=== PATIENT | male | born 1970 | race Hispanic/Latino ===

== ENCOUNTER 2025-10-22 09:12 | Inpatient (IN) | payer SELFPAY ==
[2025-10-22] VITALS (19 sets, daily range): BP systolic 107–137; BP diastolic 53–79; PULSE 109–125; RESP 16–20; TEMP 97.5–99.5; O2SAT 96–97
[~2025-10-22] VITALS: Ht 170.2 cm; Wt 86.6 kg
--- NOTE | 2025-10-22 09:34 | ERN ---
General Chief Complaint: Hip Pain/Injury Stated Complaint: HIP PAIN Time Seen by MD: 09:15 Source: patient History of Present Illness Initial Comments Mr French, 55M came to ED with severe right-sided hip pain since 2 weeks. He reports pain started spontaneously after he woke up 2 weeks back and has been progressing since then, reports pain 12/10, impaired ambulation, mildly reduced by Advil. He reports he had an appointment with chiropractor 1 week later but came to the ED due to severe pain and need for imaging. He reports no trauma/surgery/fever. He denies intravenous drug use but reports occasional alcohol and marijuana use. Timing/Duration: getting worse Severity: severe Associated Symptoms: denies symptoms Allergies: Coded Allergies: No Known Allergies (Verified Allergy, 11/13/13) Past Medical History Past Medical History: No Pertinent History Past Surgical History: None Constitutional: (-) chills, (-) diaphoresis, (-) fever, (-) malaise, (-) weakne ss, (-) other documentation EENTM: (-) eye pain, (-) blurred vision, (-) tearing, (-) double vision, (-) e ar pain, (-) ear discharge, (-) nose pain, (-) nose congestion, (-) throat pain, (-) Throat swelling, (-) mouth pain, (-) tooth pain, (-) mouth swelling, (-) other documentation Respiratory: (-) cough, (-) orthopnea, (-) short of breath, (-) stridor, (-) wheezing, (-) other documentation Cardiovascular: (-) chest pain, (-) edema, (-) palpitations, (-) syncope, (-) dyspnea on exertion, (-) other documentation Gastrointestinal/Abdominal: (-) nausea, (-) vomiting, (-) diarrhea, (-) abdominal pain, (-) abdominal distention, (-) constipation, (-) rectal bleeding, (-) dark stool/melena, (-) other documentation Genitourinary: (-) penile discharge, (-) dysuria, (-) frequency, (-) hematuria, (-) pain, (-) other documentation Musculoskeletal: (+) muscle pain Skin: (+) change in color (right lateral thigh) Neuro: (-) altered mental status, (-) headache, (-) syncope, (-) paralysis, (-) numbness, (-) seizure, (-) pre-existing deficit, (-) tremors, (-) weakness, (-) dizziness, (-) slurred speech, (-) vertigo, (-) other documentation Psych: (-) depression, (-) suicidal ideation, (-) anxiety, (-) emotional problems, (-) auditory hallucinations, (-) visual hallucinations Hematologic/Lymphatic: (-) anemia, (-) blood clots, (-) easy bleeding, (-) easy bruising, (-) swollen glands, (-) other documentation Immunological/Allergic: (-) food allergy, (-) grass allergy, (-) mold allergy, (-) pollen allergy, (-) HIV/AIDS, (-) transplant, (-) othe documentation Review of Systems: was completed, & the rest were negative. Results Laboratory and Microbiology Lab and Micro Result MDM Differential diagnosis: Possible abscess/hematoma, mild thrombocytopenia, elevated creatinine The patient came to the ED with severe right lateral hip pain since 2 weeks In the ED we ordered ultrasound soft tissue right lateral thigh which showed fluid collection 8.5* 7.2 *7.3 We ordered CBC, BMP The patient received Rocephin 1 g, Norflex and [id number] mg IV The patient meets the criteria for inpatient admission and will be admitted in the hospital under hospitalist care ED Course Vital Signs Date Time Temp Pulse Resp B/P (MAP) Pulse Ox O2 Delivery O2 Flow Rate FiO2 10/22/25 09:12 97.9 113 20 114/70 95 DX & DISP Disposition: Inpatient Decision to Admit Time: 11:39 Departure Impression: Primary Impression: Abscess of right thigh Critical Time: 30 minutes Condition: Stable Referrals: SELF,REFERRAL (PCP) MAKENZIE CROSS MD Oct 22, 2025 09:34 ROME SMITH MD Oct 22, 2025 11:39
[2025-10-22] MEDS: ORPHENADRINE 60MG/2ML IM ONE (09:45)
[2025-10-22 09:51] LABS: NUCLEATED RED BLOOD CELLS 0.0 % (0.0-0.19); PLATELET COUNT (AUTO) 115.0 K/uL (130-400); RED BLOOD CELL COUNT(AUTO) 3.48 MIL/uL (4.50-6.20); RED CELL DISTRIBUTION WIDTH 14.0 % (11.0-15.5); WHITE BLOOD COUNT (AUTO) 9.9 K/uL (4.8-10.8)
--- NOTE | 2025-10-22 10:22 | HMCIMG ---
EXAM: Lower Extremity Nonvascular Soft Tissue Ultrasound CLINICAL HISTORY: Hip Pain TECHNIQUE: Real-time ultrasound scan of the right lower extremity with image documentation. COMPARISON: None provided. FINDINGS: SOFT TISSUES: Fluid collection measuring 8.5 x 7.2 x 7.3 cm in the right lateral hip region, in the deep subcutaneous plane, beneath the region of pain and redness. IMPRESSION: Fluid collection measuring 8.5 x 7.2 x 7.3 cm in the right lateral hip region, beneath the region of pain and redness, suggestive of an abscess. /[place]
[2025-10-22 10:34] LABS: CREATININE 1.5 mg/dL (0.5-1.3); GLOMERULAR FILTR. RATE CALC 54.0 mL/min (>90); GLUCOSE,RANDOM 275.0 mg/dL (70-105); SODIUM SERUM 129.0 mmol/L (136-145); UREA NITROGEN, BLOOD 22.0 mg/dL (7-18)
[2025-10-22] MEDS ORDERED: VANCOMYCIN PROTOCOL PER PHARMACY IV SCH (11:00)
--- NOTE | 2025-10-22 11:11 | EKG ---
[facility] Test Date: 2025-10-22 Test Time: 11:02:45 Pat Name: DEMETRICE SANCHEZ Department: [facility] Room: ED Gender: M [employer] Internship: [id number] : 1970 Requested By: GIA ENAMORADO Order Number: [id number] Reading MD: Francis Solomon Measurements Intervals Index Rate: 103 P: 12 GA: 150 QRS: 90 QRSD: 109 T: 37 QT: 368 QTc: 482 Interpretive Statements Sinus tachycardia No previous ECG available for comparison Electronically Signed On 10-22-2025 13:17:24 CHILD PSYCHOLOGIST by Francis Solomon Please click the below link to view image of tracing.
[2025-10-22] MEDS: 0.9%NACL 1000ML 1,000 ML IV SCH ×2 (11:24→22:30)
--- NOTE | 2025-10-22 11:26 | HP ---
[facility] PHYSICAL Date of Service: Oct 22, 2025 Time of Service: 11:14 HISTORY OF PRESENT ILLNESS: This is a 55-year-old male with no significant past medical history who presented to the hospital secondary to right hip pain. States his symptoms have been ongoing for the past two weeks. He noted some swelling in the right inner thigh on the anterior thigh. The small nodule started getting bigger and he was having pain with ambulation. He has been using crutches at home to walk. 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 Denied any cuts or scrapes to the inner thigh. Denied any fever, chills, chest pain, shortness of breath, abdominal pain, nausea, vomiting. Denied any changes to his bowel movement. He has been taking Advil at home. He did not take any antibiotics at home. Denied any history of diabetes. Labs were notable for white count of 9.9, hemoglobin was 12.2, MCV was 100.9, platelet count was 115 K, sodium was 129, potassium was 3.8, chloride was 95, b icarb was , creatinine was 1.5, blood glucose was 275, calcium was 8.0 Patient underwent a ultrasound of the right inner thigh which showed fluid collection measuring 8.5 x 7.2 x 7.3 cm in the right lateral hip region. This was concerning For abscess General surgery was consulted by ER provider. REVIEW OF SYSTEMS CONSTITUTIONAL: Denies fevers, chills, or night sweats. No unintentional weight loss reported. NEUROLOGICAL: Denies headache, amaurosis fugax, motor weakness, sensory deficit, vertigo/spinning sensation, gait abnormalities, or tremors. ENT: No hearing loss, otalgia, otorrhea, rhinitis, rhinorrhea, hoarseness, or sore throat. CARDIOVASCULAR: Denies any exertional angina, dyspnea on exertion, orthopnea, paroxysmal nocturnal dyspnea, palpitations, life-threatening arrhythmias, claudication. PULMONARY: Denies any shortness of breath, cough, phlegm/sputum, hemoptysis, pleuritic chest pain. SLEEP: Denies morning headaches, daytime somnolence or napping. Denies difficulty falling asleep, staying asleep, waking from sleep. Denies knowledge of snoring. GASTROINTESTINAL: Denies any type of dysphagia to either liquids or solids. Denies nausea, vomiting, pyrosis, early satiety, abdominal pain, diarrhea, constipation, or changes in stool consistency or caliber. Denies coffee-ground emesis, hematemesis, hematochezia, or melanotic stools. GENITOURINARY: Denies frequency, urgency, nocturia, hematuria or incontinence (Storage/Irritative symptoms.) Low urinary stream, straining to void, urinary intermittency or hesitancy, splitting of the voiding stream, terminal dribbling. ENDOCRINOLOGIC: Denies polyuria, polydipsia, polyphagia or heat/cold intolerances. HEMATOLOGIC: Denies thrombophilia/previous clots, or coagulopathy/bleeding disorders. ONCOLOGIC: Denies personal history of malignancy. DERMATOLOGIC: POSITIVE FOR REDNESS AND SWELLING IN THE RIGHT INNER THIGH PSYCHIATRIC: Denies any suicidal or homicidal ideation. Denies hallucinations. Musculoskeletal: Positive for pain in the right inner thigh PAST MEDICAL HISTORY: No Significant past medical history PAST SURGICAL HISTORY: Denied any previous surgical history PAST SOCIAL HISTORY: He smokes marijuana occasionally. Also drinks six pack every weekend for at least five years. Denied any tobacco use, IV drug use FAMILY HISTORY: Denied any pertinent family history Coded Allergies: No Known Allergies (Verified Allergy, 11/13/13) PHYSICAL EXAM GENERAL APPEARANCE: The patient is awake, alert, and oriented, in no acute card iopulmonary distress. NEUROLOGICAL: Cranial nerves II-XII grossly intact. Motor is 5/5 in bilateral upper and lower extremities proximal to distal. No sensory deficits. HEENT: Face is symmetric. Pupils are equal and reactive. Extraocular movements are intact. NECK: Supple. No JVD. No thyromegaly. No submental, submandibular, pre- /postauricular, occipital or supraclavicular lymphadenopathy. CHEST: Normal chest expansion. No Telemetry. LUNGS: Absence of any rales, rhonchi or any wheezing. CARDIOVASCULAR: Regular. S1 and S2 normal. No appreciable rubs, murmurs or gallops. ABDOMEN: Soft, nontender, and nondistended. There is no rebound, voluntary guarding, or rigidity. : Deferred. No Taylor. EXTREMITIES: Non-edematous and not cyanotic. No clubbing. Good capillary refill. SKIN: There is redness on the right lateral aspect of the hip. There is induration and swelling noted in the right inner thigh. Area is tender to palpation Vital Sign (Last 24 Hours) 10/22/25 11:00 Temp 98.1 Pulse 105 Resp 12 B/P (MAP) 119/69 Pulse Ox 95 O2 Delivery Room Air* O2 Flow Rate 0 FiO2 21 LABS: Laboratory: Test 10/22/25 09:43 Range/Units White Blood Count 9.9 4.8-10.8 K/uL Red Blood Count 3.48 L 4.50-6.20 MIL/uL Hemoglobin 12.2 L 14.0-18.0 g/dL Hematocrit 35.1 L 42-54 % Mean Corpuscular Volume 100.9 H 79-99 fL Mean Corpuscular Hemoglobin 35.1 H 27.0-33.0 pg Mean Corpuscular Hemoglobin Concent 34.8 32.0-36.0 g/dL Red Cell Distribution Width 14.0 11.0-15.5 % Platelet Count 115 L 130-400 K/uL Mean Platelet Volume 10.2 7.5-10.5 fL Nucleated Red Blood Cells 0.0 0.0-0.19 % Sodium Level 129 L 136-145 mmol/L Potassium Level 3.8 3.5-5.1 mmol/L Chloride Level 95 L 101-111 mmol/L Carbon Dioxide Level 21 21-32 mmol/L Blood Urea Nitrogen 22 H 7-18 mg/dL Creatinine 1.5 H 0.5-1.3 mg/dL Glomerular Filtration Rate Calc 54 >90 mL/min Random Glucose 275 H 70-105 mg/dL Total Calcium 8.0 L 8.5-10.1 mg/dL Current Medications Medications (Trade) Dose Ordered Sig/Denise Route PRN Reason Start Time Stop Time Status Last Admin Dose Admin Acetaminophen (TYLenol 500MG TAB) 500 mg Q6H PRN PO MILD PAIN (1-3) 10/22/25 11:00 11/21/25 10:59 Enoxaparin Sodium (Lovenox) 40 mg DAILY SQ 10/23/25 09:00 11/22/25 08:59 Famotidine (Pepcid 20mg Vial) 20 mg BID IV 10/22/25 21:00 11/21/25 20:59 Hydromorphone HCl (DiLAUDid 0.5MG INJ) 0.25 mg Q6H PRN IVP SEVERE PAIN (7-10) 10/22/25 11:00 10/27/25 10:59 Insulin Human Regular (humuLIN R 100 UNIT/ML 3ML) INSULIN SLIDING SCAL... Q6H6 SQ 10/22/25 12:00 11/21/25 11:59 Sodium Chloride 1,000 ml @ 100 mls/hr Q10H IV 10/22/25 11:00 11/21/25 10:59 Vancomycin HCl (Vancomycin Protocol) 1 each AD IV 10/22/25 11:00 11/05/25 10:59 UNV DIAGNOSTICS / RADIOLOGY: [ ] ASSESSMENT: Right inner thighs swelling concerning for possible abscess differential abscess versus hematoma History of alcohol use Mild hyponatremia Acute kidney injury Mild thrombocytopenia Dehydration Elevated LFTs Severe hypoalbuminemia secondary to protein calorie malnutrition Hyperglycemia secondary to suspected uncontrolled diabetes mellitus type 2 History of marijuana use PLAN: - patient to be admitted to medical-surgical unit with telemetry -in reference to right inner thigh swelling with fluid collection. Patient will be started on vancomycin, cefepime and Flagyl. We will also obtain a CT hip and right lower extremity. We will request consultation with General surgery. We will also obtain ID consultation. -patient to be started on NS for gentle hydration -check TSH, hemoglobin A1c -obtain a liver ultrasound -obtain home medications which will be reconciled once available -check procalcitonin, CRP -obtain a blood ketone and UA. Obtain a renal ultrasound - start patient on Sliding scale insulin -further orders per hospitalization course. Advanced Care Planning Which of the following were discussed: Hospice care: Yes __ No x_ Therapeutic options: Yes __ No __ Advance directives: Yes __ No __ Other discussions: Discussed with who?: patient (Patient, family or surrogates) Voluntary nature of this service was explained to the patient? Yes _x_ No __ Amount of time spent: 25 minutes GIA Potter MD, MD Oct 22, 2025 11:26
[2025-10-22 11:33] LABS: INR 1.21 (0.85-1.15)
[2025-10-22 11:39] LABS: ASPARTATE AMINOTRANSFERASE 92.0 U/L (10-37); TOTAL PROTEIN, SERUM 7.8 g/dL (6.0-8.3)
[2025-10-22] MEDS: VANCOMYCIN 2GM/500 ML BAG 500 ML IV ONE (12:51)
--- NOTE | 2025-10-22 13:08 | HMCIMG ---
EXAM: CT Pelvis without Intravenous Contrast. CLINICAL HISTORY: right hip pain TECHNIQUE: Axial computed tomography images of the pelvis without without intravenous contrast. CONTRAST: None. COMPARISON: None provided. FINDINGS: HIP JOINTS: No dislocation. The joint spaces are normal. BONES: No acute fracture or focal osseous lesion. No suspicious focal osseous lesions. SOFT TISSUES: The right gluteal musculature appears asymmetrically enlarged and heterogeneous raising concern for myositis and an intramuscular collection (hematoma or abscess). There is edema within the overlying soft tissues and thickening of the overlying skin suggesting contusion versus cellulitis, clinical correlation is advised. IMPRESSION: 1. Right gluteal musculature enlargement and heterogeneity, concerning for myositis and intramuscular collection (hematoma or abscess). Overlying soft tissue edema and skin thickening, suggestive of contusion versus cellulitis. Clinical correlation is advised, and if warranted recommend contrast-enhanced MR imaging of the pelvis for further evaluation. 2. No acute fracture or dislocation. /[place]
--- NOTE | 2025-10-22 13:10 | HMCIMG ---
EXAM: CT right hip and femur, without IV contrast CLINICAL HISTORY: Right thigh abscess. TECHNIQUE: Axial images were acquired through the right femur without intravenous contrast. Reformatted images were reviewed. COMPARISON: Ultrasound soft tissue lower extremity dated 10/22/2025 10:54 EST. FINDINGS: BONES: No acute fracture is noted. No lytic or blastic osseous lesion is identified. Femoral head contour is preserved. JOINTS: No hip joint dislocation or subluxation is seen. No CT evidence of septic arthritis or significant hip joint effusion on this non-contrast study. SOFT TISSUES: A large complex fluid collection is present along the course of the right tensor fascia bruce, measuring approximately 9.7 x 4.5 x 4.8 cm, extending into the trochanteric bursa region and superficially into the deep subcutaneous planes of the proximal anterior, anterolateral, and posterolateral thigh, with surrounding soft tissue stranding compatible with extensive cellulitis. Posteriorly, the collection extends along the fascial planes of the gluteus medius, with an additional collection measuring approximately 8.4 x 8.0 cm located between the gluteus jaci and gluteus medius muscles and extending within the gluteus medius muscle belly, consistent with a deep intramuscular and peribursal abscess. No radiopaque foreign body or soft tissue gas is identified. IMPRESSION: * Large multiloculated fluid collections centered along the right tensor fascia bruce and trochanteric bursa region with extension into the deep subcutaneous tissues of the proximal thigh, and additional 8.4 x 8.0 cm collection between and within the right gluteus medius and jaci muscles, consistent with extensive peritrochanteric and gluteal intramuscular abscesses with overlying cellulitis. * No acute fracture, aggressive osseous lesion, or CT evidence of septic arthritis of the right hip on this non-contrast examination. /[place]
[2025-10-22 13:27] LABS: APPEARANCE,URINE CLOUDY (CLEAR); GLUCOSE, URINE (UA) 50 mg/dL (NEGATIVE); LEUKOCYTE ESTERASE ,URINE 500 Leu/uL (NEGATIVE); NITRATE,URINE NEGATIVE (NEGATIVE); OCCULT BLOOD,URINE LARGE (NEGATIVE)
[2025-10-22 13:30] LABS: CREATININE,URINE RANDOM 136.93 mg/dL (30-135)
--- NOTE | 2025-10-22 13:30 | HMCIMG ---
EXAM: US Retroperitoneum, Renal. CLINICAL HISTORY: tj TECHNIQUE: Real-time ultrasound of the retroperitoneum with image documentation. COMPARISON: None provided. FINDINGS: RIGHT KIDNEY: Normal in size and contour. It measures 9.7 x 5.4 x 5.5 cm. No renal mass or calculus. No hydronephrosis. LEFT KIDNEY: Normal in size and contour. It measures 11.2 x 5.4 x 4.5 cm. No renal mass or calculus. No hydronephrosis. BLADDER: Unremarkable as visualized. The urinary bladder wall thickness is 3 mm. MISCELLANEOUS: Increase in the intestinal air. No other significant abnormality is evident. IMPRESSION: 1. No acute renal or retroperitoneal findings. /[place]
[2025-10-22 13:33] LABS: ADD UA MICROSCOPIC YES
[2025-10-22 13:34] LABS: AMPHET/METH SCREEN,URINE NEGATIVE (NEGATIVE); BARBITURATE SCREEN, URINE NEGATIVE (NEGATIVE); CANNABINOID SCREEN,URINE POSITIVE (NEGATIVE); COCAINE SCREEN,URINE NEGATIVE (NEGATIVE)
[2025-10-22 13:51] LABS: SQUAMOUS EPITHELIAL CELL,UR RARE /HPF (0-2)
--- NOTE | 2025-10-22 14:05 | NUR ---
TRIED CALLING REPORT AND SPOKE TO REMY BRODERICK, STATED SHE IS IN ANOTHER PATIENTS ROOM AND WOULD CALL ME BACK IN 15 MIN, PATIENT RESTING IN BED, CALL LIGHT IN REACH
--- NOTE | 2025-10-22 14:17 | NUR ---
DCP:HOME Pt currently lives at home with his . Pt denies having any DME, home health, or provider services. Pt states that he is able to complete ADLs independently. Pt does not have a PCP, SW provided pt with a list of community resources. At DC pt will want to go home and family can assist with transportation.
--- NOTE | 2025-10-22 18:59 | CONS ---
CONSULT NOTE: REQUESTING PHYSICIAN: Dr. Gamboa REASON FOR CONSULT: Right hip pain HISTORY OF PRESENT ILLNESS: Mr French, 55M came to ED with severe right-sided hip pain for 2 weeks. He reports pain started spontaneously after he woke up 2 weeks back and has been progressing since then, reports pain 12/10, impaired ambulation, mildly reduced by Advil. He reports he had an appointment with chiropractor 1 week later but came to the ED due to severe pain and need for imaging. He reports no trauma/surgery/fever. He denies intravenous drug use but reports occasional alcohol and marijuana use. The patient was evaluated in the emergency room and he was found to have noncontrolled diabetes but the patient was unaware of it as well as the presence of what seems to be an abscess in the lateral aspect of the right hip. We were consulted for further medical/s urgical treatment Past medical history: Patient is not aware that he was diabetic Past Surgical History: None No known drug allergies. Social history: The patient denies use of tobacco but he does smokes marijuana at least once a week and drinks one six pack of beer a weekend. Denies use of cocaine or injecting anything into his body. Review of Systems Constitutional: (-) chills, (-) diaphoresis, (-) fever, (-) malaise, (-) weakness, (-) other documentation EENTM: (-) eye pain, (-) blurred vision, (-) tearing, (-) double vision, (-) ear pain, (-) ear discharge, (-) nose pain, (-) nose congestion, (-) throat pain, (-) Throat swelling, (-) mouth pain, (-) tooth pain, (-) mouth swelling, (-) other documentation Respiratory: (-) cough, (-) orthopnea, (-) short of breath, (-) stridor, (-) wheezing, (-) other documentation Cardiovascular: (-) chest pain, (-) edema, (-) palpitations, (-) syncope, (-) dyspnea on exertion, (-) other documentation Gastrointestinal/Abdominal: (-) nausea, (-) vomiting, (-) diarrhea, (-) abdominal pain, (-) abdominal distention, (-) constipation, (-) rectal bleeding, (-) dark stool/melena, (-) other documentation Genitourinary: (-) penile discharge, (-) dysuria, (-) frequency, (-) hematuria, (-) pain, (-) other documentation Musculoskeletal: (+) muscle pain Skin: (+) change in color (right lateral thigh) Neuro: (-) altered mental status, (-) headache, (-) syncope, (-) paralysis, (-) numbness, (-) seizure, (-) pre-existing deficit, (-) tremors, (-) weakness, (-) dizziness, (-) slurred speech, (-) vertigo, (-) other documentation Psych: (-) depression, (-) suicidal ideation, (-) anxiety, (-) emotional problems, (-) auditory hallucinations, (-) visual hallucinations Hematologic/Lymphatic: (-) anemia, (-) blood clots, (-) easy bleeding, (-) easy bruising, (-) swollen glands, (-) other documentation Immunological/Allergic: (-) food allergy, (-) grass allergy, (-) mold allergy, (-) pollen allergy, (-) HIV/AIDS, (-) transplant, (-) othe documentation Review of Systems: was completed, & the rest were negative. Physical exam: On physical examination the patient is awake, alert and oriented x3 but in severe distress secondary to pain in the right hip area. Musculoskeletal assessment shows the presence of a right hip gluteal and trochanteric area with significant swelling and redness and tension in the area. I do not feel any fluctuant mass. The redness extends to the anterior aspect of the groin but he has not pain with range of motion of the hip. I do not palpate any lymph nodes. The distal neurovascular exam is normal. Radiologic studies: The patient has a CT scan of the pelvic area as well as the right hip that shows the presence of soft tissue swelling of the subcutaneous area and possible axis of the gluteus muscle. Assessment: Right hip trochanteric/gluteus abscess. Plan: The patient will be admitted and taken to the operating room for an I and D of the affected area in the right hip. Irrigation and excisional debridement with a possible wound over drains or packing with a wound VAC. The plan is to follow-up with a 2nd I and D in 2-3 days. The patient understands the need for the procedure and agrees to sign the consent form. VANESSA OJEDA MD Oct 22, 2025 18:58
[2025-10-22] MEDS ORDERED: LIDOCAINE PF 100MG/5ML (2%) SYRINGE 5ML ONE (20:24)
[2025-10-22] MEDS ORDERED: SUCCINYLCHOLINE CHLORIDE 20 MG/ML 10 ML VIAL ONE (20:26)
[2025-10-22] MEDS ORDERED: MIDAZOLAM HCL 1 MG/ML 2ML VIAL ONE (20:27)
[2025-10-22] MEDS ORDERED: GLYCOPYRROLATE 0.2 MG/ML 5 ML VIAL ONE (21:54)
[2025-10-22] MEDS ORDERED: NEOSTIGMINE METHYLSULFATE 1MG/ML IV ONE (21:54)
--- NOTE | 2025-10-22 22:07 | OP ---
Operative Note: DATE OF PROCEDURE: 10/22/25 SURGEON: VANESSA OJEDA MD [employer] REPAIRER: [Freddy Linares CFA] ANESTHESIA: [General anesthesia] ANESTHESIOLOGIST/DIRECTOR TRIAL: [Andre Aviles CRNA] PREOPERATIVE DIAGNOSIS: [Right hip pertrochanteric subcutaneous abscess] POSTOPERATIVE DIAGNOSIS: [Right hip intramuscular abscess involving the tensor fascia bruce with the extension to the posterior deep hip space] PROCEDURE: [Right hip incision and drainage of intramuscular abscess, excisional debridement and irrigation and temporary closure over drains] ESTIMATED BLOOD LOSS: [250 mL] INDICATIONS: [The patient is a 55-year-old male with a history of couple of weeks with the pain to the right hip area that progressing to redness and swelling. The patient was admitted to the medical service with a diagnosis of a possible hip abscess. CT scan reflects this. The patient is brought to the operating room for an incision and drainage procedure that he understood, risks, benefits and possible complications and agreed to sign the consent form] DESCRIPTION OF PROCEDURE: [After adequate general anesthesia was achieved the p atient was placed in the left lateral decubitus the right lower extremity prepped and draped then in the usual manner. The area of the right hip has a an induration and redness and we proceeded to make a longitudinal incision going from a proximally the tip of the greater trochanter down the shaft of the femur going through the skin and then the subcutaneous tissue was opened which was noted to be extremely swollen but no purulence. Then we proceeded to open the tensor fascia bruce and this produced significant amount of purulent material which tracked down the proximal thigh and then after elevation noted that also tracked to the deep posterior compartment of the hip were large amount of purulent material was aspirated. The muscle of the tensor fascia bruce proximally was noted to be slightly necrotic including the fascia and we proceeded to trim some of this and use the curette to remove some of the muscle. Cultures were sent to the lab. After all the purulent material was drained and we did a sharp debridement of necrotic tissue we proceeded then to irrigate the wound with 6 L of antibiotic solution containing Ancef using jet lavage. After the irrigation was completed we proceeded then to reapproximate the tensor fascia bruce with interrupted sutures with the 1. Prolene and then the skin was approximated with a 2. Nylon sutures in a vertical mattress fashion. Previous with the closure two small incisions were carried down proximally through the skin and then two JOSEFINA drains were passed through this incisions position one along the tensor fascia bruce then the through the thigh and the other one through the posterior compartment. The drains were secured with 3-0 nylon sutures to the skin. Xeroform, 4x4s and ABDs were applied and secured with a through the skin and the drains were connected to suction. The patient was then transferred to his bed and taken to recovery room for follow-up by anesthesia after being awakened and extubated. There were no complications with the procedure.] VANESSA OJEDA MD Oct 22, 2025 22:07
[2025-10-22] MEDS ORDERED: HYDROcodone/APAP 5/325 1 TAB TABLET PO PRN (22:30)
[2025-10-22] MEDS ORDERED: FERROUS FUMARATE 324 MG TABLET PO PRN (22:30)
[2025-10-22] MEDS ORDERED: CALCIUM CARB 500MG PO PRN (22:30)
[2025-10-23] VITALS (11 sets, daily range): BP systolic 93–119; BP diastolic 44–72; PULSE 85–113; RESP 16–18; TEMP 98–98.6; O2SAT 98
[2025-10-23] MEDS: FAMOTIDINE 20MG VIAL IV SCH (01:09)
[2025-10-23 06:43] LABS: CREATININE 1.5 mg/dL (0.5-1.3); GLOMERULAR FILTR. RATE CALC 54.0 mL/min (>90); GLUCOSE,RANDOM 236.0 mg/dL (70-105); SODIUM SERUM 134.0 mmol/L (136-145); UREA NITROGEN, BLOOD 24.0 mg/dL (7-18)
[2025-10-23 06:46] LABS: INR 1.35 (0.85-1.15)
[2025-10-23 07:18] LABS: IMMATURE GRANULOCYTE ABSOLUTE 0.09 K/uL (0-1); NUCLEATED RED BLOOD CELLS 0.0 % (0.0-0.19); PLATELET COUNT (AUTO) 100 K/uL (130-400); RED BLOOD CELL COUNT(AUTO) 2.72 MIL/uL (4.50-6.20); RED CELL DISTRIBUTION WIDTH 14.5 % (11.0-15.5); WHITE BLOOD COUNT (AUTO) 11.2 K/uL (4.8-10.8)
--- NOTE | 2025-10-23 08:36 | PN ---
Postop day 1. Status post I and D of gluteal muscles abscess with closure over drains Vital signs stable. The patient has a longer being febrile. Adequate pain control. Has not requested pain medication since coming to the room. Drain output with 100 mL of serosanguineous material. Dressing intact. Drain is intact. Mild edema of the thigh as expected and distal neurovascular exam is normal. Assessment: Status post intramuscular abscess tensor fascia bruce area with the expansion into the posterior hip deep space. Plan: I antibiotics as per ID. G stains positive for gram-positive cocci in pairs and in cluster, final ID pending I have asked the nurse to call physical therapist that the patient can be assisted to ambulate with the use of a walker, weight-bearing as tolerated and to try to sit in the chair for a while. Continue with incentive spirometry exercises. Continue with the anticoagulation and I plan to take him back to the OR on morning. Vitals/Labs Vital Signs Date Time Temp Pulse Resp B/P (MAP) Pulse Ox O2 Delivery O2 Flow Rate FiO2 10/23/25 04:55 98.2 89 17 94/55 96 Nasal Cannula 2.0 24 Laboratory Tests 10/22/25 09:43 10/23/25 06:28 10/23/25 06:59 Microbiology Date/Time Source Procedure Growth Status 10/22/25 13:14 Urine,Clean Catch - Final Complete Medications Current Medications Orphenadrine Citrate 60 mg ONCE ONCE IM Last administered on 10/22/25at 09:45; Start 10/22/25 at 09:30; Stop 10/22/25 at 09:35; Status DC Ketorolac Tromethamine 15 mg ONCE ONCE IM Last administered on 10/22/25at 09:45; Start 10/22/25 at 09:30; Stop 10/22/25 at 09:35; Status DC Ceftriaxone Sodium 1 gm ONCE ONCE IVPB Last administered on 10/22/25at 10:53; Start 10/22/25 at 10:30; Stop 10/22/25 at 10:36; Status DC Enoxaparin Sodium 40 mg DAILY SQ; Start 10/23/25 at 09:00; Stop 11/22/25 at 08:59 Famotidine 20 mg BID IV Last administered on 10/23/25at 01:09; Start 10/22/25 at 21:00; Stop 11/21/25 at 20:59 Sodium Chloride 1,000 ml @ 100 mls/hr Q10H IV Last administered on 10/23/25at 07:44; Start 10/22/25 at 11:00; Stop 11/21/25 at 10:59 Vancomycin HCl 1 each AD IV; Start 10/22/25 at 11:00; Stop 11/05/25 at 10:59 Hydromorphone HCl 0.25 mg Q6H PRN IVP Last administered on 10/22/25at 15:16; Start 10/22/25 at 11:00; Stop 10/27/25 at 10:59 Acetaminophen 500 mg Q6H PRN PO; Start 10/22/25 at 11:00; Stop 11/21/25 at 10:59 Insulin Human Regular INSULIN SLIDING SCAL... Q6H6 SQ Last administered on 10/23/25at 05:03; Start 10/22/25 at 12:00; Stop 11/21/25 at 11:59 Vancomycin HCl 500 ml @ 250 mls/hr ONCE ONCE IV Last administered on 10/22/25at 12:51; Start 10/22/25 at 12:00; Stop 10/22/25 at 13:59; Status DC Cefepime HCl 1 gm Q12H IVPB Last administered on 10/23/25at 03:15; Start 10/22/25 at 15:00; Stop 11/01/25 at 14:59 Vancomycin HCl 250 ml @ 125 mls/hr Q24H IV; Start 10/23/25 at 12:00; Stop 11/02/25 at 11:59 Metronidazole/ Sodium Chloride 100 ml @ 100 mls/hr Q8H IVPB Last administered on 10/23/25at 01:09; Start 10/22/25 at 12:00; Stop 10/23/25 at 04:20; Status DC Lidocaine HCl 100 mg STK-MED ONCE .ROUTE; Start 10/22/25 at 20:24; Stop 10/22/25 at 20:25; Status DC Ketamine HCl 50 mg STK-MED ONCE .ROUTE; Start 10/22/25 at 20:25; Stop 10/22/25 at 20:25; Status DC Succinylcholine Chloride 200 mg STK-MED ONCE .ROUTE; Start 10/22/25 at 20:26; Stop 10/22/25 at 20:26; Status DC Propofol 200 mg STK-MED ONCE IV; Start 10/22/25 at 20:26; Stop 10/22/25 at 20:27; Status DC Midazolam HCl 2 mg STK-MED ONCE .ROUTE; Start 10/22/25 at 20:27; Stop 10/22/25 at 20:27; Status DC Rocuronium Sylvester 50 mg STK-MED ONCE .ROUTE; Start 10/22/25 at 20:27; Stop 10/22/25 at 20:27; Status DC Fentanyl Citrate 100 mcg STK-MED ONCE .ROUTE; Start 10/22/25 at 20:27; Stop 10/22/25 at 20:27; Status DC Cefazolin Sodium 1 gm STK-MED ONCE .ROUTE; Start 10/22/25 at 20:40; Stop 10/22/25 at 20:40; Status DC Ondansetron HCl 4 mg STK-MED ONCE .ROUTE; Start 10/22/25 at 21:54; Stop 10/22/25 at 21:54; Status DC Glycopyrrolate 1 mg STK-MED ONCE .ROUTE; Start 10/22/25 at 21:54; Stop 10/22/25 at 21:54; Status DC Neostigmine Methylsulfate 10 mg STK-MED ONCE IV; Start 10/22/25 at 21:54; Stop 10/22/25 at 21:54; Status DC Acetaminophen 100 ml @ As Directed STK-MED ONCE .ROUTE Last administered on 10/22/25at 22:12; Start 10/22/25 at 22:08; Stop 10/22/25 at 22:08; Status DC Ondansetron HCl 4 mg STK-MED ONCE .ROUTE Last administered on 10/22/25at 22:19; Start 10/22/25 at 22:13; Stop 10/22/25 at 22:13; Status DC Fentanyl Citrate 100 mcg STK-MED ONCE .ROUTE Last administered on 10/22/25at 22:19; Start 10/22/25 at 22:15; Stop 10/22/25 at 22:15; Status DC Fentanyl Citrate 100 mcg STK-MED ONCE .ROUTE Last administered on 10/22/25at 22:23; Start 10/22/25 at 22:21; Stop 10/22/25 at 22:21; Status DC Sodium Chloride 1,000 ml @ 100 mls/hr Q10H IV; Start 10/22/25 at 22:30; Stop 10/23/25 at 22:29 Polyethylene Glycol 17 gm DAILY PO; Start 10/23/25 at 09:00; Stop 11/22/25 at 08:59 Psyllium Hydrophilic Mucilloid 1 tbs DAILYLUNCH PO; Start 10/23/25 at 12:00; Stop 11/22/25 at 11:59 Bisacodyl 10 mg DAILY PRN PO; Start 10/24/25 at 22:30; Stop 11/23/25 at 22:29 Bisacodyl 10 mg DAILY PRN RC; Start 10/25/25 at 22:30; Stop 11/24/25 at 22:29 Ferrous Fumarate 324 mg DAILY PRN PO; Start 10/22/25 at 22:30; Stop 11/21/25 at 22:29 Calcium Carbonate 500 mg Q12H PRN PO; Start 10/22/25 at 22:30; Stop 11/21/25 at 22:29 Diphenhydramine HCl 25 mg Q6H PRN PO; Start 10/22/25 at 22:30; Stop 10/22/25 at 22:52; Status DC Diphenhydramine HCl 25 mg Q6H PRN IVP; Start 10/22/25 at 22:30; Stop 11/21/25 at 22:29 Acetaminophen/ Hydrocodone Bitart Q4H PRN PO; Start 10/22/25 at 22:30; Stop 10/22/25 at 22:54; Status DC Hydromorphone HCl 2 mg Q2H PRN IVP; Start 10/22/25 at 22:30; Stop 10/27/25 at 22:29 Acetaminophen/ Hydrocodone Bitart 1 tab Q6H PRN PO; Start 10/22/25 at 23:00; Stop 10/27/25 at 22:59 Acetaminophen/ Hydrocodone Bitart 1 tab Q6H PRN PO; Start 10/22/25 at 23:00; Stop 10/29/25 at 22:59 Metronidazole/ Sodium Chloride 100 ml @ 100 mls/hr Q8H IVPB; Start 10/23/25 at 09:00; Stop 11/02/25 at 08:59 VANESSA OJEDA MD Oct 23, 2025 08:36
[2025-10-23] MEDS: ENOXAPARIN SODIUM 40 MG/0.4 ML SYRINGE SQ SCH (09:53)
[2025-10-23] MEDS: HYDROcodone/APAP 5/325 1 TAB TABLET PO PRN (10:01)
[2025-10-23] MEDS: PSYLLIUM SEED 1 EACH PACKET PO SCH (12:00)
--- NOTE | 2025-10-23 12:20 | PN ---
[facility] PROGRESS NOTE Date of Service: Oct 23, 2025 Time of Service: 12:18 SUBJECTIVE: 10/23 patient remains admitted to the medical floor, comfortably in bed, the time of my visit alert oriented x3, getting IV fluids, IV antibiotics. Patient admitted secondary to right hip intramuscular abscess involving the tensor fascia bruce with the extension to the posterior deep high space, status post incision and drainage 10/22/2025. POD #1. Patient tolerated the procedure well. Currently hemodynamically stable, afebrile, saturating normal on room air. WBC of 11.2, hemoglobin 9.6, hematocrit 37.7, platelet count of 100. BUN of 24, creatinine 1.5. Continue the patient on broad-spectrum IV antibiotics, continue supportive care with IV fluids, continue to follow orthopedic input recommendation, follow results of cultures, adjust antibiotics accordingly. Infectious Disease consultation requested, we will follow input and recommendation. REVIEW OF SYSTEMS CONSTITUTIONAL: Denies fevers, chills, or night sweats. No unintentional weight loss reported. NEUROLOGICAL: Denies headache, amaurosis fugax, motor weakness, sensory deficit, vertigo/spinning sensation, gait abnormalities, or tremors. ENT: No hearing loss, otalgia, otorrhea, rhinitis, rhinorrhea, hoarseness, or sore throat. CARDIOVASCULAR: Denies any exertional angina, dyspnea on exertion, orthopnea, paroxysmal nocturnal dyspnea, palpitations, life-threatening arrhythmias, claudication. PULMONARY: Denies any shortness of breath, cough, phlegm/sputum, hemoptysis, pleuritic chest pain. SLEEP: Denies morning headaches, daytime somnolence or napping. Denies difficulty falling asleep, staying asleep, waking from sleep. Denies knowledge of snoring. GASTROINTESTINAL: Denies any type of dysphagia to either liquids or solids. Denies nausea, vomiting, pyrosis, early satiety, abdominal pain, diarrhea, constipation, or changes in stool consistency or caliber. Denies coffee-ground emesis, hematemesis, hematochezia, or melanotic stools. GENITOURINARY: Denies frequency, urgency, nocturia, hematuria or incontinence (Storage/Irritative symptoms.) Low urinary stream, straining to void, urinary intermittency or hesitancy, splitting of the voiding stream, terminal dribbling. ENDOCRINOLOGIC: Denies polyuria, polydipsia, polyphagia or heat/cold intolerances. HEMATOLOGIC: Denies thrombophilia/previous clots, or coagulopathy/bleeding diso rders. ONCOLOGIC: Denies personal history of malignancy. DERMATOLOGIC: POSITIVE FOR REDNESS AND SWELLING IN THE RIGHT INNER THIGH PSYCHIATRIC: Denies any suicidal or homicidal ideation. Denies hallucinations. Musculoskeletal: Positive for pain in the right inner thigh PHYSICAL EXAM GENERAL APPEARANCE: The patient is awake, alert, and oriented, in no acute cardiopulmonary distress. NEUROLOGICAL: Cranial nerves II-XII grossly intact. Motor is 5/5 in bilateral upper and lower extremities proximal to distal. No sensory deficits. HEENT: Face is symmetric. Pupils are equal and reactive. Extraocular movements are intact. NECK: Supple. No JVD. No thyromegaly. No submental, submandibular, pre- /postauricular, occipital or supraclavicular lymphadenopathy. CHEST: Normal chest expansion. No Telemetry. LUNGS: Absence of any rales, rhonchi or any wheezing. CARDIOVASCULAR: Regular. S1 and S2 normal. No appreciable rubs, murmurs or gallops. ABDOMEN: Soft, nontender, and nondistended. There is no rebound, voluntary guarding, or rigidity. : Deferred. No Taylor. EXTREMITIES: Non-edematous and not cyanotic. No clubbing. Good capillary refill. SKIN: There is redness on the right lateral aspect of the hip. There is induration and swelling noted in the right inner thigh. Area is tender to palpation Vital Signs (last 8hr) Date Time Temp Pulse Resp B/P (MAP) Pulse Ox O2 Delivery O2 Flow Rate FiO2 10/23/25 08:00 98.1 85 18 96/59 98 Nasal Cannula 2.0 10/23/25 04:55 98.2 89 17 94/55 96 Nasal Cannula 2.0 24 LABS: Laboratory: Test 10/23/25 10:54 10/23/25 06:59 10/23/25 06:28 10/22/25 15:58 Range/Units Whole Blood Glucose 252 H 70-110 MG/DL White Blood Count 11.2 H 4.8-10.8 K/uL Red Blood Count 2.72 #L 4.50-6.20 MIL/uL Hemoglobin 9.6 #L 14.0-18.0 g/dL Hematocrit 27.7 #L 42-54 % Mean Corpuscular Volume 101.8 H 79-99 fL Mean Corpuscular Hemoglobin 35.3 H 27.0-33.0 pg Mean Corpuscular Hemoglobin Concent 34.7 32.0-36.0 g/dL Red Cell Distribution Width 14.5 11.0-15.5 % Platelet Count 100 L 130-400 K/uL Mean Platelet Volume 9.9 7.5-10.5 fL Immature Granulocyte % (Auto) 0.8 0-1 % Neutrophils (%) (Auto) 81.4 H 40.0-77.0 % Lymphocytes (%) (Auto) 10.3 L 21.0-51.0 % Monocytes (%) (Auto) 6.6 3.0-13.0 % Eosinophils (%) (Auto) 0.5 0.0-8.0 % Basophils (%) (Auto) 0.4 0.0-5.0 % Neutrophils # (Auto) 9.1 H 1.8-7.7 K/uL Lymphocytes # (Auto) 1.2 1.0-4.8 K/uL Monocytes # (Auto) 0.7 0.1-1.0 K/uL Eosinophils # (Auto) 0.06 0.00-0.70 K/uL Basophils # (Auto) 0.04 0.00-0.20 K/uL Absolute Immature Granulocyte (auto 0.09 0-1 K/uL Nucleated Red Blood Cells 0.0 0.0-0.19 % Prothrombin Time 13.9 H 9.6-11.6 SEC Prothromb Time International Ratio 1.35 H 0.85-1.15 Sodium Level 134 L 136-145 mmol/L Potassium Level 4.1 3.5-5.1 mmol/L Chloride Level 103 101-111 mmol/L Carbon Dioxide Level 23 21-32 mmol/L Blood Urea Nitrogen 24 H 7-18 mg/dL Creatinine 1.5 H 0.5-1.3 mg/dL Glomerular Filtration Rate Calc 54 >90 mL/min Random Glucose 236 H 70-105 mg/dL Total Calcium 7.1 L 8.5-10.1 mg/dL Lactic Acid Level 1.9 0.8-2.5 mmol/L Test 10/22/25 13:14 10/22/25 12:08 10/22/25 09:43 Range/Units Urine Color DARK-YELLOW YELLOW Urine Appearance CLOUDY H CLEAR Urine pH 5.5 5.0-8.0 Urine Specific Bracey 1.019 1.001-1.031 Urine Protein 30 H NEGATIVE mg/dL Urine Glucose (UA) 50 H NEGATIVE mg/dL Urine Ketones NEGATIVE NEGATIVE mg/dL Urine Occult Blood LARGE H NEGATIVE Urine Nitrate NEGATIVE NEGATIVE Urine Bilirubin NEGATIVE NEGATIVE mg/dL Urine Urobilinogen >=8.0 H 0.2-1.0 mg/dL Urine Leukocyte Esterase 500 H NEGATIVE Christopher/uL Urine RBC TNTC H 0-1 /HPF Urine WBC TNTC H 0-1 /HPF Urine Squamous Epithelial Cells RARE 0-2 /HPF Urine Transitional Epithelial Cells RARE None Seen /HPF Urine Bacteria None None Seen /HPF Urine Random Creatinine 136.93 H 30-135 mg/dL Urine Random Sodium 18 L 40-220 mmol/l Urine Opiates Screen NEGATIVE NEGATIVE Urine Barbiturates Screen NEGATIVE NEGATIVE Urine Phencyclidine Screen NEGATIVE NEGATIVE Urine Amphetamines Screen NEGATIVE NEGATIVE Urine Benzodiazepines Screen NEGATIVE NEGATIVE Urine Cocaine Screen NEGATIVE NEGATIVE Urine Marijuana (THC) Screen POSITIVE H NEGATIVE Whole Blood Ketones Quantitative 0.2 0.0-0.6 mmol/L Activated Partial Thromboplast Time 26.7 26.3-35.5 SEC Hemoglobin A1c 7.9 H 4.0-6.0 % Estimated Average Glucose (eAG) 180 H 70-126 mg/dL Total Bilirubin 2.6 H 0.2-1.0 mg/dL Direct Bilirubin 1.6 H 0.0-0.3 mg/dL Aspartate Amino Transf (AST/SGOT) 92 H 10-37 U/L Alanine Aminotransferase (ALT/SGPT) 56 12-78 U/L Alkaline Phosphatase 143 H 50-136 U/L C-Reactive Protein, Quantitative 107.90 H 0.5-3.0 mg/L Total Protein 7.8 6.0-8.3 g/dL Albumin 1.8 L 3.5-5.0 g/dL Procalcitonin 0.94 H 0.05-0.5 ng/mL Thyroid Stimulating Hormone (TSH) 2.88 0.36-3.74 uIU/mL Current Medications Medications (Trade) Dose Ordered Sig/Denise Route PRN Reason Start Time Stop Time Status Last Admin Dose Admin Acetaminophen (TYLenol 500MG TAB) 500 mg Q6H PRN PO MILD PAIN (1-3) 12/8/25 11:00 11/21/25 10:59 Acetaminophen/ Hydrocodone Bitart (NORco 10) 1 tab Q6H PRN PO SEVERE PAIN (7-10) 10/22/25 23:00 10/29/25 22:59 Acetaminophen/ Hydrocodone Bitart (NORco 5/325MG) Q4H PRN PO MODERATE/SEVERE PAIN LEVEL 10/22/25 22:30 10/22/25 22:54 DC Acetaminophen/ Hydrocodone Bitart (NORco 5/325MG) 1 tab Q6H PRN PO MODERATE PAIN (4-6) 10/22/25 23:00 10/27/25 22:59 10/23/25 10:01 1 TAB Bisacodyl (DulcoLAX 5MG TAB) 10 mg DAILY PRN PO CONSTIPATION 10/24/25 22:30 11/23/25 22:29 Bisacodyl (DulcoLAX) 10 mg DAILY PRN RC CONSTIPATION 10/25/25 22:30 11/24/25 22:29 Calcium Carbonate (Oyster Shell Ca 500mg Tab) 500 mg Q12H PRN PO GIVE IF SERUM CA LESS THAN 8 10/22/25 22:30 11/21/25 22:29 Cefepime HCl (MAXipime 1 GM vial) 1 gm Q12H IVPB 10/22/25 15:00 11/01/25 14:59 10/23/25 03:15 1 GM Diphenhydramine HCl (BENAdryl CAP) 25 mg Q6H PRN PO ITCHING 10/22/25 22:30 10/22/25 22:52 DC Diphenhydramine HCl (BENAdryl INJ) 25 mg Q6H PRN IVP ITCHING 10/22/25 22:30 11/21/25 22:29 Enoxaparin Sodium (Lovenox) 40 mg DAILY SQ 10/23/25 09:00 11/22/25 08:59 10/23/25 09:53 40 MG Famotidine (Pepcid 20mg Vial) 20 mg BID IV 10/22/25 21:00 11/21/25 20:59 10/23/25 09:52 20 MG Ferrous Fumarate (Hemocyte) 324 mg DAILY PRN PO IF HEMOGLOBIN LESS THAN 9 10/22/25 22:30 11/21/25 22:29 Hydromorphone HCl (DiLAUDid 0.5MG INJ) 0.25 mg Q6H PRN IVP SEVERE PAIN (7-10) 10/22/25 11:00 10/27/25 10:59 10/22/25 15:16 0.25 MG Hydromorphone HCl (DiLAUDid 2MG INJ) 2 mg Q2H PRN IVP SEVERE PAIN (7-10) 10/22/25 22:30 10/27/25 22:29 Insulin Glargine (LANtus 100 UNITS/ML 10 ML VIAL) 10 units DAILY SQ 10/23/25 09:30 11/22/25 09:29 10/23/25 10:06 10 UNITS Insulin Human Regular (humuLIN R 100 UNIT/ML 3ML) INSULIN SLIDING SCAL... Q6H6 SQ 10/22/25 12:00 11/21/25 11:59 10/23/25 05:03 5 UNIT Metronidazole/ Sodium Chloride 100 ml @ 100 mls/hr Q8H IVPB 10/22/25 12:00 10/23/25 04:20 DC 10/23/25 01:09 100 MLS/HR Metronidazole/ Sodium Chloride 100 ml @ 100 mls/hr Q8H IVPB 10/23/25 09:00 11/02/25 08:59 10/23/25 09:52 100 MLS/HR Polyethylene Glycol (MIRalax 3350 17 GM POWD.PACK) 17 gm DAILY PO 10/23/25 09:00 11/22/25 08:59 10/23/25 09:51 17 GM Psyllium Hydrophilic Mucilloid (Metamucil) 1 tbs DAILYLUNCH PO 10/23/25 12:00 11/22/25 11:59 Sodium Chloride 1,000 ml @ 100 mls/hr Q10H IV 10/22/25 11:00 11/21/25 10:59 10/23/25 07:44 100 MLS/HR Sodium Chloride 1,000 ml @ 100 mls/hr Q10H IV 10/22/25 22:30 10/23/25 22:29 10/23/25 10:07 100 MLS/HR Vancomycin HCl 250 ml @ 125 mls/hr Q24H IV 10/23/25 12:00 11/02/25 11:59 Vancomycin HCl (Vancomycin Protocol) 1 each AD IV 10/22/25 11:00 11/05/25 10:59 DIAGNOSTICS / RADIOLOGY: [ ] ASSESSMENT: Right inner thighs swelling concerning for possible abscess differential abscess versus hematoma History of alcohol use Mild hyponatremia Acute kidney injury Mild thrombocytopenia Dehydration Elevated LFTs Severe hypoalbuminemia secondary to protein calorie malnutrition Hyperglycemia secondary to suspected uncontrolled diabetes mellitus type 2 History of marijuana use PLAN: patient remains admitted to the medical floor, comfortably in bed, the time of m y visit alert oriented x3, getting IV fluids, IV antibiotics. Patient admitted secondary to right hip intramuscular abscess involving the tensor fascia bruce with the extension to the posterior deep high space, status post incision and drainage 10/22/2025. POD #1. Patient tolerated the procedure well. Currently hemodynamically stable, afebrile, saturating normal on room air. WBC of 11.2, hemoglobin 9.6, hematocrit 37.7, platelet count of 100. BUN of 24, creatinine 1.5. Continue the patient on broad-spectrum IV antibiotics, continue supportive care with IV fluids, continue to follow orthopedic input recommendation, follow results of cultures, adjust antibiotics accordingly. Infectious Disease consultation requested, we will follow input and recommendation. NEURO: Minimize central acting medications as possible. Fall Precautions. Well lighted room through the day and minimize interruptions through the night to prevent acute delirium. PULMONARY: Supplemental 02 as needed BiPAP as necessary, for respiratory distress Titrate Fio2 to keep Spo2 > or = 90% DuoNebs and CPT as needed IS hourly while awake for pulmonary hygiene prn Out of bed to chair as tolerated Maintain aspiration precautions at all times CARDIOVASCULAR: Follow hemodynamics. Vital signs per facility protocol GI & NUTRITION: Continue nutritional support Aspirations precautions Prokinetic agents and laxatives as needed KIDNEYS & ELECTROLYTES: Strict monitoring of intake and output Daily weights Avoid nephrotoxic agents Monitor electrolytes and replace as needed Goal urine output of 30mL/hr or 0.5mL/kg/hr Medications to be dosed according to renal function. Avoid contrast if possible ENDOCRINE: Maintain blood glucose between 100-180 at all times. Insulin sliding scale for blood glucose management Hypoglycemia and hyperglycemia protocol in place INFECTIOUS DISEASE: Trend temperature, WBC and procalcitonin level Follow cultures, deescalate antibiotics as soon as possible. Panculture if new onset fever HEMATOLOGY & COAGULATION: Monitor H&H. Keep Hgb > 7 Transfuse 1 unit of PRBC for Hgb < 7 Transfuse 1 pack of platelets of platelets < 20, 000 Watch for any signs and symptoms of bleeding SKIN: Pressure ulcer prevention per facility protocol Specialty mattress as needed ORTHO/REHAB Continue PT/OT PRN: MEDICATIONS Tylenol 650 mg po every 4 hrs for fever zofran 4 mg IV every 6 hrs for n/v Hydralazine 5 mg IV every 4 hrs systolic pressure > 160 bowel regiment: lactulose 20 gm PO BID PRN constipation Supportive measures: Continue GI and DVT prophylaxis Disposition: Pending improvement in clinical condition All questions answered time spent: > 35 min RODRIGO BROCK MD Oct 23, 2025 12:20
[2025-10-23] MEDS: VANCOMYCIN 1.5 GM/250 ML BAG 250 ML IV SCH (13:22)
[2025-10-23 15:27] LABS: INR 1.33 (0.85-1.15)
--- NOTE | 2025-10-23 16:20 | PN ---
INFECTIOUS DISEASE PROGRESS NOTE Date of Service: Oct 23, 2025 SUBJECTIVE: This is a 55-year-old male patient with no significant past medical history. 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 Patient presented to the hospital with chief complaint of right hip pain and swelling. Reported symptoms started about two weeks ago. Stated that on Wednesday however he was having spasms and feeling a poking sensation on his right hip spreading down to the right thigh and pain on ambulation. He went to see a chiropractor thinking that it was related to his back and he was advised to see his physician to take x-rays. He could not get a sooner appointment than 2 weeks and by Wednesday the pain was unbearable and decided to come to the emergency room for evaluation. Patient denied falling or any trauma. Denied experiencing fever or chills. A soft tissue ultrasound of the right hip obtained on admission indicated fluid collection in the right lateral hip region, suggestive of an abscess. A CT of the right lower extremity showed collection between and within the right gluteus medius and jaci muscles, consistent with severe peritrochanteric and gluteal intramuscular abscesses. Orthopedic surgeon was consulted and patient underwent an incision and drainage with irrigation of right hip intramuscular abscess yesterday. On admission patient also had a positive urinalysis and the preliminary urine culture is Gram-positive cocci in clusters. Patient denied having any burning or frequent urination. Patient has been started on vancomycin, cefepime and metronidazole. We will follow up on the intraoperative culture results. Antibiotics to be adjusted if necessary when culture is updated or finalized. REVIEW OF SYSTEMS CONSTITUTIONAL: Denies fever, chills, or fatigue. HEAD/FACE: No signs of trauma. EENT: Denies eye pain, blurred vision, double vision, or light sensitivity. RESPIRATORY: Denies shortness of breath, cough, wheezing CARDIOVASCULAR: Denies chest pain, palpitation, syncope GASTROINTESTINAL/ABDOMINAL: Denies abdominal pain, constipation, diarrhea, nausea or vomiting GENITOURINARY: Denies dysuria or hematuria. MUSCULOSKELETAL: Right hip pain, POA. INTEGUMENTARY: Denies rash or itchiness NEUROLOGICAL/PSYCH: Denies anxiety, depression, heat or cold intolerance. PHYSICAL EXAM EYES: Anicteric. Pupils equal and reactive. HENT: No oral thrush seen, moist Oral mucosa NECK: Supple, no JVD or thyromegaly. LUNGS: Good air entry. No rales, no rhonchi. CARDIOVASCULAR: S1, S2 regular. No murmur heard. ABDOMEN: Soft, non tender, bowel sounds present. CENTRAL NERVOUS SYSTEM: Awake, alert, oriented x 3. SKIN: No rashes, no swelling. LYMPHATICS: No peripheral lymphadenopathy MUSCULOSKELETAL: No joint swelling, erythema or tenderness. EXTREMITIES: No cyanosis or clubbing. Right hip intramuscular abscess, s/p I&D. 2 JOSEFINA drains. BACK: No deformity, no pressure ulcer. GENITOURINARY: No dysuria or hematuria. Vital Sign (Last 12 Hours) 10/23/25 10/23/25 10/23/25 04:55 08:00 12:00 Temp 98.2 98.1 98.4 Pulse 89 85 93 Resp 17 18 18 B/P (MAP) 94/55 96/59 99/55 Pulse Ox 96 98 96 O2 Delivery Nasal Cannula Nasal Cannula Room Air O2 Flow Rate 2.0 2.0 FiO2 24 Intake & Output (last 24hrs) 10/22/25 10/22/25 10/23/25 15:00 23:00 07:00 Output Total 650 ml Balance -650 ml LABS: Laboratory: Test 10/23/25 16:03 10/23/25 15:00 10/23/25 06:59 10/23/25 06:28 Range/Units Whole Blood Glucose 301 H 70-110 MG/DL Prothrombin Time 13.7 H 9.6-11.6 SEC Prothromb Time International Ratio 1.33 H 0.85-1.15 White Blood Count 11.2 H 4.8-10.8 K/uL Red Blood Count 2.72 #L 4.50-6.20 MIL/uL Hemoglobin 9.6 #L 14.0-18.0 g/dL Hematocrit 27.7 #L 42-54 % Mean Corpuscular Volume 101.8 H 79-99 fL Mean Corpuscular Hemoglobin 35.3 H 27.0-33.0 pg Mean Corpuscular Hemoglobin Concent 34.7 32.0-36.0 g/dL Red Cell Distribution Width 14.5 11.0-15.5 % Platelet Count 100 L 130-400 K/uL Mean Platelet Volume 9.9 7.5-10.5 fL Immature Granulocyte % (Auto) 0.8 0-1 % Neutrophils (%) (Auto) 81.4 H 40.0-77.0 % Lymphocytes (%) (Auto) 10.3 L 21.0-51.0 % Monocytes (%) (Auto) 6.6 3.0-13.0 % Eosinophils (%) (Auto) 0.5 0.0-8.0 % Basophils (%) (Auto) 0.4 0.0-5.0 % Neutrophils # (Auto) 9.1 H 1.8-7.7 K/uL Lymphocytes # (Auto) 1.2 1.0-4.8 K/uL Monocytes # (Auto) 0.7 0.1-1.0 K/uL Eosinophils # (Auto) 0.06 0.00-0.70 K/uL Basophils # (Auto) 0.04 0.00-0.20 K/uL Absolute Immature Granulocyte (auto 0.09 0-1 K/uL Nucleated Red Blood Cells 0.0 0.0-0.19 % Sodium Level 134 L 136-145 mmol/L Potassium Level 4.1 3.5-5.1 mmol/L Chloride Level 103 101-111 mmol/L Carbon Dioxide Level 23 21-32 mmol/L Blood Urea Nitrogen 24 H 7-18 mg/dL Creatinine 1.5 H 0.5-1.3 mg/dL Glomerular Filtration Rate Calc 54 >90 mL/min Random Glucose 236 H 70-105 mg/dL Total Calcium 7.1 L 8.5-10.1 mg/dL Test 10/22/25 15:58 10/22/25 13:14 10/22/25 12:08 10/22/25 09:43 Range/Units Lactic Acid Level 1.9 0.8-2.5 mmol/L Urine Color DARK-YELLOW YELLOW Urine Appearance CLOUDY H CLEAR Urine pH 5.5 5.0-8.0 Urine Specific Bim 1.019 1.001-1.031 Urine Protein 30 H NEGATIVE mg/dL Urine Glucose (UA) 50 H NEGATIVE mg/dL Urine Ketones NEGATIVE NEGATIVE mg/dL Urine Occult Blood LARGE H NEGATIVE Urine Nitrate NEGATIVE NEGATIVE Urine Bilirubin NEGATIVE NEGATIVE mg/dL Urine Urobilinogen >=8.0 H 0.2-1.0 mg/dL Urine Leukocyte Esterase 500 H NEGATIVE Christopher/uL Urine RBC TNTC H 0-1 /HPF Urine WBC TNTC H 0-1 /HPF Urine Squamous Epithelial Cells RARE 0-2 /HPF Urine Transitional Epithelial Cells RARE None Seen /HPF Urine Bacteria None None Seen /HPF Urine Random Creatinine 136.93 H 30-135 mg/dL Urine Random Sodium 18 L 40-220 mmol/l Urine Opiates Screen NEGATIVE NEGATIVE Urine Barbiturates Screen NEGATIVE NEGATIVE Urine Phencyclidine Screen NEGATIVE NEGATIVE Urine Amphetamines Screen NEGATIVE NEGATIVE Urine Benzodiazepines Screen NEGATIVE NEGATIVE Urine Cocaine Screen NEGATIVE NEGATIVE Urine Marijuana (THC) Screen POSITIVE H NEGATIVE Whole Blood Ketones Quantitative 0.2 0.0-0.6 mmol/L Activated Partial Thromboplast Time 26.7 26.3-35.5 SEC Hemoglobin A1c 7.9 H 4.0-6.0 % Estimated Average Glucose (eAG) 180 H 70-126 mg/dL Total Bilirubin 2.6 H 0.2-1.0 mg/dL Direct Bilirubin 1.6 H 0.0-0.3 mg/dL Aspartate Amino Transf (AST/SGOT) 92 H 10-37 U/L Alanine Aminotransferase (ALT/SGPT) 56 12-78 U/L Alkaline Phosphatase 143 H 50-136 U/L C-Reactive Protein, Quantitative 107.90 H 0.5-3.0 mg/L Total Protein 7.8 6.0-8.3 g/dL Albumin 1.8 L 3.5-5.0 g/dL Procalcitonin 0.94 H 0.05-0.5 ng/mL Thyroid Stimulating Hormone (TSH) 2.88 0.36-3.74 uIU/mL DIAGNOSTICS / RADIOLOGY: PATIENT: DEMETRICE SANCHEZ ACCT: [id number] LOC: [facility] U: [id number] AGE/SX: 55/M ROOM: 320 RE10/22/[address]: GIA ENAMORADO MD : 1970 BED: 1 DIS: STATUS: ADM IN TLOC: SPEC: [id number] MERRITT: 10/22/25 STATUS: RES REQ: [id number] RECD: 10/23/[address]: GIA ENAMORADO MD SOURCE: [facility] [place] ENTR: 10/23/[address]: MCKENNA CASTRO MD SPDESC: CLEAN CAT SELF,REFERRAL KRISTIN SQUIRES MD ORDERED: AERO ID & SENS Procedure Result Alessio Date-Time AEROBIC ID & SENSITIVITIES Preliminary 10/23/25-1144 MRL COLONY DESCRIPTION: DAY 1: COLONY COUNT: >100,000 CFU/ML GRAM POSITIVE COCCI IN CLUSTERS IDENTIFICATION AND SENSITIVITY TO FOLLOW PATIENT: DEMETRICE SANCHEZ ACCT: [id number] LOC: [facility] U: [id number] AGE/SX: 55/M ROOM: 320 RE10/22/[address]: GIA ENAMORADO MD : 1970 BED: 1 DIS: STATUS: ADM IN TLOC: SPEC: [id number] MERRITT: 10/22/25 STATUS: RES REQ: [id number] RECD: 10/22/[address] [facility] [address]: VANESSA OJEDA MD SOURCE: [place] ENTR: 10/22/[address]: MCKENNA CASTRO MD [place]: OTHER GIA ENAMORADO MD SELF,REFERRAL ORDERED: GS, MATT CULTURE, AEROBIC CULTURE COMMENTS: Has specimen been collected/obtained? Y Specimen Comment: GRAM STAIN RIGHT HIP/THIGH DRAINAGE Specimen Comment: RIGHT HIP/THIGH DRAINAGE R HIP DRAINAGE Procedure Result Alessio Date-Time GRAM STAIN ONLY Final 10/22/25 GRAM STAIN: 2+ GRAM POSITIVE COCCI IN CLUSTERS 1+ GRAM POSITIVE COCCI 1+ GRAM POSITIVE COCCI IN PAIRS 4+ WBC ANAEROBIC CULTURE PENDING AEROBIC CULTURE PENDING PATIENT: DEMETRICE SANCHEZ MR#: [id number] : 1970 SEX: M AGE: 55 LOCATION: [facility] ORDER 1104 STATUS: ADM IN [facility] REPORT#: [id number] SERVICE 1058 REASON: right thigh abscess ORDERING PHYSICIAN: GIA ENAMORADO MD PROCEDURE: LOW EXT WO - CT LOW EXT W/O CONTRAST EXAM: CT right hip and femur, without IV contrast CLINICAL HISTORY: Right thigh abscess. TECHNIQUE: Axial images were acquired through the right femur without intravenous contrast. Reformatted images were reviewed. COMPARISON: Ultrasound soft tissue lower extremity dated 10/22/2025 10:54 EST. FINDINGS: BONES: No acute fracture is noted. No lytic or blastic osseous lesion is identified. Femoral head contour is preserved. JOINTS: No hip joint dislocation or subluxation is seen. No CT evidence of septic arthritis or significant hip joint effusion on this non-contrast study. SOFT TISSUES: A large complex fluid collection is present along the course of the right tensor fascia bruce, measuring approximately 9.7 x 4.5 x 4.8 cm, extending into the trochanteric bursa region and superficially into the deep subcutaneous planes of the proximal anterior, anterolateral, and posterolateral thigh, with surrounding soft tissue stranding compatible with extensive cellulitis. Posteriorly, the collection extends along the fascial planes of the gluteus medius, with an additional collection measuring approximately 8.4 x 8.0 cm located between the gluteus jaci and gluteus medius muscles and extending within the gluteus medius muscle belly, consistent with a deep intramuscular and peribursal abscess. No radiopaque foreign body or soft tissue gas is identified. IMPRESSION: * Large multiloculated fluid collections centered along the right tensor fascia bruce and trochanteric bursa region with extension into the deep subcutaneous tissues of the proximal thigh, and additional 8.4 x 8.0 cm collection between and within the right gluteus medius and jaci muscles, consistent with extensive peritrochanteric and gluteal intramuscular abscesses with overlying cellulitis. * No acute fracture, aggressive osseous lesion, or CT evidence of septic arthritis of the right hip on this non-contrast examination. /[place] DICTATED BY: RANI GRANT Jr., MD DATE: 10/22/25 1405 ASSESSMENT: Urinary tract infection. Right hip intramuscular abscess, status post I&D. Leukocytosis. Diabetes mellitus, Newly diagnosed. Thrombocytopenia. Acute renal failure. Anemia. PLAN: Continue vancomycin per pharmacy protocol. Continue cefepime. Continue metronidazole. Continue pain management. Continue GI prophylaxis. Continue monitoring glucose levels. We will follow up on the culture results. Thank you for allowing ID to participate in the care of this patient. This case was reviewed and discussed with my supervising physician Dr. Castro and the above assessment and plan was formulated and agreed upon. ATTESTATION BY PHYSICIAN I have seen and examined the patient. I reviewed the documentation, medical decision making, and treatment plan as noted by the mid-level provider above. I agree with the findings and plan of care. MCKENNA CASTRO MD, [facility] Oct 23, 2025 16:20
--- NOTE | 2025-10-23 21:22 | HMCIMG ---
EXAM: CR Chest, 1 view CLINICAL HISTORY: PICC line placement. COMPARISON: None provided. FINDINGS: The right PICC line tip overlies the proximal superior vena cava. Mild diffuse perihilar vascular congestion and interstitial edema bilaterally. No pleural effusion or pneumothorax. The cardiomediastinal silhouette is within normal limits. No acute osseous abnormality. IMPRESSION: The right PICC line tip overlies the proximal superior vena cava. Mild diffuse perihilar vascular congestion and interstitial edema bilaterally. /[place]
[2025-10-24] VITALS (8 sets, daily range): BP systolic 111–128; BP diastolic 61–77; PULSE 97–109; RESP 16–19; TEMP 97.8–99.4; O2SAT 96–98
--- NOTE | 2025-10-24 01:21 | HMCIMG ---
EXAM: ultrasound abdomen limited right upper quadrant. TECHNIQUE: Performed with a curvilinear transducer in supine/oblique positions to evaluate liver, gallbladder, bile ducts, portal vein, and right kidney through subcostal and intercostal windows. CLINICAL HISTORY: Elevated Liver Enzymes. assess liver, gall bladder (Hx) COMPARISON: No prior ultrasound or CT available. FINDINGS Liver is sub optimally visualized, partly obscured by bowel gas. Liver is borderline enlarged, measures 15.4 cm. Liver demonstrates, minimal increased echogenicity, consistent with mild fatty infiltration. No intra or extrahepatic ductal dilatation. Portal Vein: Portal vein visualized with color filling. Biliary System: Common bile duct is prominent, measures 5 mm (upper limit of normal). Gallbladder is distended, measuring approximately 10 cm, contains minimal sludge. with Wall thickness: 3 mm ( borderline normal). No pericholecystic fluid noted. Neck of gallbladder obscured; obstruction or calculus at the neck cannot be excluded. Pancreas is obscured by bowel gas. Right Kidney: Normal Size: 10 5.4 5.2 cm. No renal calculus identified. Cortical echotexture preserved. IMPRESSION: 1. Gallbladder distention with minimal sludge and borderline wall thickening. Neck of gallbladder obscured; obstruction or calculus at the neck cannot be excluded. Findings are suspicious for impending cholecystitis (early inflammatory changes). 2. Common bile duct mildly prominent (5 mm), within upper normal limits. 3. Mild hepatomegaly with fatty infiltration also noted. Clinical and lab correlation (LFT, WBC and CRP). Surgical consultation if patient is symptomatic or laboratory findings support acute cholecystitis. Kindly refer to ED. /[place]
[2025-10-24 05:57] LABS: NUCLEATED RED BLOOD CELLS 0.0 % (0.0-0.19); PLATELET COUNT (AUTO) 88.0 K/uL (130-400); RED BLOOD CELL COUNT(AUTO) 2.47 MIL/uL (4.50-6.20); RED CELL DISTRIBUTION WIDTH 14.5 % (11.0-15.5); WHITE BLOOD COUNT (AUTO) 7.8 K/uL (4.8-10.8)
[2025-10-24 06:23] LABS: ASPARTATE AMINOTRANSFERASE 123.0 U/L (10-37); CREATININE 1.2 mg/dL (0.5-1.3); GLOMERULAR FILTR. RATE CALC 71.0 mL/min (>90); GLUCOSE,RANDOM 184.0 mg/dL (70-105); SODIUM SERUM 131.0 mmol/L (136-145); TOTAL PROTEIN, SERUM 6.0 g/dL (6.0-8.3); UREA NITROGEN, BLOOD 20.0 mg/dL (7-18)
[2025-10-24 06:25] LABS: INR 1.34 (0.85-1.15)
--- NOTE | 2025-10-24 06:51 | CONS ---
CONSULT NOTE: Endocrinology Consult Chief complaint: right hip pain Reason for consult: uncontrolled dm-2 DOS:09/24/25 HISTORY OF PRESENT ILLNESS: This is a 55-year-old male with no significant past medical history who presented to the hospital secondary to right hip pain. He noted some swelling in the right inner thigh on the anterior thigh. The small nodule started getting bigger and he was having pain with ambulation. 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 Denied any cuts or scrapes to the inner thigh. Denied any fever, chills, chest pain, shortness of breath, abdominal pain, nausea, vomiting. Denied any changes to his bowel movement. He has been taking Advil at home. He did not take any antibiotics at home. Denied any history of diabetes. Labs were notable for white count of 9.9, hemoglobin was 12.2, MCV was 100.9, platelet count was 115 K, sodium was 129, potassium was 3.8, chloride was 95, bicarb was , creatinine was 1.5, blood glucose was 275, calcium was 8.0 Patient underwent a ultrasound of the right inner thigh which showed fluid collection measuring 8.5 x 7.2 x 7.3 cm in the right lateral hip region. Home diabetic regimen: no diabetic meds Hba1c 7.9% new diagnosed dm-2 and glucose spikes to greater than 200 mg/dl right hip abscess s/p I&D REVIEW OF SYSTEMS CONSTITUTIONAL: Denies fevers, chills, or night sweats. No unintentional weight loss reported. NEUROLOGICAL: Denies headache, amaurosis fugax, motor weakness, sensory deficit, vertigo/spinning sensation, gait abnormalities, or tremors. ENT: No hearing loss, otalgia, otorrhea, rhinitis, rhinorrhea, hoarseness, or sore throat. CARDIOVASCULAR: Denies any exertional angina, dyspnea on exertion, orthopnea, paroxysmal nocturnal dyspnea, palpitations, life-threatening arrhythmias, claudication. PULMONARY: Denies any shortness of breath, cough, phlegm/sputum, hemoptysis, pleuritic chest pain. SLEEP: Denies morning headaches, daytime somnolence or napping. Denies difficulty falling asleep, staying asleep, waking from sleep. Denies knowledge of snoring. GASTROINTESTINAL: Denies any type of dysphagia to either liquids or solids. Denies nausea, vomiting, pyrosis, early satiety, abdominal pain, diarrhea, constipation, or changes in stool consistency or caliber. Denies coffee-ground emesis, hematemesis, hematochezia, or melanotic stools. GENITOURINARY: Denies frequency, urgency, nocturia, hematuria or incontinence (Storage/Irritative symptoms.) Low urinary stream, straining to void, urinary intermittency or hesitancy, splitting of the voiding stream, terminal dribbling. ENDOCRINOLOGIC: Denies polyuria, polydipsia, polyphagia or heat/cold intolerances. HEMATOLOGIC: Denies thrombophilia/previous clots, or coagulopathy/bleeding disorders. ONCOLOGIC: Denies personal history of malignancy. DERMATOLOGIC: POSITIVE FOR REDNESS AND SWELLING IN THE RIGHT INNER THIGH PSYCHIATRIC: Denies any suicidal or homicidal ideation. Denies hallucinations. Musculoskeletal: Positive for pain in the right inner thigh PAST MEDICAL HISTORY: No Significant past medical history PAST SURGICAL HISTORY: Denied any previous surgical history PAST SOCIAL HISTORY: He smokes marijuana occasionally. Also drinks six pack every weekend for at least five years. Denied any tobacco use, IV drug use FAMILY HISTORY: Denied any pertinent family history Coded Allergies: No Known Allergies (Verified Allergy, 11/13/13) PHYSICAL EXAM GENERAL APPEARANCE: The patient is awake, alert, and oriented, in no acute cardiopulmonary distress. NEUROLOGICAL: Cranial nerves II-XII grossly intact. Motor is 5/5 in bilateral upper and lower extremities proximal to distal. No sensory deficits. HEENT: Face is symmetric. Pupils are equal and reactive. Extraocular movements are intact. NECK: Supple. No JVD. No thyromegaly. No submental, submandibular, pre- /postauricular, occipital or supraclavicular lymphadenopathy. CHEST: Normal chest expansion. No Telemetry. LUNGS: Absence of any rales, rhonchi or any wheezing. CARDIOVASCULAR: Regular. S1 and S2 normal. No appreciable rubs, murmurs or gallops. ABDOMEN: Soft, nontender, and nondistended. There is no rebound, voluntary guarding, or rigidity. : Deferred. No Taylor. EXTREMITIES: Non-edematous and not cyanotic. No clubbing. Good capillary refill. SKIN: s/p bandage ASSESSMENT: newly diagnosed uncontrolled dm-2 Home diabetic regimen: no diabetic meds Hba1c 7.9% new diagnosed dm-2 and glucose spikes to greater than 200 mg/dl Right hip abscess s/p I&D History of alcohol use Mild hyponatremia Acute kidney injury Mild thrombocytopenia Dehydration Elevated LFTs Severe hypoalbuminemia secondary to protein calorie malnutrition History of marijuana use PLAN: increase Lantus to 15 units daily and adjust for fasting glucose. start Regular insulin 3 units three times before meals and adjust for post- prandial glucose. Continue medium dose sliding scale insulin. Monitor glucose q x 6 hourly. Continue carb consistent diet. Keep glucose less than 180 mg/dl. Patient will need metformin 500 mg bid and Lantus 15 units daily. Thanks for allowing me to participate in patient care and will continue to follow up. Vital Signs 10/23/25 10/24/25 20:30 06:02 Temp 99.1 Pulse 109 Resp 16 B/P (MAP) 112/61 Pulse Ox 94 O2 Delivery Room Air O2 Flow Rate 0 FiO2 21 Hematology Labs: Test 10/24/25 05:52 10/23/25 06:59 Range/Units White Blood Count 7.8 # 4.8-10.8 K/uL Red Blood Count 2.47 L 4.50-6.20 MIL/uL Hemoglobin 8.7 L 14.0-18.0 g/dL Hematocrit 25.4 L 42-54 % Mean Corpuscular Volume 102.8 H 79-99 fL Mean Corpuscular Hemoglobin 35.2 H 27.0-33.0 pg Mean Corpuscular Hemoglobin Concent 34.3 32.0-36.0 g/dL Red Cell Distribution Width 14.5 11.0-15.5 % Platelet Count 88 L 130-400 K/uL Mean Platelet Volume 10.2 7.5-10.5 fL Nucleated Red Blood Cells 0.0 0.0-0.19 % Immature Granulocyte % (Auto) 0.8 0-1 % Neutrophils (%) (Auto) 81.4 H 40.0-77.0 % Lymphocytes (%) (Auto) 10.3 L 21.0-51.0 % Monocytes (%) (Auto) 6.6 3.0-13.0 % Eosinophils (%) (Auto) 0.5 0.0-8.0 % Basophils (%) (Auto) 0.4 0.0-5.0 % Neutrophils # (Auto) 9.1 H 1.8-7.7 K/uL Lymphocytes # (Auto) 1.2 1.0-4.8 K/uL Monocytes # (Auto) 0.7 0.1-1.0 K/uL Eosinophils # (Auto) 0.06 0.00-0.70 K/uL Basophils # (Auto) 0.04 0.00-0.20 K/uL Absolute Immature Granulocyte (auto 0.09 0-1 K/uL Chemistry Labs: Test 10/24/25 05:52 10/24/25 05:28 10/22/25 15:58 10/22/25 12:08 Range/Units Sodium Level 131 L 136-145 mmol/L Potassium Level 3.7 3.5-5.1 mmol/L Chloride Level 101 101-111 mmol/L Carbon Dioxide Level 23 21-32 mmol/L Blood Urea Nitrogen 20 H 7-18 mg/dL Creatinine 1.2 0.5-1.3 mg/dL Glomerular Filtration Rate Calc 71 >90 mL/min Random Glucose 184 H 70-105 mg/dL Total Calcium 7.1 L 8.5-10.1 mg/dL Magnesium Level 1.80 1.80-2.40 mg/dL Total Bilirubin 1.6 H 0.2-1.0 mg/dL Aspartate Amino Transf (AST/SGOT) 123 H 10-37 U/L Alanine Aminotransferase (ALT/SGPT) 70 12-78 U/L Alkaline Phosphatase 102 50-136 U/L Total Protein 6.0 6.0-8.3 g/dL Albumin 1.3 L 3.5-5.0 g/dL Whole Blood Glucose 183 H 70-110 MG/DL Lactic Acid Level 1.9 0.8-2.5 mmol/L Whole Blood Ketones Quantitative 0.2 0.0-0.6 mmol/L Test 10/22/25 09:43 Range/Units Hemoglobin A1c 7.9 H 4.0-6.0 % Estimated Average Glucose (eAG) 180 H 70-126 mg/dL Direct Bilirubin 1.6 H 0.0-0.3 mg/dL C-Reactive Protein, Quantitative 107.90 H 0.5-3.0 mg/L Procalcitonin 0.94 H 0.05-0.5 ng/mL Thyroid Stimulating Hormone (TSH) 2.88 0.36-3.74 uIU/mL Coagulation Labs: Test 10/24/25 05:52 10/22/25 09:43 Range/Units Prothrombin Time 13.8 H 9.6-11.6 SEC Prothromb Time International Ratio 1.34 H 0.85-1.15 Activated Partial Thromboplast Time 26.7 26.3-35.5 SEC Current Medications Medications (Trade) Dose Ordered Sig/Denise Route Start Time Stop Time Status Last Admin Dose Admin Cefepime HCl (MAXipime 1 GM vial) 1 gm Q12H IVPB 10/22/25 15:00 11/01/25 14:59 10/24/25 02:36 1 GM Enoxaparin Sodium (Lovenox) 40 mg DAILY SQ 10/23/25 09:00 11/22/25 08:59 10/23/25 09:53 40 MG Famotidine (Pepcid 20mg Vial) 20 mg BID IV 10/22/25 21:00 11/21/25 20:59 10/23/25 21:00 20 MG Insulin Glargine (LANtus 100 UNITS/ML 10 ML VIAL) 10 units DAILY SQ 10/23/25 09:30 11/22/25 09:29 10/23/25 10:06 10 UNITS Insulin Human Regular (humuLIN R 100 UNIT/ML 3ML) INSULIN SLIDING SCAL... Q6H6 SQ 10/22/25 12:00 11/21/25 11:59 10/24/25 06:05 2 UNIT Metronidazole/ Sodium Chloride 100 ml @ 100 mls/hr Q8H IVPB 10/22/25 12:00 10/23/25 04:20 DC 10/23/25 01:09 100 MLS/HR Metronidazole/ Sodium Chloride 100 ml @ 100 mls/hr Q8H IVPB 10/23/25 09:00 11/02/25 08:59 10/24/25 00:19 100 MLS/HR Polyethylene Glycol (MIRalax 3350 17 GM POWD.PACK) 17 gm DAILY PO 10/23/25 09:00 11/22/25 08:59 10/23/25 09:51 17 GM Psyllium Hydrophilic Mucilloid (Metamucil) 1 tbs DAILYLUNCH PO 10/23/25 12:00 11/22/25 11:59 Sodium Chloride 1,000 ml @ 100 mls/hr Q10H IV 10/22/25 11:00 11/21/25 10:59 10/24/25 02:36 100 MLS/HR Sodium Chloride 1,000 ml @ 100 mls/hr Q10H IV 10/22/25 22:30 10/23/25 22:29 DC 10/23/25 18:38 100 MLS/HR Vancomycin HCl 250 ml @ 125 mls/hr Q24H IV 10/23/25 12:00 11/02/25 11:59 10/23/25 13:22 125 MLS/HR Vancomycin HCl (Vancomycin Protocol) 1 each AD IV 10/22/25 11:00 11/05/25 10:59 JUSTIN IBARRA MD Oct 24, 2025 06:51
--- NOTE | 2025-10-24 08:44 | PN ---
POD 2 VSS Lab reviewed. Anemic, Decreased plartelets, on Lovenox Cultures wound and urine positive ID pending Moderate pain Dressing intact, NV intact Plan to take to OR in AM for 2nd look I&D Stop Lovenox (thrombocytopenia) Type and screen Vitals/Labs Vital Signs Date Time Temp Pulse Resp B/P (MAP) Pulse Ox O2 Delivery O2 Flow Rate FiO2 10/24/25 06:02 99.1 109 16 112/61 94 Room Air 10/23/25 20:30 0 21 Laboratory Tests 10/24/25 05:52 Medications Current Medications Orphenadrine Citrate 60 mg ONCE ONCE IM Last administered on 10/22/25at 09:45; Start 10/22/25 at 09:30; Stop 10/22/25 at 09:35; Status DC Ketorolac Tromethamine 15 mg ONCE ONCE IM Last administered on 10/22/25at 09:45; Start 10/22/25 at 09:30; Stop 10/22/25 at 09:35; Status DC Ceftriaxone Sodium 1 gm ONCE ONCE IVPB Last administered on 10/22/25at 10:53; Start 10/22/25 at 10:30; Stop 10/22/25 at 10:36; Status DC Enoxaparin Sodium 40 mg DAILY SQ Last administered on 10/23/25at 09:53; Start 10/23/25 at 09:00; Stop 11/22/25 at 08:59 Famotidine 20 mg BID IV Last administered on 10/23/25at 21:00; Start 10/22/25 at 21:00; Stop 11/21/25 at 20:59 Sodium Chloride 1,000 ml @ 100 mls/hr Q10H IV Last administered on 10/24/25at 02:36; Start 10/22/25 at 11:00; Stop 11/21/25 at 10:59 Vancomycin HCl 1 each AD IV; Start 10/22/25 at 11:00; Stop 11/05/25 at 10:59 Hydromorphone HCl 0.25 mg Q6H PRN IVP Last administered on 10/22/25at 15:16; Start 10/22/25 at 11:00; Stop 10/27/25 at 10:59 Acetaminophen 500 mg Q6H PRN PO; Start 10/22/25 at 11:00; Stop 11/21/25 at 10:59 Insulin Human Regular INSULIN SLIDING SCAL... Q6H6 SQ Last administered on 10/24/25at 06:05; Start 10/22/25 at 12:00; Stop 11/21/25 at 11:59 Vancomycin HCl 500 ml @ 250 mls/hr ONCE ONCE IV Last administered on 10/22/25at 12:51; Start 10/22/25 at 12:00; Stop 10/22/25 at 13:59; Status DC Cefepime HCl 1 gm Q12H IVPB Last administered on 10/24/25at 02:36; Start 10/22/25 at 15:00; Stop 11/01/25 at 14:59 Vancomycin HCl 250 ml @ 125 mls/hr Q24H IV Last administered on 10/23/25at 13:22; Start 10/23/25 at 12:00; Stop 11/02/25 at 11:59 Metronidazole/ Sodium Chloride 100 ml @ 100 mls/hr Q8H IVPB Last administered on 10/23/25at 01:09; Start 10/22/25 at 12:00; Stop 10/23/25 at 04:20; Status DC Lidocaine HCl 100 mg STK-MED ONCE .ROUTE; Start 10/22/25 at 20:24; Stop 10/22/25 at 20:25; Status DC Ketamine HCl 50 mg STK-MED ONCE .ROUTE; Start 10/22/25 at 20:25; Stop 10/22/25 at 20:25; Status DC Succinylcholine Chloride 200 mg STK-MED ONCE .ROUTE; Start 10/22/25 at 20:26; Stop 10/22/25 at 20:26; Status DC Propofol 200 mg STK-MED ONCE IV; Start 10/22/25 at 20:26; Stop 10/22/25 at 20:27; Status DC Midazolam HCl 2 mg STK-MED ONCE .ROUTE; Start 10/22/25 at 20:27; Stop 10/22/25 at 20:27; Status DC Rocuronium [place] 50 mg STK-MED ONCE .ROUTE; Start 10/22/25 at 20:27; Stop 10/22/25 at 20:27; Status DC Fentanyl Citrate 100 mcg STK-MED ONCE .ROUTE; Start 10/22/25 at 20:27; Stop 10/22/25 at 20:27; Status DC Cefazolin Sodium 1 gm STK-MED ONCE .ROUTE; Start 10/22/25 at 20:40; Stop 10/22/25 at 20:40; Status DC Ondansetron HCl 4 mg STK-MED ONCE .ROUTE; Start 10/22/25 at 21:54; Stop 10/22/25 at 21:54; Status DC Glycopyrrolate 1 mg STK-MED ONCE .ROUTE; Start 10/22/25 at 21:54; Stop 10/22/25 at 21:54; Status DC Neostigmine Methylsulfate 10 mg STK-MED ONCE IV; Start 10/22/25 at 21:54; Stop 10/22/25 at 21:54; Status DC Acetaminophen 100 ml @ As Directed STK-MED ONCE .ROUTE Last administered on 10/22/25at 22:12; Start 10/22/25 at 22:08; Stop 10/22/25 at 22:08; Status DC Ondansetron HCl 4 mg STK-MED ONCE .ROUTE Last administered on 10/22/25at 22:19; Start 10/22/25 at 22:13; Stop 10/22/25 at 22:13; Status DC Fentanyl Citrate 100 mcg STK-MED ONCE .ROUTE Last administered on 10/22/25at 22:19; Start 10/22/25 at 22:15; Stop 10/22/25 at 22:15; Status DC Fentanyl Citrate 100 mcg STK-MED ONCE .ROUTE Last administered on 10/22/25at 22:23; Start 10/22/25 at 22:21; Stop 10/22/25 at 22:21; Status DC Sodium Chloride 1,000 ml @ 100 mls/hr Q10H IV Last administered on 10/23/25at 18:38; Start 10/22/25 at 22:30; Stop 10/23/25 at 22:29; Status DC Polyethylene Glycol 17 gm DAILY PO Last administered on 10/23/25at 09:51; Start 10/23/25 at 09:00; Stop 11/22/25 at 08:59 Psyllium Hydrophilic Mucilloid 1 tbs DAILYLUNCH PO; Start 10/23/25 at 12:00; Stop 11/22/25 at 11:59 Bisacodyl 10 mg DAILY PRN PO; Start 10/24/25 at 22:30; Stop 11/23/25 at 22:29 Bisacodyl 10 mg DAILY PRN RC; Start 10/25/25 at 22:30; Stop 11/24/25 at 22:29 Ferrous Fumarate 324 mg DAILY PRN PO; Start 10/22/25 at 22:30; Stop 11/21/25 at 22:29 Calcium Carbonate 500 mg Q12H PRN PO; Start 10/22/25 at 22:30; Stop 11/21/25 at 22:29 Diphenhydramine HCl 25 mg Q6H PRN PO; Start 10/22/25 at 22:30; Stop 10/22/25 at 22:52; Status DC Diphenhydramine HCl 25 mg Q6H PRN IVP; Start 10/22/25 at 22:30; Stop 11/21/25 at 22:29 Acetaminophen/ Hydrocodone Bitart Q4H PRN PO; Start 10/22/25 at 22:30; Stop 10/22/25 at 22:54; Status DC Hydromorphone HCl 2 mg Q2H PRN IVP Last administered on 10/24/25at 06:03; Start 10/22/25 at 22:30; Stop 10/27/25 at 22:29 Acetaminophen/ Hydrocodone Bitart 1 tab Q6H PRN PO Last administered on 10/23/25at 10:01; Start 10/22/25 at 23:00; Stop 10/27/25 at 22:59 Acetaminophen/ Hydrocodone Bitart 1 tab Q6H PRN PO; Start 10/22/25 at 23:00; Stop 10/29/25 at 22:59 Metronidazole/ Sodium Chloride 100 ml @ 100 mls/hr Q8H IVPB Last administered on 10/24/25at 00:19; Start 10/23/25 at 09:00; Stop 11/02/25 at 08:59 Insulin Glargine 10 units DAILY SQ Last administered on 10/23/25at 10:06; Start 10/23/25 at 09:30; Stop 10/24/25 at 06:54; Status DC Ondansetron HCl 4 mg Q6H PRN IVP Last administered on 10/24/25at 02:36; Start 10/24/25 at 01:30; Stop 1/9/26 at 01:29 Insulin Glargine 15 units DAILY SQ; Start 10/24/25 at 09:00; Stop 11/23/25 at 08:59 Insulin Human Regular 3 unit TIDAC SQ Last administered on 10/24/25at 07:55; Start 10/24/25 at 07:30; Stop 11/23/25 at 07:29 VANESSA OJEDA MD Oct 24, 2025 08:44
--- NOTE | 2025-10-24 09:49 | NUR ---
LOVENOX HOLD LOVENOX PER DR. OJEDA ORDERS.
[2025-10-24] MEDS ORDERED: MAGNESIUM 2GM PREMIX 50ML 50 ML IV SCH (10:00)
--- NOTE | 2025-10-24 13:01 | PN ---
[facility] PROGRESS NOTE Date of Service: Oct 24, 2025 Time of Service: 12:59 SUBJECTIVE: 10/23 patient remains admitted to the medical floor, comfortably in bed, the time of my visit alert oriented x3, getting IV fluids, IV antibiotics. Patient admitted secondary to right hip intramuscular abscess involving the tensor fascia bruce with the extension to the posterior deep high space, status post incision and drainage 10/22/2025. POD #1. Patient tolerated the procedure well. Currently hemodynamically stable, afebrile, saturating normal on room air. WBC of 11.2, hemoglobin 9.6, hematocrit 37.7, platelet count of 100. BUN of 24, creatinine 1.5. Continue the patient on broad-spectrum IV antibiotics, continue supportive care with IV fluids, continue to follow orthopedic input recommendation, follow results of cultures, adjust antibiotics accordingly. Infectious Disease consultation requested, we will follow input and recommendation. 10/24 patient remains admitted to medical floor, comfortably in bed, no acute events overnight, during my visit he is alert oriented x3, getting good pain control with current medical management, getting IV fluids, IV antibiotics. Remains hemodynamically stable, afebrile, saturating normal on room air. Hemoglobin 8.7, hematocrit 5.4, platelet count of 88. Results of urine culture positive for Staphylococcus aureus, aerobic and anaerobic culture positive for Gram-positive cocci in pairs. Patient will remain on broad-spectrum IV antibiotics. Continue to follow ID input recommendation. Follow orthopedic input recommendation. Lovenox on hold, SCDs in place, monitor platelet count in a.m., if continue to get worse we will request Hematology consultation. REVIEW OF SYSTEMS CONSTITUTIONAL: Denies fevers, chills, or night sweats. No unintentional weight loss reported. NEUROLOGICAL: Denies headache, amaurosis fugax, motor weakness, sensory deficit, vertigo/spinning sensation, gait abnormalities, or tremors. ENT: No hearing loss, otalgia, otorrhea, rhinitis, rhinorrhea, hoarseness, or sore throat. CARDIOVASCULAR: Denies any exertional angina, dyspnea on exertion, orthopnea, paroxysmal nocturnal dyspnea, palpitations, life-threatening arrhythmias, claudication. PULMONARY: Denies any shortness of breath, cough, phlegm/sputum, hemoptysis, pleuritic chest pain. SLEEP: Denies morning headaches, daytime somnolence or napping. Denies difficulty falling asleep, staying asleep, waking from sleep. Denies knowledge of snoring. GASTROINTESTINAL: Denies any type of dysphagia to either liquids or solids. Denies nausea, vomiting, pyrosis, early satiety, abdominal pain, diarrhea, constipation, or changes in stool consistency or caliber. Denies coffee-ground emesis, hematemesis, hematochezia, or melanotic stools. GENITOURINARY: Denies frequency, urgency, nocturia, hematuria or incontinence (Storage/Irritative symptoms.) Low urinary stream, straining to void, urinary intermittency or hesitancy, splitting of the voiding stream, terminal dribbling. ENDOCRINOLOGIC: Denies polyuria, polydipsia, polyphagia or heat/cold intolerances. HEMATOLOGIC: Denies thrombophilia/previous clots, or coagulopathy/bleeding dis orders. ONCOLOGIC: Denies personal history of malignancy. DERMATOLOGIC: POSITIVE FOR REDNESS AND SWELLING IN THE RIGHT INNER THIGH PSYCHIATRIC: Denies any suicidal or homicidal ideation. Denies hallucinations. Musculoskeletal: Positive for pain in the right inner thigh PHYSICAL EXAM GENERAL APPEARANCE: The patient is awake, alert, and oriented, in no acute cardiopulmonary distress. NEUROLOGICAL: Cranial nerves II-XII grossly intact. Motor is 5/5 in bilateral upper and lower extremities proximal to distal. No sensory deficits. HEENT: Face is symmetric. Pupils are equal and reactive. Extraocular movements are intact. NECK: Supple. No JVD. No thyromegaly. No submental, submandibular, pre- /postauricular, occipital or supraclavicular lymphadenopathy. CHEST: Normal chest expansion. No Telemetry. LUNGS: Absence of any rales, rhonchi or any wheezing. CARDIOVASCULAR: Regular. S1 and S2 normal. No appreciable rubs, murmurs or gallops. ABDOMEN: Soft, nontender, and nondistended. There is no rebound, voluntary guarding, or rigidity. : Deferred. No Taylor. EXTREMITIES: Non-edematous and not cyanotic. No clubbing. Good capillary refill. SKIN: There is redness on the right lateral aspect of the hip. There is induration and swelling noted in the right inner thigh. Area is tender to palpation Vital Signs (last 8hr) Date Time Temp Pulse Resp B/P (MAP) Pulse Ox O2 Delivery O2 Flow Rate FiO2 12/10/25 12:00 98.1 100 19 111/65 99 Room Air 21 10/24/25 11:05 98 Room Air* 0 21 10/24/25 08:00 98.4 100 18 118/77 98 Room Air 21 10/24/25 06:02 99.1 109 16 112/61 94 Room Air LABS: Laboratory: Test 10/24/25 12:11 10/24/25 05:52 10/23/25 06:59 10/22/25 15:58 Range/Units Whole Blood Glucose 174 H 70-110 MG/DL White Blood Count 7.8 # 4.8-10.8 K/uL Red Blood Count 2.47 L 4.50-6.20 MIL/uL Hemoglobin 8.7 L 14.0-18.0 g/dL Hematocrit 25.4 L 42-54 % Mean Corpuscular Volume 102.8 H 79-99 fL Mean Corpuscular Hemoglobin 35.2 H 27.0-33.0 pg Mean Corpuscular Hemoglobin Concent 34.3 32.0-36.0 g/dL Red Cell Distribution Width 14.5 11.0-15.5 % Platelet Count 88 L 130-400 K/uL Mean Platelet Volume 10.2 7.5-10.5 fL Nucleated Red Blood Cells 0.0 0.0-0.19 % Prothrombin Time 13.8 H 9.6-11.6 SEC Prothromb Time International Ratio 1.34 H 0.85-1.15 Sodium Level 131 L 136-145 mmol/L Potassium Level 3.7 3.5-5.1 mmol/L Chloride Level 101 101-111 mmol/L Carbon Dioxide Level 23 21-32 mmol/L Blood Urea Nitrogen 20 H 7-18 mg/dL Creatinine 1.2 0.5-1.3 mg/dL Glomerular Filtration Rate Calc 71 >90 mL/min Random Glucose 184 H 70-105 mg/dL Total Calcium 7.1 L 8.5-10.1 mg/dL Magnesium Level 1.80 1.80-2.40 mg/dL Total Bilirubin 1.6 H 0.2-1.0 mg/dL Aspartate Amino Transf (AST/SGOT) 123 H 10-37 U/L Alanine Aminotransferase (ALT/SGPT) 70 12-78 U/L Alkaline Phosphatase 102 50-136 U/L Total Protein 6.0 6.0-8.3 g/dL Albumin 1.3 L 3.5-5.0 g/dL Immature Granulocyte % (Auto) 0.8 0-1 % Neutrophils (%) (Auto) 81.4 H 40.0-77.0 % Lymphocytes (%) (Auto) 10.3 L 21.0-51.0 % Monocytes (%) (Auto) 6.6 3.0-13.0 % Eosinophils (%) (Auto) 0.5 0.0-8.0 % Basophils (%) (Auto) 0.4 0.0-5.0 % Neutrophils # (Auto) 9.1 H 1.8-7.7 K/uL Lymphocytes # (Auto) 1.2 1.0-4.8 K/uL Monocytes # (Auto) 0.7 0.1-1.0 K/uL Eosinophils # (Auto) 0.06 0.00-0.70 K/uL Basophils # (Auto) 0.04 0.00-0.20 K/uL Absolute Immature Granulocyte (auto 0.09 0-1 K/uL Lactic Acid Level 1.9 0.8-2.5 mmol/L Test 10/22/25 13:14 Range/Units Urine Color DARK-YELLOW YELLOW Urine Appearance CLOUDY H CLEAR Urine pH 5.5 5.0-8.0 Urine Specific [place] 1.019 1.001-1.031 Urine Protein 30 H NEGATIVE mg/dL Urine Glucose (UA) 50 H NEGATIVE mg/dL Urine Ketones NEGATIVE NEGATIVE mg/dL Urine Occult Blood LARGE H NEGATIVE Urine Nitrate NEGATIVE NEGATIVE Urine Bilirubin NEGATIVE NEGATIVE mg/dL Urine Urobilinogen >=8.0 H 0.2-1.0 mg/dL Urine Leukocyte Esterase 500 H NEGATIVE Christopher/uL Urine RBC TNTC H 0-1 /HPF Urine WBC TNTC H 0-1 /HPF Urine Squamous Epithelial Cells RARE 0-2 /HPF Urine Transitional Epithelial Cells RARE None Seen /HPF Urine Bacteria None None Seen /HPF Urine Random Creatinine 136.93 H 30-135 mg/dL Urine Random Sodium 18 L 40-220 mmol/l Urine Opiates Screen NEGATIVE NEGATIVE Urine Barbiturates Screen NEGATIVE NEGATIVE Urine Phencyclidine Screen NEGATIVE NEGATIVE Urine Amphetamines Screen NEGATIVE NEGATIVE Urine Benzodiazepines Screen NEGATIVE NEGATIVE Urine Cocaine Screen NEGATIVE NEGATIVE Urine Marijuana (THC) Screen POSITIVE H NEGATIVE Current Medications Medications (Trade) Dose Ordered Sig/Denise Route PRN Reason Start Time Stop Time Status Last Admin Dose Admin Acetaminophen (TYLenol 500MG TAB) 500 mg Q6H PRN PO MILD PAIN (1-3) 10/22/25 11:00 11/21/25 10:59 Acetaminophen/ Hydrocodone Bitart (NORco 10) 1 tab Q6H PRN PO SEVERE PAIN (7-10) 10/22/25 23:00 10/29/25 22:59 Acetaminophen/ Hydrocodone Bitart (NORco 5/325MG) Q4H PRN PO MODERATE/SEVERE PAIN LEVEL 10/22/25 22:30 10/22/25 22:54 DC Acetaminophen/ Hydrocodone Bitart (NORco 5/325MG) 1 tab Q6H PRN PO MODERATE PAIN (4-6) 10/22/25 23:00 10/27/25 22:59 10/23/25 10:01 1 TAB Bisacodyl (DulcoLAX 5MG TAB) 10 mg DAILY PRN PO CONSTIPATION 10/24/25 22:30 11/23/25 22:29 Bisacodyl (DulcoLAX) 10 mg DAILY PRN RC CONSTIPATION 10/25/25 22:30 11/24/25 22:29 Calcium Carbonate ([place] Ca 500mg Tab) 500 mg Q12H PRN PO GIVE IF SERUM CA LESS THAN 8 10/22/25 22:30 11/21/25 22:29 Cefepime HCl (MAXipime 1 GM vial) 1 gm Q12H IVPB 10/22/25 15:00 11/01/25 14:59 10/24/25 02:36 1 GM Diphenhydramine HCl (BENAdryl CAP) 25 mg Q6H PRN PO ITCHING 10/22/25 22:30 10/22/25 22:52 DC Diphenhydramine HCl (BENAdryl INJ) 25 mg Q6H PRN IVP ITCHING 10/22/25 22:30 11/21/25 22:29 Enoxaparin Sodium (Lovenox) 40 mg DAILY SQ 10/23/25 09:00 11/22/25 08:59 10/23/25 09:53 40 MG Famotidine (Pepcid 20mg Vial) 20 mg BID IV 10/22/25 21:00 11/21/25 20:59 10/24/25 10:01 20 MG Ferrous Fumarate (Hemocyte) 324 mg DAILY PRN PO IF HEMOGLOBIN LESS THAN 9 10/22/25 22:30 11/21/25 22:29 Hydromorphone HCl (DiLAUDid 0.5MG INJ) 0.25 mg Q6H PRN IVP SEVERE PAIN (7-10) 10/22/25 11:00 10/27/25 10:59 10/22/25 15:16 0.25 MG Hydromorphone HCl (DiLAUDid 2MG INJ) 2 mg Q2H PRN IVP SEVERE PAIN (7-10) 10/22/25 22:30 10/27/25 22:29 10/24/25 06:03 2 MG Insulin Glargine (LANtus 100 UNITS/ML 10 ML VIAL) 10 units DAILY SQ 10/23/25 09:30 10/24/25 06:54 DC 10/23/25 10:06 10 UNITS Insulin Glargine (LANtus 100 UNITS/ML 10 ML VIAL) 15 units DAILY SQ 10/24/25 09:00 11/23/25 08:59 10/24/25 09:42 15 UNITS Insulin Human Regular (humuLIN R 100 UNIT/ML 3ML) 3 unit TIDAC SQ 10/24/25 07:30 11/23/25 07:29 10/24/25 12:40 3 UNIT Insulin Human Regular (humuLIN R 100 UNIT/ML 3ML) INSULIN SLIDING SCAL... Q6H6 SQ 10/22/25 12:00 11/21/25 11:59 10/24/25 06:05 2 UNIT Magnesium Sulfate 50 ml @ 0 mls/hr PROTOCOL IV 10/24/25 10:00 11/23/25 09:59 Metronidazole/ Sodium Chloride 100 ml @ 100 mls/hr Q8H IVPB 10/22/25 12:00 10/23/25 04:20 DC 10/23/25 01:09 100 MLS/HR Metronidazole/ Sodium Chloride 100 ml @ 100 mls/hr Q8H IVPB 10/23/25 09:00 11/02/25 08:59 10/24/25 09:36 100 MLS/HR Ondansetron HCl (zoFRAN 4MG INJ) 4 mg Q6H PRN IVP NAUSEA/VOMITING 10/24/25 01:30 11/23/25 01:29 10/24/25 02:36 4 MG Polyethylene Glycol (MIRalax 3350 17 GM POWD.PACK) 17 gm DAILY PO 10/23/25 09:00 11/22/25 08:59 10/23/25 09:51 17 GM Psyllium Hydrophilic Mucilloid (Metamucil) 1 tbs DAILYLUNCH PO 10/23/25 12:00 11/22/25 11:59 Sodium Chloride 1,000 ml @ 100 mls/hr Q10H IV 10/22/25 11:00 11/21/25 10:59 10/24/25 02:36 100 MLS/HR Sodium Chloride 1,000 ml @ 100 mls/hr Q10H IV 10/22/25 22:30 10/23/25 22:29 DC 10/23/25 18:38 100 MLS/HR Vancomycin HCl 250 ml @ 125 mls/hr Q24H IV 10/23/25 12:00 11/02/25 11:59 10/24/25 12:34 125 MLS/HR Vancomycin HCl (Vancomycin Protocol) 1 each AD IV 10/22/25 11:00 11/05/25 10:59 DIAGNOSTICS / RADIOLOGY: [ ] ASSESSMENT: Right inner thighs swelling concerning for possible abscess differential abscess versus hematoma History of alcohol use Mild hyponatremia Acute kidney injury Mild thrombocytopenia Dehydration Elevated LFTs Severe hypoalbuminemia secondary to protein calorie malnutrition Hyperglycemia secondary to suspected uncontrolled diabetes mellitus type 2 History of marijuana use PLAN: patient remains admitted to medical floor, comfortably in bed, no acute events overnight, during my visit he is alert oriented x3, getting good pain control with current medical management, getting IV fluids, IV antibiotics. Remains hemodynamically stable, afebrile, saturating normal on room air. Hemoglobin 8.7, hematocrit 5.4, platelet count of 88. Results of urine culture positive for Staphylococcus aureus, aerobic and anaerobic culture positive for Gram- positive cocci in pairs. Patient will remain on broad-spectrum IV antibiotics. Continue to follow ID input recommendation. Follow orthopedic input recommendation. Lovenox on hold, SCDs in place, monitor platelet count in a.m., if continue to get worse we will request Hematology consultation. NEURO: Minimize central acting medications as possible. Fall Precautions. Well lighted room through the day and minimize interruptions through the night to prevent acute delirium. PULMONARY: Supplemental 02 as needed BiPAP as necessary, for respiratory distress Titrate Fio2 to keep Spo2 > or = 90% DuoNebs and CPT as needed IS hourly while awake for pulmonary hygiene prn Out of bed to chair as tolerated Maintain aspiration precautions at all times CARDIOVASCULAR: Follow hemodynamics. Vital signs per facility protocol GI & NUTRITION: Continue nutritional support Aspirations precautions Prokinetic agents and laxatives as needed KIDNEYS & ELECTROLYTES: Strict monitoring of intake and output Daily weights Avoid nephrotoxic agents Monitor electrolytes and replace as needed Goal urine output of 30mL/hr or 0.5mL/kg/hr Medications to be dosed according to renal function. Avoid contrast if possible ENDOCRINE: Maintain blood glucose between 100-180 at all times. Insulin sliding scale for blood glucose management Hypoglycemia and hyperglycemia protocol in place INFECTIOUS DISEASE: Trend temperature, WBC and procalcitonin level Follow cultures, deescalate antibiotics as soon as possible. Panculture if new onset fever HEMATOLOGY & COAGULATION: Monitor H&H. Keep Hgb > 7 Transfuse 1 unit of PRBC for Hgb < 7 Transfuse 1 pack of platelets of platelets < 20, 000 Watch for any signs and symptoms of bleeding SKIN: Pressure ulcer prevention per facility protocol Specialty mattress as needed ORTHO/REHAB Continue PT/OT PRN: MEDICATIONS Tylenol 650 mg po every 4 hrs for fever zofran 4 mg IV every 6 hrs for n/v Hydralazine 5 mg IV every 4 hrs systolic pressure > 160 bowel regiment: lactulose 20 gm PO BID PRN constipation Supportive measures: Continue GI and DVT prophylaxis Disposition: Pending improvement in clinical condition All questions answered time spent: > 35 min RODRIGO BROCK MD Oct 24, 2025 13:01
[2025-10-24 13:48] LABS: NUCLEATED RED BLOOD CELLS 0.0 % (0.0-0.19); PLATELET COUNT (AUTO) 86.0 K/uL (130-400); RED BLOOD CELL COUNT(AUTO) 2.55 MIL/uL (4.50-6.20); RED CELL DISTRIBUTION WIDTH 14.6 % (11.0-15.5); WHITE BLOOD COUNT (AUTO) 7.4 K/uL (4.8-10.8)
--- NOTE | 2025-10-24 18:53 | PN ---
INFECTIOUS DISEASE PROGRESS NOTE Date of Service: Oct 24, 2025 SUBJECTIVE: This is a 55-year-old male patient who was seen and examined at bedside in room 320. Patient is awake, alert and oriented x 3. Patient is status post incision and drainage of right hip intramuscular abscess day # 2. The preliminary right hip wound culture is coming preliminary results is growing Gram-positive cocci in clusters, Staphylococcus aureus. The final urine culture results came back positive for Staphylococcus aureus. We will obtain blood cultures. No fever, temperature is 98.1 and the WBC trended down to 7.8. We will continue on vancomycin, metronidazole and cefepime and follow up on the final cultures. PHYSICAL EXAM EYES: Anicteric. Pupils equal and reactive. HENT: No oral thrush seen, moist Oral mucosa NECK: Supple, no JVD or thyromegaly. LUNGS: Good air entry. No rales, no rhonchi. CARDIOVASCULAR: S1, S2 regular. No murmur heard. ABDOMEN: Soft, non tender, bowel sounds present. CENTRAL NERVOUS SYSTEM: Awake, alert, oriented x 3. SKIN: No rashes, no swelling. LYMPHATICS: No peripheral lymphadenopathy MUSCULOSKELETAL: No joint swelling, erythema or tenderness. EXTREMITIES: No cyanosis or clubbing. Right hip intramuscular abscess, s/p I&D. 2 JOSEFINA drains. BACK: No deformity, no pressure ulcer. GENITOURINARY: No dysuria or hematuria. Vital Sign (Last 12 Hours) 10/24/25 10/24/25 10/24/25 10/24/25 08:00 11:05 12:00 16:00 Temp 98.4 98.1 98.2 Pulse 100 100 101 Resp 18 19 19 B/P (MAP) 118/77 111/65 114/65 Pulse Ox 98 98 99 98 O2 Delivery Room Air Room Air* Room Air Room Air O2 Flow Rate 0 FiO2 21 21 21 21 Intake & Output (last 24hrs) 10/23/25 10/23/25 10/24/25 15:00 23:00 07:00 Intake Total 1800 ml Output Total 162 ml 310 ml 795 ml Balance -162 ml 1490 ml -795 ml LABS: Laboratory: Test 10/24/25 15:24 10/24/25 13:42 10/24/25 05:52 10/23/25 06:59 Range/Units Whole Blood Glucose 156 H 70-110 MG/DL Bedside Glucose Comment Notified Nurse White Blood Count 7.4 4.8-10.8 K/uL Red Blood Count 2.55 L 4.50-6.20 MIL/uL Hemoglobin 8.8 L 14.0-18.0 g/dL Hematocrit 26.2 L 42-54 % Mean Corpuscular Volume 102.7 H 79-99 fL Mean Corpuscular Hemoglobin 34.5 H 27.0-33.0 pg Mean Corpuscular Hemoglobin Concent 33.6 32.0-36.0 g/dL Red Cell Distribution Width 14.6 11.0-15.5 % Platelet Count 86 L 130-400 K/uL Mean Platelet Volume 9.8 7.5-10.5 fL Nucleated Red Blood Cells 0.0 0.0-0.19 % Prothrombin Time 13.8 H 9.6-11.6 SEC Prothromb Time International Ratio 1.34 H 0.85-1.15 Sodium Level 131 L 136-145 mmol/L Potassium Level 3.7 3.5-5.1 mmol/L Chloride Level 101 101-111 mmol/L Carbon Dioxide Level 23 21-32 mmol/L Blood Urea Nitrogen 20 H 7-18 mg/dL Creatinine 1.2 0.5-1.3 mg/dL Glomerular Filtration Rate Calc 71 >90 mL/min Random Glucose 184 H 70-105 mg/dL Total Calcium 7.1 L 8.5-10.1 mg/dL Magnesium Level 1.80 1.80-2.40 mg/dL Total Bilirubin 1.6 H 0.2-1.0 mg/dL Aspartate Amino Transf (AST/SGOT) 123 H 10-37 U/L Alanine Aminotransferase (ALT/SGPT) 70 12-78 U/L Alkaline Phosphatase 102 50-136 U/L Total Protein 6.0 6.0-8.3 g/dL Albumin 1.3 L 3.5-5.0 g/dL Immature Granulocyte % (Auto) 0.8 0-1 % Neutrophils (%) (Auto) 81.4 H 40.0-77.0 % Lymphocytes (%) (Auto) 10.3 L 21.0-51.0 % Monocytes (%) (Auto) 6.6 3.0-13.0 % Eosinophils (%) (Auto) 0.5 0.0-8.0 % Basophils (%) (Auto) 0.4 0.0-5.0 % Neutrophils # (Auto) 9.1 H 1.8-7.7 K/uL Lymphocytes # (Auto) 1.2 1.0-4.8 K/uL Monocytes # (Auto) 0.7 0.1-1.0 K/uL Eosinophils # (Auto) 0.06 0.00-0.70 K/uL Basophils # (Auto) 0.04 0.00-0.20 K/uL Absolute Immature Granulocyte (auto 0.09 0-1 K/uL DIAGNOSTICS / RADIOLOGY: PATIENT: DEMETRICE SANCHEZ ACCT: [id number] LOC: [facility] U: [id number] AGE/SX: 55/M ROOM: 320 RE10/22/[address]: GIA ENAMORADO MD : 1970 BED: 1 DIS: STATUS: ADM IN TLOC: SPEC: [id number] MERRITT: 10/22/25 STATUS: COMP REQ: [id number] RECD: 10/23/[address] [facility] [address]: GIA ENAMORADO MD SOURCE: [facility] ENTR: 10/23/[address] [facility] [address]: MCKENNA CASTRO MD SPDC: CLEAN CAT SELF,REFERRAL KRISTIN SQUIRES MD ORDERED: AERO ID & SENS ---- -------- Procedure Result Alessio Date-Time AEROBIC ID & SENSITIVITIES Final 10/24/25-932 MRL COLONY DESCRIPTION: DAY 1: COLONY COUNT: >100,000 CFU/ML GRAM POSITIVE COCCI IN CLUSTERS IDENTIFICATION AND SENSITIVITY TO FOLLOW STAPHYLOCOCCUS AUREUS S. AUREUS M.I.C. RX --------- ---- GENTAMICIN <=4 S LEVOFLOXACIN 4 R VANCOMYCIN 1 S OXACILLIN JERMAINE <=0.25 S RIFAMPIN <=1 S PENICILLIN 0.12 S TRIMETHOPRIM/SUFLAMETHOXAZOLE <=0.5/9.5 S PATIENT: DEMETRICE SANCHEZ ACCT: [id number] LOC: [facility] U: [id number] AGE/SX: 55/M ROOM: 320 RE10/22/[address]: GIA ENAMORADO MD : 1970 BED: 1 DIS: STATUS: ADM IN TLOC: SPEC: [id number] MERRITT: 10/22/25 STATUS: RES REQ: [id number] RECD: 10/22/[address]: VANESSA OJEDA MD SOURCE: TISSUE ENTR: 10/22/[address] [facility] [address]: MCKEN[facility]STRO [facility] GIA ENAMORADO MD SELF,REFERRAL ORDERED: GS, MATT CULTURE, AEROBIC CULTURE COMMENTS: Has specimen been collected/obtained? Y Specimen Comment: GRAM STAIN RIGHT HIP/THIGH DRAINAGE Specimen Comment: RIGHT HIP/THIGH DRAINAGE R HIP DRAINAGE Procedure Result Alessio Date-Time GRAM STAIN ONLY Final 10/22/25-2209 GRAM STAIN: 2+ GRAM POSITIVE COCCI IN CLUSTERS 1+ GRAM POSITIVE COCCI 1+ GRAM POSITIVE COCCI IN PAIRS 4+ WBC ANAEROBIC CULTURE Preliminary 10/24/25-1054 MRL COLONY DESCRIPTION: REPORT 1: NO ANAEROBES AT 24-35 HOURS; STUDIES TO CONTINUE CONTINUED ON NEXT PAGE RUN DATE: 10/24/25 [facility] PAGE 2 RUN TIME: [id number] [address] Department of Laboratories CLIA # [id number] Patch Worker: Josué Solomon DO Specimen Report SPEC: [id number] PATIENT: DEMETRICE SANCHEZ [id number] (Continued) Procedure Result Alessio Date-Time ANAEROBIC CULTURE Preliminary (continued) 10/24/25 Test(s) performed by: [facility] [address] [facility] [place] [address] AEROBIC CULTURE Preliminary 10/24/25 MRL COLONY DESCRIPTION: REPORT 1: 3+ GRAM POSITIVE COCCI IN CLUSTERS STAPHYLOCOCCUS AUREUS SENSITIVITY TO FOLLOW ASSESSMENT: Urinary tract infection with Staphylococcus aureus. Right hip intramuscular abscess, status post I&D. Leukocytosis, resolving. Diabetes mellitus, Newly diagnosed. Thrombocytopenia. Acute renal failure, resolving. PLAN: Obtain blood culture. Continue vancomycin per pharmacy protocol. Continue cefepime. Continue metronidazole. Continue pain management. Continue GI prophylaxis. Continue monitoring glucose levels. We will follow up on the final culture results. This case was reviewed and discussed with my supervising physician Dr. Castro and the above assessment and plan was formulated and agreed upon. ATTESTATION BY PHYSICIAN I have seen and examined the patient. I reviewed the documentation, medical decision making, and treatment plan as noted by the mid-level provider above. I agree with the findings and plan of care. MCKENNA CASTRO MD, M[facility]TA [facility] Oct 24, 2025 18:53
[2025-10-25] VITALS (28 sets, daily range): BP systolic 110–159; BP diastolic 59–82; PULSE 81–122; RESP 16–22; TEMP 97.5–98.8; O2SAT 97–100
[2025-10-25 06:25] LABS: NUCLEATED RED BLOOD CELLS 0.0 % (0.0-0.19); PLATELET COUNT (AUTO) 82.0 K/uL (130-400); RED BLOOD CELL COUNT(AUTO) 2.39 MIL/uL (4.50-6.20); RED CELL DISTRIBUTION WIDTH 14.2 % (11.0-15.5); WHITE BLOOD COUNT (AUTO) 5.7 K/uL (4.8-10.8)
[2025-10-25 06:36] LABS: INR 1.37 (0.85-1.15)
[2025-10-25 06:43] LABS: ASPARTATE AMINOTRANSFERASE 90.0 U/L (10-37); CREATININE 1.1 mg/dL (0.5-1.3); GLOMERULAR FILTR. RATE CALC 79.0 mL/min (>90); GLUCOSE,RANDOM 151.0 mg/dL (70-105); SODIUM SERUM 135.0 mmol/L (136-145); TOTAL PROTEIN, SERUM 5.6 g/dL (6.0-8.3); UREA NITROGEN, BLOOD 14.0 mg/dL (7-18)
[2025-10-25] MEDS ORDERED: MAGNESIUM 2GM PREMIX 50ML 50 ML IV SCH (07:30)
[2025-10-25] MEDS: PoTASSium chloRIDE 20MEQ ER 20 MEQ ERTAB PO ONE (09:11)
--- NOTE | 2025-10-25 09:12 | NUR ---
MORNING MEDICATIONS PT DOWN IN OR FOR I&D OF RIGHT THIGH FOR ABSCESS, MORNING MEDICATIONS NOT ADMINISTERED PATIENT WAS NPO AND DOWN IN PROCEDURE.
[2025-10-25] MEDS ORDERED: LIDOCAINE PF 100MG/5ML (2%) SYRINGE 5ML ONE (09:50)
[2025-10-25] MEDS ORDERED: MIDAZOLAM HCL 1 MG/ML 2ML VIAL ONE (09:51)
[2025-10-25] MEDS ORDERED: SUCCINYLCHOLINE CHLORIDE 20 MG/ML 10 ML VIAL ONE (09:54)
--- NOTE | 2025-10-25 10:06 | CONS ---
KATHLEEN POP Fatuma 10/25/25 1006: CONSULT REFERRING PHYSICIAN: Dr. Taylor REASON FOR CONSULT: Thrombocytopenia HISTORY HPI: Patient is a 55-year-old male with no significant past medical history admitted on 10/22 for progressive right inner thigh/hip pain and swelling over 2 weeks. Imaging showed an 8.5 x 7.2 x 7.3 cm fluid collection consistent with abscess. Patient underwent an I and D. postoperatively, patient has remained afebrile, hemodynamically stable, saturating well on room air. G stain positive for Gram- positive cocci. Patient on IV antibiotics. Platelets have trended down from 115K to 88K today. No bleeding, bruising, melena, hematochezia, epistaxis, or petechia. No history of thrombocytopenia. No known liver disease but admits to drinking a six pack of beer on weekends. No prior exposure to heparin before admission. We have been consulted for thrombocytopenia PMH: PAST MEDICAL HISTORY: No Significant past medical history PSH: PAST SURGICAL HISTORY: Denied any previous surgical history SH: PAST SOCIAL HISTORY: He smokes marijuana occasionally. Also drinks six pack every weekend for at least five years. Denied any tobacco use, IV drug use FH: FAMILY HISTORY: Denied any pertinent family history Coded Allergies: No Known Allergies (Verified Allergy, 11/13/13) ALLERGIES: Coded Allergies: No Known Allergies (Verified Allergy, 11/13/13) CURRENT MEDS: Current Medications Medications (Trade) Dose Ordered Sig/Denise Route PRN Reason Start Time Stop Time Status Last Admin Bisacodyl (DulcoLAX 5MG TAB) 10 mg DAILY PRN PO CONSTIPATION 10/24/25 22:30 11/23/25 22:29 Bisacodyl (DulcoLAX) 10 mg DAILY PRN RC CONSTIPATION 10/25/25 22:30 11/24/25 22:29 Magnesium Sulfate 50 ml @ 0 mls/hr PROTOCOL IV 10/25/25 07:30 11/24/25 07:29 REVIEW OF SYSTEMS CONSTITUTIONAL: FEVER; No FEVER; SWEATS; No SWEATS; CHILLS; No CHILLS, No WEIGHT LOSS HEENT: No JAUNDICE, No SORE THROAT, No SINUS PRESSURE, No VISION CHANGES RESPIRATORY: No COUGH, No CHEST PAIN, No SHORTNESS OF BREATH, No HEMOPTYSIS CARDIOVASCULAR: No PALPATIONS, No DYSPNEA ON EXERTION, No SYNCOPE GASTROINTESTINAL: No NAUSEA, No VOMITING, No DIARRHEA, No DYSPHAGIA, No CONSTIPATION, No ABDOMINAL PAIN, No HEMATEMESIS, No HEMATOCHEZIA, No MELENA GENITOURINARY: No DYSURIA, No HEMATURIA HEMATOLOGIC/LYMPHATIC: No EASY BRUISING, No CERVICAL ADENOPATHY, No AXILLARY ADENOPATHY, No INGUINAL ADENOPATHY MUSCULOSKELETAL: MASS SKIN/BREASTS: No BREAST MASS, No NIPPLE INVERSION, No RASH NEUROLOGICAL: No WEAKNESS-EXTREMETIES, No DIPLOPIA, No NUMBNESS, No TINGLING PSYCHOLOGICAL: No SUICIDAL IDEATION PHYSICAL EXAM VITALS: Vital Signs Date Time Temp Pulse Resp B/P (MAP) Pulse Ox O2 Delivery O2 Flow Rate FiO2 10/25/25 04:05 98.1 95 18 123/67 97 Room Air 10/24/25 20:00 0 21 GENERAL: ALERT, ORIENTED, APPEARS-NO ACUTE DISTRESS EYES: SCLERAE ANICTERIC, PUPILS EQUAL/REACTIVE, EXTRAOCULAR MUSCLES INTCT ENT/NECK: ORAL MUCOSA W/O LESIONS, OROPHARYNX IS CLEAR, NECK SUPPLE W/O MASSES RESPIRATORY: LUNGS CLEAR-AUSC/PERCUS CARDIOVASCULAR: REGULAR RATE; No REGULAR RATE; REGULAR RHYTHM; No REGULAR RHYTHM GASTROINTESTINAL: ABDOMEN IS SOFT HEMATOLOGY/LYMPHATIC: No CERVICAL ADENOPATHY, No SUPRACLAVICULR ADENOPATHY, No AXILLARY ADENOPATHY, No INGUINAL ADENOPATHY MUSCULOSKELETAL: CYANOSIS-EXTREMETIES; No CYANOSIS-EXTREMETIES, No CLUBBING, No EDEMA SKIN/BREASTS: MASSES; No MASSES, No RASH, No HIVES NEUROLOGICAL: GROSSLY INTACT PSYCHOLOGICAL: MINI MENTAL ASSMT INTACT DIAGNOSTIC STUDIES [place] [address] [address] IMAGING REPORT Signed PATIENT: DEMETRICE SANCHEZ MR#: [id number] : 1970 SEX: M AGE: 55 LOCATION: [facility] ORDER 13 STATUS: ADM IN REPORT#: [id number] SERVICE 12 REASON: post PICC placement ORDERING PHYSICIAN: RODRIGO TAYLOR MD PROCEDURE: CXR1VW - CHEST 1VW EXAM: CR Chest, 1 view CLINICAL HISTORY: PICC line placement. COMPARISON: None provided. FINDINGS: The right PICC line tip overlies the proximal superior vena cava. Mild diffuse perihilar vascular congestion and interstitial edema bilaterally. No pleural effusion or pneumothorax. The cardiomediastinal silhouette is within normal limits. No acute osseous abnormality. IMPRESSION: The right PICC line tip overlies the proximal superior vena cava. Mild diffuse perihilar vascular congestion and interstitial edema bilaterally. /[place] DICTATED BY: RANI GRANT Jr., MD DATE: 10/23/252220 ELECTRONICALLY SIGNED BY: RANI GRANT Jr., MD DATE: 10/23/252220 [place] [address] [address] IMAGING REPORT Signed PATIENT: DEMETRICE SANCHEZ MR#: [id number] : 1970 SEX: M AGE: 55 LOCATION: [facility] ORDER 1151 STATUS: ADM IN REPORT#: [id number] SERVICE 0500 REASON: Elevated Liver enzymes. assess liver, gall bladder ORDERING PHYSICIAN: GIA ENAMORADO MD PROCEDURE: ABDRUQLTD - US ABDOMINAL RUQ\LTD EXAM: ultrasound abdomen limited right upper quadrant. TECHNIQUE: Performed with a curvilinear transducer in supine/oblique positions to evaluate liver, gallbladder, bile ducts, portal vein, and right kidney through subcostal and intercostal windows. CLINICAL HISTORY: Elevated Liver Enzymes. assess liver, gall bladder (Hx) COMPARISON: No prior ultrasound or CT available. FINDINGS Liver is sub optimally visualized, partly obscured by bowel gas. Liver is borderline enlarged, measures 15.4 cm. Liver demonstrates, minimal increased echogenicity, consistent with mild fatty infiltration. No intra or extrahepatic ductal dilatation. Portal Vein: Portal vein visualized with color filling. Biliary System: Common bile duct is prominent, measures 5 mm (upper limit of normal). Gallbladder is distended, measuring approximately 10 cm, contains minimal sludge. with Wall thickness: 3 mm ( borderline normal). No pericholecystic fluid noted. Neck of gallbladder obscured; obstruction or calculus at the neck cannot be excluded. Pancreas is obscured by bowel gas. Right Kidney: Normal Size: 10 5.4 5.2 cm. No renal calculus identified. Cortical echotexture preserved. IMPRESSION: 1. Gallbladder distention with minimal sludge and borderline wall thickening. Neck of gallbladder obscured; obstruction or calculus at the neck cannot be excluded. Findings are suspicious for impending cholecystitis (early inflammatory changes). 2. Common bile duct mildly prominent (5 mm), within upper normal limits. 3. Mild hepatomegaly with fatty infiltration also noted. Clinical and lab correlation (LFT, WBC and CRP). Surgical consultation if patient is symptomatic or laboratory findings support acute cholecystitis. Kindly refer to ED. /[place] DICTATED BY: LOGAN URBIE MD DATE: 10/24/25219 ELECTRONICALLY SIGNED BY: LOGAN URIBE MD DATE: 10/24/25219 [place] [address] IMAGING REPORT Signed PATIENT: DEMETRICE SANCHEZ MR#: [id number] : 1970 SEX: M AGE: 55 LOCATION: [facility] ORDER 14 STATUS: ADM IN REPORT#: [id number] SERVICE 13 REASON: tj ORDERING PHYSICIAN: GIA ENAMORADO MD PROCEDURE: RENAL - US RENAL SONOGRAM EXAM: US Retroperitoneum, Renal. CLINICAL HISTORY: tj TECHNIQUE: Real-time ultrasound of the retroperitoneum with image documentation. COMPARISON: None provided. FINDINGS: RIGHT KIDNEY: Normal in size and contour. It measures 9.7 x 5.4 x 5.5 cm. No renal mass or calculus. No hydronephrosis. LEFT KIDNEY: Normal in size and contour. It measures 11.2 x 5.4 x 4.5 cm. No renal mass or calculus. No hydronephrosis. BLADDER: Unremarkable as visualized. The urinary bladder wall thickness is 3 mm. MISCELLANEOUS: Increase in the intestinal air. No other significant abnormality is evident. IMPRESSION: 1. No acute renal or retroperitoneal findings. /[place] DICTATED BY: RANI GRANT Jr., MD DATE: 10/22/251428 ELECTRONICALLY SIGNED BY: RANI GRANT Jr., MD DATE: 10/22/251428 [facility] [address] [place] [address] IMAGING REPORT Signed PATIENT: DEMETRICE SANCHEZ MR#: [id number] : 1970 SEX: M AGE: 55 LOCATION: [facility] ORDER 1101 STATUS: ADM IN REPORT#: [id number] SERVICE 1058 REASON: right hip pain ORDERING PHYSICIAN: GIA ENAMORADO MD PROCEDURE: PELVIS WO - CT PELVIS W/O CONTRAST EXAM: CT Pelvis without Intravenous Contrast. CLINICAL HISTORY: right hip pain TECHNIQUE: Axial computed tomography images of the pelvis without without intravenous contrast. CONTRAST: None. COMPARISON: None provided. FINDINGS: HIP JOINTS: No dislocation. The joint spaces are normal. BONES: No acute fracture or focal osseous lesion. No suspicious focal osseous lesions. SOFT TISSUES: The right gluteal musculature appears asymmetrically enlarged and heterogeneous raising concern for myositis and an intramuscular collection (hematoma or abscess). There is edema within the overlying soft tissues and thickening of the overlying skin suggesting contusion versus cellulitis, clinical correlation is advised. IMPRESSION: 1. Right gluteal musculature enlargement and heterogeneity, concerning for myositis and intramuscular collection (hematoma or abscess). Overlying soft tissue edema and skin thickening, suggestive of contusion versus cellulitis. Clinical correlation is advised, and if warranted recommend contrast-enhanced MR imaging of the pelvis for further evaluation. 2. No acute fracture or dislocation. /[place] DICTATED BY: RANI GRANT Jr., MD DATE: 10/22/251406 ELECTRONICALLY SIGNED BY: RANI GRANT Jr., MD DATE: 10/22/251406 [facility] [address] [id number] IMAGING REPORT Signed PATIENT: DEMETRICE SANCHEZ MR#: [id number] : 1970 SEX: M AGE: 55 LOCATION: [facility] ORDER STATUS: REG ER REPORT#: [id number] SERVICE 7 REASON: Hip Pain ORDERING PHYSICIAN: MAKENZIE CROSS MD PROCEDURE: SOFT LOW E - US SOFT TISSUE LOWER EXTREMITY EXAM: Lower Extremity Nonvascular Soft Tissue Ultrasound CLINICAL HISTORY: Hip Pain TECHNIQUE: Real-time ultrasound scan of the right lower extremity with image documentation. COMPARISON: None provided. FINDINGS: SOFT TISSUES: Fluid collection measuring 8.5 x 7.2 x 7.3 cm in the right lateral hip region, in the deep subcutaneous plane, beneath the region of pain and redness. IMPRESSION: Fluid collection measuring 8.5 x 7.2 x 7.3 cm in the right lateral hip region, beneath the region of pain and redness, suggestive of an abscess. /[place] DICTATED BY: RANI GRANT Jr., MD DATE: 10/22/251121 ELECTRONICALLY SIGNED BY: RANI GRANT Jr., MD DATE: 10/22/251121 [address] [id number] IMAGING REPORT Signed PATIENT: DEMETRICE SANCHEZ MR#: [id number] : 1970 SEX: M AGE: 55 [facility] STATUS: ADM IN [facility] REPORT#: [id number] SERVICE 1058 REASON: right thigh abscess ORDERING PHYSICIAN: GIA ENAMORADO MD PROCEDURE: LOW EXT WO - CT LOW EXT W/O CONTRAST EXAM: CT right hip and femur, without IV contrast CLINICAL HISTORY: Right thigh abscess. TECHNIQUE: Axial images were acquired through the right femur without intravenous contrast. Reformatted images were reviewed. COMPARISON: Ultrasound soft tissue lower extremity dated 10/22/2025 10:54 EST. FINDINGS: BONES: No acute fracture is noted. No lytic or blastic osseous lesion is identified. Femoral head contour is preserved. JOINTS: No hip joint dislocation or subluxation is seen. No CT evidence of septic arthritis or significant hip joint effusion on this non-contrast study. SOFT TISSUES: A large complex fluid collection is present along the course of the right tensor fascia bruce, measuring approximately 9.7 x 4.5 x 4.8 cm, extending into the trochanteric bursa region and superficially into the deep subcutaneous planes of the proximal anterior, anterolateral, and posterolateral thigh, with surrounding soft tissue stranding compatible with extensive cellulitis. Posteriorly, the collection extends along the fascial planes of the gluteus medius, with an additional collection measuring approximately 8.4 x 8.0 cm located between the gluteus jaci and gluteus medius muscles and extending within the gluteus medius muscle belly, consistent with a deep intramuscular and peribursal abscess. No radiopaque foreign body or soft tissue gas is identified. IMPRESSION: * Large multiloculated fluid collections centered along the right tensor fascia bruce and trochanteric bursa region with extension into the deep subcutaneous tissues of the proximal thigh, and additional 8.4 x 8.0 cm collection between and within the right gluteus medius and jaci muscles, consistent with extensive peritrochanteric and gluteal intramuscular abscesses with overlying cellulitis. * No acute fracture, aggressive osseous lesion, or CT evidence of septic arthritis of the right hip on this non-contrast examination. /[place] DICTATED BY: RANI GRANT Jr., MD DATE: 10/22/251408 ELECTRONICALLY SIGNED BY: RANI GRANT Jr., MD DATE: 10/22/251408 IMPRESSION Right inner thighs swelling concerning for possible abscess differential abscess -s/p I&D day 2 History of alcohol use Mild hyponatremia Acute kidney injury Mild thrombocytopenia Dehydration Elevated LFTs Severe hypoalbuminemia secondary to protein calorie malnutrition Hyperglycemia secondary to suspected uncontrolled diabetes mellitus type 2 History of marijuana use PLAN 1. Peripheral smear ordered: microcytosis present, platelets small to normal in number (100-120K) with rouleaux phenomena and vacuolization indicating infection. will order SPEP/UPEP and free light chain. 2. Plan for thrombocytopenia - trend CBC daily. 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 Hold Lovenox if platelets less than 0110[address] or if any signs of bleeding. No indication for platelet transfusion at this time 4. Continue antibiotics per Infectious Disease, but if platelets continue to fall, consider: recommend switching vancomycin if suspicion for VIT increases 5. Monitor for clinical bleeding: Petechia, hematuria, GI bleeding. MAU ANDERSEN MD 10/25/25 1708: PLAN I attest that I was physically present to evaluate the patient and I reviewed and discussed the case with the Resident and agree with the Resident's findings and plans of care as documented above with modifications. Case discussed with resident on the date stated at the beginning of note. Patient was first seen and evaluated by me during this hospitalization. KATHLEEN POP Oct 25, 2025 10:06 MAU ANDERSEN MD Oct 25, 2025 17:08
[2025-10-25] MEDS ORDERED: NEOSTIGMINE METHYLSULFATE 1MG/ML IV ONE (11:11)
[2025-10-25] MEDS ORDERED: GLYCOPYRROLATE 0.2 MG/ML 5 ML VIAL ONE (11:11)
[2025-10-25] MEDS ORDERED: FERROUS FUMARATE 324 MG TABLET PO PRN (11:30)
[2025-10-25] MEDS ORDERED: CALCIUM CARB 500MG PO PRN (11:30)
[2025-10-25] MEDS: 0.9%NACL 1000ML 1,000 ML IV SCH (11:30)
[2025-10-25] MEDS ORDERED: PROMETHAZINE HCL 25 MG/ML 1ML AMPULE IM PRN ×2 (11:30)
--- NOTE | 2025-10-25 11:38 | NUR ---
PT CONTINUE ON FIRST FLOOR FOR MONITORING, MEDICATIONS FOR AFTERNOON ROUND NOT ADMINISTERED.
[2025-10-25] MEDS: PSYLLIUM SEED 1 EACH PACKET PO SCH (12:00)
[2025-10-25] MEDS: SUGAMMADEX SODIUM 200 MG/2 ML VIAL IV ONE (12:09)
--- NOTE | 2025-10-25 12:15 | PN ---
[facility] PROGRESS NOTE Date of Service: Oct 25, 2025 Time of Service: 12:12 SUBJECTIVE: 10/23 patient remains admitted to the medical floor, comfortably in bed, the time of my visit alert oriented x3, getting IV fluids, IV antibiotics. Patient admitted secondary to right hip intramuscular abscess involving the tensor fascia bruce with the extension to the posterior deep high space, status post incision and drainage 10/22/2025. POD #1. Patient tolerated the procedure well. Currently hemodynamically stable, afebrile, saturating normal on room air. WBC of 11.2, hemoglobin 9.6, hematocrit 37.7, platelet count of 100. BUN of 24, creatinine 1.5. Continue the patient on broad-spectrum IV antibiotics, continue supportive care with IV fluids, continue to follow orthopedic input recommendation, follow results of cultures, adjust antibiotics accordingly. Infectious Disease consultation requested, we will follow input and recommendation. 10/24 patient remains admitted to medical floor, comfortably in bed, no acute events overnight, during my visit he is alert oriented x3, getting good pain control with current medical management, getting IV fluids, IV antibiotics. Remains hemodynamically stable, afebrile, saturating normal on room air. Hemoglobin 8.7, hematocrit 5.4, platelet count of 88. Results of urine culture positive for Staphylococcus aureus, aerobic and anaerobic culture positive for Gram-positive cocci in pairs. Patient will remain on broad-spectrum IV antibiotics. Continue to follow ID input recommendation. Follow orthopedic input recommendation. Lovenox on hold, SCDs in place, monitor platelet count in a.m., if continue to get worse we will request Hematology consultation. 10/25 patient remains admitted to medical floor, comfortable, no acute events overnight, he is currently NPO, scheduled to be taken to the operating room today for revision and I and D of right hip peritrochanteric subcutaneous abscess by orthopedic physician. Blood pressure 123/67, afebrile, saturating normal on room air. Tissue culture positive for Staphylococcus aureus. Urine culture positive for Staphylococcus aureus. Continue the patient on broad-spect rum IV antibiotics, continue to follow ID input and recommendation. Follow a.m. labs. REVIEW OF SYSTEMS CONSTITUTIONAL: Denies fevers, chills, or night sweats. No unintentional weight loss reported. NEUROLOGICAL: Denies headache, amaurosis fugax, motor weakness, sensory deficit, vertigo/spinning sensation, gait abnormalities, or tremors. ENT: No hearing loss, otalgia, otorrhea, rhinitis, rhinorrhea, hoarseness, or sore throat. CARDIOVASCULAR: Denies any exertional angina, dyspnea on exertion, orthopnea, paroxysmal nocturnal dyspnea, palpitations, life-threatening arrhythmias, claudication. PULMONARY: Denies any shortness of breath, cough, phlegm/sputum, hemoptysis, pleuritic chest pain. SLEEP: Denies morning headaches, daytime somnolence or napping. Denies difficulty falling asleep, staying asleep, waking from sleep. Denies knowledge of snoring. GASTROINTESTINAL: Denies any type of dysphagia to either liquids or solids. Denies nausea, vomiting, pyrosis, early satiety, abdominal pain, diarrhea, constipation, or changes in stool consistency or caliber. Denies coffee-ground emesis, hematemesis, hematochezia, or melanotic stools. GENITOURINARY: Denies frequency, urgency, nocturia, hematuria or incontinence (Storage/Irritative symptoms.) Low urinary stream, straining to void, urinary intermittency or hesitancy, splitting of the voiding stream, terminal dribbling. ENDOCRINOLOGIC: Denies polyuria, polydipsia, polyphagia or heat/cold intolerances. HEMATOLOGIC: Denies thrombophilia/previous clots, or coagulopathy/bleeding disorders. ONCOLOGIC: Denies personal history of malignancy. DERMATOLOGIC: POSITIVE FOR REDNESS AND SWELLING IN THE RIGHT INNER THIGH PSYCHIATRIC: Denies any suicidal or homicidal ideation. Denies hallucinations. Musculoskeletal: Positive for pain in the right inner thigh PHYSICAL EXAM GENERAL APPEARANCE: The patient is awake, alert, and oriented, in no acute cardiopulmonary distress. NEUROLOGICAL: Cranial nerves II-XII grossly intact. Motor is 5/5 in bilateral upper and lower extremities proximal to distal. No sensory deficits. HEENT: Face is symmetric. Pupils are equal and reactive. Extraocular movements are intact. NECK: Supple. No JVD. No thyromegaly. No submental, submandibular, pre- /postauricular, occipital or supraclavicular lymphadenopathy. CHEST: Normal chest expansion. No Telemetry. LUNGS: Absence of any rales, rhonchi or any wheezing. CARDIOVASCULAR: Regular. S1 and S2 normal. No appreciable rubs, murmurs or gallops. ABDOMEN: Soft, nontender, and nondistended. There is no rebound, voluntary guarding, or rigidity. : Deferred. No Taylor. EXTREMITIES: Non-edematous and not cyanotic. No clubbing. Good capillary refill. SKIN: There is redness on the right lateral aspect of the hip. There is induration and swelling noted in the right inner thigh. Area is tender to palpation Vital Signs (last 8hr) Date Time Temp Pulse Resp B/P (MAP) Pulse Ox O2 Delivery O2 Flow Rate FiO2 10/25/25 11:28 98.8 118 19 155/74 98 Nonrebreathing Mask 10.0 LABS: Laboratory: Test 10/25/25 06:12 10/25/25 06:00 10/24/25 15:24 Range/Units Whole Blood Glucose 153 H 70-110 MG/DL White Blood Count 5.7 4.8-10.8 K/uL Red Blood Count 2.39 L 4.50-6.20 MIL/uL Hemoglobin 8.4 L 14.0-18.0 g/dL Hematocrit 24.4 L 42-54 % Mean Corpuscular Volume 102.1 H 79-99 fL Mean Corpuscular Hemoglobin 35.1 H 27.0-33.0 pg Mean Corpuscular Hemoglobin Concent 34.4 32.0-36.0 g/dL Red Cell Distribution Width 14.2 11.0-15.5 % Platelet Count 82 L 130-400 K/uL Mean Platelet Volume 9.8 7.5-10.5 fL Nucleated Red Blood Cells 0.0 0.0-0.19 % Prothrombin Time 14.1 H 9.6-11.6 SEC Prothromb Time International Ratio 1.37 H 0.85-1.15 Sodium Level 135 L 136-145 mmol/L Potassium Level 3.2 L 3.5-5.1 mmol/L Chloride Level 105 101-111 mmol/L Carbon Dioxide Level 21 21-32 mmol/L Blood Urea Nitrogen 14 7-18 mg/dL Creatinine 1.1 0.5-1.3 mg/dL Glomerular Filtration Rate Calc 79 >90 mL/min Random Glucose 151 H 70-105 mg/dL Total Calcium 6.8 L 8.5-10.1 mg/dL Magnesium Level 1.60 L 1.80-2.40 mg/dL Total Bilirubin 1.3 H 0.2-1.0 mg/dL Aspartate Amino Transf (AST/SGOT) 90 H 10-37 U/L Alanine Aminotransferase (ALT/SGPT) 55 12-78 U/L Alkaline Phosphatase 104 50-136 U/L Total Protein 5.6 L 6.0-8.3 g/dL Albumin 1.1 L 3.5-5.0 g/dL Bedside Glucose Comment Notified Nurse Current Medications Medications (Trade) Dose Ordered Sig/Denise Route PRN Reason Start Time Stop Time Status Last Admin Dose Admin Acetaminophen (TYLenol 500MG TAB) 500 mg Q6H PRN PO MILD PAIN (1-3) 10/22/25 11:00 11/21/25 10:59 Acetaminophen/ Hydrocodone Bitart (NORco 10) 1 tab Q6H PRN PO SEVERE PAIN (7-10) 10/22/25 23:00 10/29/25 22:59 Acetaminophen/ Hydrocodone Bitart (NORco 5/325MG) Q4H PRN PO MODERATE/SEVERE PAIN LEVEL 10/22/25 22:30 10/22/25 22:54 DC Acetaminophen/ Hydrocodone Bitart (NORco 5/325MG) 1 tab Q6H PRN PO MODERATE PAIN (4-6) 10/22/25 23:00 10/27/25 22:59 10/24/25 14:18 1 TAB Bisacodyl (DulcoLAX 5MG TAB) 10 mg DAILY PRN PO CONSTIPATION 10/24/25 22:30 10/25/25 11:28 DC Bisacodyl (DulcoLAX 5MG TAB) 10 mg DAILY PRN PO CONSTIPATION 10/27/25 11:30 11/26/25 11:29 Bisacodyl (DulcoLAX) 10 mg DAILY PRN RC CONSTIPATION 10/25/25 22:30 10/25/25 11:28 DC Bisacodyl (DulcoLAX) 10 mg DAILY PRN RC CONSTIPATION 10/28/25 11:30 11/27/25 11:29 Calcium Carbonate (Oyster Shell Ca 500mg Tab) 500 mg Q12H PRN PO GIVE IF SERUM CA LESS THAN 8 10/25/25 11:30 11/24/25 11:29 Calcium Carbonate (Oyster Shell Ca 500mg Tab) 500 mg Q12H PRN PO GIVE IF SERUM CA LESS THAN 8 10/22/25 22:30 10/25/25 11:28 DC Cefazolin Sodium (Ancef) 2 gm Q8H IVPB 10/25/25 10:00 11/04/25 09:59 Cefepime HCl (MAXipime 1 GM vial) 1 gm Q12H IVPB 10/22/25 15:00 10/25/25 09:56 DC 10/25/25 03:33 1 GM Diphenhydramine HCl (BENAdryl CAP) 25 mg Q6H PRN PO ITCHING 10/25/25 11:30 11/24/25 11:29 Diphenhydramine HCl (BENAdryl CAP) 25 mg Q6H PRN PO ITCHING 10/22/25 22:30 10/22/25 22:52 DC Diphenhydramine HCl (BENAdryl INJ) 25 mg Q6H PRN IVP ITCHING 10/25/25 11:30 11/24/25 11:29 Diphenhydramine HCl (BENAdryl INJ) 25 mg Q6H PRN IVP ITCHING 10/22/25 22:30 10/25/25 11:28 DC Enoxaparin Sodium (Lovenox) 40 mg DAILY SQ 10/26/25 09:00 11/25/25 08:59 UNV Enoxaparin Sodium (Lovenox) 40 mg DAILY SQ 10/23/25 09:00 10/24/25 13:28 DC 10/23/25 09:53 40 MG Famotidine (Pepcid 20mg Vial) 20 mg BID IV 10/22/25 21:00 11/21/25 20:59 10/24/25 20:42 20 MG Fentanyl Citrate (FENTanyl CITRate PF 50 MCG/ 1 ML 2ML VIAL) 25 mcg Q5MIN PRN IVP PAIN LEVEL 7 TO 10 10/25/25 11:30 10/26/25 11:29 10/25/25 11:47 25 MCG Ferrous Fumarate (Hemocyte) 324 mg DAILY PRN PO IF HEMOGLOBIN LESS THAN 9 10/25/25 11:30 11/24/25 11:29 Ferrous Fumarate (Hemocyte) 324 mg DAILY PRN PO IF HEMOGLOBIN LESS THAN 9 10/22/25 22:30 10/25/25 11:28 DC Hydromorphone HCl (DiLAUDid 0.5MG INJ) 0.25 mg Q6H PRN IVP SEVERE PAIN (7-10) 10/22/25 11:00 10/27/25 10:59 10/22/25 15:16 0.25 MG Hydromorphone HCl (DiLAUDid 2MG INJ) 2 mg Q2H PRN IVP SEVERE PAIN (7-10) 10/22/25 22:30 10/27/25 22:29 10/25/25 01:50 2 MG Insulin Glargine (LANtus 100 UNITS/ML 10 ML VIAL) 10 units DAILY SQ 10/23/25 09:30 10/24/25 06:54 DC 10/23/25 10:06 10 UNITS Insulin Glargine (LANtus 100 UNITS/ML 10 ML VIAL) 15 units DAILY SQ 10/24/25 09:00 11/23/25 08:59 10/24/25 09:42 15 UNITS Insulin Human Regular (humuLIN R 100 UNIT/ML 3ML) 3 unit TIDAC SQ 10/24/25 07:30 11/23/25 07:29 10/24/25 12:40 3 UNIT Insulin Human Regular (humuLIN R 100 UNIT/ML 3ML) INSULIN SLIDING SCAL... Q6H6 SQ 10/22/25 12:00 11/21/25 11:59 10/24/25 06:05 2 UNIT Ketorolac Tromethamine (toRADol) 15 mg Q6H PRN IV BREAKTHROUGH PAIN (4-6) 10/25/25 11:30 10/30/25 11:29 Ketorolac Tromethamine (toRADol) 30 mg AD PRN IV PAIN LEVEL 1 TO 3 10/25/25 11:30 10/26/25 11:29 Magnesium Sulfate 50 ml @ 0 mls/hr PROTOCOL IV 10/24/25 10:00 10/25/25 07:24 DC Magnesium Sulfate 50 ml @ 0 mls/hr PROTOCOL IV 10/25/25 07:30 11/24/25 07:29 Metoclopramide HCl (regLAN 10MG IV) 10 mg AD PRN IVP NAUSEA/VOMITING 10/25/25 11:30 10/26/25 11:29 Metronidazole/ Sodium Chloride 100 ml @ 100 mls/hr Q8H IVPB 10/22/25 12:00 10/23/25 04:20 DC 10/23/25 01:09 100 MLS/HR Metronidazole/ Sodium Chloride 100 ml @ 100 mls/hr Q8H IVPB 10/23/25 09:00 10/25/25 09:56 DC 10/25/25 01:43 100 MLS/HR Morphine Sulfate (morPHINE 2MG SYG) 2 mg AD PRN IVP PAIN LEVEL 4 TO 6 10/25/25 11:30 10/26/25 11:29 Naloxone HCl (NARcan 0.4mg/1 mL) 0.1 mg AD PRN IVP RESPIRATORY SYMPTOMS 10/25/25 11:30 10/26/25 11:29 Ondansetron HCl (zoFRAN 4MG INJ) 4 mg AD PRN IVP NAUSEA/VOMITING 10/25/25 11:30 10/26/25 11:29 Ondansetron HCl (zoFRAN 4MG INJ) 4 mg Q6H PRN IVP NAUSEA/VOMITING 10/24/25 01:30 11/23/25 01:29 10/24/25 02:36 4 MG Polyethylene Glycol (MIRalax 3350 17 GM POWD.PACK) 17 gm DAILY PO 10/26/25 09:00 11/25/25 08:59 Polyethylene Glycol (MIRalax 3350 17 GM POWD.PACK) 17 gm DAILY PO 10/23/25 09:00 11/22/25 08:59 10/23/25 09:51 17 GM Promethazine HCl (Phenergan) 25 mg AD PRN IM NAUSEA/VOMITING 10/25/25 11:30 10/26/25 11:29 Promethazine HCl (Phenergan) 25 mg Q4H PRN IM NAUSEA/VOMITING 10/25/25 11:30 11/24/25 11:29 Psyllium Hydrophilic Mucilloid (Metamucil) 1 tbs DAILYLUNCH PO 10/25/25 12:00 11/24/25 11:59 Psyllium Hydrophilic Mucilloid (Metamucil) 1 tbs DAILYLUNCH PO 10/23/25 12:00 10/25/25 11:28 DC Sodium Chloride 1,000 ml @ 100 mls/hr Q10H IV 10/25/25 11:30 10/26/25 11:29 Sodium Chloride 1,000 ml @ 100 mls/hr Q10H IV 10/22/25 11:00 10/25/25 11:28 DC 10/24/25 20:42 100 MLS/HR Sodium Chloride 1,000 ml @ 100 mls/hr Q10H IV 10/22/25 22:30 10/23/25 22:29 DC 10/23/25 18:38 100 MLS/HR Temazepam (restORIL 15 MG CAP) 15 mg HS PRN PO INSOMNIA/SLEEP 10/25/25 11:30 11/24/25 11:29 Vancomycin HCl 250 ml @ 125 mls/hr Q24H IV 10/23/25 12:00 10/25/25 09:56 DC 10/24/25 12:34 125 MLS/HR Vancomycin HCl (Vancomycin Protocol) 1 each AD IV 10/22/25 11:00 10/25/25 10:19 DC DIAGNOSTICS / RADIOLOGY: [ ] ASSESSMENT: Right inner thighs swelling concerning for possible abscess differential abscess versus hematoma History of alcohol use Mild hyponatremia Acute kidney injury Mild thrombocytopenia Dehydration Elevated LFTs Severe hypoalbuminemia secondary to protein calorie malnutrition Hyperglycemia secondary to suspected uncontrolled diabetes mellitus type 2 History of marijuana use PLAN: patient remains admitted to medical floor, comfortable, no acute events overnight, he is currently NPO, scheduled to be taken to the operating room today for revision and I and D of right hip peritrochanteric subcutaneous abscess by orthopedic physician. Blood pressure 123/67, afebrile, saturating normal on room air. Tissue culture positive for Staphylococcus aureus. Urine culture positive for Staphylococcus aureus. Continue the patient on broad- spectrum IV antibiotics, continue to follow ID input and recommendation. Follow a.m. labs. NEURO: Minimize central acting medications as possible. Fall Precautions. Well lighted room through the day and minimize interruptions through the night to prevent acute delirium. PULMONARY: Supplemental 02 as needed BiPAP as necessary, for respiratory distress Titrate Fio2 to keep Spo2 > or = 90% DuoNebs and CPT as needed IS hourly while awake for pulmonary hygiene prn Out of bed to chair as tolerated Maintain aspiration precautions at all times CARDIOVASCULAR: Follow hemodynamics. Vital signs per facility protocol GI & NUTRITION: Continue nutritional support Aspirations precautions Prokinetic agents and laxatives as needed KIDNEYS & ELECTROLYTES: Strict monitoring of intake and output Daily weights Avoid nephrotoxic agents Monitor electrolytes and replace as needed Goal urine output of 30mL/hr or 0.5mL/kg/hr Medications to be dosed according to renal function. Avoid contrast if possible ENDOCRINE: Maintain blood glucose between 100-180 at all times. Insulin sliding scale for blood glucose management Hypoglycemia and hyperglycemia protocol in place INFECTIOUS DISEASE: Trend temperature, WBC and procalcitonin level Follow cultures, deescalate antibiotics as soon as possible. Panculture if new onset fever HEMATOLOGY & COAGULATION: Monitor H&H. Keep Hgb > 7 Transfuse 1 unit of PRBC for Hgb < 7 Transfuse 1 pack of platelets of platelets < 20, 000 Watch for any signs and symptoms of bleeding SKIN: Pressure ulcer prevention per facility protocol Specialty mattress as needed ORTHO/REHAB Continue PT/OT PRN: MEDICATIONS Tylenol 650 mg po every 4 hrs for fever zofran 4 mg IV every 6 hrs for n/v Hydralazine 5 mg IV every 4 hrs systolic pressure > 160 bowel regiment: lactulose 20 gm PO BID PRN constipation Supportive measures: Continue GI and DVT prophylaxis Disposition: Pending improvement in clinical condition All questions answered time spent: > 35 min RODRIGO BROCK MD Oct 25, 2025 12:15
[2025-10-25 14:06] LABS: NUCLEATED RED BLOOD CELLS 0.0 % (0.0-0.19); PLATELET COUNT (AUTO) 87.0 K/uL (130-400); RED BLOOD CELL COUNT(AUTO) 2.57 MIL/uL (4.50-6.20); RED CELL DISTRIBUTION WIDTH 14.6 % (11.0-15.5); WHITE BLOOD COUNT (AUTO) 8.8 K/uL (4.8-10.8)
--- NOTE | 2025-10-25 15:05 | OP ---
Operative Note: DATE OF PROCEDURE: 10/25/25 SURGEON: VANESSA OJEDA MD DIRECTOR GEOTHERMAL OPERATIONS: [Mao Molina CFA] ANESTHESIA: [General anesthesia.] ANESTHESIOLOGIST/DISTRIBUTION ESTIMATOR: [Andre Aviles CRNA] PREOPERATIVE DIAGNOSIS: [Right hip soft tissue abscess, status post incision and drainage, excisional debridement and irrigation.] POSTOPERATIVE DIAGNOSIS: [Same] PROCEDURE: [Right hip second-look incision drainage and excisional debridement of soft tissue, irrigation] ESTIMATED BLOOD LOSS: [200 mL] INDICATIONS: [The patient is status post I and D of an abscess of the right hip that involved the tensor fascia bruce as well as the posterior gluteal area. Cultures growing staph. The patient is brought to the operating room for a second-look irrigation and debridement and possible final closure. Procedure understood by the patient, risks, benefits and possible complications and they agreed signed the consent form] DESCRIPTION OF PROCEDURE: [After adequate general anesthesia was achieved the patient was placed in the operating table in the left lateral decubitus and held in position with a PEG holders. The right lower extremity dressing was removed and the drains removed the patient's right lower extremity was then prepped and draped in the usual manner. The surgical stitches were removed from the wound opening it through the skin and subcutaneous tissue then a 2nd set of stitches partially closing the tensor fascia bruce were also removed noticing that the patient had very distinctive necrotic tissue consisting of the fascia bruce and its well as the presence of purulent material still present in the area including the tensor fascia bruce area and slightly in the gluteal space. The rest of the tissue looked healthy. With the use of a rongeur as well as an elevated we proceeded to scrape all the necrotic tissue present as well as portions of the tensor fascia bruce especially the ones surrounding the greater trochanter removing most of the necrotic tissue. We then proceeded to irrigate with 6 L of antibiotic solution with jet lavage the wound that extended under the tensor fascia bruce down to the mid thigh, area that was noted to be clean. After irrigation was completed we then proceeded to light new size 10 JOSEFINA drains using the same entry sites as before and one drain was placed along the tensor fascia bruce undersurface down the mid thigh and the 2nd one in the posterior gluteal area. The wound was then reapproximated by just closure of the skin with a vertical mattress stitches with 2. Nylon and then the drapes were secure with a 3-0 nylon stitches. The wound was covered with a soft dressing including Xeroform, 4x4s, ABDs and tape. The patient's drapes were then removed and he was not transferred to his bed and taken to recovery room for follow-up by anesthesia. There were no complications during the procedure] VANESSA OJEDA MD Oct 25, 2025 15:05
--- NOTE | 2025-10-25 16:42 | NUR ---
Pt refused reports 10/10 pain and that nurse said he could not yet have pain meds. Nurse Jovita and Charge Carmen present and aware. Nurse to look for PO option for pain mgt since patient does not tolerate mobility at this time.
--- NOTE | 2025-10-25 19:00 | HMCSR ---
APPROVED REPORT EXAM: Two-dimensional and M-mode echocardiogram with Doppler and color Doppler. INDICATION ICD: Sepsis 2D Dimensions RVDd 4.5 cm LVEF(%) 61.4 (>50%) LVED Vol(simp.) 130.0 mL IVSd 0.9 (0.7-1.1cm) FS(%) 33 % LVES Vol(simp.) 57.0 mL LVDd 5.3 (3.8-5.6cm) LA (2D) 4.4 (1.6-4.0cm) LVEF(%, simp.) 56 % PWd 0.9 (0.7-1.1cm) Ao Root(2D) 3.4 (2.0-3.7cm) LA ESV INDEX (BP) 36.87 mL/m2 IVSs 0.9 cm LVOT diam 2.2 (1.8-2.4cm) LVDs 3.5 (2.5-4.0cm) PWs 1.6 cm Deformation Strain Apical 4 -18.3 % Apical 2 -15.5 % Apical 3 -18.0 % Global Strain -17.3 % M-Mode Dimensions EPSS 0.6 cm LA (MM) 4.5 (1.6-4.0cm) Ao Root(MM) 2.7 (2.0-3.7cm) Aortic Valve AoV Vmax 1.4 m/s Ao Peak GR 7.4 mmHg LVOT Vmax 1.1 m/s AoV VTI 0.2 m Ao Mean GR 4.8 mmHg LVOT VTI 0.20 m ABDI (VMAX) 2.95 cm2 ABDI (VTI) 3.1 cm2 Mitral Valve MV E Vmax 92.7 cm/s DECEL Time 164 ms MV A Vmax 74.9 cm/s P 1/2 T 51 ms E/A ratio 1.2 MVA (PHT) 4.3 cm2 TDI E/E' Medial 10.3 E/E' Lateral 6.9 Medial E' Peak V 8.99 cm/s Lateral E' Peak V 13.49 cm/s Pulmonary Valve PV Vmax 1.2 m/s PV Mean GR 3.1 mmHg PV Peak GR 5.4 mmHg Tricuspid Valve TR Vmax 2.1 m/s RAP (EST) 3 mmHg RVSP 20.9 mmHg TR Peak GR 17.9 mmHg Left Ventricle The left ventricle is normal size. There is normal LV segmental wall motion. There is normal left ventricular wall thickness. LVEF is 55-60%. No left ventricle thrombus noted on this study. The left ventricular diastolic function is normal. Right Ventricle The right ventricle is normal size. The right ventricular systolic function is normal. Atria The left atrium is mildly dilated. The right atrium size is normal. Aortic Valve The aortic valve is normal in structure. No aortic regurgitation is present. No aortic valvular vegetation noted. There is no aortic valvular stenosis. Mitral Valve The mitral valve is normal in structure. There is trace of mitral valve regurgitation noted. There are no mitral valve vegetation noted. There is no mitral valve stenosis. Tricuspid Valve The tricuspid valve is normal in structure. There is trace of tricuspid valve regurgitation noted. There is no tricuspid valve vegetation. Pulmonic Valve Pulmonic valve is not well visualized. There is no pulmonic valvular regurgitation. Great Vessels The aortic root is normal in size. The IVC is normal in size and collapses >50% with inspiration. Pericardium There is no pericardial effusion. Other Information Quality : Adequate Conclusion The left ventricle is normal size. LVEF is 55-60% with normal LV segmental wall motion. The left ventricular diastolic function is normal. The right ventricular systolic function is normal. The left atrium is mildly dilated. No hemodynamically significant valvular abnormalities. There is no pericardial effusion.
--- NOTE | 2025-10-25 19:29 | PN ---
INFECTIOUS DISEASE PROGRESS NOTE Date of Service: Oct 25, 2025 SUBJECTIVE: Patient is s/p incision and drainage of right hip intramuscular abscess on 10/22/2025. Patient has remained afebrile,, temperature is 98.8 with a WBC of 5.7. During rounding today patient was out to OR for a scheduled 2nd look I&D and irrigation of the right hip scheduled for today. The preliminary right hip wound cultures is growing Gram-positive cocci in clusters, Staphylococcus aureus and the preliminary blood culture results has been negative for 24 hours. We will discontinue vancomycin and cefepime and start patient on cefazolin 2 g IV Q 8 hours and follow up on the final culture results. PHYSICAL EXAM EYES: Anicteric. Pupils equal and reactive. HENT: No oral thrush seen, moist Oral mucosa. NECK: Supple, no JVD or thyromegaly. LUNGS: Good air entry. No rales, no rhonchi. CARDIOVASCULAR: S1, S2 regular. No murmur heard. ABDOMEN: Soft, non tender, bowel sounds present. CENTRAL NERVOUS SYSTEM: Awake, alert, oriented x 3. SKIN: No rashes, no swelling. LYMPHATICS: No peripheral lymphadenopathy MUSCULOSKELETAL: No joint swelling, erythema or tenderness. EXTREMITIES: No cyanosis or clubbing. Right hip intramuscular abscess, s/p I&D. 2 JOSEFINA drains. BACK: No deformity, no pressure ulcer. GENITOURINARY: No dysuria or hematuria. Vital Sign (Last 12 Hours) 10/25/25 10/25/25 10/25/25 10/25/25 08:00 11:28 11:33 11:38 Temp 98.8 Pulse 118 122 118 Resp 19 B/P (MAP) 155/74 157/78 155/74 Pulse Ox 97 98 97 98 O2 Delivery Room Air* Nonrebreathing Mask Nonrebreathing Mask Nonrebreathing Mas k O2 Flow Rate 0 10.0 10.0 10.0 FiO2 21 10/25/25 10/25/25 10/25/25 10/25/25 11:43 11:48 11:53 11:58 Pulse 111 109 105 116 Resp 18 19 B/P (MAP) 151/71 149/67 159/77 156/70 Pulse Ox 98 97 97 98 O2 Delivery Nonrebreathing Mask Nonrebreathing Mask Nonrebreathing Mask Nasal Cannula O2 Flow Rate 10.0 10.0 10.0 3.0 10/25/25 10/25/25 10/25/25 10/25/25 12:03 12:08 12:13 12:18 Pulse 119 112 107 101 Resp 22 17 16 17 B/P (MAP) 152/69 155/74 156/70 139/65 Pulse Ox 97 96 98 97 O2 Delivery Nasal Cannula Nasal Cannula Nasal Cannula Nasal Cannula O2 Flow Rate 3.0 3.0 3.0 3.0 10/25/25 10/25/25 10/25/25 10/25/25 12:23 12:28 12:30 12:45 Temp 98.8 Pulse 97 96 97 98 Resp B/P (MAP) 146/72 158/78 110/59 120/61 Pulse Ox 96 98 100 100 O2 Delivery Nasal Cannula Nasal Cannula Nasal Cannula Nasal Cannula O2 Flow Rate 3.0 3.0 3.0 3.0 10/25/25 10/25/25 10/25/25 10/25/25 13:00 13:15 13:30 14:00 Pulse 89 91 81 92 Resp B/P (MAP) 132/64 132/74 115/68 126/75 Pulse Ox 100 100 100 100 O2 Delivery Nasal Cannula Nasal Cannula Nasal Cannula Nasal Cannula O2 Flow Rate 3.0 3.0 3.0 3.0 10/25/25 10/25/25 10/25/25 10/25/25 14:30 15:30 16:30 17:30 Pulse 98 98 89 84 Resp B/P (MAP) 143/82 124/73 130/73 131/75 Pulse Ox 100 100 100 100 O2 Delivery Nasal Cannula Nasal Cannula Nasal Cannula Nasal Cannula O2 Flow Rate 3.0 3.0 3.0 3.0 Intake & Output (last 24hrs) 10/24/25 10/24/25 10/25/25 15:00 23:00 07:00 Intake Total 302.0 ml 450.0 ml Output Total 800 ml 870 ml Balance 302.0 ml -350.0 ml -870 ml LABS: Laboratory: Test 10/25/25 14:03 10/25/25 06:12 10/25/25 06:00 10/24/25 15:24 Range/Units White Blood Count 8.8 # 4.8-10.8 K/uL Red Blood Count 2.57 L 4.50-6.20 MIL/uL Hemoglobin 9.0 L 14.0-18.0 g/dL Hematocrit 26.4 L 42-54 % Mean Corpuscular Volume 102.7 H 79-99 fL Mean Corpuscular Hemoglobin 35.0 H 27.0-33.0 pg Mean Corpuscular Hemoglobin Concent 34.1 32.0-36.0 g/dL Red Cell Distribution Width 14.6 11.0-15.5 % Platelet Count 87 L 130-400 K/uL Mean Platelet Volume 9.8 7.5-10.5 fL Nucleated Red Blood Cells 0.0 0.0-0.19 % Whole Blood Glucose 153 H 70-110 MG/DL Prothrombin Time 14.1 H 9.6-11.6 SEC Prothromb Time International Ratio 1.37 H 0.85-1.15 Sodium Level 135 L 136-145 mmol/L Potassium Level 3.2 L 3.5-5.1 mmol/L Chloride Level 105 101-111 mmol/L Carbon Dioxide Level 21 21-32 mmol/L Blood Urea Nitrogen 14 7-18 mg/dL Creatinine 1.1 0.5-1.3 mg/dL Glomerular Filtration Rate Calc 79 >90 mL/min Random Glucose 151 H 70-105 mg/dL Total Calcium 6.8 L 8.5-10.1 mg/dL Magnesium Level 1.60 L 1.80-2.40 mg/dL Total Bilirubin 1.3 H 0.2-1.0 mg/dL Aspartate Amino Transf (AST/SGOT) 90 H 10-37 U/L Alanine Aminotransferase (ALT/SGPT) 55 12-78 U/L Alkaline Phosphatase 104 50-136 U/L Total Protein 5.6 L 6.0-8.3 g/dL Albumin 1.1 L 3.5-5.0 g/dL Bedside Glucose Comment Notified Nurse DIAGNOSTICS / RADIOLOGY: PATIENT: DEMETRICE SANCHEZ ACCT: [id number] LOC: [facility] U: [id number] AGE/SX: 55/M ROOM: 320 RE10/22/[address]: GIA ENAMORADO MD : 1970 BED: 1 DIS: STATUS: ADM IN TLOC: SPEC: [id number] MERRITT: 10/22/25 STATUS: RES REQ: [id number] RECD: 10/22/[address] [facility] [address]: VANESSA OJEDA MD SOURCE: TISSUE ENTR: 10/22/[address]: MCKENNA CASTRO MD [facility]: OTHER GIA ENAMORADO MD SELF,REFERRAL ORDERED: GS, MATT CULTURE, AEROBIC CULTURE COMMENTS: Has specimen been collected/obtained? Y Specimen Comment: GRAM STAIN RIGHT HIP/THIGH DRAINAGE Specimen Comment: RIGHT HIP/THIGH DRAINAGE R HIP DRAINAGE CONTINUED ON NEXT PAGE RUN DATE: 10/25/25 [facility] PAGE 2 RUN TIME: [id number] [place] [address] Department of Laboratories [facility] # [id number] Mash Filter Operator: Josué Solomon DO Specimen Report SPEC: [id number] PATIENT: DEMETRICE SANCHEZ [id number] (Continued) Specimen Comment: RIGHT HIP/THIGH DRAINAGE R HIP DRAINAGE Has specimen been collected/obtained? Y Specimen Comment: GRAM STAIN RIGHT HIP/THIGH DRAINAGE Specimen Comment: RIGHT HIP/THIGH DRAINAGE R HIP DRAINAGE Has specimen been collected/obtained? Y Specimen Comment: GRAM STAIN RIGHT HIP/THIGH DRAINAGE Specimen Comment: RIGHT HIP/THIGH DRAINAGE R HIP DRAINAGE Procedure Result Alessio Date-Time GRAM STAIN ONLY Final 10/22/25 GRAM STAIN: 2+ GRAM POSITIVE COCCI IN CLUSTERS 1+ GRAM POSITIVE COCCI 1+ GRAM POSITIVE COCCI IN PAIRS 4+ WBC ANAEROBIC CULTURE Preliminary 10/25/25-1020 [facility] COLONY DESCRIPTION: REPORT 1: NO ANAEROBES AT 24-35 HOURS; STUDIES TO CONTINUE REPORT 2: NO ANAEROBES AT 48-59 HOURS; STUDIES TO CONTINUE Test(s) performed by: [facility] [address] [place] [address] AEROBIC CULTURE Final 10/25/25-1020 [facility] COLONY DESCRIPTION: REPORT 1: 3+ GRAM POSITIVE COCCI IN CLUSTERS STAPHYLOCOCCUS AUREUS SENSITIVITY TO FOLLOW REPORT 2: NO FURTHER WORK-UP DONE STAPHYLOCOCCUS AUREUS ASSESSMENT: Urinary tract infection with Staphylococcus aureus. Right hip intramuscular abscess, status post I&D. Leukocytosis, resolving. Diabetes mellitus, Newly diagnosed. Thrombocytopenia. Acute renal failure, resolving. PLAN: Discontinue vancomycin per pharmacy protocol. Discontinue cefepime. Start Cefazolin 2 g IV Q 8 hours. Continue metronidazole. Continue pain management. Continue GI prophylaxis. Continue monitoring glucose levels. We will follow up on the final culture results. Patient is scheduled for a 2nd look I&D and irrigation of the right hip for today. This case was reviewed and discussed with my supervising physician Dr. Castro and the above assessment and plan was formulated and agreed upon. ATTESTATION BY PHYSICIAN I have seen and examined the patient. I reviewed the documentation, medical decision making, and treatment plan as noted by the mid-level provider above. I agree with the findings and plan of care. MCKENNA CASTRO MD, [facility] Oct 25, 2025 19:28
--- NOTE | 2025-10-25 20:02 | PN ---
Endocrinology progress note DOS:10/25/25 subjective: glucose are stable now. Labs were notable for white count of 9.9, hemoglobin was 12.2, MCV was 100.9, platelet count was 115 K, sodium was 129, potassium was 3.8, chloride was 95, bicarb was , creatinine was 1.5, blood glucose was 275, calcium was 8.0 Patient underwent a ultrasound of the right inner thigh which showed fluid collection measuring 8.5 x 7.2 x 7.3 cm in the right lateral hip region. Home diabetic regimen: no diabetic meds Hba1c 7.9% new diagnosed dm-2 right hip abscess s/p I&D REVIEW OF SYSTEMS CONSTITUTIONAL: Denies fevers, chills, or night sweats. No unintentional weight loss reported. NEUROLOGICAL: Denies headache, amaurosis fugax, motor weakness, sensory deficit, vertigo/spinning sensation, gait abnormalities, or tremors. ENT: No hearing loss, otalgia, otorrhea, rhinitis, rhinorrhea, hoarseness, or sore throat. CARDIOVASCULAR: Denies any exertional angina, dyspnea on exertion, orthopnea, paroxysmal nocturnal dyspnea, palpitations, life-threatening arrhythmias, claudication. PULMONARY: Denies any shortness of breath, cough, phlegm/sputum, hemoptysis, pleuritic chest pain. SLEEP: Denies morning headaches, daytime somnolence or napping. Denies difficulty falling asleep, staying asleep, waking from sleep. Denies knowledge of snoring. GASTROINTESTINAL: Denies any type of dysphagia to either liquids or solids. Denies nausea, vomiting, pyrosis, early satiety, abdominal pain, diarrhea, constipation, or changes in stool consistency or caliber. Denies coffee-ground emesis, hematemesis, hematochezia, or melanotic stools. GENITOURINARY: Denies frequency, urgency, nocturia, hematuria or incontinence (Storage/Irritative symptoms.) Low urinary stream, straining to void, urinary intermittency or hesitancy, splitting of the voiding stream, terminal dribbling. ENDOCRINOLOGIC: Denies polyuria, polydipsia, polyphagia or heat/cold intolerances. HEMATOLOGIC: Denies thrombophilia/previous clots, or coagulopathy/bleeding disorders. ONCOLOGIC: Denies personal history of malignancy. DERMATOLOGIC: POSITIVE FOR REDNESS AND SWELLING IN THE RIGHT INNER THIGH PSYCHIATRIC: Denies any suicidal or homicidal ideation. Denies hallucinations. Musculoskeletal: Positive for pain in the right inner thigh PAST MEDICAL HISTORY: No Significant past medical history PAST SURGICAL HISTORY: Denied any previous surgical history PAST SOCIAL HISTORY: He smokes marijuana occasionally. Also drinks six pack every weekend for at least five years. Denied any tobacco use, IV drug use FAMILY HISTORY: Denied any pertinent family history Coded Allergies: No Known Allergies (Verified Allergy, 11/13/13) ASSESSMENT: newly diagnosed uncontrolled dm-2 Home diabetic regimen: no diabetic meds Hba1c 7.9% new diagnosed dm-2 and glucose runs less than 200 mg/dl Right hip abscess s/p I&D History of alcohol use Mild hyponatremia Acute kidney injury Mild thrombocytopenia Dehydration Elevated LFTs Severe hypoalbuminemia secondary to protein calorie malnutrition History of marijuana use PLAN: continue Lantus 15 units daily and adjust for fasting glucose. increase Regular insulin to 5 units three times before meals and adjust for post-prandial glucose. Continue medium dose sliding scale insulin. Monitor glucose q x 6 hourly. Continue carb consistent diet. Keep glucose less than 180 mg/dl. Patient will need metformin 500 mg bid and Lantus 15 units daily. Vitals/Labs Vital Signs Date Time Temp Pulse Resp B/P (MAP) Pulse Ox O2 Delivery O2 Flow Rate FiO2 10/25/25 17:30 84 21 131/75 100 Nasal Cannula 3.0 10/25/25 12:28 98.8 10/25/25 08:00 21 Laboratory Tests 10/25/25 06:00 10/25/25 14:03 Medications Current Medications Orphenadrine Citrate 60 mg ONCE ONCE IM Last administered on 10/22/25at 09:45; Start 10/22/25 at 09:30; Stop 10/22/25 at 09:35; Status DC Ketorolac Tromethamine 15 mg ONCE ONCE IM Last administered on 10/22/25at 09:45; Start 10/22/25 at 09:30; Stop 10/22/25 at 09:35; Status DC Ceftriaxone Sodium 1 gm ONCE ONCE IVPB Last administered on 10/22/25at 10:53; Start 10/22/25 at 10:30; Stop 10/22/25 at 10:36; Status DC Enoxaparin Sodium 40 mg DAILY SQ Last administered on 10/23/25at 09:53; Start 10/23/25 at 09:00; Stop 10/24/25 at 13:28; Status DC Famotidine 20 mg BID IV Last administered on 10/24/25at 20:42; Start 10/22/25 at 21:00; Stop 11/21/25 at 20:59 Sodium Chloride 1,000 ml @ 100 mls/hr Q10H IV Last administered on 10/24/25at 20:42; Start 10/22/25 at 11:00; Stop 10/25/25 at 11:28; Status DC Vancomycin HCl 1 each AD IV; Start 10/22/25 at 11:00; Stop 10/25/25 at 10:19; Status DC Hydromorphone HCl 0.25 mg Q6H PRN IVP Last administered on 10/22/25at 15:16; Start 10/22/25 at 11:00; Stop 10/27/25 at 10:59 Acetaminophen 500 mg Q6H PRN PO; Start 10/22/25 at 11:00; Stop 11/21/25 at 10:59 Insulin Human Regular INSULIN SLIDING SCAL... Q6H6 SQ Last administered on 10/24/25at 06:05; Start 10/22/25 at 12:00; Stop 11/21/25 at 11:59 Vancomycin HCl 500 ml @ 250 mls/hr ONCE ONCE IV Last administered on 10/22/25at 12:51; Start 10/22/25 at 12:00; Stop 10/22/25 at 13:59; Status DC Cefepime HCl 1 gm Q12H IVPB Last administered on 10/25/25at 03:33; Start 10/22/25 at 15:00; Stop 10/25/25 at 09:56; Status DC Vancomycin HCl 250 ml @ 125 mls/hr Q24H IV Last administered on 10/24/25at 12:34; Start 10/23/25 at 12:00; Stop 10/25/25 at 09:56; Status DC Metronidazole/ Sodium Chloride 100 ml @ 100 mls/hr Q8H IVPB Last administered on 10/23/25at 01:09; Start 10/22/25 at 12:00; Stop 10/23/25 at 04:20; Status DC Lidocaine HCl 100 mg STK-MED ONCE .ROUTE; Start 10/22/25 at 20:24; Stop 10/22/25 at 20:25; Status DC Ketamine HCl 50 mg STK-MED ONCE .ROUTE; Start 10/22/25 at 20:25; Stop 10/22/25 at 20:25; Status DC Succinylcholine Chloride 200 mg STK-MED ONCE .ROUTE; Start 10/22/25 at 20:26; Stop 10/22/25 at 20:26; Status DC Propofol 200 mg STK-MED ONCE IV; Start 10/22/25 at 20:26; Stop 10/22/25 at 20:27; Status DC Midazolam HCl 2 mg STK-MED ONCE .ROUTE; Start 10/22/25 at 20:27; Stop 10/22/25 at 20:27; Status DC Rocuronium Danevang 50 mg STK-MED ONCE .ROUTE; Start 10/22/25 at 20:27; Stop 10/22/25 at 20:27; Status DC Fentanyl Citrate 100 mcg STK-MED ONCE .ROUTE; Start 10/22/25 at 20:27; Stop 10/22/25 at 20:27; Status DC Cefazolin Sodium 1 gm STK-MED ONCE .ROUTE; Start 10/22/25 at 20:40; Stop 10/22/25 at 20:40; Status DC Ondansetron HCl 4 mg STK-MED ONCE .ROUTE; Start 10/22/25 at 21:54; Stop 10/22/25 at 21:54; Status DC Glycopyrrolate 1 mg STK-MED ONCE .ROUTE; Start 10/22/25 at 21:54; Stop 10/22/25 at 21:54; Status DC Neostigmine Methylsulfate 10 mg STK-MED ONCE IV; Start 10/22/25 at 21:54; Stop 10/22/25 at 21:54; Status DC Acetaminophen 100 ml @ As Directed STK-MED ONCE .ROUTE Last administered on 10/22/25at 22:12; Start 10/22/25 at 22:08; Stop 10/22/25 at 22:08; Status DC Ondansetron HCl 4 mg STK-MED ONCE .ROUTE Last administered on 10/22/25at 22:19; Start 10/22/25 at 22:13; Stop 10/22/25 at 22:13; Status DC Fentanyl Citrate 100 mcg STK-MED ONCE .ROUTE Last administered on 10/22/25at 22:19; Start 10/22/25 at 22:15; Stop 10/22/25 at 22:15; Status DC Fentanyl Citrate 100 mcg STK-MED ONCE .ROUTE Last administered on 10/22/25at 22:23; Start 10/22/25 at 22:21; Stop 10/22/25 at 22:21; Status DC Sodium Chloride 1,000 ml @ 100 mls/hr Q10H IV Last administered on 10/23/25at 18:38; Start 10/22/25 at 22:30; Stop 10/23/25 at 22:29; Status DC Polyethylene Glycol 17 gm DAILY PO Last administered on 10/23/25at 09:51; Start 10/23/25 at 09:00; Stop 11/22/25 at 08:59 Psyllium Hydrophilic Mucilloid 1 tbs DAILYLUNCH PO; Start 10/23/25 at 12:00; Stop 10/25/25 at 11:28; Status DC Bisacodyl 10 mg DAILY PRN PO; Start 10/24/25 at 22:30; Stop 10/25/25 at 11:28; Status DC Bisacodyl 10 mg DAILY PRN RC; Start 10/25/25 at 22:30; Stop 10/25/25 at 11:28; Status DC Ferrous Fumarate 324 mg DAILY PRN PO; Start 10/22/25 at 22:30; Stop 10/25/25 at 11:28; Status DC Calcium Carbonate 500 mg Q12H PRN PO; Start 10/22/25 at 22:30; Stop 10/25/25 at 11:28; Status DC Diphenhydramine HCl 25 mg Q6H PRN PO; Start 10/22/25 at 22:30; Stop 10/22/25 at 22:52; Status DC Diphenhydramine HCl 25 mg Q6H PRN IVP; Start 10/22/25 at 22:30; Stop 10/25/25 at 11:28; Status DC Acetaminophen/ Hydrocodone Bitart Q4H PRN PO; Start 10/22/25 at 22:30; Stop 10/22/25 at 22:54; Status DC Hydromorphone HCl 2 mg Q2H PRN IVP Last administered on 10/25/25at 01:50; Start 10/22/25 at 22:30; Stop 10/27/25 at 22:29 Acetaminophen/ Hydrocodone Bitart 1 tab Q6H PRN PO Last administered on 10/24/25at 14:18; Start 10/22/25 at 23:00; Stop 10/27/25 at 22:59 Acetaminophen/ Hydrocodone Bitart 1 tab Q6H PRN PO Last administered on 10/25/25at 16:37; Start 10/22/25 at 23:00; Stop 10/29/25 at 22:59 Metronidazole/ Sodium Chloride 100 ml @ 100 mls/hr Q8H IVPB Last administered on 10/25/25at 01:43; Start 10/23/25 at 09:00; Stop 10/25/25 at 09:56; Status DC Insulin Glargine 10 units DAILY SQ Last administered on 10/23/25at 10:06; Start 10/23/25 at 09:30; Stop 10/24/25 at 06:54; Status DC Ondansetron HCl 4 mg Q6H PRN IVP Last administered on 10/24/25at 02:36; Start 10/24/25 at 01:30; Stop 11/23/25 at 01:29 Insulin Glargine 15 units DAILY SQ Last administered on 10/24/25at 09:42; Start 10/24/25 at 09:00; Stop 11/23/25 at 08:59 Insulin Human Regular 3 unit TIDAC SQ Last administered on 10/24/25at 12:40; Start 10/24/25 at 07:30; Stop 11/23/25 at 07:29 Potassium Chloride 100 ml @ 50 mls/hr ONCE ONCE IV Last administered on 10/24/25at 11:42; Start 10/24/25 at 10:00; Stop 10/24/25 at 11:59; Status DC Magnesium Sulfate 50 ml @ 0 mls/hr PROTOCOL IV; Start 10/24/25 at 10:00; Stop 10/25/25 at 07:24; Status DC Potassium Chloride 40 meq ONCE ONCE PO; Start 10/25/25 at 07:30; Stop 10/25/25 at 07:31; Status DC Magnesium Sulfate 50 ml @ 0 mls/hr PROTOCOL IV; Start 10/25/25 at 07:30; Stop 11/24/25 at 07:29 Lidocaine HCl 100 mg STK-MED ONCE .ROUTE; Start 10/25/25 at 09:50; Stop 10/25/25 at 09:50; Status DC Ketamine HCl 50 mg STK-MED ONCE .ROUTE; Start 10/25/25 at 09:50; Stop 10/25/25 at 09:51; Status DC Propofol 200 mg STK-MED ONCE IV; Start 10/25/25 at 09:51; Stop 10/25/25 at 09:51; Status DC Midazolam HCl 2 mg STK-MED ONCE .ROUTE; Start 10/25/25 at 09:51; Stop 10/25/25 at 09:51; Status DC Rocuronium Danevang 50 mg STK-MED ONCE .ROUTE; Start 10/25/25 at 09:51; Stop 10/25/25 at 09:51; Status DC Fentanyl Citrate 100 mcg STK-MED ONCE .ROUTE; Start 10/25/25 at 09:51; Stop 10/25/25 at 09:52; Status DC Succinylcholine Chloride 200 mg STK-MED ONCE .ROUTE; Start 10/25/25 at 09:54; Stop 10/25/25 at 09:54; Status DC Cefazolin Sodium 2 gm Q8H IVPB Last administered on 10/25/25at 18:24; Start 10/25/25 at 10:00; Stop 11/04/25 at 09:59 Ondansetron HCl 4 mg STK-MED ONCE .ROUTE; Start 10/25/25 at 10:04; Stop 10/25/25 at 10:04; Status DC Dexamethasone Sodium Phosphate 10 mg STK-MED ONCE .ROUTE; Start 10/25/25 at 10:04; Stop 10/25/25 at 10:04; Status DC Cefazolin Sodium 1 gm STK-MED ONCE .ROUTE; Start 10/25/25 at 10:11; Stop 10/25/25 at 10:11; Status DC Dexamethasone Sodium Phosphate 4 mg STK-MED ONCE .ROUTE; Start 10/25/25 at 10:13; Stop 10/25/25 at 10:13; Status DC Ondansetron HCl 4 mg STK-MED ONCE .ROUTE; Start 10/25/25 at 10:13; Stop 10/25/25 at 10:13; Status DC Rocuronium Danevang 50 mg STK-MED ONCE .ROUTE; Start 10/25/25 at 10:29; Stop 10/25/25 at 10:29; Status DC Cefazolin Sodium 1 gm STK-MED ONCE .ROUTE; Start 10/25/25 at 10:43; Stop 10/25/25 at 10:43; Status DC Glycopyrrolate 1 mg STK-MED ONCE .ROUTE; Start 10/25/25 at 11:11; Stop 10/25/25 at 11:11; Status DC Neostigmine Methylsulfate 10 mg STK-MED ONCE IV; Start 10/25/25 at 11:11; Stop 10/25/25 at 11:11; Status DC Sodium Chloride 1,000 ml @ 100 mls/hr Q10H IV; Start 10/25/25 at 11:30; Stop 10/26/25 at 11:29 Enoxaparin Sodium 40 mg DAILY SQ; Start 10/26/25 at 09:00; Stop 10/25/25 at 12:40; Status DC Polyethylene Glycol 17 gm DAILY PO; Start 10/26/25 at 09:00; Stop 11/25/25 at 08:59 Psyllium Hydrophilic Mucilloid 1 tbs DAILYLUNCH PO; Start 10/25/25 at 12:00; Stop 11/24/25 at 11:59 Bisacodyl 10 mg DAILY PRN PO; Start 10/27/25 at 11:30; Stop 11/26/25 at 11:29 Bisacodyl 10 mg DAILY PRN RC; Start 10/28/25 at 11:30; Stop 11/27/25 at 11:29 Ketorolac Tromethamine 15 mg Q6H PRN IV; Start 10/25/25 at 11:30; Stop 10/30/25 at 11:29 Ferrous Fumarate 324 mg DAILY PRN PO; Start 10/25/25 at 11:30; Stop 11/24/25 at 11:29 Temazepam 15 mg HS PRN PO; Start 10/25/25 at 11:30; Stop 11/24/25 at 11:29 Promethazine HCl 25 mg Q4H PRN IM; Start 10/25/25 at 11:30; Stop 11/24/25 at 11:29 Calcium Carbonate 500 mg Q12H PRN PO; Start 10/25/25 at 11:30; Stop 11/24/25 at 11:29 Diphenhydramine HCl 25 mg Q6H PRN PO; Start 10/25/25 at 11:30; Stop 11/24/25 at 11:29 Diphenhydramine HCl 25 mg Q6H PRN IVP; Start 10/25/25 at 11:30; Stop 11/24/25 at 11:29 Ondansetron HCl 4 mg AD PRN IVP; Start 10/25/25 at 11:30; Stop 10/25/25 at 12:33; Status DC Metoclopramide HCl 10 mg AD PRN IVP; Start 10/25/25 at 11:30; Stop 10/25/25 at 12:33; Status DC Promethazine HCl 25 mg AD PRN IM; Start 10/25/25 at 11:30; Stop 10/25/25 at 12:33; Status DC Ketorolac Tromethamine 30 mg AD PRN IV; Start 10/25/25 at 11:30; Stop 10/25/25 at 12:33; Status DC Morphine Sulfate 2 mg AD PRN IVP; Start 10/25/25 at 11:30; Stop 10/25/25 at 12:33; Status DC Fentanyl Citrate 25 mcg Q5MIN PRN IVP Last administered on 10/25/25at 11:47; Start 10/25/25 at 11:30; Stop 10/25/25 at 12:33; Status DC Naloxone HCl 0.1 mg AD PRN IVP; Start 10/25/25 at 11:30; Stop 10/25/25 at 12:33; Status DC Fentanyl Citrate 100 mcg STK-MED ONCE .ROUTE; Start 10/25/25 at 11:43; Stop 10/25/25 at 11:43; Status DC JUSTIN IBARRA MD Oct 25, 2025 20:02
[2025-10-26] VITALS (7 sets, daily range): BP systolic 112–134; BP diastolic 67–73; PULSE 70–99; RESP 18; TEMP 97.6–98.5; O2SAT 97–98
[2025-10-26 06:17] LABS: NUCLEATED RED BLOOD CELLS 0.0 % (0.0-0.19); PLATELET COUNT (AUTO) 90.0 K/uL (130-400); RED BLOOD CELL COUNT(AUTO) 2.32 MIL/uL (4.50-6.20); RED CELL DISTRIBUTION WIDTH 14.1 % (11.0-15.5); WHITE BLOOD COUNT (AUTO) 5.7 K/uL (4.8-10.8)
[2025-10-26 06:35] LABS: ASPARTATE AMINOTRANSFERASE 61.0 U/L (10-37); CREATININE 1.1 mg/dL (0.5-1.3); GLOMERULAR FILTR. RATE CALC 79.0 mL/min (>90); GLUCOSE,RANDOM 234.0 mg/dL (70-105); SODIUM SERUM 134.0 mmol/L (136-145); TOTAL PROTEIN, SERUM 5.7 g/dL (6.0-8.3); UREA NITROGEN, BLOOD 20.0 mg/dL (7-18)
--- NOTE | 2025-10-26 08:09 | PN ---
Ortho postop day one following 2nd look procedure. This morning patient is out of bed he is in no acute distress reporting adequate pain control. He is enjoying his breakfast. Vital signs have remained stable and he has been afebrile. Cultures showed staph and g positive cocci in pairs and clusters currently on treatment per ID. Dressing is intact. Ice present to operative site. Brandon-Martinez currently minimal output so sanguinous. Operative findings discussed with the patient. Laboratory results reviewed. Reinforced incentive spirometry. The patient is ambulating within the confines of his room pending therapy this morning. Assessment: Status post right hip 2nd left in incision and drainage with the excision and debridement of soft tissue; irrigation. Postoperative blood loss anemia. Plan: Continue with Dr. Huratdo plan of care. Continue with ID POC Postoperative blood loss anemia addressed with the protocol as necessary Vitals/Labs Vital Signs Date Time Temp Pulse Resp B/P (MAP) Pulse Ox O2 Delivery O2 Flow Rate FiO2 10/26/25 04:00 98.4 70 18 118/71 99 Room Air 10/25/25 23:13 0 21 Laboratory Tests 10/25/25 14:03 10/26/25 05:52 Medications Current Medications Orphenadrine Citrate 60 mg ONCE ONCE IM Last administered on 10/22/25 09:45; Start 10/22/25 at 09:30; Stop 10/22/25 at 09:35; Status DC Ketorolac Tromethamine 15 mg ONCE ONCE IM Last administered on 10/22/25 09:45; Start 10/22/25 at 09:30; Stop 10/22/25 at 09:35; Status DC Ceftriaxone Sodium 1 gm ONCE ONCE IVPB Last administered on 10/22/25at 10:53; Start 10/22/25 at 10:30; Stop 10/22/25 at 10:36; Status DC Enoxaparin Sodium 40 mg DAILY SQ Last administered on 10/23/25at 09:53; Start 10/23/25 at 09:00; Stop 10/24/25 at 13:28; Status DC Famotidine 20 mg BID IV Last administered on 10/25/25at 21:14; Start 10/22/25 at 21:00; Stop 11/21/25 at 20:59 Sodium Chloride 1,000 ml @ 100 mls/hr Q10H IV Last administered on 10/24/25at 20:42; Start 10/22/25 at 11:00; Stop 10/25/25 at 11:28; Status DC Vancomycin HCl 1 each AD IV; Start 10/22/25 at 11:00; Stop 10/25/25 at 10:19; Status DC Hydromorphone HCl 0.25 mg Q6H PRN IVP Last administered on 10/22/25at 15:16; Start 10/22/25 at 11:00; Stop 10/27/25 at 10:59 Acetaminophen 500 mg Q6H PRN PO; Start 10/22/25 at 11:00; Stop 11/21/25 at 10:59 Insulin Human Regular INSULIN SLIDING SCAL... Q6H6 SQ Last administered on 10/24/25at 06:05; Start 10/22/25 at 12:00; Stop 10/25/25 at 20:04; Status DC Vancomycin HCl 500 ml @ 250 mls/hr ONCE ONCE IV Last administered on 10/22/25at 12:51; Start 10/22/25 at 12:00; Stop 10/22/25 at 13:59; Status DC Cefepime HCl 1 gm Q12H IVPB Last administered on 10/25/25at 03:33; Start 10/22/25 at 15:00; Stop 10/25/25 at 09:56; Status DC Vancomycin HCl 250 ml @ 125 mls/hr Q24H IV Last administered on 10/24/25at 12:34; Start 10/23/25 at 12:00; Stop 10/25/25 at 09:56; Status DC Metronidazole/ Sodium Chloride 100 ml @ 100 mls/hr Q8H IVPB Last administered on 10/23/25at 01:09; Start 10/22/25 at 12:00; Stop 10/23/25 at 04:20; Status DC Lidocaine HCl 100 mg STK-MED ONCE .ROUTE; Start 10/22/25 at 20:24; Stop 10/22/25 at 20:25; Status DC Ketamine HCl 50 mg STK-MED ONCE .ROUTE; Start 10/22/25 at 20:25; Stop 10/22/25 at 20:25; Status DC Succinylcholine Chloride 200 mg STK-MED ONCE .ROUTE; Start 10/22/25 at 20:26; Stop 10/22/25 at 20:26; Status DC Propofol 200 mg STK-MED ONCE IV; Start 10/22/25 at 20:26; Stop 10/22/25 at 20:27; Status DC Midazolam HCl 2 mg STK-MED ONCE .ROUTE; Start 10/22/25 at 20:27; Stop 10/22/25 at 20:27; Status DC Rocuronium [place] 50 mg STK-MED ONCE .ROUTE; Start 10/22/25 at 20:27; Stop 10/22/25 at 20:27; Status DC Fentanyl Citrate 100 mcg STK-MED ONCE .ROUTE; Start 10/22/25 at 20:27; Stop 10/22/25 at 20:27; Status DC Cefazolin Sodium 1 gm STK-MED ONCE .ROUTE; Start 10/22/25 at 20:40; Stop 10/22/25 at 20:40; Status DC Ondansetron HCl 4 mg STK-MED ONCE .ROUTE; Start 10/22/25 at 21:54; Stop 10/22/25 at 21:54; Status DC Glycopyrrolate 1 mg STK-MED ONCE .ROUTE; Start 10/22/25 at 21:54; Stop 10/22/25 at 21:54; Status DC Neostigmine Methylsulfate 10 mg STK-MED ONCE IV; Start 10/22/25 at 21:54; Stop 10/22/25 at 21:54; Status DC Acetaminophen 100 ml @ As Directed STK-MED ONCE .ROUTE Last administered on 10/22/25at 22:12; Start 10/22/25 at 22:08; Stop 10/22/25 at 22:08; Status DC Ondansetron HCl 4 mg STK-MED ONCE .ROUTE Last administered on 10/22/25at 22:19; Start 10/22/25 at 22:13; Stop 10/22/25 at 22:13; Status DC Fentanyl Citrate 100 mcg STK-MED ONCE .ROUTE Last administered on 10/22/25at 22:19; Start 10/22/25 at 22:15; Stop 10/22/25 at 22:15; Status DC Fentanyl Citrate 100 mcg STK-MED ONCE .ROUTE Last administered on 10/22/25at 22:23; Start 10/22/25 at 22:21; Stop 10/22/25 at 22:21; Status DC Sodium Chloride 1,000 ml @ 100 mls/hr Q10H IV Last administered on 10/23/25at 18:38; Start 10/22/25 at 22:30; Stop 10/23/25 at 22:29; Status DC Polyethylene Glycol 17 gm DAILY PO Last administered on 10/23/25at 09:51; Start 10/23/25 at 09:00; Stop 11/22/25 at 08:59 Psyllium Hydrophilic Mucilloid 1 tbs DAILYLUNCH PO; Start 10/23/25 at 12:00; Stop 10/25/25 at 11:28; Status DC Bisacodyl 10 mg DAILY PRN PO; Start 10/24/25 at 22:30; Stop 10/25/25 at 11:28; Status DC Bisacodyl 10 mg DAILY PRN RC; Start 10/25/25 at 22:30; Stop 10/25/25 at 11:28; Status DC Ferrous Fumarate 324 mg DAILY PRN PO; Start 10/22/25 at 22:30; Stop 10/25/25 at 11:28; Status DC Calcium Carbonate 500 mg Q12H PRN PO; Start 10/22/25 at 22:30; Stop 10/25/25 at 11:28; Status DC Diphenhydramine HCl 25 mg Q6H PRN PO; Start 10/22/25 at 22:30; Stop 10/22/25 at 22:52; Status DC Diphenhydramine HCl 25 mg Q6H PRN IVP; Start 10/22/25 at 22:30; Stop 10/25/25 at 11:28; Status DC Acetaminophen/ Hydrocodone Bitart Q4H PRN PO; Start 10/22/25 at 22:30; Stop 10/22/25 at 22:54; Status DC Hydromorphone HCl 2 mg Q2H PRN IVP Last administered on 10/25/25at 01:50; Start 10/22/25 at 22:30; Stop 10/27/25 at 22:29 Acetaminophen/ Hydrocodone Bitart 1 tab Q6H PRN PO Last administered on 10/24/25at 14:18; Start 10/22/25 at 23:00; Stop 10/27/25 at 22:59 Acetaminophen/ Hydrocodone Bitart 1 tab Q6H PRN PO Last administered on 10/25/25at 16:37; Start 10/22/25 at 23:00; Stop 10/29/25 at 22:59 Metronidazole/ Sodium Chloride 100 ml @ 100 mls/hr Q8H IVPB Last administered on 10/25/25at 01:43; Start 10/23/25 at 09:00; Stop 10/25/25 at 09:56; Status DC Insulin Glargine 10 units DAILY SQ Last administered on 10/23/25at 10:06; Start 10/23/25 at 09:30; Stop 10/24/25 at 06:54; Status DC Ondansetron HCl 4 mg Q6H PRN IVP Last administered on 10/24/25at 02:36; Start 10/24/25 at 01:30; Stop 11/23/25 at 01:29 Insulin Glargine 15 units DAILY SQ Last administered on 10/24/25at 09:42; Start 10/24/25 at 09:00; Stop 11/23/25 at 08:59 Insulin Human Regular 3 unit TIDAC SQ Last administered on 10/24/25at 12:40; Start 10/24/25 at 07:30; Stop 10/25/25 at 20:02; Status DC Potassium Chloride 100 ml @ 50 mls/hr ONCE ONCE IV Last administered on 10/24/25at 11:42; Start 10/24/25 at 10:00; Stop 10/24/25 at 11:59; Status DC Magnesium Sulfate 50 ml @ 0 mls/hr PROTOCOL IV; Start 10/24/25 at 10:00; Stop 10/25/25 at 07:24; Status DC Potassium Chloride 40 meq ONCE ONCE PO; Start 10/25/25 at 07:30; Stop 10/25/25 at 07:31; Status DC Magnesium Sulfate 50 ml @ 0 mls/hr PROTOCOL IV; Start 10/25/25 at 07:30; Stop 11/24/25 at 07:29 Lidocaine HCl 100 mg STK-MED ONCE .ROUTE; Start 10/25/25 at 09:50; Stop 10/25/25 at 09:50; Status DC Ketamine HCl 50 mg STK-MED ONCE .ROUTE; Start 10/25/25 at 09:50; Stop 10/25/25 at 09:51; Status DC Propofol 200 mg STK-MED ONCE IV; Start 10/25/25 at 09:51; Stop 10/25/25 at 09:51; Status DC Midazolam HCl 2 mg STK-MED ONCE .ROUTE; Start 10/25/25 at 09:51; Stop 10/25/25 at 09:51; Status DC Rocuronium [place] 50 mg STK-MED ONCE .ROUTE; Start 10/25/25 at 09:51; Stop 10/25/25 at 09:51; Status DC Fentanyl Citrate 100 mcg STK-MED ONCE .ROUTE; Start 10/25/25 at 09:51; Stop 10/25/25 at 09:52; Status DC Succinylcholine Chloride 200 mg STK-MED ONCE .ROUTE; Start 10/25/25 at 09:54; Stop 10/25/25 at 09:54; Status DC Cefazolin Sodium 2 gm Q8H IVPB Last administered on 10/26/25at 02:26; Start 10/25/25 at 10:00; Stop 11/04/25 at 09:59 Ondansetron HCl 4 mg STK-MED ONCE .ROUTE; Start 10/25/25 at 10:04; Stop 10/25/25 at 10:04; Status DC Dexamethasone Sodium Phosphate 10 mg STK-MED ONCE .ROUTE; Start 10/25/25 at 10:04; Stop 10/25/25 at 10:04; Status DC Cefazolin Sodium 1 gm STK-MED ONCE .ROUTE; Start 10/25/25 at 10:11; Stop 10/25/25 at 10:11; Status DC Dexamethasone Sodium Phosphate 4 mg STK-MED ONCE .ROUTE; Start 10/25/25 at 10:13; Stop 10/25/25 at 10:13; Status DC Ondansetron HCl 4 mg STK-MED ONCE .ROUTE; Start 10/25/25 at 10:13; Stop 10/25/25 at 10:13; Status DC Rocuronium [place] 50 mg STK-MED ONCE .ROUTE; Start 10/25/25 at 10:29; Stop 10/25/25 at 10:29; Status DC Cefazolin Sodium 1 gm STK-MED ONCE .ROUTE; Start 10/25/25 at 10:43; Stop 10/25/25 at 10:43; Status DC Glycopyrrolate 1 mg STK-MED ONCE .ROUTE; Start 10/25/25 at 11:11; Stop 10/25/25 at 11:11; Status DC Neostigmine Methylsulfate 10 mg STK-MED ONCE IV; Start 10/25/25 at 11:11; Stop 10/25/25 at 11:11; Status DC Sodium Chloride 1,000 ml @ 100 mls/hr Q10H IV; Start 10/25/25 at 11:30; Stop 10/26/25 at 11:29 Enoxaparin Sodium 40 mg DAILY SQ; Start 10/26/25 at 09:00; Stop 10/25/25 at 12:40; Status DC Polyethylene Glycol 17 gm DAILY PO; Start 10/26/25 at 09:00; Stop 11/25/25 at 08:59 Psyllium Hydrophilic Mucilloid 1 tbs DAILYLUNCH PO; Start 10/25/25 at 12:00; Stop 11/24/25 at 11:59 Bisacodyl 10 mg DAILY PRN PO; Start 10/27/25 at 11:30; Stop 11/26/25 at 11:29 Bisacodyl 10 mg DAILY PRN RC; Start 10/28/25 at 11:30; Stop 11/27/25 at 11:29 Ketorolac Tromethamine 15 mg Q6H PRN IV Last administered on 10/25/25at 21:14; Start 10/25/25 at 11:30; Stop 10/30/25 at 11:29 Ferrous Fumarate 324 mg DAILY PRN PO; Start 10/25/25 at 11:30; Stop 11/24/25 at 11:29 Temazepam 15 mg HS PRN PO; Start 10/25/25 at 11:30; Stop 11/24/25 at 11:29 Promethazine HCl 25 mg Q4H PRN IM; Start 10/25/25 at 11:30; Stop 11/24/25 at 11:29 Calcium Carbonate 500 mg Q12H PRN PO; Start 10/25/25 at 11:30; Stop 11/24/25 at 11:29 Diphenhydramine HCl 25 mg Q6H PRN PO; Start 10/25/25 at 11:30; Stop 11/24/25 at 11:29 Diphenhydramine HCl 25 mg Q6H PRN IVP; Start 10/25/25 at 11:30; Stop 11/24/25 at 11:29 Ondansetron HCl 4 mg AD PRN IVP; Start 10/25/25 at 11:30; Stop 10/25/25 at 12:33; Status DC Metoclopramide HCl 10 mg AD PRN IVP; Start 10/25/25 at 11:30; Stop 10/25/25 at 12:33; Status DC Promethazine HCl 25 mg AD PRN IM; Start 10/25/25 at 11:30; Stop 10/25/25 at 12:33; Status DC Ketorolac Tromethamine 30 mg AD PRN IV; Start 10/25/25 at 11:30; Stop 10/25/25 at 12:33; Status DC Morphine Sulfate 2 mg AD PRN IVP; Start 10/25/25 at 11:30; Stop 10/25/25 at 12:33; Status DC Fentanyl Citrate 25 mcg Q5MIN PRN IVP Last administered on 10/25/25at 11:47; Start 10/25/25 at 11:30; Stop 10/25/25 at 12:33; Status DC Naloxone HCl 0.1 mg AD PRN IVP; Start 10/25/25 at 11:30; Stop 10/25/25 at 12:33; Status DC Fentanyl Citrate 100 mcg STK-MED ONCE .ROUTE; Start 10/25/25 at 11:43; Stop 10/25/25 at 11:43; Status DC Insulin Human Regular 5 unit TIDAC SQ Last administered on 10/26/25at 06:41; Start 10/26/25 at 07:30; Stop 11/25/25 at 07:29 Insulin Human Regular INSULIN SLIDING SCAL... ACHS SQ Last administered on 10/26/25at 06:41; Start 10/26/25 at 07:30; Stop 11/25/25 at 07:29 BASSAM WOODS Oct 26, 2025 08:09
[2025-10-26] MEDS ORDERED: MAGNESIUM 2GM PREMIX 50ML 50 ML IV SCH (08:30)
[2025-10-26] MEDS ORDERED: ENOXAPARIN SODIUM 40 MG/0.4 ML SYRINGE SQ SCH (09:00)
--- NOTE | 2025-10-26 11:00 | PN ---
Postop day 2., postop day 4., status post incision and drainage of right hip abscess. Vital signs stable, afebrile. The patient continues with anemia and thrombocytopenia but the latter is improving slightly with the use of Lovenox. Final culture sensitivities positive for Staphylococcus aureus which is actually sensitive to even penicillin. The plan will be for the patient to be brought to the operating room tomorrow for an I and D for the 3rd time to assure that there is no more necrosis or purulence and to hopefully do a final closure. The patient understands the plan and agrees. Vitals/Labs Vital Signs Date Time Temp Pulse Resp B/P (MAP) Pulse Ox O2 Delivery O2 Flow Rate FiO2 10/26/25 08:53 97.5 80 18 112/67 98 Room Air 10/25/25 23:13 0 21 Laboratory Tests 10/25/25 14:03 10/26/25 05:52 Medications Current Medications Orphenadrine Citrate 60 mg ONCE ONCE IM Last administered on 10/22/25at 09:45; Start 10/22/25 at 09:30; Stop 10/22/25 at 09:35; Status DC Ketorolac Tromethamine 15 mg ONCE ONCE IM Last administered on 10/22/25at 09:45; Start 10/22/25 at 09:30; Stop 10/22/25 at 09:35; Status DC Ceftriaxone Sodium 1 gm ONCE ONCE IVPB Last administered on 10/22/25at 10:53; Start 10/22/25 at 10:30; Stop 10/22/25 at 10:36; Status DC Enoxaparin Sodium 40 mg DAILY SQ Last administered on 10/23/25at 09:53; Start 10/23/25 at 09:00; Stop 10/24/25 at 13:28; Status DC Famotidine 20 mg BID IV Last administered on 10/26/25at 08:49; Start 10/22/25 at 21:00; Stop 11/21/25 at 20:59 Sodium Chloride 1,000 ml @ 100 mls/hr Q10H IV Last administered on 10/24/25at 20:42; Start 10/22/25 at 11:00; Stop 10/25/25 at 11:28; Status DC Vancomycin HCl 1 each AD IV; Start 10/22/25 at 11:00; Stop 10/25/25 at 10:19; Status DC Hydromorphone HCl 0.25 mg Q6H PRN IVP Last administered on 10/22/25at 15:16; Start 10/22/25 at 11:00; Stop 10/27/25 at 10:59 Acetaminophen 500 mg Q6H PRN PO; Start 10/22/25 at 11:00; Stop 11/21/25 at 10:59 Insulin Human Regular INSULIN SLIDING SCAL... Q6H6 SQ Last administered on 10/24/25at 06:05; Start 10/22/25 at 12:00; Stop 10/25/25 at 20:04; Status DC Vancomycin HCl 500 ml @ 250 mls/hr ONCE ONCE IV Last administered on 10/22/25at 12:51; Start 10/22/25 at 12:00; Stop 10/22/25 at 13:59; Status DC Cefepime HCl 1 gm Q12H IVPB Last administered on 10/25/25at 03:33; Start 10/22/25 at 15:00; Stop 10/25/25 at 09:56; Status DC Vancomycin HCl 250 ml @ 125 mls/hr Q24H IV Last administered on 10/24/25at 12:34; Start 10/23/25 at 12:00; Stop 10/25/25 at 09:56; Status DC Metronidazole/ Sodium Chloride 100 ml @ 100 mls/hr Q8H IVPB Last administered on 10/23/25at 01:09; Start 10/22/25 at 12:00; Stop 10/23/25 at 04:20; Status DC Lidocaine HCl 100 mg STK-MED ONCE .ROUTE; Start 10/22/25 at 20:24; Stop 10/22/25 at 20:25; Status DC Ketamine HCl 50 mg STK-MED ONCE .ROUTE; Start 10/22/25 at 20:25; Stop 10/22/25 at 20:25; Status DC Succinylcholine Chloride 200 mg STK-MED ONCE .ROUTE; Start 10/22/25 at 20:26; Stop 10/22/25 at 20:26; Status DC Propofol 200 mg STK-MED ONCE IV; Start 10/22/25 at 20:26; Stop 10/22/25 at 20:27; Status DC Midazolam HCl 2 mg STK-MED ONCE .ROUTE; Start 10/22/25 at 20:27; Stop 10/22/25 at 20:27; Status DC Rocuronium [place] 50 mg STK-MED ONCE .ROUTE; Start 10/22/25 at 20:27; Stop 10/22/25 at 20:27; Status DC Fentanyl Citrate 100 mcg STK-MED ONCE .ROUTE; Start 10/22/25 at 20:27; Stop 10/22/25 at 20:27; Status DC Cefazolin Sodium 1 gm STK-MED ONCE .ROUTE; Start 10/22/25 at 20:40; Stop 10/22/25 at 20:40; Status DC Ondansetron HCl 4 mg STK-MED ONCE .ROUTE; Start 10/22/25 at 21:54; Stop 10/22/25 at 21:54; Status DC Glycopyrrolate 1 mg STK-MED ONCE .ROUTE; Start 10/22/25 at 21:54; Stop 10/22/25 at 21:54; Status DC Neostigmine Methylsulfate 10 mg STK-MED ONCE IV; Start 10/22/25 at 21:54; Stop 10/22/25 at 21:54; Status DC Acetaminophen 100 ml @ As Directed STK-MED ONCE .ROUTE Last administered on 10/22/25at 22:12; Start 10/22/25 at 22:08; Stop 10/22/25 at 22:08; Status DC Ondansetron HCl 4 mg STK-MED ONCE .ROUTE Last administered on 10/22/25at 22:19; Start 10/22/25 at 22:13; Stop 10/22/25 at 22:13; Status DC Fentanyl Citrate 100 mcg STK-MED ONCE .ROUTE Last administered on 10/22/25at 22:19; Start 10/22/25 at 22:15; Stop 10/22/25 at 22:15; Status DC Fentanyl Citrate 100 mcg STK-MED ONCE .ROUTE Last administered on 10/22/25at 22:23; Start 10/22/25 at 22:21; Stop 10/22/25 at 22:21; Status DC Sodium Chloride 1,000 ml @ 100 mls/hr Q10H IV Last administered on 10/23/25at 18:38; Start 10/22/25 at 22:30; Stop 10/23/25 at 22:29; Status DC Polyethylene Glycol 17 gm DAILY PO Last administered on 10/26/25at 08:49; Start 10/23/25 at 09:00; Stop 11/22/25 at 08:59 Psyllium Hydrophilic Mucilloid 1 tbs DAILYLUNCH PO; Start 10/23/25 at 12:00; Stop 10/25/25 at 11:28; Status DC Bisacodyl 10 mg DAILY PRN PO; Start 10/24/25 at 22:30; Stop 10/25/25 at 11:28; Status DC Bisacodyl 10 mg DAILY PRN RC; Start 10/25/25 at 22:30; Stop 10/25/25 at 11:28; Status DC Ferrous Fumarate 324 mg DAILY PRN PO; Start 10/22/25 at 22:30; Stop 10/25/25 at 11:28; Status DC Calcium Carbonate 500 mg Q12H PRN PO; Start 10/22/25 at 22:30; Stop 10/25/25 at 11:28; Status DC Diphenhydramine HCl 25 mg Q6H PRN PO; Start 10/22/25 at 22:30; Stop 10/22/25 at 22:52; Status DC Diphenhydramine HCl 25 mg Q6H PRN IVP; Start 10/22/25 at 22:30; Stop 10/25/25 at 11:28; Status DC Acetaminophen/ Hydrocodone Bitart Q4H PRN PO; Start 10/22/25 at 22:30; Stop 10/22/25 at 22:54; Status DC Hydromorphone HCl 2 mg Q2H PRN IVP Last administered on 10/25/25at 01:50; Start 10/22/25 at 22:30; Stop 10/27/25 at 22:29 Acetaminophen/ Hydrocodone Bitart 1 tab Q6H PRN PO Last administered on 10/24/25at 14:18; Start 10/22/25 at 23:00; Stop 10/27/25 at 22:59 Acetaminophen/ Hydrocodone Bitart 1 tab Q6H PRN PO Last administered on 10/25/25at 16:37; Start 10/22/25 at 23:00; Stop 10/29/25 at 22:59 Metronidazole/ Sodium Chloride 100 ml @ 100 mls/hr Q8H IVPB Last administered on 10/25/25at 01:43; Start 10/23/25 at 09:00; Stop 10/25/25 at 09:56; Status DC Insulin Glargine 10 units DAILY SQ Last administered on 10/23/25at 10:06; Start 10/23/25 at 09:30; Stop 10/24/25 at 06:54; Status DC Ondansetron HCl 4 mg Q6H PRN IVP Last administered on 10/24/25at 02:36; Start 10/24/25 at 01:30; Stop 11/23/25 at 01:29 Insulin Glargine 15 units DAILY SQ Last administered on 10/26/25at 09:03; Start 10/24/25 at 09:00; Stop 11/23/25 at 08:59 Insulin Human Regular 3 unit TIDAC SQ Last administered on 10/24/25at 12:40; Start 10/24/25 at 07:30; Stop 10/25/25 at 20:02; Status DC Potassium Chloride 100 ml @ 50 mls/hr ONCE ONCE IV Last administered on 10/24/25at 11:42; Start 10/24/25 at 10:00; Stop 10/24/25 at 11:59; Status DC Magnesium Sulfate 50 ml @ 0 mls/hr PROTOCOL IV; Start 10/24/25 at 10:00; Stop 10/25/25 at 07:24; Status DC Potassium Chloride 40 meq ONCE ONCE PO; Start 10/25/25 at 07:30; Stop 10/25/25 at 07:31; Status DC Magnesium Sulfate 50 ml @ 0 mls/hr PROTOCOL IV; Start 10/25/25 at 07:30; Stop 11/24/25 at 07:29 Lidocaine HCl 100 mg STK-MED ONCE .ROUTE; Start 10/25/25 at 09:50; Stop 10/25/25 at 09:50; Status DC Ketamine HCl 50 mg STK-MED ONCE .ROUTE; Start 10/25/25 at 09:50; Stop 10/25/25 at 09:51; Status DC Propofol 200 mg STK-MED ONCE IV; Start 10/25/25 at 09:51; Stop 10/25/25 at 09:51; Status DC Midazolam HCl 2 mg STK-MED ONCE .ROUTE; Start 10/25/25 at 09:51; Stop 10/25/25 at 09:51; Status DC Rocuronium [place] 50 mg STK-MED ONCE .ROUTE; Start 10/25/25 at 09:51; Stop 10/25/25 at 09:51; Status DC Fentanyl Citrate 100 mcg STK-MED ONCE .ROUTE; Start 10/25/25 at 09:51; Stop 10/25/25 at 09:52; Status DC Succinylcholine Chloride 200 mg STK-MED ONCE .ROUTE; Start 10/25/25 at 09:54; Stop 10/25/25 at 09:54; Status DC Cefazolin Sodium 2 gm Q8H IVPB Last administered on 10/26/25at 08:49; Start 10/25/25 at 10:00; Stop 11/04/25 at 09:59 Ondansetron HCl 4 mg STK-MED ONCE .ROUTE; Start 10/25/25 at 10:04; Stop 10/25/25 at 10:04; Status DC Dexamethasone Sodium Phosphate 10 mg STK-MED ONCE .ROUTE; Start 10/25/25 at 10:04; Stop 10/25/25 at 10:04; Status DC Cefazolin Sodium 1 gm STK-MED ONCE .ROUTE; Start 10/25/25 at 10:11; Stop 10/25/25 at 10:11; Status DC Dexamethasone Sodium Phosphate 4 mg STK-MED ONCE .ROUTE; Start 10/25/25 at 10:13; Stop 10/25/25 at 10:13; Status DC Ondansetron HCl 4 mg STK-MED ONCE .ROUTE; Start 10/25/25 at 10:13; Stop 10/25/25 at 10:13; Status DC Rocuronium [place] 50 mg STK-MED ONCE .ROUTE; Start 10/25/25 at 10:29; Stop 10/25/25 at 10:29; Status DC Cefazolin Sodium 1 gm STK-MED ONCE .ROUTE; Start 10/25/25 at 10:43; Stop 10/25/25 at 10:43; Status DC Glycopyrrolate 1 mg STK-MED ONCE .ROUTE; Start 10/25/25 at 11:11; Stop 10/25/25 at 11:11; Status DC Neostigmine Methylsulfate 10 mg STK-MED ONCE IV; Start 10/25/25 at 11:11; Stop 10/25/25 at 11:11; Status DC Sodium Chloride 1,000 ml @ 100 mls/hr Q10H IV; Start 10/25/25 at 11:30; Stop 10/26/25 at 11:29 Enoxaparin Sodium 40 mg DAILY SQ; Start 10/26/25 at 09:00; Stop 10/25/25 at 12:40; Status DC Polyethylene Glycol 17 gm DAILY PO Last administered on 10/26/25at 09:03; Start 10/26/25 at 09:00; Stop 11/25/25 at 08:59 Psyllium Hydrophilic Mucilloid 1 tbs DAILYLUNCH PO; Start 10/25/25 at 12:00; Stop 11/24/25 at 11:59 Bisacodyl 10 mg DAILY PRN PO; Start 10/27/25 at 11:30; Stop 11/26/25 at 11:29 Bisacodyl 10 mg DAILY PRN RC; Start 10/28/25 at 11:30; Stop 11/27/25 at 11:29 Ketorolac Tromethamine 15 mg Q6H PRN IV Last administered on 10/25/25at 21:14; Start 10/25/25 at 11:30; Stop 10/30/25 at 11:29 Ferrous Fumarate 324 mg DAILY PRN PO; Start 10/25/25 at 11:30; Stop 11/24/25 at 11:29 Temazepam 15 mg HS PRN PO; Start 10/25/25 at 11:30; Stop 11/24/25 at 11:29 Promethazine HCl 25 mg Q4H PRN IM; Start 10/25/25 at 11:30; Stop 11/24/25 at 11:29 Calcium Carbonate 500 mg Q12H PRN PO; Start 10/25/25 at 11:30; Stop 11/24/25 at 11:29 Diphenhydramine HCl 25 mg Q6H PRN PO; Start 10/25/25 at 11:30; Stop 11/24/25 at 11:29 Diphenhydramine HCl 25 mg Q6H PRN IVP; Start 10/25/25 at 11:30; Stop 11/24/25 at 11:29 Ondansetron HCl 4 mg AD PRN IVP; Start 10/25/25 at 11:30; Stop 10/25/25 at 12:33; Status DC Metoclopramide HCl 10 mg AD PRN IVP; Start 10/25/25 at 11:30; Stop 10/25/25 at 12:33; Status DC Promethazine HCl 25 mg AD PRN IM; Start 10/25/25 at 11:30; Stop 10/25/25 at 12:33; Status DC Ketorolac Tromethamine 30 mg AD PRN IV; Start 10/25/25 at 11:30; Stop 10/25/25 at 12:33; Status DC Morphine Sulfate 2 mg AD PRN IVP; Start 10/25/25 at 11:30; Stop 10/25/25 at 12:33; Status DC Fentanyl Citrate 25 mcg Q5MIN PRN IVP Last administered on 10/25/25at 11:47; Start 10/25/25 at 11:30; Stop 10/25/25 at 12:33; Status DC Naloxone HCl 0.1 mg AD PRN IVP; Start 10/25/25 at 11:30; Stop 10/25/25 at 12:33; Status DC Fentanyl Citrate 100 mcg STK-MED ONCE .ROUTE; Start 10/25/25 at 11:43; Stop 10/25/25 at 11:43; Status DC Insulin Human Regular 5 unit TIDAC SQ Last administered on 10/26/25at 06:41; Start 10/26/25 at 07:30; Stop 11/25/25 at 07:29 Insulin Human Regular INSULIN SLIDING SCAL... ACHS SQ Last administered on 10/26/25at 06:41; Start 10/26/25 at 07:30; Stop 11/25/25 at 07:29 Magnesium Sulfate 50 ml @ 0 mls/hr PROTOCOL IV; Start 10/26/25 at 08:30; Stop 10/26/25 at 08:12; Status DC VANESSA OJEDA MD Oct 26, 2025 11:00
[2025-10-26 12:35] LABS: NUCLEATED RED BLOOD CELLS 0.0 % (0.0-0.19); PLATELET COUNT (AUTO) 115.0 K/uL (130-400); RED BLOOD CELL COUNT(AUTO) 2.52 MIL/uL (4.50-6.20); RED CELL DISTRIBUTION WIDTH 14.4 % (11.0-15.5); WHITE BLOOD COUNT (AUTO) 8.5 K/uL (4.8-10.8)
--- NOTE | 2025-10-26 14:16 | PN ---
[facility] PROGRESS NOTE Date of Service: Oct 26, 2025 Time of Service: 14:15 SUBJECTIVE: 10/23 patient remains admitted to the medical floor, comfortably in bed, the time of my visit alert oriented x3, getting IV fluids, IV antibiotics. Patient admitted secondary to right hip intramuscular abscess involving the tensor fascia bruce with the extension to the posterior deep high space, status post incision and drainage 10/22/2025. POD #1. Patient tolerated the procedure well. Currently hemodynamically stable, afebrile, saturating normal on room air. WBC of 11.2, hemoglobin 9.6, hematocrit 37.7, platelet count of 100. BUN of 24, creatinine 1.5. Continue the patient on broad-spectrum IV antibiotics, continue supportive care with IV fluids, continue to follow orthopedic input recommendation, follow results of cultures, adjust antibiotics accordingly. Infectious Disease consultation requested, we will follow input and recommendation. 10/24 patient remains admitted to medical floor, comfortably in bed, no acute events overnight, during my visit he is alert oriented x3, getting good pain control with current medical management, getting IV fluids, IV antibiotics. Remains hemodynamically stable, afebrile, saturating normal on room air. Hemoglobin 8.7, hematocrit 5.4, platelet count of 88. Results of urine culture positive for Staphylococcus aureus, aerobic and anaerobic culture positive for Gram-positive cocci in pairs. Patient will remain on broad-spectrum IV antibiotics. Continue to follow ID input recommendation. Follow orthopedic input recommendation. Lovenox on hold, SCDs in place, monitor platelet count in a.m., if continue to get worse we will request Hematology consultation. 10/25 patient remains admitted to medical floor, comfortable, no acute events overnight, he is currently NPO, scheduled to be taken to the operating room today for revision and I and D of right hip peritrochanteric subcutaneous abscess by orthopedic physician. Blood pressure 123/67, afebrile, saturating normal on room air. Tissue culture positive for Staphylococcus aureus. Urine culture positive for Staphylococcus aureus. Continue the patient on broad-spect rum IV antibiotics, continue to follow ID input and recommendation. Follow a.m. labs. 10/26 patient remains admitted to medical floor, comfortable, no acute events overnight, he is currently NPO, scheduled to be taken to the operating room today for revision and I and D of right hip peritrochanteric subcutaneous abscess by orthopedic physician. Stable, saturating normal on room air. Tissue culture positive for Staphylococcus aureus. Urine culture positive for Staphylococcus aureus. Continue the patient on broad-spectrum IV antibiotics, continue to follow ID input and recommendation. Follow a.m. labs. REVIEW OF SYSTEMS CONSTITUTIONAL: Denies fevers, chills, or night sweats. No unintentional weight loss reported. NEUROLOGICAL: Denies headache, amaurosis fugax, motor weakness, sensory deficit, vertigo/spinning sensation, gait abnormalities, or tremors. ENT: No hearing loss, otalgia, otorrhea, rhinitis, rhinorrhea, hoarseness, or sore throat. CARDIOVASCULAR: Denies any exertional angina, dyspnea on exertion, orthopnea, paroxysmal nocturnal dyspnea, palpitations, life-threatening arrhythmias, claudication. PULMONARY: Denies any shortness of breath, cough, phlegm/sputum, hemoptysis, pleuritic chest pain. SLEEP: Denies morning headaches, daytime somnolence or napping. Denies difficulty falling asleep, staying asleep, waking from sleep. Denies knowledge of snoring. GASTROINTESTINAL: Denies any type of dysphagia to either liquids or solids. Denies nausea, vomiting, pyrosis, early satiety, abdominal pain, diarrhea, constipation, or changes in stool consistency or caliber. Denies coffee-ground emesis, hematemesis, hematochezia, or melanotic stools. GENITOURINARY: Denies frequency, urgency, nocturia, hematuria or incontinence (Storage/Irritative symptoms.) Low urinary stream, straining to void, urinary intermittency or hesitancy, splitting of the voiding stream, terminal dribbling. ENDOCRINOLOGIC: Denies polyuria, polydipsia, polyphagia or heat/cold intolerances. HEMATOLOGIC: Denies thrombophilia/previous clots, or coagulopathy/bleeding disorders. ONCOLOGIC: Denies personal history of malignancy. DERMATOLOGIC: POSITIVE FOR REDNESS AND SWELLING IN THE RIGHT INNER THIGH PSYCHIATRIC: Denies any suicidal or homicidal ideation. Denies hallucinations. Musculoskeletal: Positive for pain in the right inner thigh PHYSICAL EXAM GENERAL APPEARANCE: The patient is awake, alert, and oriented, in no acute cardiopulmonary distress. NEUROLOGICAL: Cranial nerves II-XII grossly intact. Motor is 5/5 in bilateral upper and lower extremities proximal to distal. No sensory deficits. HEENT: Face is symmetric. Pupils are equal and reactive. Extraocular movements are intact. NECK: Supple. No JVD. No thyromegaly. No submental, submandibular, pre-/postauricular, occipital or supraclavicular lymphadenopathy. CHEST: Normal chest expansion. No Telemetry. LUNGS: Absence of any rales, rhonchi or any wheezing. CARDIOVASCULAR: Regular. S1 and S2 normal. No appreciable rubs, murmurs or gallops. ABDOMEN: Soft, nontender, and nondistended. There is no rebound, voluntary guarding, or rigidity. : Deferred. No Taylor. EXTREMITIES: Non-edematous and not cyanotic. No clubbing. Good capillary refill. SKIN: There is redness on the right lateral aspect of the hip. There is induration and swelling noted in the right inner thigh. Area is tender to palpation Vital Signs (last 8hr) Date Time Temp Pulse Resp B/P (MAP) Pulse Ox O2 Delivery O2 Flow Rate FiO2 10/26/25 12: 98.1 87 18 134/69 98 Room Air 10/26/25 08:53 97.5 80 18 112/67 98 Room Air LABS: Laboratory: Test 10/26/25 12:25 10/26/25 12:05 10/26/25 05:52 10/25/25 06:00 Range/Units White Blood Count 8.5 # 4.8-10.8 K/uL Red Blood Count 2.52 L 4.50-6.20 MIL/uL Hemoglobin 8.8 L 14.0-18.0 g/dL Hematocrit 25.7 L 42-54 % Mean Corpuscular Volume 102.0 H 79-99 fL Mean Corpuscular Hemoglobin 34.9 H 27.0-33.0 pg Mean Corpuscular Hemoglobin Concent 34.2 32.0-36.0 g/dL Red Cell Distribution Width 14.4 11.0-15.5 % Platelet Count 115 #L 130-400 K/uL Mean Platelet Volume 9.6 7.5-10.5 fL Nucleated Red Blood Cells 0.0 0.0-0.19 % Whole Blood Glucose 212 H 70-110 MG/DL Sodium Level 134 L 136-145 mmol/L Potassium Level 3.9 3.5-5.1 mmol/L Chloride Level 105 101-111 mmol/L Carbon Dioxide Level 23 21-32 mmol/L Blood Urea Nitrogen 20 H 7-18 mg/dL Creatinine 1.1 0.5-1.3 mg/dL Glomerular Filtration Rate Calc 79 >90 mL/min Random Glucose 234 #H 70-105 mg/dL Total Calcium 6.9 L 8.5-10.1 mg/dL Magnesium Level 1.70 L 1.80-2.40 mg/dL Total Bilirubin 0.9 # 0.2-1.0 mg/dL Aspartate Amino Transf (AST/SGOT) 61 H 10-37 U/L Alanine Aminotransferase (ALT/SGPT) 52 12-78 U/L Alkaline Phosphatase 101 50-136 U/L Total Protein 5.7 L 6.0-8.3 g/dL Albumin 1.2 L 3.5-5.0 g/dL Prothrombin Time 14.1 H 9.6-11.6 SEC Prothromb Time International Ratio 1.37 H 0.85-1.15 Test 10/24/25 15:24 Range/Units Bedside Glucose Comment Notified Nurse Current Medications Medications (Trade) Dose Ordered Sig/Denise Route PRN Reason Start Time Stop Time Status Last Admin Dose Admin Acetaminophen (TYLenol 500MG TAB) 500 mg Q6H PRN PO MILD PAIN (1-3) 10/22/25 11:00 11/21/25 10:59 Acetaminophen/ Hydrocodone Bitart (NORco 10) 1 tab Q6H PRN PO SEVERE PAIN (7-10) 10/22/25 23:00 10/29/25 22:59 10/25/25 16:37 1 TAB Acetaminophen/ Hydrocodone Bitart (NORco 5/325MG) Q4H PRN PO MODERATE/SEVERE PAIN LEVEL 10/22/25 22:30 10/22/25 22:54 DC Acetaminophen/ Hydrocodone Bitart (NORco 5/325MG) 1 tab Q6H PRN PO MODERATE PAIN (4-6) 10/22/25 23:00 10/27/25 22:59 10/24/25 14:18 1 TAB Bisacodyl (DulcoLAX 5MG TAB) 10 mg DAILY PRN PO CONSTIPATION 10/24/25 22:30 10/25/25 11:28 DC Bisacodyl (DulcoLAX 5MG TAB) 10 mg DAILY PRN PO CONSTIPATION 10/27/25 11:30 11/26/25 11:29 Bisacodyl (DulcoLAX) 10 mg DAILY PRN RC CONSTIPATION 10/25/25 22:30 10/25/25 11:28 DC Bisacodyl (DulcoLAX) 10 mg DAILY PRN RC CONSTIPATION 10/28/25 11:30 11/27/25 11:29 Calcium Carbonate (Oyster Shell Ca 500mg Tab) 500 mg Q12H PRN PO GIVE IF SERUM CA LESS THAN 8 10/25/25 11:30 11/24/25 11:29 Calcium Carbonate (Oyster Shell Ca 500mg Tab) 500 mg Q12H PRN PO GIVE IF SERUM CA LESS THAN 8 10/22/25 22:30 10/25/25 11:28 DC Cefazolin Sodium (Ancef) 2 gm Q8H IVPB 10/25/25 10:00 11/04/25 09:59 10/26/25 08:49 2 GM Cefepime HCl (MAXipime 1 GM vial) 1 gm Q12H IVPB 10/22/25 15:00 10/25/25 09:56 DC 10/25/25 03:33 1 GM Diphenhydramine HCl (BENAdryl CAP) 25 mg Q6H PRN PO ITCHING 10/25/25 11:30 11/24/25 11:29 Diphenhydramine HCl (BENAdryl CAP) 25 mg Q6H PRN PO ITCHING 10/22/25 22:30 10/22/25 22:52 DC Diphenhydramine HCl (BENAdryl INJ) 25 mg Q6H PRN IVP ITCHING 10/25/25 11:30 11/24/25 11:29 Diphenhydramine HCl (BENAdryl INJ) 25 mg Q6H PRN IVP ITCHING 10/22/25 22:30 10/25/25 11:28 DC Enoxaparin Sodium (Lovenox) 40 mg DAILY SQ 10/26/25 09:00 10/25/25 12:40 DC Enoxaparin Sodium (Lovenox) 40 mg DAILY SQ 10/23/25 09:00 10/24/25 13:28 DC 10/23/25 09:53 40 MG Famotidine (Pepcid 20mg Vial) 20 mg BID IV 10/22/25 21:00 11/21/25 20:59 10/26/25 08:49 20 MG Fentanyl Citrate (FENTanyl CITRate PF 50 MCG/ 1 ML 2ML VIAL) 25 mcg Q5MIN PRN IVP PAIN LEVEL 7 TO 10 10/25/25 11:30 10/25/25 12:33 DC 10/25/25 11:47 25 MCG Ferrous Fumarate (Hemocyte) 324 mg DAILY PRN PO IF HEMOGLOBIN LESS THAN 9 10/25/25 11:30 11/24/25 11:29 Ferrous Fumarate (Hemocyte) 324 mg DAILY PRN PO IF HEMOGLOBIN LESS THAN 9 10/22/25 22:30 10/25/25 11:28 DC Hydromorphone HCl (DiLAUDid 0.5MG INJ) 0.25 mg Q6H PRN IVP SEVERE PAIN (7-10) 10/22/25 11:00 10/27/25 10:59 10/22/25 15:16 0.25 MG Hydromorphone HCl (DiLAUDid 2MG INJ) 2 mg Q2H PRN IVP SEVERE PAIN (7-10) 10/22/25 22:30 10/27/25 22:29 10/25/25 01:50 2 MG Insulin Glargine (LANtus 100 UNITS/ML 10 ML VIAL) 10 units DAILY SQ 10/23/25 09:30 10/24/25 06:54 DC 10/23/25 10:06 10 UNITS Insulin Glargine (LANtus 100 UNITS/ML 10 ML VIAL) 15 units DAILY SQ 10/24/25 09:00 11/23/25 08:59 10/26/25 09:03 15 UNITS Insulin Human Regular (humuLIN R 100 UNIT/ML 3ML) 3 unit TIDAC SQ 10/24/25 07:30 10/25/25 20:02 DC 10/24/25 12:40 3 UNIT Insulin Human Regular (humuLIN R 100 UNIT/ML 3ML) 5 unit TIDAC SQ 10/26/25 07:30 11/25/25 07:29 10/26/25 13:19 5 UNIT Insulin Human Regular (humuLIN R 100 UNIT/ML 3ML) INSULIN SLIDING SCAL... ACHS SQ 10/26/25 07:30 11/25/25 07:29 10/26/25 13:20 3 UNIT Insulin Human Regular (humuLIN R 100 UNIT/ML 3ML) INSULIN SLIDING SCAL... Q6H6 SQ 10/22/25 12:00 10/25/25 20:04 DC 10/24/25 06:05 2 UNIT Ketorolac Tromethamine (toRADol) 15 mg Q6H PRN IV BREAKTHROUGH PAIN (4-6) 10/25/25 11:30 10/30/25 11:29 10/25/25 21:14 15 MG Ketorolac Tromethamine (toRADol) 30 mg AD PRN IV PAIN LEVEL 1 TO 3 10/25/25 11:30 10/25/25 12:33 DC Magnesium Sulfate 50 ml @ 0 mls/hr PROTOCOL IV 10/24/25 10:00 10/25/25 07:24 DC Magnesium Sulfate 50 ml @ 0 mls/hr PROTOCOL IV 10/25/25 07:30 11/24/25 07:29 Magnesium Sulfate 50 ml @ 0 mls/hr PROTOCOL IV 10/26/25 08:30 10/26/25 08:12 DC Metoclopramide HCl (regLAN 10MG IV) 10 mg AD PRN IVP NAUSEA/VOMITING 10/25/25 11:30 10/25/25 12:33 DC Metronidazole/ Sodium Chloride 100 ml @ 100 mls/hr Q8H IVPB 10/22/25 12:00 10/23/25 04:20 DC 10/23/25 01:09 100 MLS/HR Metronidazole/ Sodium Chloride 100 ml @ 100 mls/hr Q8H IVPB 10/23/25 09:00 10/25/25 09:56 DC 10/25/25 01:43 100 MLS/HR Morphine Sulfate (morPHINE 2MG SYG) 2 mg AD PRN IVP PAIN LEVEL 4 TO 6 10/25/25 11:30 10/25/25 12:33 DC Naloxone HCl (NARcan 0.4mg/1 mL) 0.1 mg AD PRN IVP RESPIRATORY SYMPTOMS 10/25/25 11:30 10/25/25 12:33 DC Ondansetron HCl (zoFRAN 4MG INJ) 4 mg AD PRN IVP NAUSEA/VOMITING 10/25/25 11:30 10/25/25 12:33 DC Ondansetron HCl (zoFRAN 4MG INJ) 4 mg Q6H PRN IVP NAUSEA/VOMITING 10/24/25 01:30 11/23/25 01:29 10/24/25 02:36 4 MG Polyethylene Glycol (MIRalax 3350 17 GM POWD.PACK) 17 gm DAILY PO 10/26/25 09:00 11/25/25 08:59 10/26/25 09:03 17 GM Polyethylene Glycol (MIRalax 3350 17 GM POWD.PACK) 17 gm DAILY PO 10/23/25 09:00 11/22/25 08:59 10/26/25 08:49 17 GM Promethazine HCl (Phenergan) 25 mg AD PRN IM NAUSEA/VOMITING 10/25/25 11:30 10/25/25 12:33 DC Promethazine HCl (Phenergan) 25 mg Q4H PRN IM NAUSEA/VOMITING 10/25/25 11:30 11/24/25 11:29 Psyllium Hydrophilic Mucilloid (Metamucil) 1 tbs DAILYLUNCH PO 10/25/25 12:00 11/24/25 11:59 Psyllium Hydrophilic Mucilloid (Metamucil) 1 tbs DAILYLUNCH PO 10/23/25 12:00 10/25/25 11:28 DC Sodium Chloride 1,000 ml @ 100 mls/hr Q10H IV 10/25/25 11:30 10/26/25 11:29 DC Sodium Chloride 1,000 ml @ 100 mls/hr Q10H IV 10/22/25 11:00 10/25/25 11:28 DC 10/24/25 20:42 100 MLS/HR Sodium Chloride 1,000 ml @ 100 mls/hr Q10H IV 10/22/25 22:30 10/23/25 22:29 DC 10/23/25 18:38 100 MLS/HR Temazepam (restORIL 15 MG CAP) 15 mg HS PRN PO INSOMNIA/SLEEP 10/25/25 11:30 11/24/25 11:29 Vancomycin HCl 250 ml @ 125 mls/hr Q24H IV 10/23/25 12:00 10/25/25 09:56 DC 10/24/25 12:34 125 MLS/HR Vancomycin HCl (Vancomycin Protocol) 1 each AD IV 10/22/25 11:00 10/25/25 10:19 DC DIAGNOSTICS / RADIOLOGY: [ ] ASSESSMENT: Right inner thighs swelling concerning for possible abscess differential abscess versus hematoma History of alcohol use Mild hyponatremia Acute kidney injury Mild thrombocytopenia Dehydration Elevated LFTs Severe hypoalbuminemia secondary to protein calorie malnutrition Hyperglycemia secondary to suspected uncontrolled diabetes mellitus type 2 History of marijuana use PLAN: 10/26 patient remains admitted to medical floor, comfortable, no acute events overnight, he is currently NPO, scheduled to be taken to the operating room today for revision and I and D of right hip peritrochanteric subcutaneous abscess by orthopedic physician. Stable, saturating normal on room air. Tissue culture positive for Staphylococcus aureus. Urine culture positive for Staphylococcus aureus. Continue the patient on broad-spectrum IV antibiotics, continue to follow ID input and recommendation. Follow a.m. labs. NEURO: Minimize central acting medications as possible. Fall Precautions. Well lighted room through the day and minimize interruptions through the night to prevent acute delirium. PULMONARY: Supplemental 02 as needed BiPAP as necessary, for respiratory distress Titrate Fio2 to keep Spo2 > or = 90% DuoNebs and CPT as needed IS hourly while awake for pulmonary hygiene prn Out of bed to chair as tolerated Maintain aspiration precautions at all times CARDIOVASCULAR: Follow hemodynamics. Vital signs per facility protocol GI & NUTRITION: Continue nutritional support Aspirations precautions Prokinetic agents and laxatives as needed KIDNEYS & ELECTROLYTES: Strict monitoring of intake and output Daily weights Avoid nephrotoxic agents Monitor electrolytes and replace as needed Goal urine output of 30mL/hr or 0.5mL/kg/hr Medications to be dosed according to renal function. Avoid contrast if possible ENDOCRINE: Maintain blood glucose between 100-180 at all times. Insulin sliding scale for blood glucose management Hypoglycemia and hyperglycemia protocol in place INFECTIOUS DISEASE: Trend temperature, WBC and procalcitonin level Follow cultures, deescalate antibiotics as soon as possible. Panculture if new onset fever HEMATOLOGY & COAGULATION: Monitor H&H. Keep Hgb > 7 Transfuse 1 unit of PRBC for Hgb < 7 Transfuse 1 pack of platelets of platelets < 20, 000 Watch for any signs and symptoms of bleeding SKIN: Pressure ulcer prevention per facility protocol Specialty mattress as needed ORTHO/REHAB Continue PT/OT PRN: MEDICATIONS Tylenol 650 mg po every 4 hrs for fever zofran 4 mg IV every 6 hrs for n/v Hydralazine 5 mg IV every 4 hrs systolic pressure > 160 bowel regiment: lactulose 20 gm PO BID PRN constipation Supportive measures: Continue GI and DVT prophylaxis Disposition: Pending improvement in clinical condition All questions answered time spent: > 35 min RODRIGO BORCK MD Oct 26, 2025 14:16
--- NOTE | 2025-10-26 15:32 | PN ---
KATHLEEN POP Fatuma 10/26/25 1532: Patient is a 55-year-old male with no significant past medical history admitted on 10/22 for progressive right inner thigh/hip pain and swelling over 2 weeks. Imaging showed an 8.5 x 7.2 x 7.3 cm fluid collection consistent with abscess. Patient underwent an I and D. postoperatively, patient has remained afebrile, hemodynamically stable, saturating well on room air. G stain positive for Gram- positive cocci. Patient on IV antibiotics. Platelets have trended down from 115K to 88K today. No bleeding, bruising, melena, hematochezia, epistaxis, or petechia. No history of thrombocytopenia. No known liver disease but admits to drinking a six pack of beer on weekends. No prior exposure to heparin before admission. We have been consulted for thrombocytopenia Patient seen and examined at bedside. JOSEFINA drain with minimal serosanguineous output. Patient is newly diagnosed DM type 2 being evaluated by endocrinology. 2D echo showed no valvular abnormalities. Patient scheduled for 3rd I&D with closure tomorrow AM. Remarkable labs: H&H stable. platelets up from 87K to 90K. Electrolytes WNL. IMPRESSION Right inner thighs swelling concerning for possible abscess differential abscess -s/p I&D day 2 History of alcohol use Mild hyponatremia Acute kidney injury Mild thrombocytopenia Dehydration Elevated LFTs Severe hypoalbuminemia secondary to protein calorie malnutrition Hyperglycemia secondary to suspected uncontrolled diabetes mellitus type 2 History of marijuana use PLAN 1. Peripheral smear ordered: microcytosis present, platelets small to normal in number (100-120K) with rouleaux phenomena and vacuolization indicating infection. will order SPEP/UPEP and free light chain. 2. Plan for thrombocytopenia - trend CBC daily. 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 Hold Lovenox if [place] less [place] [id number] or if any signs of bleeding. No indication for platelet transfusion at this time 4. Continue antibiotics per Infectious Disease, but if platelets continue to fall, consider: recommend switching vancomycin if suspicion for VIT increases 5. Monitor for clinical bleeding: Petechia, hematuria, GI bleeding. Vitals/Labs Vital Signs Date Time Temp Pulse Resp B/P (MAP) Pulse Ox O2 Delivery O2 Flow Rate FiO2 10/26/25 12:25 98.1 87 18 134/69 98 Room Air 10/25/25 23:13 0 21 Laboratory Tests 10/26/25 05:52 10/26/25 12:25 Medications Current Medications Orphenadrine Citrate 60 mg ONCE ONCE IM Last administered on 10/22/25at 09:45; Start 10/22/25 at 09:30; Stop 10/22/25 at 09:35; Status DC Ketorolac Tromethamine 15 mg ONCE ONCE IM Last administered on 10/22/25at 09:45; Start 10/22/25 at 09:30; Stop 10/22/25 at 09:35; Status DC Ceftriaxone Sodium 1 gm ONCE ONCE IVPB Last administered on 10/22/25at 10:53; Start 10/22/25 at 10:30; Stop 10/22/25 at 10:36; Status DC Enoxaparin Sodium 40 mg DAILY SQ Last administered on 10/23/25at 09:53; Start 10/23/25 at 09:00; Stop 10/24/25 at 13:28; Status DC Famotidine 20 mg BID IV Last administered on 10/26/25at 08:49; Start 10/22/25 at 21:00; Stop 11/21/25 at 20:59 Sodium Chloride 1,000 ml @ 100 mls/hr Q10H IV Last administered on 10/24/25at 20:42; Start 10/22/25 at 11:00; Stop 10/25/25 at 11:28; Status DC Vancomycin HCl 1 each AD IV; Start 10/22/25 at 11:00; Stop 10/25/25 at 10:19; Status DC Hydromorphone HCl 0.25 mg Q6H PRN IVP Last administered on 10/22/25at 15:16; Start 10/22/25 at 11:00; Stop 10/27/25 at 10:59 Acetaminophen 500 mg Q6H PRN PO; Start 10/22/25 at 11:00; Stop 11/21/25 at 10:59 Insulin Human Regular INSULIN SLIDING SCAL... Q6H6 SQ Last administered on 10/24/25at 06:05; Start 10/22/25 at 12:00; Stop 10/25/25 at 20:04; Status DC Vancomycin HCl 500 ml @ 250 mls/hr ONCE ONCE IV Last administered on 10/22/25at 12:51; Start 10/22/25 at 12:00; Stop 10/22/25 at 13:59; Status DC Cefepime HCl 1 gm Q12H IVPB Last administered on 10/25/25at 03:33; Start 10/22/25 at 15:00; Stop 10/25/25 at 09:56; Status DC Vancomycin HCl 250 ml @ 125 mls/hr Q24H IV Last administered on 10/24/25at 12:34; Start 10/23/25 at 12:00; Stop 10/25/25 at 09:56; Status DC Metronidazole/ Sodium Chloride 100 ml @ 100 mls/hr Q8H IVPB Last administered on 10/23/25at 01:09; Start 10/22/25 at 12:00; Stop 10/23/25 at 04:20; Status DC Lidocaine HCl 100 mg STK-MED ONCE .ROUTE; Start 10/22/25 at 20:24; Stop 10/22/25 at 20:25; Status DC Ketamine HCl 50 mg STK-MED ONCE .ROUTE; Start 10/22/25 at 20:25; Stop 10/22/25 at 20:25; Status DC Succinylcholine Chloride 200 mg STK-MED ONCE .ROUTE; Start 10/22/25 at 20:26; Stop 10/22/25 at 20:26; Status DC Propofol 200 mg STK-MED ONCE IV; Start 10/22/25 at 20:26; Stop 10/22/25 at 20:27; Status DC Midazolam HCl 2 mg STK-MED ONCE .ROUTE; Start 10/22/25 at 20:27; Stop 10/22/25 at 20:27; Status DC Rocuronium [place] 50 mg STK-MED ONCE .ROUTE; Start 10/22/25 at 20:27; Stop 10/22/25 at 20:27; Status DC Fentanyl Citrate 100 mcg STK-MED ONCE .ROUTE; Start 10/22/25 at 20:27; Stop 10/22/25 at 20:27; Status DC Cefazolin Sodium 1 gm STK-MED ONCE .ROUTE; Start 10/22/25 at 20:40; Stop 10/22/25 at 20:40; Status DC Ondansetron HCl 4 mg STK-MED ONCE .ROUTE; Start 10/22/25 at 21:54; Stop 10/22/25 at 21:54; Status DC Glycopyrrolate 1 mg STK-MED ONCE .ROUTE; Start 10/22/25 at 21:54; Stop 10/22/25 at 21:54; Status DC Neostigmine Methylsulfate 10 mg STK-MED ONCE IV; Start 10/22/25 at 21:54; Stop 10/22/25 at 21:54; Status DC Acetaminophen 100 ml @ As Directed STK-MED ONCE .ROUTE Last administered on 10/22/25at 22:12; Start 10/22/25 at 22:08; Stop 10/22/25 at 22:08; Status DC Ondansetron HCl 4 mg STK-MED ONCE .ROUTE Last administered on 10/22/25at 22:19; Start 10/22/25 at 22:13; Stop 10/22/25 at 22:13; Status DC Fentanyl Citrate 100 mcg STK-MED ONCE .ROUTE Last administered on 10/22/25at 22:19; Start 10/22/25 at 22:15; Stop 10/22/25 at 22:15; Status DC Fentanyl Citrate 100 mcg STK-MED ONCE .ROUTE Last administered on 10/22/25at 22:23; Start 10/22/25 at 22:21; Stop 10/22/25 at 22:21; Status DC Sodium Chloride 1,000 ml @ 100 mls/hr Q10H IV Last administered on 10/23/25at 18:38; Start 10/22/25 at 22:30; Stop 10/23/25 at 22:29; Status DC Polyethylene Glycol 17 gm DAILY PO Last administered on 10/26/25at 08:49; Start 10/23/25 at 09:00; Stop 11/22/25 at 08:59 Psyllium Hydrophilic Mucilloid 1 tbs DAILYLUNCH PO; Start 10/23/25 at 12:00; Stop 10/25/25 at 11:28; Status DC Bisacodyl 10 mg DAILY PRN PO; Start 10/24/25 at 22:30; Stop 10/25/25 at 11:28; Status DC Bisacodyl 10 mg DAILY PRN RC; Start 10/25/25 at 22:30; Stop 10/25/25 at 11:28; Status DC Ferrous Fumarate 324 mg DAILY PRN PO; Start 10/22/25 at 22:30; Stop 10/25/25 at 11:28; Status DC Calcium Carbonate 500 mg Q12H PRN PO; Start 10/22/25 at 22:30; Stop 10/25/25 at 11:28; Status DC Diphenhydramine HCl 25 mg Q6H PRN PO; Start 10/22/25 at 22:30; Stop 10/22/25 at 22:52; Status DC Diphenhydramine HCl 25 mg Q6H PRN IVP; Start 10/22/25 at 22:30; Stop 10/25/25 at 11:28; Status DC Acetaminophen/ Hydrocodone Bitart Q4H PRN PO; Start 10/22/25 at 22:30; Stop 10/22/25 at 22:54; Status DC Hydromorphone HCl 2 mg Q2H PRN IVP Last administered on 10/25/25at 01:50; Start 10/22/25 at 22:30; Stop 10/27/25 at 22:29 Acetaminophen/ Hydrocodone Bitart 1 tab Q6H PRN PO Last administered on 10/24/25at 14:18; Start 10/22/25 at 23:00; Stop 10/27/25 at 22:59 Acetaminophen/ Hydrocodone Bitart 1 tab Q6H PRN PO Last administered on 10/25/25at 16:37; Start 10/22/25 at 23:00; Stop 10/29/25 at 22:59 Metronidazole/ Sodium Chloride 100 ml @ 100 mls/hr Q8H IVPB Last administered on 10/25/25at 01:43; Start 10/23/25 at 09:00; Stop 10/25/25 at 09:56; Status DC Insulin Glargine 10 units DAILY SQ Last administered on 10/23/25at 10:06; Start 10/23/25 at 09:30; Stop 10/24/25 at 06:54; Status DC Ondansetron HCl 4 mg Q6H PRN IVP Last administered on 10/24/25at 02:36; Start 10/24/25 at 01:30; Stop 11/23/25 at 01:29 Insulin Glargine 15 units DAILY SQ Last administered on 10/26/25at 09:03; Start 10/24/25 at 09:00; Stop 11/23/25 at 08:59 Insulin Human Regular 3 unit TIDAC SQ Last administered on 10/24/25at 12:40; Start 10/24/25 at 07:30; Stop 10/25/25 at 20:02; Status DC Potassium Chloride 100 ml @ 50 mls/hr ONCE ONCE IV Last administered on 10/24/25at 11:42; Start 10/24/25 at 10:00; Stop 10/24/25 at 11:59; Status DC Magnesium Sulfate 50 ml @ 0 mls/hr PROTOCOL IV; Start 10/24/25 at 10:00; Stop 10/25/25 at 07:24; Status DC Potassium Chloride 40 meq ONCE ONCE PO; Start 10/25/25 at 07:30; Stop 10/25/25 at 07:31; Status DC Magnesium Sulfate 50 ml @ 0 mls/hr PROTOCOL IV; Start 10/25/25 at 07:30; Stop 11/24/25 at 07:29 Lidocaine HCl 100 mg STK-MED ONCE .ROUTE; Start 10/25/25 at 09:50; Stop 10/25/25 at 09:50; Status DC Ketamine HCl 50 mg STK-MED ONCE .ROUTE; Start 10/25/25 at 09:50; Stop 10/25/25 at 09:51; Status DC Propofol 200 mg STK-MED ONCE IV; Start 10/25/25 at 09:51; Stop 10/25/25 at 09:51; Status DC Midazolam HCl 2 mg STK-MED ONCE .ROUTE; Start 10/25/25 at 09:51; Stop 10/25/25 at 09:51; Status DC Rocuronium [place] 50 mg STK-MED ONCE .ROUTE; Start 10/25/25 at 09:51; Stop 10/25/25 at 09:51; Status DC Fentanyl Citrate 100 mcg STK-MED ONCE .ROUTE; Start 10/25/25 at 09:51; Stop 10/25/25 at 09:52; Status DC Succinylcholine Chloride 200 mg STK-MED ONCE .ROUTE; Start 10/25/25 at 09:54; Stop 10/25/25 at 09:54; Status DC Cefazolin Sodium 2 gm Q8H IVPB Last administered on 10/26/25at 08:49; Start 10/25/25 at 10:00; Stop 11/04/25 at 09:59 Ondansetron HCl 4 mg STK-MED ONCE .ROUTE; Start 10/25/25 at 10:04; Stop 10/25/25 at 10:04; Status DC Dexamethasone Sodium Phosphate 10 mg STK-MED ONCE .ROUTE; Start 10/25/25 at 10:04; Stop 10/25/25 at 10:04; Status DC Cefazolin Sodium 1 gm STK-MED ONCE .ROUTE; Start 10/25/25 at 10:11; Stop 10/25/25 at 10:11; Status DC Dexamethasone Sodium Phosphate 4 mg STK-MED ONCE .ROUTE; Start 10/25/25 at 10:13; Stop 10/25/25 at 10:13; Status DC Ondansetron HCl 4 mg STK-MED ONCE .ROUTE; Start 10/25/25 at 10:13; Stop 10/25/25 at 10:13; Status DC Rocuronium [place] 50 mg STK-MED ONCE .ROUTE; Start 10/25/25 at 10:29; Stop 10/25/25 at 10:29; Status DC Cefazolin Sodium 1 gm STK-MED ONCE .ROUTE; Start 10/25/25 at 10:43; Stop 10/25/25 at 10:43; Status DC Glycopyrrolate 1 mg STK-MED ONCE .ROUTE; Start 10/25/25 at 11:11; Stop 10/25/25 at 11:11; Status DC Neostigmine Methylsulfate 10 mg STK-MED ONCE IV; Start 10/25/25 at 11:11; Stop 10/25/25 at 11:11; Status DC Sodium Chloride 1,000 ml @ 100 mls/hr Q10H IV; Start 10/25/25 at 11:30; Stop 10/26/25 at 11:29; Status DC Enoxaparin Sodium 40 mg DAILY SQ; Start 10/26/25 at 09:00; Stop 10/25/25 at 12:40; Status DC Polyethylene Glycol 17 gm DAILY PO Last administered on 10/26/25at 09:03; Start 10/26/25 at 09:00; Stop 11/25/25 at 08:59 Psyllium Hydrophilic Mucilloid 1 tbs DAILYLUNCH PO; Start 10/25/25 at 12:00; Stop 11/24/25 at 11:59 Bisacodyl 10 mg DAILY PRN PO; Start 10/27/25 at 11:30; Stop 11/26/25 at 11:29 Bisacodyl 10 mg DAILY PRN RC; Start 10/28/25 at 11:30; Stop 11/27/25 at 11:29 Ketorolac Tromethamine 15 mg Q6H PRN IV Last administered on 10/25/25at 21:14; Start 10/25/25 at 11:30; Stop 10/30/25 at 11:29 Ferrous Fumarate 324 mg DAILY PRN PO; Start 10/25/25 at 11:30; Stop 11/24/25 at 11:29 Temazepam 15 mg HS PRN PO; Start 10/25/25 at 11:30; Stop 11/24/25 at 11:29 Promethazine HCl 25 mg Q4H PRN IM; Start 10/25/25 at 11:30; Stop 11/24/25 at 11:29 Calcium Carbonate 500 mg Q12H PRN PO; Start 10/25/25 at 11:30; Stop 11/24/25 at 11:29 Diphenhydramine HCl 25 mg Q6H PRN PO; Start 10/25/25 at 11:30; Stop 11/24/25 at 11:29 Diphenhydramine HCl 25 mg Q6H PRN IVP; Start 10/25/25 at 11:30; Stop 11/24/25 at 11:29 Ondansetron HCl 4 mg AD PRN IVP; Start 10/25/25 at 11:30; Stop 10/25/25 at 12:33; Status DC Metoclopramide HCl 10 mg AD PRN IVP; Start 10/25/25 at 11:30; Stop 10/25/25 at 12:33; Status DC Promethazine HCl 25 mg AD PRN IM; Start 10/25/25 at 11:30; Stop 10/25/25 at 12:33; Status DC Ketorolac Tromethamine 30 mg AD PRN IV; Start 10/25/25 at 11:30; Stop 10/25/25 at 12:33; Status DC Morphine Sulfate 2 mg AD PRN IVP; Start 10/25/25 at 11:30; Stop 10/25/25 at 12:33; Status DC Fentanyl Citrate 25 mcg Q5MIN PRN IVP Last administered on 10/25/25at 11:47; Start 10/25/25 at 11:30; Stop 10/25/25 at 12:33; Status DC Naloxone HCl 0.1 mg AD PRN IVP; Start 10/25/25 at 11:30; Stop 10/25/25 at 12:33; Status DC Fentanyl Citrate 100 mcg STK-MED ONCE .ROUTE; Start 10/25/25 at 11:43; Stop 10/25/25 at 11:43; Status DC Insulin Human Regular 5 unit TIDAC SQ Last administered on 10/26/25at 13:19; Start 10/26/25 at 07:30; Stop 11/25/25 at 07:29 Insulin Human Regular INSULIN SLIDING SCAL... ACHS SQ Last administered on 10/26/25at 13:20; Start 10/26/25 at 07:30; Stop 11/25/25 at 07:29 Magnesium Sulfate 50 ml @ 0 mls/hr PROTOCOL IV; Start 10/26/25 at 08:30; Stop 10/26/25 at 08:12; Status DC MAU ANDERSEN MD 10/26/25 1725: KATHLEEN POP Oct 26, 2025 15:32 MAU ANDERSEN MD Oct 26, 2025 17:25
--- NOTE | 2025-10-26 19:51 | PN ---
INFECTIOUS DISEASE PROGRESS NOTE Date of Service: Oct 26, 2025 SUBJECTIVE: Patient was seen and examined at bedside in room 320. Patient is status post second-look incision and drainage and debridement of the right hip abscess day # 1 and per report patient will be undergoing a 3rd look incision and drainage and closure for tomorrow. Two JOSEFINA drains intact. Blood cultures remain negative. Patient remains afebrile postop and no reports of nausea or vomiting. We will continue on cefazolin and metronidazole and follow up on the cultures results. PHYSICAL EXAM EYES: Anicteric. Pupils equal and reactive. HENT: No oral thrush seen, moist Oral mucosa NECK: Supple, no JVD or thyromegaly. LUNGS: Good air entry. No rales, no rhonchi. CARDIOVASCULAR: S1, S2 regular. No murmur heard. ABDOMEN: Soft, non tender, bowel sounds present. CENTRAL NERVOUS SYSTEM: Awake, alert, oriented x 3. SKIN: No rashes, no swelling. LYMPHATICS: No peripheral lymphadenopathy MUSCULOSKELETAL: No joint swelling, erythema or tenderness. EXTREMITIES: No cyanosis or clubbing. Right hip intramuscular abscess, s/p I&D. 2 JOSEFINA drains. BACK: No deformity, no pressure ulcer. GENITOURINARY: No dysuria or hematuria. Vital Sign (Last 12 Hours) 10/26/25 10/26/25 10/26/25 08:53 12: 16:54 Temp 97.5 98.1 97.7 Pulse 80 87 91 Resp 18 18 18 B/P (MAP) 112/67 134/69 121/73 Pulse Ox 98 98 99 O2 Delivery Room Air Room Air Room Air Intake & Output (last 24hrs) 10/25/25 10/25/25 10/26/25 15:00 23:00 07:00 Intake Total 100.0 ml Output Total 675 ml Balance 100.0 ml -675 ml LABS: Laboratory: Test 10/26/25 19:25 10/26/25 12:25 10/26/25 05:52 10/25/25 06:00 Range/Units Whole Blood Glucose 144 H 70-110 MG/DL White Blood Count 8.5 # 4.8-10.8 K/uL Red Blood Count 2.52 L 4.50-6.20 MIL/uL Hemoglobin 8.8 L 14.0-18.0 g/dL Hematocrit 25.7 L 42-54 % Mean Corpuscular Volume 102.0 H 79-99 fL Mean Corpuscular Hemoglobin 34.9 H 27.0-33.0 pg Mean Corpuscular Hemoglobin Concent 34.2 32.0-36.0 g/dL Red Cell Distribution Width 14.4 11.0-15.5 % Platelet Count 115 #L 130-400 K/uL Mean Platelet Volume 9.6 7.5-10.5 fL Nucleated Red Blood Cells 0.0 0.0-0.19 % Sodium Level 134 L 136-145 mmol/L Potassium Level 3.9 3.5-5.1 mmol/L Chloride Level 105 101-111 mmol/L Carbon Dioxide Level 23 21-32 mmol/L Blood Urea Nitrogen 20 H 7-18 mg/dL Creatinine 1.1 0.5-1.3 mg/dL Glomerular Filtration Rate Calc 79 >90 mL/min Random Glucose 234 #H 70-105 mg/dL Total Calcium 6.9 L 8.5-10.1 mg/dL Magnesium Level 1.70 L 1.80-2.40 mg/dL Total Bilirubin 0.9 # 0.2-1.0 mg/dL Aspartate Amino Transf (AST/SGOT) 61 H 10-37 U/L Alanine Aminotransferase (ALT/SGPT) 52 12-78 U/L Alkaline Phosphatase 101 50-136 U/L Total Protein 5.7 L 6.0-8.3 g/dL Albumin 1.2 L 3.5-5.0 g/dL Prothrombin Time 14.1 H 9.6-11.6 SEC Prothromb Time International Ratio 1.37 H 0.85-1.15 DIAGNOSTICS / RADIOLOGY: PATIENT: DEMETRICE SANCHEZ ACCT: [id number] LOC: [facility] U: [id number] AGE/SX: 55/M ROOM: 320 RE10/22/[address]: GIA ENAMORADO MD : 1970 BED: 1 DIS: STATUS: ADM IN TLOC: SPEC: [id number] MERRITT: 10/22/25 STATUS: RES REQ: [id number] RECD: 10/22/[address] [facility] [address]: VANESSA OJEDA MD SOURCE: TISSUE ENTR: 10/22/[address] GIA ENAMORADO MD SELF,REFERRAL ORDERED: GS, MATT CULTURE, AEROBIC CULTURE COMMENTS: Has specimen been collected/obtained? Y Specimen Comment: GRAM STAIN RIGHT HIP/THIGH DRAINAGE Specimen Comment: RIGHT HIP/THIGH DRAINAGE R HIP DRAINAGE CONTINUED ON NEXT PAGE RUN DATE: 10/25/25 [facility] PAGE 2 RUN TIME: [id number] [address] Department of Laboratories CLIA # [id number] [employer] Taper: Josué Solomon DO Specimen Report SPEC: [id number] PATIENT: DEMETRICE SANCHEZ [id number] (Continued) Specimen Comment: RIGHT HIP/THIGH DRAINAGE R HIP DRAINAGE Has specimen been collected/obtained? Y Specimen Comment: GRAM STAIN RIGHT HIP/THIGH DRAINAGE Specimen Comment: RIGHT HIP/THIGH DRAINAGE R HIP DRAINAGE Has specimen been collected/obtained? Y Specimen Comment: GRAM STAIN RIGHT HIP/THIGH DRAINAGE Specimen Comment: RIGHT HIP/THIGH DRAINAGE R HIP DRAINAGE Procedure Result Alessio Date-Time ------- ----- GRAM STAIN ONLY Final 10/22/25 GRAM STAIN: 2+ GRAM POSITIVE COCCI IN CLUSTERS 1+ GRAM POSITIVE COCCI 1+ GRAM POSITIVE COCCI IN PAIRS 4+ WBC ANAEROBIC CULTURE Preliminary 10/25/251020 [facility] DESCRIPTION: REPORT 1: NO ANAEROBES AT 24-35 HOURS; STUDIES TO CONTINUE REPORT 2: NO ANAEROBES AT 48-59 HOURS; STUDIES TO CONTINUE Test(s) performed by: [facility] [address] [place] [address] AEROBIC CULTURE Final 10/25/25 [facility]Y DESCRIPTION: REPORT 1: 3+ GRAM POSITIVE COCCI IN CLUSTERS STAPHYLOCOCCUS AUREUS SENSITIVITY TO FOLLOW REPORT 2: NO FURTHER WORK-UP DONE STAPHYLOCOCCUS AUREUS ASSESSMENT: Urinary tract infection with Staphylococcus aureus. Right hip intramuscular abscess, status post I&D and debridement. Infection with methicillin-sensitive Staphylococcus aureus. Leukocytosis, resolved. Diabetes mellitus, Newly diagnosed. Thrombocytopenia, improving. Acute renal failure, resolved. PLAN: Continue Cefazolin IV. Continue metronidazole. Continue pain management. Continue GI prophylaxis. Continue monitoring glucose levels. We will follow up on the final culture results. This case was reviewed and discussed with my supervising physician Dr. Castro and the above assessment and plan was formulated and agreed upon. ATTESTATION BY PHYSICIAN I have seen and examined the patient. I reviewed the documentation, medical decision making, and treatment plan as noted by the mid-level provider above. I agree with the findings and plan of care. MCKENNA CASTRO MD, [facility] Oct 26, 2025 19:51
[2025-10-27] VITALS (32 sets, daily range): BP systolic 111–153; BP diastolic 59–89; PULSE 77–99; RESP 16–22; TEMP 97.1–99.1; O2SAT 97–98
[2025-10-27 04:32] LABS: NUCLEATED RED BLOOD CELLS 0.0 % (0.0-0.19); PLATELET COUNT (AUTO) 92.0 K/uL (130-400); RED BLOOD CELL COUNT(AUTO) 2.36 MIL/uL (4.50-6.20); RED CELL DISTRIBUTION WIDTH 14.4 % (11.0-15.5); WHITE BLOOD COUNT (AUTO) 6.2 K/uL (4.8-10.8)
[2025-10-27 05:01] LABS: ASPARTATE AMINOTRANSFERASE 63.0 U/L (10-37); CREATININE 1.0 mg/dL (0.5-1.3); GLOMERULAR FILTR. RATE CALC 88.0 mL/min (>90); GLUCOSE,RANDOM 147.0 mg/dL (70-105); SODIUM SERUM 137.0 mmol/L (136-145); TOTAL PROTEIN, SERUM 5.8 g/dL (6.0-8.3); UREA NITROGEN, BLOOD 18.0 mg/dL (7-18)
[2025-10-27] MEDS ORDERED: SUCCINYLCHOLINE CHLORIDE 20 MG/ML 10 ML VIAL ONE (08:46)
[2025-10-27] MEDS ORDERED: LIDOCAINE PF 100MG/5ML (2%) SYRINGE 5ML ONE (08:46)
[2025-10-27] MEDS ORDERED: MIDAZOLAM HCL 1 MG/ML 2ML VIAL ONE (08:46)
[2025-10-27] MEDS ORDERED: MAGNESIUM 2GM PREMIX 50ML 50 ML IV SCH (09:00)
[2025-10-27] MEDS: SUGAMMADEX SODIUM 200 MG/2 ML VIAL IV ONE (09:44)
--- NOTE | 2025-10-27 10:22 | OP ---
Operative Note: DATE OF PROCEDURE: 10/27/25 SURGEON: VANESSA OJEDA MD ROOM SERVICE RUNNER: [Freddy Linares CFA] ANESTHESIA: [General anesthesia] ANESTHESIOLOGIST/SHINGLE CUTTER: [Andre Aviles CRNA] PREOPERATIVE DIAGNOSIS: [Right hip/thigh soft tissue abscess, status post I&D x2] POSTOPERATIVE DIAGNOSIS: [Same] PROCEDURE: [3rd look incision and excisional debridement/irrigation right thigh] ESTIMATED BLOOD LOSS: [Less than 100 mL] INDICATIONS: [55-year-old male with a history of analysis of the soft tissues of the hip area status post I and D x2 now brought to the operating room for a 3rd time lavage and possible wound closure. Procedure understood, risks, benefits and possible complications and agreed to sign the consent form.] DESCRIPTION OF PROCEDURE: [After adequate general anesthesia was achieved the patient was placed in the left lateral decubitus position in the operative table. The drains were removed and then we proceeded to prep and drape the right lower extremity in the usual manner. The surgical stitches were removed opening the wound which was noticed to be cleaned with a minimal necrotic tissue of the tensor fascia bruce which was excisionally debrided. The wound was explored noticing that there was no purulence and we proceeded then to irrigate the wound with3 L of jet lavage with a cefazolin. Only one drain was then applied through the anterior incision and we proceeded then to reapproximate the distal portion of the tensor fascia bruce with one Prolene suture this was followed by closure of the subcutaneous tissue with number one nylon stitches then the subcutaneous tissue was closed with a running stitch with the same 1. Nylon followed by approximation of the skin with the use of vickie. The wound was then covered with a soft dressing including Xeroform, 4x4s and tape. The drapes were then removed and the patient was then transferred to his bed and taken to recovery room for follow-up by anesthesia. There were no complications during the procedure.] VANESSA OJEDA MD Oct 27, 2025 10:22
[2025-10-27] MEDS ORDERED: PROMETHAZINE HCL 25 MG/ML 1ML AMPULE IM PRN (10:30)
--- NOTE | 2025-10-27 11:06 | PN ---
[facility] PROGRESS NOTE Date of Service: Oct 27, 2025 Time of Service: 11:05 SUBJECTIVE: 10/23 patient remains admitted to the medical floor, comfortably in bed, the time of my visit alert oriented x3, getting IV fluids, IV antibiotics. Patient admitted secondary to right hip intramuscular abscess involving the tensor fascia bruce with the extension to the posterior deep high space, status post incision and drainage 10/22/2025. POD #1. Patient tolerated the procedure well. Currently hemodynamically stable, afebrile, saturating normal on room air. WBC of 11.2, hemoglobin 9.6, hematocrit 37.7, platelet count of 100. BUN of 24, creatinine 1.5. Continue the patient on broad-spectrum IV antibiotics, continue supportive care with IV fluids, continue to follow orthopedic input recommendation, follow results of cultures, adjust antibiotics accordingly. Infectious Disease consultation requested, we will follow input and recommendation. 10/24 patient remains admitted to medical floor, comfortably in bed, no acute events overnight, during my visit he is alert oriented x3, getting good pain control with current medical management, getting IV fluids, IV antibiotics. Remains hemodynamically stable, afebrile, saturating normal on room air. Hemoglobin 8.7, hematocrit 5.4, platelet count of 88. Results of urine culture positive for Staphylococcus aureus, aerobic and anaerobic culture positive for Gram-positive cocci in pairs. Patient will remain on broad-spectrum IV antibiotics. Continue to follow ID input recommendation. Follow orthopedic input recommendation. Lovenox on hold, SCDs in place, monitor platelet count in a.m., if continue to get worse we will request Hematology consultation. 10/25 patient remains admitted to medical floor, comfortable, no acute events overnight, he is currently NPO, scheduled to be taken to the operating room today for revision and I and D of right hip peritrochanteric subcutaneous abscess by orthopedic physician. Blood pressure 123/67, afebrile, saturating normal on room air. Tissue culture positive for Staphylococcus aureus. Urine culture positive for Staphylococcus aureus. Continue the patient on broad-spect rum IV antibiotics, continue to follow ID input and recommendation. Follow a.m. labs. 10/26 patient remains admitted to medical floor, comfortable, no acute events overnight, he is currently NPO, scheduled to be taken to the operating room today for revision and I and D of right hip peritrochanteric subcutaneous abscess by orthopedic physician. Stable, saturating normal on room air. Tissue culture positive for Staphylococcus aureus. Urine culture positive for Staphylococcus aureus. Continue the patient on broad-spectrum IV antibiotics, continue to follow ID input and recommendation. Follow a.m. labs. 10/27 patient remains admitted to the medical floor, comfortable, no acute events overnight, discussed with the RN, TOM, scheduled for revision and closure by orthopedic physician. Continue broad-spectrum antibiotics, pain medication, follow orthopedic and ID input recommendation. Follow a.m. labs. REVIEW OF SYSTEMS CONSTITUTIONAL: Denies fevers, chills, or night sweats. No unintentional weight loss reported. NEUROLOGICAL: Denies headache, amaurosis fugax, motor weakness, sensory deficit, vertigo/spinning sensation, gait abnormalities, or tremors. ENT: No hearing loss, otalgia, otorrhea, rhinitis, rhinorrhea, hoarseness, or sore throat. CARDIOVASCULAR: Denies any exertional angina, dyspnea on exertion, orthopnea, paroxysmal nocturnal dyspnea, palpitations, life-threatening arrhythmias, claudication. PULMONARY: Denies any shortness of breath, cough, phlegm/sputum, hemoptysis, pleuritic chest pain. SLEEP: Denies morning headaches, daytime somnolence or napping. Denies difficulty falling asleep, staying asleep, waking from sleep. Denies knowledge of snoring. GASTROINTESTINAL: Denies any type of dysphagia to either liquids or solids. Denies nausea, vomiting, pyrosis, early satiety, abdominal pain, diarrhea, co nstipation, or changes in stool consistency or caliber. Denies coffee-ground emesis, hematemesis, hematochezia, or melanotic stools. GENITOURINARY: Denies frequency, urgency, nocturia, hematuria or incontinence (Storage/Irritative symptoms.) Low urinary stream, straining to void, urinary intermittency or hesitancy, splitting of the voiding stream, terminal dribbling. ENDOCRINOLOGIC: Denies polyuria, polydipsia, polyphagia or heat/cold intolerances. HEMATOLOGIC: Denies thrombophilia/previous clots, or coagulopathy/bleeding disorders. ONCOLOGIC: Denies personal history of malignancy. DERMATOLOGIC: POSITIVE FOR REDNESS AND SWELLING IN THE RIGHT INNER THIGH PSYCHIATRIC: Denies any suicidal or homicidal ideation. Denies hallucinations. Musculoskeletal: Positive for pain in the right inner thigh PHYSICAL EXAM GENERAL APPEARANCE: The patient is awake, alert, and oriented, in no acute cardiopulmonary distress. NEUROLOGICAL: Cranial nerves II-XII grossly intact. Motor is 5/5 in bilateral upper and lower extremities proximal to distal. No sensory deficits. HEENT: Face is symmetric. Pupils are equal and reactive. Extraocular movements are intact. NECK: Supple. No JVD. No thyromegaly. No submental, submandibular, pre- /postauricular, occipital or supraclavicular lymphadenopathy. CHEST: Normal chest expansion. No Telemetry. LUNGS: Absence of any rales, rhonchi or any wheezing. CARDIOVASCULAR: Regular. S1 and S2 normal. No appreciable rubs, murmurs or gallops. ABDOMEN: Soft, nontender, and nondistended. There is no rebound, voluntary guarding, or rigidity. : Deferred. No Taylor. EXTREMITIES: Non-edematous and not cyanotic. No clubbing. Good capillary refill. SKIN: There is redness on the right lateral aspect of the hip. There is induration and swelling noted in the right inner thigh. Area is tender to palp ation Vital Signs (last 8hr) Date Time Temp Pulse Resp B/P (MAP) Pulse Ox O2 Delivery O2 Flow Rate FiO2 10/27/25 10:25 86 20 124/64 100 Nonrebreathing Mask 10.0 10/27/25 10:20 91 20 117/65 100 Nonrebreathing Mask 10.0 10/27/25 10:15 95 21 111/59 100 Nonrebreathing Mask 10.0 10/27/25 10:10 97.2 99 20 116/59 99 Nonrebreathing Mask 10.0 10/27/25 08:00 97.9 89 20 119/70 98 Room Air 10/27/25 04:00 98.1 94 16 133/79 98 Room Air LABS: Laboratory: Test 10/27/25 06:02 10/27/25 04:17 Range/Units Whole Blood Glucose 144 H 70-110 MG/DL White Blood Count 6.2 # 4.8-10.8 K/uL Red Blood Count 2.36 L 4.50-6.20 MIL/uL Hemoglobin 8.2 L 14.0-18.0 g/dL Hematocrit 24.1 L 42-54 % Mean Corpuscular Volume 102.1 H 79-99 fL Mean Corpuscular Hemoglobin 34.7 H 27.0-33.0 pg Mean Corpuscular Hemoglobin Concent 34.0 32.0-36.0 g/dL Red Cell Distribution Width 14.4 11.0-15.5 % Platelet Count 92 L 130-400 K/uL Mean Platelet Volume 10.0 7.5-10.5 fL Nucleated Red Blood Cells 0.0 0.0-0.19 % Sodium Level 137 136-145 mmol/L Potassium Level 3.4 L 3.5-5.1 mmol/L Chloride Level 108 101-111 mmol/L Carbon Dioxide Level 21 21-32 mmol/L Blood Urea Nitrogen 18 7-18 mg/dL Creatinine 1.0 0.5-1.3 mg/dL Glomerular Filtration Rate Calc 88 >90 mL/min Random Glucose 147 H 70-105 mg/dL Total Calcium 7.2 L 8.5-10.1 mg/dL Magnesium Level 1.60 L 1.80-2.40 mg/dL Total Bilirubin 0.8 0.2-1.0 mg/dL Aspartate Amino Transf (AST/SGOT) 63 H 10-37 U/L Alanine Aminotransferase (ALT/SGPT) 43 12-78 U/L Alkaline Phosphatase 110 50-136 U/L Total Protein 5.8 L 6.0-8.3 g/dL Albumin 1.3 L 3.5-5.0 g/dL Current Medications Medications (Trade) Dose Ordered Sig/Denise Route PRN Reason Start Time Stop Time Status Last Admin Dose Admin Acetaminophen (TYLenol 500MG TAB) 500 mg Q6H PRN PO MILD PAIN (1-3) 10/22/25 11:00 11/21/25 10:59 Acetaminophen/ Hydrocodone Bitart (NORco 10) 1 tab Q6H PRN PO SEVERE PAIN (7-10) 10/22/25 23:00 10/29/25 22:59 10/25/25 16:37 1 TAB Acetaminophen/ Hydrocodone Bitart (NORco 5/325MG) Q4H PRN PO MODERATE/SEVERE PAIN LEVEL 10/22/25 22:30 10/22/25 22:54 DC Acetaminophen/ Hydrocodone Bitart (NORco 5/325MG) 1 tab Q6H PRN PO MODERATE PAIN (4-6) 10/22/25 23:00 10/27/25 22:59 10/24/25 14:18 1 TAB Bisacodyl (DulcoLAX 5MG TAB) 10 mg DAILY PRN PO CONSTIPATION 10/24/25 22:30 10/25/25 11:28 DC Bisacodyl (DulcoLAX 5MG TAB) 10 mg DAILY PRN PO CONSTIPATION 10/27/25 11:30 11/26/25 11:29 Bisacodyl (DulcoLAX) 10 mg DAILY PRN RC CONSTIPATION 10/25/25 22:30 10/25/25 11:28 DC Bisacodyl (DulcoLAX) 10 mg DAILY PRN RC CONSTIPATION 10/28/25 11:30 11/27/25 11:29 Calcium Carbonate (Oyster Shell Ca 500mg Tab) 500 mg Q12H PRN PO GIVE IF SERUM CA LESS THAN 8 10/25/25 11:30 11/24/25 11:29 Calcium Carbonate (Oyster Shell Ca 500mg Tab) 500 mg Q12H PRN PO GIVE IF SERUM CA LESS THAN 8 10/22/25 22:30 10/25/25 11:28 DC Cefazolin Sodium (Ancef) 2 gm Q8H IVPB 10/25/25 10:00 11/04/25 09:59 10/27/25 01:30 2 GM Cefepime HCl (MAXipime 1 GM vial) 1 gm Q12H IVPB 10/22/25 15:00 10/25/25 09:56 DC 10/25/25 03:33 1 GM Diphenhydramine HCl (BENAdryl CAP) 25 mg Q6H PRN PO ITCHING 10/25/25 11:30 11/24/25 11:29 Diphenhydramine HCl (BENAdryl CAP) 25 mg Q6H PRN PO ITCHING 10/22/25 22:30 10/22/25 22:52 DC Diphenhydramine HCl (BENAdryl INJ) 25 mg Q6H PRN IVP ITCHING 10/25/25 11:30 11/24/25 11:29 Diphenhydramine HCl (BENAdryl INJ) 25 mg Q6H PRN IVP ITCHING 10/22/25 22:30 10/25/25 11:28 DC Enoxaparin Sodium (Lovenox) 40 mg DAILY SQ 10/26/25 09:00 10/25/25 12:40 DC Enoxaparin Sodium (Lovenox) 40 mg DAILY SQ 10/23/25 09:00 10/24/25 13:28 DC 10/23/25 09:53 40 MG Famotidine (Pepcid 20mg Vial) 20 mg BID IV 10/22/25 21:00 11/21/25 20:59 10/26/25 21:44 20 MG Fentanyl Citrate (FENTanyl CITRate PF 50 MCG/ 1 ML 2ML VIAL) 25 mcg Q5MIN PRN IVP PAIN LEVEL 7 TO 10 10/25/25 11:30 10/25/25 12:33 DC 10/25/25 11:47 25 MCG Fentanyl Citrate (FENTanyl CITRate PF 50 MCG/ 1 ML 2ML VIAL) 25 mcg Q5MIN PRN IVP PAIN LEVEL 7 TO 10 10/27/25 10:30 10/28/25 10:29 10/27/25 10:26 25 MCG Ferrous Fumarate (Hemocyte) 324 mg DAILY PRN PO IF HEMOGLOBIN LESS THAN 9 10/25/25 11:30 11/24/25 11:29 Ferrous Fumarate (Hemocyte) 324 mg DAILY PRN PO IF HEMOGLOBIN LESS THAN 9 10/22/25 22:30 10/25/25 11:28 DC Hydromorphone HCl (DiLAUDid 0.5MG INJ) 0.25 mg Q6H PRN IVP SEVERE PAIN (7-10) 10/22/25 11:00 10/27/25 10:59 DC 10/22/25 15:16 0.25 MG Hydromorphone HCl (DiLAUDid 1MG INJ) 0.5 mg AD PRN IVP PAIN LEVEL 7 TO 10 10/27/25 10:30 10/28/25 10:29 10/27/25 10:34 0.5 MG Hydromorphone HCl (DiLAUDid 2MG INJ) 2 mg Q2H PRN IVP SEVERE PAIN (7-10) 10/22/25 22:30 10/27/25 22:29 10/26/25 20:11 2 MG Insulin Glargine (LANtus 100 UNITS/ML 10 ML VIAL) 10 units DAILY SQ 10/23/25 09:30 10/24/25 06:54 DC 10/23/25 10:06 10 UNITS Insulin Glargine (LANtus 100 UNITS/ML 10 ML VIAL) 15 units DAILY SQ 10/24/25 09:00 11/23/25 08:59 10/26/25 09:03 15 UNITS Insulin Human Regular (humuLIN R 100 UNIT/ML 3ML) 3 unit TIDAC SQ 10/24/25 07:30 10/25/25 20:02 DC 10/24/25 12:40 3 UNIT Insulin Human Regular (humuLIN R 100 UNIT/ML 3ML) 5 unit TIDAC SQ 10/26/25 07:30 11/25/25 07:29 10/26/25 16:46 5 UNIT Insulin Human Regular (humuLIN R 100 UNIT/ML 3ML) INSULIN SLIDING SCAL... ACHS SQ 10/26/25 07:30 11/25/25 07:29 10/26/25 16:45 2 UNIT Insulin Human Regular (humuLIN R 100 UNIT/ML 3ML) INSULIN SLIDING SCAL... Q6H6 SQ 10/22/25 12:00 10/25/25 20:04 DC 10/24/25 06:05 2 UNIT Ketorolac Tromethamine (toRADol) 15 mg Q6H PRN IV BREAKTHROUGH PAIN (4-6) 10/25/25 11:30 10/30/25 11:29 10/25/25 21:14 15 MG Ketorolac Tromethamine (toRADol) 30 mg AD PRN IV PAIN LEVEL 1 TO 3 10/25/25 11:30 10/25/25 12:33 DC Ketorolac Tromethamine (toRADol) 30 mg AD PRN IV PAIN LEVEL 1 TO 3 10/27/25 10:30 10/28/25 10:29 Magnesium Sulfate 50 ml @ 0 mls/hr PROTOCOL IV 10/24/25 10:00 10/25/25 07:24 DC Magnesium Sulfate 50 ml @ 0 mls/hr PROTOCOL IV 10/25/25 07:30 11/24/25 07:29 Magnesium Sulfate 50 ml @ 0 mls/hr PROTOCOL IV 10/26/25 08:30 10/26/25 08:12 DC Magnesium Sulfate 50 ml @ 0 mls/hr PROTOCOL IV 10/27/25 09:00 10/27/25 09:00 DC Metoclopramide HCl (regLAN 10MG IV) 10 mg AD PRN IVP NAUSEA/VOMITING 10/25/25 11:30 10/25/25 12:33 DC Metoclopramide HCl (regLAN 10MG IV) 10 mg AD PRN IVP NAUSEA/VOMITING 10/27/25 10:30 10/28/25 10:29 Metronidazole/ Sodium Chloride 100 ml @ 100 mls/hr Q8H IVPB 10/22/25 12:00 10/23/25 04:20 DC 10/23/25 01:09 100 MLS/HR Metronidazole/ Sodium Chloride 100 ml @ 100 mls/hr Q8H IVPB 10/23/25 09:00 10/25/25 09:56 DC 10/25/25 01:43 100 MLS/HR Morphine Sulfate (morPHINE 2MG SYG) 2 mg AD PRN IVP PAIN LEVEL 4 TO 6 10/25/25 11:30 10/25/25 12:33 DC Morphine Sulfate (morPHINE 2MG SYG) 2 mg AD PRN IVP PAIN LEVEL 4 TO 6 10/27/25 10:30 10/28/25 10:29 Naloxone HCl (NARcan 0.4mg/1 mL) 0.1 mg AD PRN IVP RESPIRATORY SYMPTOMS 10/25/25 11:30 10/25/25 12:33 DC Naloxone HCl (NARcan 0.4mg/1 mL) 0.1 mg AD PRN IVP RESPIRATORY SYMPTOMS 10/27/25 10:30 10/28/25 10:29 Ondansetron HCl (zoFRAN 4MG INJ) 4 mg AD PRN IVP NAUSEA/VOMITING 10/25/25 11:30 10/25/25 12:33 DC Ondansetron HCl (zoFRAN 4MG INJ) 4 mg AD PRN IVP NAUSEA/VOMITING 10/27/25 10:30 10/28/25 10:29 Ondansetron HCl (zoFRAN 4MG INJ) 4 mg Q6H PRN IVP NAUSEA/VOMITING 10/24/25 01:30 11/23/25 01:29 10/24/25 02:36 4 MG Polyethylene Glycol (MIRalax 3350 17 GM POWD.PACK) 17 gm DAILY PO 10/26/25 09:00 11/25/25 08:59 10/26/25 09:03 17 GM Polyethylene Glycol (MIRalax 3350 17 GM POWD.PACK) 17 gm DAILY PO 10/23/25 09:00 11/22/25 08:59 10/26/25 08:49 17 GM Promethazine HCl (Phenergan) 25 mg AD PRN IM NAUSEA/VOMITING 10/25/25 11:30 10/25/25 12:33 DC Promethazine HCl (Phenergan) 25 mg AD PRN IM NAUSEA/VOMITING 10/27/25 10:30 10/28/25 10:29 Promethazine HCl (Phenergan) 25 mg Q4H PRN IM NAUSEA/VOMITING 10/25/25 11:30 11/24/25 11:29 Psyllium Hydrophilic Mucilloid (Metamucil) 1 tbs DAILYLUNCH PO 10/25/25 12:00 11/24/25 11:59 Psyllium Hydrophilic Mucilloid (Metamucil) 1 tbs DAILYLUNCH PO 10/23/25 12:00 10/25/25 11:28 DC Sodium Chloride 1,000 ml @ 100 mls/hr Q10H IV 10/25/25 11:30 10/26/25 11:29 DC Sodium Chloride 1,000 ml @ 100 mls/hr Q10H IV 10/22/25 11:00 10/25/25 11:28 DC 10/24/25 20:42 100 MLS/HR Sodium Chloride 1,000 ml @ 100 mls/hr Q10H IV 10/22/25 22:30 10/23/25 22:29 DC 10/23/25 18:38 100 MLS/HR Temazepam (restORIL 15 MG CAP) 15 mg HS PRN PO INSOMNIA/SLEEP 10/25/25 11:30 11/24/25 11:29 Vancomycin HCl 250 ml @ 125 mls/hr Q24H IV 10/23/25 12:00 10/25/25 09:56 DC 10/24/25 12:34 125 MLS/HR Vancomycin HCl (Vancomycin Protocol) 1 each AD IV 10/22/25 11:00 10/25/25 10:19 DC DIAGNOSTICS / RADIOLOGY: [ ] ASSESSMENT: Right inner thighs swelling concerning for possible abscess differential abscess versus hematoma History of alcohol use Mild hyponatremia Acute kidney injury Mild thrombocytopenia Dehydration Elevated LFTs Severe hypoalbuminemia secondary to protein calorie malnutrition Hyperglycemia secondary to suspected uncontrolled diabetes mellitus type 2 History of marijuana use PLAN: patient remains admitted to the medical floor, comfortable, no acute events ove rnight, discussed with the RN, NPO, scheduled for revision and closure by orthopedic physician. Continue broad-spectrum antibiotics, pain medication, follow orthopedic and ID input recommendation. Follow a.m. labs. NEURO: Minimize central acting medications as possible. Fall Precautions. Well lighted room through the day and minimize interruptions through the night to prevent acute delirium. PULMONARY: Supplemental 02 as needed BiPAP as necessary, for respiratory distress Titrate Fio2 to keep Spo2 > or = 90% DuoNebs and CPT as needed IS hourly while awake for pulmonary hygiene prn Out of bed to chair as tolerated Maintain aspiration precautions at all times CARDIOVASCULAR: Follow hemodynamics. Vital signs per facility protocol GI & NUTRITION: Continue nutritional support Aspirations precautions Prokinetic agents and laxatives as needed KIDNEYS & ELECTROLYTES: Strict monitoring of intake and output Daily weights Avoid nephrotoxic agents Monitor electrolytes and replace as needed Goal urine output of 30mL/hr or 0.5mL/kg/hr Medications to be dosed according to renal function. Avoid contrast if possible ENDOCRINE: Maintain blood glucose between 100-180 at all times. Insulin sliding scale for blood glucose management Hypoglycemia and hyperglycemia protocol in place INFECTIOUS DISEASE: Trend temperature, WBC and procalcitonin level Follow cultures, deescalate antibiotics as soon as possible. Panculture if new onset fever HEMATOLOGY & COAGULATION: Monitor H&H. Keep Hgb > 7 Transfuse 1 unit of PRBC for Hgb < 7 Transfuse 1 pack of platelets of platelets < 20, 000 Watch for any signs and symptoms of bleeding SKIN: Pressure ulcer prevention per facility protocol Specialty mattress as needed ORTHO/REHAB Continue PT/OT PRN: MEDICATIONS Tylenol 650 mg po every 4 hrs for fever zofran 4 mg IV every 6 hrs for n/v Hydralazine 5 mg IV every 4 hrs systolic pressure > 160 bowel regiment: lactulose 20 gm PO BID PRN constipation Supportive measures: Continue GI and DVT prophylaxis Disposition: Pending improvement in clinical condition All questions answered time spent: > 35 min RODRIGO BROCK MD Oct 27, 2025 11:05
[2025-10-27] MEDS: PoTASSium chloRIDE 20MEQ ER 20 MEQ ERTAB PO ONE (11:57)
--- NOTE | 2025-10-27 12:21 | NUR ---
10/27/25 AT 10:50 AM PER NURSE FARIBA, PATIENT IN SURGERY. PT TEAM TO FOLLOW UP TOMORROW.
[2025-10-28] VITALS (7 sets, daily range): BP systolic 117–138; BP diastolic 64–77; PULSE 78–93; RESP 18–20; TEMP 97.8–98.4; O2SAT 78–97
[2025-10-28 04:45] LABS: NUCLEATED RED BLOOD CELLS 0.0 % (0.0-0.19); PLATELET COUNT (AUTO) 94.0 K/uL (130-400); RED BLOOD CELL COUNT(AUTO) 2.43 MIL/uL (4.50-6.20); RED CELL DISTRIBUTION WIDTH 14.6 % (11.0-15.5); WHITE BLOOD COUNT (AUTO) 6.3 K/uL (4.8-10.8)
[2025-10-28 05:03] LABS: ASPARTATE AMINOTRANSFERASE 51.0 U/L (10-37); CREATININE 1.0 mg/dL (0.5-1.3); GLOMERULAR FILTR. RATE CALC 88.0 mL/min (>90); GLUCOSE,RANDOM 158.0 mg/dL (70-105); SODIUM SERUM 137.0 mmol/L (136-145); TOTAL PROTEIN, SERUM 6.1 g/dL (6.0-8.3); UREA NITROGEN, BLOOD 18.0 mg/dL (7-18)
--- NOTE | 2025-10-28 05:50 | PN ---
INFECTIOUS DISEASE FOLLOWUP NOTE DATE OF SERVICE: 10/27/2025 SUBJECTIVE: The patient is seen and examined at bedside today. No fever or chills. ____ right thigh. Tolerates antibiotic. ____. PHYSICAL EXAMINATION: VITAL SIGNS: Temperature today 98.7. EYES: No icterus. Pupils equal and reactive. HENT: No oral thrush seen. Moist oral mucosa. NECK: Supple. No JVD or thyromegaly. LUNGS: Good air entry. No rales. No rhonchi. CARDIOVASCULAR: S1 and S2, regular. No murmur heard. ABDOMEN: Full, soft. Bowel sound is present. CENTRAL NERVOUS SYSTEM: Awake, alert and oriented x 3. No focal deficits. SKIN: No rashes, no itchiness. LYMPHATIC: No peripheral lymphadenopathy. BACK: No deformity. No pressure ulcer. HEMATOLOGIC: No bleeding or petechial lesions seen. MUSCULOSKELETAL: ____ right thigh with ____. ASSESSMENT: A 55-year-old male with multiple problems. * Staphylococcus aureus. * Right thigh tibial abscess, ____. * Obesity. PLAN: * Continue cefazolin. * Continue wound care. * Continue pain management. * Continue nutritional support. * Continue GI hypothesis. * Monitor electrolytes. * The patient will be followed up closely. TID: [id number] RECEIPT: [id number]
[2025-10-28] MEDS ORDERED: MAGNESIUM 2GM PREMIX 50ML 50 ML IV SCH (09:30)
--- NOTE | 2025-10-28 11:26 | PN ---
[facility] PROGRESS NOTE Date of Service: Oct 28, 2025 Time of Service: 11:25 SUBJECTIVE: 10/23 patient remains admitted to the medical floor, comfortably in bed, the time of my visit alert oriented x3, getting IV fluids, IV antibiotics. Patient admitted secondary to right hip intramuscular abscess involving the tensor fascia bruce with the extension to the posterior deep high space, status post incision and drainage 10/22/2025. POD #1. Patient tolerated the procedure well. Currently hemodynamically stable, afebrile, saturating normal on room air. WBC of 11.2, hemoglobin 9.6, hematocrit 37.7, platelet count of 100. BUN of 24, creatinine 1.5. Continue the patient on broad-spectrum IV antibiotics, continue supportive care with IV fluids, continue to follow orthopedic input recommendation, follow results of cultures, adjust antibiotics accordingly. Infectious Disease consultation requested, we will follow input and recommendation. 10/24 patient remains admitted to medical floor, comfortably in bed, no acute events overnight, during my visit he is alert oriented x3, getting good pain control with current medical management, getting IV fluids, IV antibiotics. Remains hemodynamically stable, afebrile, saturating normal on room air. Hemoglobin 8.7, hematocrit 5.4, platelet count of 88. Results of urine culture positive for Staphylococcus aureus, aerobic and anaerobic culture positive for Gram-positive cocci in pairs. Patient will remain on broad-spectrum IV antibiotics. Continue to follow ID input recommendation. Follow orthopedic input recommendation. Lovenox on hold, SCDs in place, monitor platelet count in a.m., if continue to get worse we will request Hematology consultation. 10/25 patient remains admitted to medical floor, comfortable, no acute events overnight, he is currently NPO, scheduled to be taken to the operating room today for revision and I and D of right hip peritrochanteric subcutaneous abscess by orthopedic physician. Blood pressure 123/67, afebrile, saturating normal on room air. Tissue culture positive for Staphylococcus aureus. Urine culture positive for Staphylococcus aureus. Continue the patient on broad-spect rum IV antibiotics, continue to follow ID input and recommendation. Follow a.m. labs. 10/26 patient remains admitted to medical floor, comfortable, no acute events overnight, he is currently NPO, scheduled to be taken to the operating room today for revision and I and D of right hip peritrochanteric subcutaneous abscess by orthopedic physician. Stable, saturating normal on room air. Tissue culture positive for Staphylococcus aureus. Urine culture positive for Staphylococcus aureus. Continue the patient on broad-spectrum IV antibiotics, continue to follow ID input and recommendation. Follow a.m. labs. 10/27 patient remains admitted to the medical floor, comfortable, no acute events overnight, discussed with the RN, TOM, scheduled for revision and closure by orthopedic physician. Continue broad-spectrum antibiotics, pain medication, follow orthopedic and ID input recommendation. Follow a.m. labs. 10/28 patient remains admitted to medical floor, patient is status post 3rd look incision and excisional debridement/irrigation right thigh 10/27/2025, tolerated well. Patient to continue with current pain medication with the adjustment as needed, continue on broad-spectrum IV antibiotics. Continue to follow orthopedic and ID input recommendation. Follow a.m. labs. Discussed with the patient, all questions answered. REVIEW OF SYSTEMS CONSTITUTIONAL: Denies fevers, chills, or night sweats. No unintentional weight loss reported. NEUROLOGICAL: Denies headache, amaurosis fugax, motor weakness, sensory deficit, vertigo/spinning sensation, gait abnormalities, or tremors. ENT: No hearing loss, otalgia, otorrhea, rhinitis, rhinorrhea, hoarseness, or sore throat. CARDIOVASCULAR: Denies any exertional angina, dyspnea on exertion, orthopnea, paroxysmal nocturnal dyspnea, palpitations, life-threatening arrhythmias, claudication. PULMONARY: Denies any shortness of breath, cough, phlegm/sputum, hemoptysis, pleuritic chest pain. SLEEP: Denies morning headaches, daytime somnolence or napping. Denies difficulty falling asleep, staying asleep, waking from sleep. Denies knowledge of snoring. GASTROINTESTINAL: Denies any type of dysphagia to either liquids or solids. Denies nausea, vomiting, pyrosis, early satiety, abdominal pain, diarrhea, constipation, or changes in stool consistency or caliber. Denies coffee-ground emesis, hematemesis, hematochezia, or melanotic stools. GENITOURINARY: Denies frequency, urgency, nocturia, hematuria or incontinence (Storage/Irritative symptoms.) Low urinary stream, straining to void, urinary intermittency or hesitancy, splitting of the voiding stream, terminal dribbling. ENDOCRINOLOGIC: Denies polyuria, polydipsia, polyphagia or heat/cold intolerances. HEMATOLOGIC: Denies thrombophilia/previous clots, or coagulopathy/bleeding disorders. ONCOLOGIC: Denies personal history of malignancy. DERMATOLOGIC: POSITIVE FOR REDNESS AND SWELLING IN THE RIGHT INNER THIGH PSYCHIATRIC: Denies any suicidal or homicidal ideation. Denies hallucinations. Musculoskeletal: Positive for pain in the right inner thigh PHYSICAL EXAM GENERAL APPEARANCE: The patient is awake, alert, and oriented, in no acute cardiopulmonary distress. NEUROLOGICAL: Cranial nerves II-XII grossly intact. Motor is 5/5 in bilateral upper and lower extremities proximal to distal. No sensory deficits. HEENT: Face is symmetric. Pupils are equal and reactive. Extraocular movements are intact. NECK: Supple. No JVD. No thyromegaly. No submental, submandibular, pre- /postauricular, occipital or supraclavicular lymphadenopathy. CHEST: Normal chest expansion. No Telemetry. LUNGS: Absence of any rales, rhonchi or any wheezing. CARDIOVASCULAR: Regular. S1 and S2 normal. No appreciable rubs, murmurs or gallops. ABDOMEN: Soft, nontender, and nondistended. There is no rebound, voluntary guarding, or rigidity. : Deferred. No Taylor. EXTREMITIES: Non-edematous and not cyanotic. No clubbing. Good capillary refill. SKIN: There is redness on the right lateral aspect of the hip. There is induration and swelling noted in the right inner thigh. Area is tender to palpation Vital Signs (last 8hr) Date Time Temp Pulse Resp B/P (MAP) Pulse Ox O2 Delivery O2 Flow Rate FiO2 10/28/25 08:43 98.4 78 18 124/69 97 Room Air 10/28/25 04:02 97.9 86 18 134/77 96 Room Air LABS: Laboratory: Test 10/28/25 10:52 10/28/25 04:25 Range/Units Whole Blood Glucose 222 H 70-110 MG/DL Bedside Glucose Comment Notified Nurse White Blood Count 6.3 4.8-10.8 K/uL Red Blood Count 2.43 L 4.50-6.20 MIL/uL Hemoglobin 8.5 L 14.0-18.0 g/dL Hematocrit 25.4 L 42-54 % Mean Corpuscular Volume 104.5 H 79-99 fL Mean Corpuscular Hemoglobin 35.0 H 27.0-33.0 pg Mean Corpuscular Hemoglobin Concent 33.5 32.0-36.0 g/dL Red Cell Distribution Width 14.6 11.0-15.5 % Platelet Count 94 L 130-400 K/uL Mean Platelet Volume 9.8 7.5-10.5 fL Nucleated Red Blood Cells 0.0 0.0-0.19 % Sodium Level 137 136-145 mmol/L Potassium Level 3.9 3.5-5.1 mmol/L Chloride Level 106 101-111 mmol/L Carbon Dioxide Level 25 21-32 mmol/L Blood Urea Nitrogen 18 7-18 mg/dL Creatinine 1.0 0.5-1.3 mg/dL Glomerular Filtration Rate Calc 88 >90 mL/min Random Glucose 158 H 70-105 mg/dL Total Calcium 7.4 L 8.5-10.1 mg/dL Magnesium Level 1.60 L 1.80-2.40 mg/dL Total Bilirubin 0.8 0.2-1.0 mg/dL Aspartate Amino Transf (AST/SGOT) 51 H 10-37 U/L Alanine Aminotransferase (ALT/SGPT) 38 12-78 U/L Alkaline Phosphatase 105 50-136 U/L Total Protein 6.1 6.0-8.3 g/dL Albumin 1.4 L 3.5-5.0 g/dL Current Medications Medications (Trade) Dose Ordered Sig/Denise Route PRN Reason Start Time Stop Time Status Last Admin Dose Admin Acetaminophen (TYLenol 500MG TAB) 500 mg Q6H PRN PO MILD PAIN (1-3) 10/22/25 11:00 11/21/25 10:59 Acetaminophen/ Hydrocodone Bitart (NORco 10) 1 tab Q6H PRN PO SEVERE PAIN (7-10) 10/22/25 23:00 10/28/25 01:59 DC 10/25/25 16:37 1 TAB Acetaminophen/ Hydrocodone Bitart (NORco 5/325MG) Q4H PRN PO MODERATE/SEVERE PAIN LEVEL 10/22/25 22:30 10/22/25 22:54 DC Acetaminophen/ Hydrocodone Bitart (NORco 5/325MG) 1 tab Q6H PRN PO MODERATE PAIN (4-6) 10/22/25 23:00 10/27/25 22:59 DC 10/27/25 11:54 1 TAB Bisacodyl (DulcoLAX 5MG TAB) 10 mg DAILY PRN PO CONSTIPATION 10/24/25 22:30 10/25/25 11:28 DC Bisacodyl (DulcoLAX 5MG TAB) 10 mg DAILY PRN PO CONSTIPATION 10/27/25 11:30 11/26/25 11:29 Bisacodyl (DulcoLAX) 10 mg DAILY PRN RC CONSTIPATION 10/25/25 22:30 10/25/25 11:28 DC Bisacodyl (DulcoLAX) 10 mg DAILY PRN RC CONSTIPATION 10/28/25 11:30 11/27/25 11:29 Calcium Carbonate (Oyster Shell Ca 500mg Tab) 500 mg Q12H PRN PO GIVE IF SERUM CA LESS THAN 8 10/25/25 11:30 11/24/25 11:29 Calcium Carbonate (Oyster Shell Ca 500mg Tab) 500 mg Q12H PRN PO GIVE IF SERUM CA LESS THAN 8 10/22/25 22:30 10/25/25 11:28 DC Cefazolin Sodium (Ancef) 2 gm Q8H IVPB 10/25/25 10:00 11/04/25 09:59 10/28/25 10:10 2 GM Cefepime HCl (MAXipime 1 GM vial) 1 gm Q12H IVPB 10/22/25 15:00 10/25/25 09:56 DC 10/25/25 03:33 1 GM Diphenhydramine HCl (BENAdryl CAP) 25 mg Q6H PRN PO ITCHING 10/25/25 11:30 11/24/25 11:29 Diphenhydramine HCl (BENAdryl CAP) 25 mg Q6H PRN PO ITCHING 10/22/25 22:30 10/22/25 22:52 DC Diphenhydramine HCl (BENAdryl INJ) 25 mg Q6H PRN IVP ITCHING 10/25/25 11:30 11/24/25 11:29 Diphenhydramine HCl (BENAdryl INJ) 25 mg Q6H PRN IVP ITCHING 10/22/25 22:30 10/25/25 11:28 DC Enoxaparin Sodium (Lovenox) 40 mg DAILY SQ 10/26/25 09:00 10/25/25 12:40 DC Enoxaparin Sodium (Lovenox) 40 mg DAILY SQ 10/23/25 09:00 10/24/25 13:28 DC 10/23/25 09:53 40 MG Famotidine (Pepcid 20mg Vial) 20 mg BID IV 10/22/25 21:00 11/21/25 20:59 10/28/25 08:41 20 MG Fentanyl Citrate (FENTanyl CITRate PF 50 MCG/ 1 ML 2ML VIAL) 25 mcg Q5MIN PRN IVP PAIN LEVEL 7 TO 10 10/25/25 11:30 10/25/25 12:33 DC 10/25/25 11:47 25 MCG Fentanyl Citrate (FENTanyl CITRate PF 50 MCG/ 1 ML 2ML VIAL) 25 mcg Q5MIN PRN IVP PAIN LEVEL 7 TO 10 10/27/25 10:30 10/27/25 11:12 DC 10/27/25 10:26 25 MCG Ferrous Fumarate (Hemocyte) 324 mg DAILY PRN PO IF HEMOGLOBIN LESS THAN 9 10/25/25 11:30 11/24/25 11:29 Ferrous Fumarate (Hemocyte) 324 mg DAILY PRN PO IF HEMOGLOBIN LESS THAN 9 10/22/25 22:30 10/25/25 11:28 DC Hydromorphone HCl (DiLAUDid 0.5MG INJ) 0.25 mg Q6H PRN IVP SEVERE PAIN (7-10) 10/22/25 11:00 10/27/25 10:59 DC 10/22/25 15:16 0.25 MG Hydromorphone HCl (DiLAUDid 1MG INJ) 0.5 mg AD PRN IVP PAIN LEVEL 7 TO 10 10/27/25 10:30 10/27/25 11:27 DC 10/27/25 10:34 0.5 MG Hydromorphone HCl (DiLAUDid 2MG INJ) 2 mg Q2H PRN IVP SEVERE PAIN (7-10) 10/22/25 22:30 10/27/25 22:29 DC 10/27/25 16:18 2 MG Insulin Glargine (LANtus 100 UNITS/ML 10 ML VIAL) 10 units DAILY SQ 10/23/25 09:30 10/24/25 06:54 DC 10/23/25 10:06 10 UNITS Insulin Glargine (LANtus 100 UNITS/ML 10 ML VIAL) 15 units DAILY SQ 10/24/25 09:00 11/23/25 08:59 10/28/25 08:46 15 UNITS Insulin Human Regular (humuLIN R 100 UNIT/ML 3ML) 3 unit TIDAC SQ 10/24/25 07:30 10/25/25 20:02 DC 10/24/25 12:40 3 UNIT Insulin Human Regular (humuLIN R 100 UNIT/ML 3ML) 5 unit TIDAC SQ 10/26/25 07:30 11/25/25 07:29 10/27/25 16:29 5 UNIT Insulin Human Regular (humuLIN R 100 UNIT/ML 3ML) INSULIN SLIDING SCAL... ACHS SQ 10/26/25 07:30 11/25/25 07:29 10/27/25 20:00 7 UNIT Insulin Human Regular (humuLIN R 100 UNIT/ML 3ML) INSULIN SLIDING SCAL... Q6H6 SQ 10/22/25 12:00 10/25/25 20:04 DC 10/24/25 06:05 2 UNIT Ketorolac Tromethamine (toRADol) 15 mg Q6H PRN IV BREAKTHROUGH PAIN (4-6) 10/25/25 11:30 10/30/25 11:29 10/28/25 10:10 15 MG Ketorolac Tromethamine (toRADol) 30 mg AD PRN IV PAIN LEVEL 1 TO 3 10/25/25 11:30 10/25/25 12:33 DC Ketorolac Tromethamine (toRADol) 30 mg AD PRN IV PAIN LEVEL 1 TO 3 10/27/25 10:30 10/27/25 11:12 DC Magnesium Sulfate 50 ml @ 0 mls/hr PROTOCOL IV 10/24/25 10:00 10/25/25 07:24 DC Magnesium Sulfate 50 ml @ 0 mls/hr PROTOCOL IV 10/25/25 07:30 11/24/25 07:29 Magnesium Sulfate 50 ml @ 0 mls/hr PROTOCOL IV 10/26/25 08:30 10/26/25 08:12 DC Magnesium Sulfate 50 ml @ 0 mls/hr PROTOCOL IV 10/27/25 09:00 10/27/25 09:00 DC Magnesium Sulfate 50 ml @ 0 mls/hr PROTOCOL IV 10/28/25 09:30 10/28/25 09:14 DC Metoclopramide HCl (regLAN 10MG IV) 10 mg AD PRN IVP NAUSEA/VOMITING 10/25/25 11:30 10/25/25 12:33 DC Metoclopramide HCl (regLAN 10MG IV) 10 mg AD PRN IVP NAUSEA/VOMITING 10/27/25 10:30 10/27/25 11:12 DC Metronidazole/ Sodium Chloride 100 ml @ 100 mls/hr Q8H IVPB 10/22/25 12:00 10/23/25 04:20 DC 10/23/25 01:09 100 MLS/HR Metronidazole/ Sodium Chloride 100 ml @ 100 mls/hr Q8H IVPB 10/23/25 09:00 10/25/25 09:56 DC 10/25/25 01:43 100 MLS/HR Morphine Sulfate (morPHINE 2MG SYG) 2 mg AD PRN IVP PAIN LEVEL 4 TO 6 10/25/25 11:30 10/25/25 12:33 DC Morphine Sulfate (morPHINE 2MG SYG) 2 mg AD PRN IVP PAIN LEVEL 4 TO 6 10/27/25 10:30 10/27/25 11:12 DC Naloxone HCl (NARcan 0.4mg/1 mL) 0.1 mg AD PRN IVP RESPIRATORY SYMPTOMS 10/25/25 11:30 10/25/25 12:33 DC Naloxone HCl (NARcan 0.4mg/1 mL) 0.1 mg AD PRN IVP RESPIRATORY SYMPTOMS 10/27/25 10:30 10/27/25 11:12 DC Ondansetron HCl (zoFRAN 4MG INJ) 4 mg AD PRN IVP NAUSEA/VOMITING 10/25/25 11:30 10/25/25 12:33 DC Ondansetron HCl (zoFRAN 4MG INJ) 4 mg AD PRN IVP NAUSEA/VOMITING 10/27/25 10:30 10/27/25 11:12 DC Ondansetron HCl (zoFRAN 4MG INJ) 4 mg Q6H PRN IVP NAUSEA/VOMITING 10/24/25 01:30 11/23/25 01:29 10/24/25 02:36 4 MG Polyethylene Glycol (MIRalax 3350 17 GM [email or web address].PACK) 17 gm DAILY PO 10/26/25 09:00 11/25/25 08:59 10/26/25 09:03 17 GM Polyethylene Glycol (MIRalax 3350 17 GM POWD.PACK) 17 gm DAILY PO 10/23/25 09:00 11/22/25 08:59 10/26/25 08:49 17 GM Promethazine HCl (Phenergan) 25 mg AD PRN IM NAUSEA/VOMITING 10/25/25 11:30 10/25/25 12:33 DC Promethazine HCl (Phenergan) 25 mg AD PRN IM NAUSEA/VOMITING 10/27/25 10:30 10/27/25 11:12 DC Promethazine HCl (Phenergan) 25 mg Q4H PRN IM NAUSEA/VOMITING 10/25/25 11:30 11/24/25 11:29 Psyllium Hydrophilic Mucilloid (Metamucil) 1 tbs DAILYLUNCH PO 10/25/25 12:00 11/24/25 11:59 Psyllium Hydrophilic Mucilloid (Metamucil) 1 tbs DAILYLUNCH PO 10/23/25 12:00 10/25/25 11:28 DC Sodium Chloride 1,000 ml @ 100 mls/hr Q10H IV 10/25/25 11:30 10/26/25 11:29 DC Sodium Chloride 1,000 ml @ 100 mls/hr Q10H IV 10/22/25 11:00 10/25/25 11:28 DC 10/24/25 20:42 100 MLS/HR Sodium Chloride 1,000 ml @ 100 mls/hr Q10H IV 10/22/25 22:30 10/23/25 22:29 DC 10/23/25 18:38 100 MLS/HR Temazepam (restORIL 15 MG CAP) 15 mg HS PRN PO INSOMNIA/SLEEP 10/25/25 11:30 11/24/25 11:29 Vancomycin HCl 250 ml @ 125 mls/hr Q24H IV 10/23/25 12:00 10/25/25 09:56 DC 10/24/25 12:34 125 MLS/HR Vancomycin HCl (Vancomycin Protocol) 1 each AD IV 10/22/25 11:00 10/25/25 10:19 DC DIAGNOSTICS / RADIOLOGY: [ ] ASSESSMENT: Right hip/thigh soft tissue abscess, status post I&D x3 History of alcohol use Mild hyponatremia Acute kidney injury Mild thrombocytopenia Dehydration Elevated LFTs Severe hypoalbuminemia secondary to protein calorie malnutrition Hyperglycemia secondary to suspected uncontrolled diabetes mellitus type 2 History of marijuana use PLAN: patient remains admitted to medical floor, patient is status post 3rd look incision and excisional debridement/irrigation right thigh 10/27/2025, tolerated well. Patient to continue with current pain medication with the adjustment as needed, continue on broad-spectrum IV antibiotics. Continue to follow orthopedic and ID input recommendation. Follow a.m. labs. Discussed with the patient, all questions answered. NEURO: Minimize central acting medications as possible. Fall Precautions. Well lighted room through the day and minimize interruptions through the night to prevent acute delirium. PULMONARY: Supplemental 02 as needed BiPAP as necessary, for respiratory distress Titrate Fio2 to keep Spo2 > or = 90% DuoNebs and CPT as needed IS hourly while awake for pulmonary hygiene prn Out of bed to chair as tolerated Maintain aspiration precautions at all times CARDIOVASCULAR: Follow hemodynamics. Vital signs per facility protocol GI & NUTRITION: Continue nutritional support Aspirations precautions Prokinetic agents and laxatives as needed KIDNEYS & ELECTROLYTES: Strict monitoring of intake and output Daily weights Avoid nephrotoxic agents Monitor electrolytes and replace as needed Goal urine output of 30mL/hr or 0.5mL/kg/hr Medications to be dosed according to renal function. Avoid contrast if possible ENDOCRINE: Maintain blood glucose between 100-180 at all times. Insulin sliding scale for blood glucose management Hypoglycemia and hyperglycemia protocol in place INFECTIOUS DISEASE: Trend temperature, WBC and procalcitonin level Follow cultures, deescalate antibiotics as soon as possible. Panculture if new onset fever HEMATOLOGY & COAGULATION: Monitor H&H. Keep Hgb > 7 Transfuse 1 unit of PRBC for Hgb < 7 Transfuse 1 pack of platelets of platelets < 20, 000 Watch for any signs and symptoms of bleeding SKIN: Pressure ulcer prevention per facility protocol Specialty mattress as needed ORTHO/REHAB Continue PT/OT PRN: MEDICATIONS Tylenol 650 mg po every 4 hrs for fever zofran 4 mg IV every 6 hrs for n/v Hydralazine 5 mg IV every 4 hrs systolic pressure > 160 bowel regiment: lactulose 20 gm PO BID PRN constipation Supportive measures: Continue GI and DVT prophylaxis Disposition: Pending improvement in clinical condition All questions answered time spent: > 35 min RODRIGO BROCK MD Oct 28, 2025 11:26
--- NOTE | 2025-10-28 15:08 | PN ---
Postop day 1., status post 3rd look I and D right hip soft tissue abscess. Vital signs stable, afebrile. Lab work reviewed. Drain output of 30 mL overnight. Comfortable with controlled pain. Dressing intact. Distal neurovascular intact Assessment: Status post I and D right hip x3 Plan: Continue IV antibiotics. DC planning Vitals/Labs Vital Signs Date Time Temp Pulse Resp B/P (MAP) Pulse Ox O2 Delivery O2 Flow Rate FiO2 10/28/25 11:43 97.9 80 20 117/64 98 Room Air 10/28/25 08:41 0 21 Laboratory Tests 10/28/25 04:25 Medications Current Medications Orphenadrine Citrate 60 mg ONCE ONCE IM Last administered on 10/22/25at 09:45; Start 10/22/25 at 09:30; Stop 10/22/25 at 09:35; Status DC Ketorolac Tromethamine 15 mg ONCE ONCE IM Last administered on 10/22/25at 09:45; Start 10/22/25 at 09:30; Stop 10/22/25 at 09:35; Status DC Ceftriaxone Sodium 1 gm ONCE ONCE IVPB Last administered on 10/22/25at 10:53; Start 10/22/25 at 10:30; Stop 10/22/25 at 10:36; Status DC Enoxaparin Sodium 40 mg DAILY SQ Last administered on 10/23/25at 09:53; Start 10/23/25 at 09:00; Stop 10/24/25 at 13:28; Status DC Famotidine 20 mg BID IV Last administered on 10/28/25at 08:41; Start 10/22/25 at 21:00; Stop 11/21/25 at 20:59 Sodium Chloride 1,000 ml @ 100 mls/hr Q10H IV Last administered on 10/24/25at 20:42; Start 10/22/25 at 11:00; Stop 10/25/25 at 11:28; Status DC Vancomycin HCl 1 each AD IV; Start 10/22/25 at 11:00; Stop 10/25/25 at 10:19; Status DC Hydromorphone HCl 0.25 mg Q6H PRN IVP Last administered on 10/22/25at 15:16; Start 10/22/25 at 11:00; Stop 10/27/25 at 10:59; Status DC Acetaminophen 500 mg Q6H PRN PO; Start 10/22/25 at 11:00; Stop 11/21/25 at 10:59 Insulin Human Regular INSULIN SLIDING SCAL... Q6H6 SQ Last administered on 10/24/25at 06:05; Start 10/22/25 at 12:00; Stop 10/25/25 at 20:04; Status DC Vancomycin HCl 500 ml @ 250 mls/hr ONCE ONCE IV Last administered on 10/22/25at 12:51; Start 10/22/25 at 12:00; Stop 10/22/25 at 13:59; Status DC Cefepime HCl 1 gm Q12H IVPB Last administered on 10/25/25at 03:33; Start 10/22/25 at 15:00; Stop 10/25/25 at 09:56; Status DC Vancomycin HCl 250 ml @ 125 mls/hr Q24H IV Last administered on 10/24/25at 12:34; Start 10/23/25 at 12:00; Stop 10/25/25 at 09:56; Status DC Metronidazole/ Sodium Chloride 100 ml @ 100 mls/hr Q8H IVPB Last administered on 10/23/25at 01:09; Start 10/22/25 at 12:00; Stop 10/23/25 at 04:20; Status DC Lidocaine HCl 100 mg STK-MED ONCE .ROUTE; Start 10/22/25 at 20:24; Stop 10/22/25 at 20:25; Status DC Ketamine HCl 50 mg STK-MED ONCE .ROUTE; Start 10/22/25 at 20:25; Stop 10/22/25 at 20:25; Status DC Succinylcholine Chloride 200 mg STK-MED ONCE .ROUTE; Start 10/22/25 at 20:26; Stop 10/22/25 at 20:26; Status DC Propofol 200 mg STK-MED ONCE IV; Start 10/22/25 at 20:26; Stop 10/22/25 at 20:27; Status DC Midazolam HCl 2 mg STK-MED ONCE .ROUTE; Start 10/22/25 at 20:27; Stop 10/22/25 at 20:27; Status DC Rocuronium [place] 50 mg STK-MED ONCE .ROUTE; Start 10/22/25 at 20:27; Stop 10/22/25 at 20:27; Status DC Fentanyl Citrate 100 mcg STK-MED ONCE .ROUTE; Start 10/22/25 at 20:27; Stop 10/22/25 at 20:27; Status DC Cefazolin Sodium 1 gm STK-MED ONCE .ROUTE; Start 10/22/25 at 20:40; Stop 10/22/25 at 20:40; Status DC Ondansetron HCl 4 mg STK-MED ONCE .ROUTE; Start 10/22/25 at 21:54; Stop 10/22/25 at 21:54; Status DC Glycopyrrolate 1 mg STK-MED ONCE .ROUTE; Start 10/22/25 at 21:54; Stop 10/22/25 at 21:54; Status DC Neostigmine Methylsulfate 10 mg STK-MED ONCE IV; Start 10/22/25 at 21:54; Stop 10/22/25 at 21:54; Status DC Acetaminophen 100 ml @ As Directed STK-MED ONCE .ROUTE Last administered on 10/22/25at 22:12; Start 10/22/25 at 22:08; Stop 10/22/25 at 22:08; Status DC Ondansetron HCl 4 mg STK-MED ONCE .ROUTE Last administered on 10/22/25at 22:19; Start 10/22/25 at 22:13; Stop 10/22/25 at 22:13; Status DC Fentanyl Citrate 100 mcg STK-MED ONCE .ROUTE Last administered on 10/22/25at 22:19; Start 10/22/25 at 22:15; Stop 10/22/25 at 22:15; Status DC Fentanyl Citrate 100 mcg STK-MED ONCE .ROUTE Last administered on 10/22/25at 22:23; Start 10/22/25 at 22:21; Stop 10/22/25 at 22:21; Status DC Sodium Chloride 1,000 ml @ 100 mls/hr Q10H IV Last administered on 10/23/25at 18:38; Start 10/22/25 at 22:30; Stop 10/23/25 at 22:29; Status DC Polyethylene Glycol 17 gm DAILY PO Last administered on 10/26/25at 08:49; Start 10/23/25 at 09:00; Stop 11/22/25 at 08:59 Psyllium Hydrophilic Mucilloid 1 tbs DAILYLUNCH PO; Start 10/23/25 at 12:00; Stop 10/25/25 at 11:28; Status DC Bisacodyl 10 mg DAILY PRN PO; Start 10/24/25 at 22:30; Stop 10/25/25 at 11:28; Status DC Bisacodyl 10 mg DAILY PRN RC; Start 10/25/25 at 22:30; Stop 10/25/25 at 11:28; Status DC Ferrous Fumarate 324 mg DAILY PRN PO; Start 10/22/25 at 22:30; Stop 10/25/25 at 11:28; Status DC Calcium Carbonate 500 mg Q12H PRN PO; Start 10/22/25 at 22:30; Stop 10/25/25 at 11:28; Status DC Diphenhydramine HCl 25 mg Q6H PRN PO; Start 10/22/25 at 22:30; Stop 10/22/25 at 22:52; Status DC Diphenhydramine HCl 25 mg Q6H PRN IVP; Start 10/22/25 at 22:30; Stop 10/25/25 at 11:28; Status DC Acetaminophen/ Hydrocodone Bitart Q4H PRN PO; Start 10/22/25 at 22:30; Stop 10/22/25 at 22:54; Status DC Hydromorphone HCl 2 mg Q2H PRN IVP Last administered on 10/27/25at 16:18; Start 10/22/25 at 22:30; Stop 10/27/25 at 22:29; Status DC Acetaminophen/ Hydrocodone Bitart 1 tab Q6H PRN PO Last administered on 10/27/25at 11:54; Start 10/22/25 at 23:00; Stop 10/27/25 at 22:59; Status DC Acetaminophen/ Hydrocodone Bitart 1 tab Q6H PRN PO Last administered on 10/25/25at 16:37; Start 10/22/25 at 23:00; Stop 10/28/25 at 01:59; Status DC Metronidazole/ Sodium Chloride 100 ml @ 100 mls/hr Q8H IVPB Last administered on 10/25/25at 01:43; Start 10/23/25 at 09:00; Stop 10/25/25 at 09:56; Status DC Insulin Glargine 10 units DAILY SQ Last administered on 10/23/25at 10:06; Start 10/23/25 at 09:30; Stop 10/24/25 at 06:54; Status DC Ondansetron HCl 4 mg Q6H PRN IVP Last administered on 10/24/25at 02:36; Start 10/24/25 at 01:30; Stop 11/23/25 at 01:29 Insulin Glargine 15 units DAILY SQ Last administered on 10/28/25at 08:46; Start 10/24/25 at 09:00; Stop 11/23/25 at 08:59 Insulin Human Regular 3 unit TIDAC SQ Last administered on 10/24/25at 12:40; Start 10/24/25 at 07:30; Stop 10/25/25 at 20:02; Status DC Potassium Chloride 100 ml @ 50 mls/hr ONCE ONCE IV Last administered on 10/24/25at 11:42; Start 10/24/25 at 10:00; Stop 10/24/25 at 11:59; Status DC Magnesium Sulfate 50 ml @ 0 mls/hr PROTOCOL IV; Start 10/24/25 at 10:00; Stop 10/25/25 at 07:24; Status DC Potassium Chloride 40 meq ONCE ONCE PO; Start 10/25/25 at 07:30; Stop 10/25/25 at 07:31; Status DC Magnesium Sulfate 50 ml @ 0 mls/hr PROTOCOL IV; Start 10/25/25 at 07:30; Stop 11/24/25 at 07:29 Lidocaine HCl 100 mg STK-MED ONCE .ROUTE; Start 10/25/25 at 09:50; Stop 10/25/25 at 09:50; Status DC Ketamine HCl 50 mg STK-MED ONCE .ROUTE; Start 10/25/25 at 09:50; Stop 10/25/25 at 09:51; Status DC Propofol 200 mg STK-MED ONCE IV; Start 10/25/25 at 09:51; Stop 10/25/25 at 09:51; Status DC Midazolam HCl 2 mg STK-MED ONCE .ROUTE; Start 10/25/25 at 09:51; Stop 10/25/25 at 09:51; Status DC Rocuronium [place] 50 mg STK-MED ONCE .ROUTE; Start 10/25/25 at 09:51; Stop 10/25/25 at 09:51; Status DC Fentanyl Citrate 100 mcg STK-MED ONCE .ROUTE; Start 10/25/25 at 09:51; Stop 10/25/25 at 09:52; Status DC Succinylcholine Chloride 200 mg STK-MED ONCE .ROUTE; Start 10/25/25 at 09:54; Stop 10/25/25 at 09:54; Status DC Cefazolin Sodium 2 gm Q8H IVPB Last administered on 10/28/25at 10:10; Start 10/25/25 at 10:00; Stop 11/04/25 at 09:59 Ondansetron HCl 4 mg STK-MED ONCE .ROUTE; Start 10/25/25 at 10:04; Stop 10/25/25 at 10:04; Status DC Dexamethasone Sodium Phosphate 10 mg STK-MED ONCE .ROUTE; Start 10/25/25 at 10:04; Stop 10/25/25 at 10:04; Status DC Cefazolin Sodium 1 gm STK-MED ONCE .ROUTE; Start 10/25/25 at 10:11; Stop 10/25/25 at 10:11; Status DC Dexamethasone Sodium Phosphate 4 mg STK-MED ONCE .ROUTE; Start 10/25/25 at 10:13; Stop 10/25/25 at 10:13; Status DC Ondansetron HCl 4 mg STK-MED ONCE .ROUTE; Start 10/25/25 at 10:13; Stop 10/25/25 at 10:13; Status DC Rocuronium [place] 50 mg STK-MED ONCE .ROUTE; Start 10/25/25 at 10:29; Stop 10/25/25 at 10:29; Status DC Cefazolin Sodium 1 gm STK-MED ONCE .ROUTE; Start 10/25/25 at 10:43; Stop 10/25/25 at 10:43; Status DC Glycopyrrolate 1 mg STK-MED ONCE .ROUTE; Start 10/25/25 at 11:11; Stop 10/25/25 at 11:11; Status DC Neostigmine Methylsulfate 10 mg STK-MED ONCE IV; Start 10/25/25 at 11:11; Stop 10/25/25 at 11:11; Status DC Sodium Chloride 1,000 ml @ 100 mls/hr Q10H IV; Start 10/25/25 at 11:30; Stop 10/26/25 at 11:29; Status DC Enoxaparin Sodium 40 mg DAILY SQ; Start 10/26/25 at 09:00; Stop 10/25/25 at 12:40; Status DC Polyethylene Glycol 17 gm DAILY PO Last administered on 10/26/25at 09:03; Start 10/26/25 at 09:00; Stop 10/28/25 at 14:47; Status DC Psyllium Hydrophilic Mucilloid 1 tbs DAILYLUNCH PO; Start 10/25/25 at 12:00; Stop 11/24/25 at 11:59 Bisacodyl 10 mg DAILY PRN PO; Start 10/27/25 at 11:30; Stop 11/26/25 at 11:29 Bisacodyl 10 mg DAILY PRN RC; Start 10/28/25 at 11:30; Stop 11/27/25 at 11:29 Ketorolac Tromethamine 15 mg Q6H PRN IV Last administered on 10/28/25at 10:10; Start 10/25/25 at 11:30; Stop 10/30/25 at 11:29 Ferrous Fumarate 324 mg DAILY PRN PO; Start 10/25/25 at 11:30; Stop 11/24/25 at 11:29 Temazepam 15 mg HS PRN PO; Start 10/25/25 at 11:30; Stop 11/24/25 at 11:29 Promethazine HCl 25 mg Q4H PRN IM; Start 10/25/25 at 11:30; Stop 11/24/25 at 11:29 Calcium Carbonate 500 mg Q12H PRN PO; Start 10/25/25 at 11:30; Stop 11/24/25 at 11:29 Diphenhydramine HCl 25 mg Q6H PRN PO; Start 10/25/25 at 11:30; Stop 11/24/25 at 11:29 Diphenhydramine HCl 25 mg Q6H PRN IVP; Start 10/25/25 at 11:30; Stop 11/24/25 at 11:29 Ondansetron HCl 4 mg AD PRN IVP; Start 10/25/25 at 11:30; Stop 10/25/25 at 12:33; Status DC Metoclopramide HCl 10 mg AD PRN IVP; Start 10/25/25 at 11:30; Stop 10/25/25 at 12:33; Status DC Promethazine HCl 25 mg AD PRN IM; Start 10/25/25 at 11:30; Stop 10/25/25 at 12:33; Status DC Ketorolac Tromethamine 30 mg AD PRN IV; Start 10/25/25 at 11:30; Stop 10/25/25 at 12:33; Status DC Morphine Sulfate 2 mg AD PRN IVP; Start 10/25/25 at 11:30; Stop 10/25/25 at 12:33; Status DC Fentanyl Citrate 25 mcg Q5MIN PRN IVP Last administered on 10/25/25at 11:47; Start 10/25/25 at 11:30; Stop 10/25/25 at 12:33; Status DC Naloxone HCl 0.1 mg AD PRN IVP; Start 10/25/25 at 11:30; Stop 10/25/25 at 12:33; Status DC Fentanyl Citrate 100 mcg STK-MED ONCE .ROUTE; Start 10/25/25 at 11:43; Stop 10/25/25 at 11:43; Status DC Insulin Human Regular 5 unit TIDAC SQ Last administered on 10/28/25at 12:21; Start 10/26/25 at 07:30; Stop 11/25/25 at 07:29 Insulin Human Regular INSULIN SLIDING SCAL... ACHS SQ Last administered on 10/28/25at 12:23; Start 10/26/25 at 07:30; Stop 11/25/25 at 07:29 Magnesium Sulfate 50 ml @ 0 mls/hr PROTOCOL IV; Start 10/26/25 at 08:30; Stop 10/26/25 at 08:12; Status DC Cefazolin Sodium 2 gm STK-MED ONCE .ROUTE; Start 10/27/25 at 08:17; Stop 10/27/25 at 08:17; Status DC Lidocaine HCl 100 mg STK-MED ONCE .ROUTE; Start 10/27/25 at 08:46; Stop 10/27/25 at 08:46; Status DC Ketamine HCl 50 mg STK-MED ONCE .ROUTE; Start 10/27/25 at 08:46; Stop 10/27/25 at 08:46; Status DC Succinylcholine Chloride 200 mg STK-MED ONCE .ROUTE; Start 10/27/25 at 08:46; Stop 10/27/25 at 08:46; Status DC Propofol 200 mg STK-MED ONCE IV; Start 10/27/25 at 08:46; Stop 10/27/25 at 08:47; Status DC Midazolam HCl 2 mg STK-MED ONCE .ROUTE; Start 10/27/25 at 08:46; Stop 10/27/25 at 08:47; Status DC Rocuronium [place] 50 mg STK-MED ONCE .ROUTE; Start 10/27/25 at 08:46; Stop 10/27/25 at 08:47; Status DC Fentanyl Citrate 100 mcg STK-MED ONCE .ROUTE; Start 10/27/25 at 08:47; Stop 10/27/25 at 08:47; Status DC Potassium Chloride 40 meq ONCE ONCE PO Last administered on 10/27/25at 11:57; Start 10/27/25 at 09:00; Stop 10/27/25 at 09:01; Status DC Magnesium Sulfate 50 ml @ 0 mls/hr PROTOCOL IV; Start 10/27/25 at 09:00; Stop 10/27/25 at 09:00; Status DC Dexamethasone Sodium Phosphate 10 mg STK-MED ONCE .ROUTE; Start 10/27/25 at 09:03; Stop 10/27/25 at 09:03; Status DC Ondansetron HCl 4 mg STK-MED ONCE .ROUTE; Start 10/27/25 at 09:49; Stop 10/27/25 at 09:50; Status DC Ondansetron HCl 4 mg AD PRN IVP; Start 10/27/25 at 10:30; Stop 10/27/25 at 11:12; Status DC Metoclopramide HCl 10 mg AD PRN IVP; Start 10/27/25 at 10:30; Stop 10/27/25 at 11:12; Status DC Promethazine HCl 25 mg AD PRN IM; Start 10/27/25 at 10:30; Stop 10/27/25 at 11:12; Status DC Ketorolac Tromethamine 30 mg AD PRN IV; Start 10/27/25 at 10:30; Stop 10/27/25 at 11:12; Status DC Morphine Sulfate 2 mg AD PRN IVP; Start 10/27/25 at 10:30; Stop 10/27/25 at 11:12; Status DC Fentanyl Citrate 25 mcg Q5MIN PRN IVP Last administered on 10/27/25at 10:26; Start 10/27/25 at 10:30; Stop 10/27/25 at 11:12; Status DC Naloxone HCl 0.1 mg AD PRN IVP; Start 10/27/25 at 10:30; Stop 10/27/25 at 11:12; Status DC Fentanyl Citrate 100 mcg STK-MED ONCE .ROUTE; Start 10/27/25 at 10:20; Stop 10/27/25 at 10:20; Status DC Hydromorphone HCl 0.5 mg AD PRN IVP Last administered on 10/27/25at 10:34; Start 10/27/25 at 10:30; Stop 10/27/25 at 11:27; Status DC Hydromorphone HCl 1 mg STK-MED ONCE .ROUTE; Start 10/27/25 at 10:30; Stop 10/27/25 at 10:30; Status DC Magnesium Sulfate 50 ml @ 0 mls/hr PROTOCOL IV; Start 10/28/25 at 09:30; Stop 10/28/25 at 09:14; Status DC Aspirin 81 mg BID PO; Start 10/28/25 at 21:00; Stop 11/27/25 at 20:59 Cefazolin Sodium 3 gm STK-MED ONCE IVPB Last administered on 10/27/20at 09:21; Start 10/27/20 at 09:21; Stop 10/28/25 at 14:58; Status DC VANESSA OJEDA MD Oct 28, 2025 15:08
[2025-10-28] MEDS: ASPIRIN 81 MG EC TAB PO SCH (20:27)
[2025-10-29 04:00] VITALS: BP 123/70; PULSE 76; RESP 18; TEMP 98.4
--- NOTE | 2025-10-29 04:39 | PN ---
INFECTIOUS DISEASE FOLLOWUP NOTE DATE OF SERVICE: 10/28/2025 SUBJECTIVE: The patient is seen and examined at bedside today. The patient has no fever, no chills. No cough. No sore throat or rhinorrhea. No depression. No suicidal ideation. No ____. PHYSICAL EXAMINATION: VITAL SIGNS: Temperature 97.5. EYES: No icterus. Pupils equal and reactive. HENT: No oral thrush seen. Moist oral mucosa. NECK: Supple. No JVD or thyromegaly. LUNGS: Good air entry. No rales. No rhonchi. CARDIOVASCULAR: S1 and S2, regular. No murmur heard. ABDOMEN: Full, soft. Bowel sound is present. CENTRAL NERVOUS SYSTEM: Awake, alert and oriented x 3. No focal deficits. SKIN: No rashes. The patient has ____ involving the left and right thigh. ____. ASSESSMENT: A 55-year-old male with multiple medical problems ____: * Sepsis. * ____. * Diabetes mellitus. * Obesity. PLAN: * Continue cefazolin. * Continue nutritional support. * Continue pain management. * Continue antiemetic. * Continue DVT prophylaxis. * Monitor electrolytes. * The patient will be followed up closely. TID: [id number] RECEIPT: [id number]
[2025-10-29 06:26] LABS: NUCLEATED RED BLOOD CELLS 0.0 % (0.0-0.19); PLATELET COUNT (AUTO) 88.0 K/uL (130-400); RED BLOOD CELL COUNT(AUTO) 2.33 MIL/uL (4.50-6.20); RED CELL DISTRIBUTION WIDTH 14.7 % (11.0-15.5); WHITE BLOOD COUNT (AUTO) 5.3 K/uL (4.8-10.8)
[2025-10-29 06:38] LABS: ASPARTATE AMINOTRANSFERASE 67.0 U/L (10-37); CREATININE 0.9 mg/dL (0.5-1.3); GLOMERULAR FILTR. RATE CALC 100.0 mL/min (>90); GLUCOSE,RANDOM 84.0 mg/dL (70-105); SODIUM SERUM 140.0 mmol/L (136-145); TOTAL PROTEIN, SERUM 5.8 g/dL (6.0-8.3); UREA NITROGEN, BLOOD 18.0 mg/dL (7-18)
[2025-10-29 08:02] VITALS: BP 123/70; PULSE 81; RESP 18; TEMP 98.1
[2025-10-29] MEDS: PoTASSium chloRIDE 20MEQ ER 20 MEQ ERTAB PO PRN (09:20)
[2025-10-29] MEDS ORDERED: MAGNESIUM 2GM PREMIX 50ML 50 ML IV SCH (10:00)
[2025-10-29] MEDS: PoTASSium chloRIDE 20MEQ ER 20 MEQ ERTAB PO ONE (10:15)
[2025-10-29 12:01] VITALS: BP 123/67; PULSE 88; RESP 18; TEMP 97.8
--- NOTE | 2025-10-29 12:11 | PN ---
[facility] PROGRESS NOTE Date of Service: Oct 29, 2025 Time of Service: 12:10 SUBJECTIVE: 10/23 patient remains admitted to the medical floor, comfortably in bed, the time of my visit alert oriented x3, getting IV fluids, IV antibiotics. Patient admitted secondary to right hip intramuscular abscess involving the tensor fascia bruce with the extension to the posterior deep high space, status post incision and drainage 10/22/2025. POD #1. Patient tolerated the procedure well. Currently hemodynamically stable, afebrile, saturating normal on room air. WBC of 11.2, hemoglobin 9.6, hematocrit 37.7, platelet count of 100. BUN of 24, creatinine 1.5. Continue the patient on broad-spectrum IV antibiotics, continue supportive care with IV fluids, continue to follow orthopedic input recommendation, follow results of cultures, adjust antibiotics accordingly. Infectious Disease consultation requested, we will follow input and recommendation. 10/24 patient remains admitted to medical floor, comfortably in bed, no acute events overnight, during my visit he is alert oriented x3, getting good pain control with current medical management, getting IV fluids, IV antibiotics. Remains hemodynamically stable, afebrile, saturating normal on room air. Hemoglobin 8.7, hematocrit 5.4, platelet count of 88. Results of urine culture positive for Staphylococcus aureus, aerobic and anaerobic culture positive for Gram-positive cocci in pairs. Patient will remain on broad-spectrum IV antibiotics. Continue to follow ID input recommendation. Follow orthopedic input recommendation. Lovenox on hold, SCDs in place, monitor platelet count in a.m., if continue to get worse we will request Hematology consultation. 10/25 patient remains admitted to medical floor, comfortable, no acute events overnight, he is currently NPO, scheduled to be taken to the operating room today for revision and I and D of right hip peritrochanteric subcutaneous abscess by orthopedic physician. Blood pressure 123/67, afebrile, saturating normal on room air. Tissue culture positive for Staphylococcus aureus. Urine culture positive for Staphylococcus aureus. Continue the patient on broad-spect rum IV antibiotics, continue to follow ID input and recommendation. Follow a.m. labs. 10/26 patient remains admitted to medical floor, comfortable, no acute events overnight, he is currently NPO, scheduled to be taken to the operating room today for revision and I and D of right hip peritrochanteric subcutaneous abscess by orthopedic physician. Stable, saturating normal on room air. Tissue culture positive for Staphylococcus aureus. Urine culture positive for Staphylococcus aureus. Continue the patient on broad-spectrum IV antibiotics, continue to follow ID input and recommendation. Follow a.m. labs. 10/27 patient remains admitted to the medical floor, comfortable, no acute events overnight, discussed with the RN, CHELSIEO, scheduled for revision and closure by orthopedic physician. Continue broad-spectrum antibiotics, pain medication, follow orthopedic and ID input recommendation. Follow a.m. labs. 10/28 patient remains admitted to medical floor, patient is status post 3rd look incision and excisional debridement/irrigation right thigh 10/27/2025, tolerated well. Patient to continue with current pain medication with the adjustment as needed, continue on broad-spectrum IV antibiotics. Continue to follow orthopedic and ID input recommendation. Follow a.m. labs. Discussed with the patient, all questions answered. 10/29 patient remains admitted to medical floor, patient is status post 3rd look incision and excisional debridement/irrigation right thigh 10/27/2025, tolerated well. Patient to continue with current pain medication with the adjustment as needed, continue on broad-spectrum IV antibiotics. [facility] further recommendation from Orthopedic and ID recommendations. Discussed with the patient. REVIEW OF SYSTEMS CONSTITUTIONAL: Denies fevers, chills, or night sweats. No unintentional weight loss reported. NEUROLOGICAL: Denies headache, amaurosis fugax, motor weakness, sensory deficit, vertigo/spinning sensation, gait abnormalities, or tremors. ENT: No hearing loss, otalgia, otorrhea, rhinitis, rhinorrhea, hoarseness, or sore throat. CARDIOVASCULAR: Denies any exertional angina, dyspnea on exertion, orthopnea, paroxysmal nocturnal dyspnea, palpitations, life-threatening arrhythmias, claudication. PULMONARY: Denies any shortness of breath, cough, phlegm/sputum, hemoptysis, pleuritic chest pain. SLEEP: Denies morning headaches, daytime somnolence or napping. Denies difficulty falling asleep, staying asleep, waking from sleep. Denies knowledge of snoring. GASTROINTESTINAL: Denies any type of dysphagia to either liquids or solids. Denies nausea, vomiting, pyrosis, early satiety, abdominal pain, diarrhea, constipation, or changes in stool consistency or caliber. Denies coffee-ground emesis, hematemesis, hematochezia, or melanotic stools. GENITOURINARY: Denies frequency, urgency, nocturia, hematuria or incontinence (Storage/Irritative symptoms.) Low urinary stream, straining to void, urinary intermittency or hesitancy, splitting of the voiding stream, terminal dribbling. ENDOCRINOLOGIC: Denies polyuria, polydipsia, polyphagia or heat/cold intolerances. HEMATOLOGIC: Denies thrombophilia/previous clots, or coagulopathy/bleeding disorders. ONCOLOGIC: Denies personal history of malignancy. DERMATOLOGIC: POSITIVE FOR REDNESS AND SWELLING IN THE RIGHT INNER THIGH PSYCHIATRIC: Denies any suicidal or homicidal ideation. Denies hallucinations. Musculoskeletal: Positive for pain in the right inner thigh PHYSICAL EXAM GENERAL APPEARANCE: The patient is awake, alert, and oriented, in no acute cardiopulmonary distress. NEUROLOGICAL: Cranial nerves II-XII grossly intact. Motor is 5/5 in bilateral upper and lower extremities proximal to distal. No sensory deficits. HEENT: Face is symmetric. Pupils are equal and reactive. Extraocular movements are intact. NECK: Supple. No JVD. No thyromegaly. No submental, submandibular, pre-/postauricular, occipital or supraclavicular lymphadenopathy. CHEST: Normal chest expansion. No Telemetry. LUNGS: Absence of any rales, rhonchi or any wheezing. CARDIOVASCULAR: Regular. S1 and S2 normal. No appreciable rubs, murmurs or gallops. ABDOMEN: Soft, nontender, and nondistended. There is no rebound, voluntary guarding, or rigidity. : Deferred. No Taylor. EXTREMITIES: Non-edematous and not cyanotic. No clubbing. Good capillary refill. SKIN: There is redness on the right lateral aspect of the hip. There is induration and swelling noted in the right inner thigh. Area is tender to palpation Vital Signs (last 8hr) Date Time Temp Pulse Resp B/P (MAP) Pulse Ox O2 Delivery O2 Flow Rate FiO2 10/29/25 12:01 97.9 88 18 123/67 96 Room Air 10/29/25 08:02 98.1 81 18 123/70 96 Room Air LABS: Laboratory: Test 10/29/25 11:30 10/29/25 05:27 10/28/25 15:37 Range/Units Whole Blood Glucose 190 #H 70-110 MG/DL White Blood Count 5.3 4.8-10.8 K/uL Red Blood Count 2.33 L 4.50-6.20 MIL/uL Hemoglobin 8.1 L 14.0-18.0 g/dL Hematocrit 24.1 L 42-54 % Mean Corpuscular Volume 103.4 H 79-99 fL Mean Corpuscular Hemoglobin 34.8 H 27.0-33.0 pg Mean Corpuscular Hemoglobin Concent 33.6 32.0-36.0 g/dL Red Cell Distribution Width 14.7 11.0-15.5 % Platelet Count 88 L 130-400 K/uL Mean Platelet Volume 10.0 7.5-10.5 fL Nucleated Red Blood Cells 0.0 0.0-0.19 % Sodium Level 140 136-145 mmol/L Potassium Level 3.3 L 3.5-5.1 mmol/L Chloride Level 108 101-111 mmol/L Carbon Dioxide Level 25 21-32 mmol/L Blood Urea Nitrogen 18 7-18 mg/dL Creatinine 0.9 0.5-1.3 mg/dL Glomerular Filtration Rate Calc 100 >90 mL/min Random Glucose 84 70-105 mg/dL Total Calcium 7.2 L 8.5-10.1 mg/dL Magnesium Level 1.60 L 1.80-2.40 mg/dL Total Bilirubin 1.0 0.2-1.0 mg/dL Aspartate Amino Transf (AST/SGOT) 67 H 10-37 U/L Alanine Aminotransferase (ALT/SGPT) 38 12-78 U/L Alkaline Phosphatase 112 50-136 U/L Total Protein 5.8 L 6.0-8.3 g/dL Albumin 1.4 L 3.5-5.0 g/dL Bedside Glucose Comment Notified Nurse Current Medications Medications (Trade) Dose Ordered Sig/Denise Route PRN Reason Start Time Stop Time Status Last Admin Dose Admin Acetaminophen (TYLenol 500MG TAB) 500 mg Q6H PRN PO MILD PAIN (1-3) 10/22/25 11:00 11/21/25 10:59 Acetaminophen/ Hydrocodone Bitart (NORco 10) 1 tab Q6H PRN PO SEVERE PAIN (7-10) 10/22/25 23:00 10/28/25 01:59 DC 10/25/25 16:37 1 TAB Acetaminophen/ Hydrocodone Bitart (NORco 5/325MG) Q4H PRN PO MODERATE/SEVERE PAIN LEVEL 10/22/25 22:30 10/22/25 22:54 DC Acetaminophen/ Hydrocodone Bitart (NORco 5/325MG) 1 tab Q6H PRN PO MODERATE PAIN (4-6) 10/22/25 23:00 10/27/25 22:59 DC 10/27/25 11:54 1 TAB Aspirin (Aspirin 81mg Ec Tab) 81 mg BID PO 10/28/25 21:00 11/27/25 20:59 10/29/25 09:20 81 MG Bisacodyl (DulcoLAX 5MG TAB) 10 mg DAILY PRN PO CONSTIPATION 10/24/25 22:30 10/25/25 11:28 DC Bisacodyl (DulcoLAX 5MG TAB) 10 mg DAILY PRN PO CONSTIPATION 10/27/25 11:30 11/26/25 11:29 Bisacodyl (DulcoLAX) 10 mg DAILY PRN RC CONSTIPATION 10/25/25 22:30 10/25/25 11:28 DC Bisacodyl (DulcoLAX) 10 mg DAILY PRN RC CONSTIPATION 10/28/25 11:30 11/27/25 11:29 Calcium Carbonate (Oyster Shell Ca 500mg Tab) 500 mg Q12H PRN PO GIVE IF SERUM CA LESS THAN 8 10/25/25 11:30 11/24/25 11:29 Calcium Carbonate (Oyster Shell Ca 500mg Tab) 500 mg Q12H PRN PO GIVE IF SERUM CA LESS THAN 8 10/22/25 22:30 10/25/25 11:28 DC Cefazolin Sodium (Ancef) 2 gm Q8H IVPB 10/25/25 10:00 11/04/25 09:59 10/29/25 09:20 2 GM Cefepime HCl (MAXipime 1 GM vial) 1 gm Q12H IVPB 10/22/25 15:00 10/25/25 09:56 DC 10/25/25 03:33 1 GM Diphenhydramine HCl (BENAdryl CAP) 25 mg Q6H PRN PO ITCHING 10/25/25 11:30 11/24/25 11:29 Diphenhydramine HCl (BENAdryl CAP) 25 mg Q6H PRN PO ITCHING 10/22/25 22:30 10/22/25 22:52 DC Diphenhydramine HCl (BENAdryl INJ) 25 mg Q6H PRN IVP ITCHING 10/25/25 11:30 11/24/25 11:29 Diphenhydramine HCl (BENAdryl INJ) 25 mg Q6H PRN IVP ITCHING 10/22/25 22:30 10/25/25 11:28 DC Enoxaparin Sodium (Lovenox) 40 mg DAILY SQ 10/26/25 09:00 10/25/25 12:40 DC Enoxaparin Sodium (Lovenox) 40 mg DAILY SQ 10/23/25 09:00 10/24/25 13:28 DC 10/23/25 09:53 40 MG Famotidine (Pepcid 20mg Vial) 20 mg BID IV 10/22/25 21:00 11/21/25 20:59 10/29/25 09:20 20 MG Fentanyl Citrate (FENTanyl CITRate PF 50 MCG/ 1 ML 2ML VIAL) 25 mcg Q5MIN PRN IVP PAIN LEVEL 7 TO 10 10/25/25 11:30 10/25/25 12:33 DC 10/25/25 11:47 25 MCG Fentanyl Citrate (FENTanyl CITRate PF 50 MCG/ 1 ML 2ML VIAL) 25 mcg Q5MIN PRN IVP PAIN LEVEL 7 TO 10 10/27/25 10:30 10/27/25 11:12 DC 10/27/25 10:26 25 MCG Ferrous Fumarate (Hemocyte) 324 mg DAILY PRN PO IF HEMOGLOBIN LESS THAN 9 10/25/25 11:30 11/24/25 11:29 Ferrous Fumarate (Hemocyte) 324 mg DAILY PRN PO IF HEMOGLOBIN LESS THAN 9 10/22/25 22:30 10/25/25 11:28 DC Hydromorphone HCl (DiLAUDid 0.5MG INJ) 0.25 mg Q6H PRN IVP SEVERE PAIN (7-10) 10/22/25 11:00 10/27/25 10:59 DC 10/22/25 15:16 0.25 MG Hydromorphone HCl (DiLAUDid 1MG INJ) 0.5 mg AD PRN IVP PAIN LEVEL 7 TO 10 10/27/25 10:30 10/27/25 11:27 DC 10/27/25 10:34 0.5 MG Hydromorphone HCl (DiLAUDid 2MG INJ) 2 mg Q2H PRN IVP SEVERE PAIN (7-10) 10/22/25 22:30 10/27/25 22:29 DC 10/27/25 16:18 2 MG Insulin Glargine (LANtus 100 UNITS/ML 10 ML VIAL) 10 units DAILY SQ 10/23/25 09:30 10/24/25 06:54 DC 10/23/25 10:06 10 UNITS Insulin Glargine (LANtus 100 UNITS/ML 10 ML VIAL) 15 units DAILY SQ 10/24/25 09:00 11/23/25 08:59 10/28/25 08:46 15 UNITS Insulin Human Regular (humuLIN R 100 UNIT/ML 3ML) 3 unit TIDAC SQ 10/24/25 07:30 10/25/25 20:02 DC 10/24/25 12:40 3 UNIT Insulin Human Regular (humuLIN R 100 UNIT/ML 3ML) 5 unit TIDAC SQ 10/26/25 07:30 11/25/25 07:29 10/28/25 16:54 5 UNIT Insulin Human Regular (humuLIN R 100 UNIT/ML 3ML) INSULIN SLIDING SCAL... ACHS SQ 10/26/25 07:30 11/25/25 07:29 10/28/25 12:23 3 UNIT Insulin Human Regular (humuLIN R 100 UNIT/ML 3ML) INSULIN SLIDING SCAL... Q6H6 SQ 10/22/25 12:00 10/25/25 20:04 DC 10/24/25 06:05 2 UNIT Ketorolac Tromethamine (toRADol) 15 mg Q6H PRN IV BREAKTHROUGH PAIN (4-6) 10/25/25 11:30 10/30/25 11:29 10/29/25 09:19 15 MG Ketorolac Tromethamine (toRADol) 30 mg AD PRN IV PAIN LEVEL 1 TO 3 10/25/25 11:30 10/25/25 12:33 DC Ketorolac Tromethamine (toRADol) 30 mg AD PRN IV PAIN LEVEL 1 TO 3 10/27/25 10:30 10/27/25 11:12 DC Magnesium Sulfate 50 ml @ 0 mls/hr PROTOCOL IV 10/24/25 10:00 10/25/25 07:24 DC Magnesium Sulfate 50 ml @ 0 mls/hr PROTOCOL IV 10/25/25 07:30 11/24/25 07:29 Magnesium Sulfate 50 ml @ 0 mls/hr PROTOCOL IV 10/26/25 08:30 10/26/25 08:12 DC Magnesium Sulfate 50 ml @ 0 mls/hr PROTOCOL IV 10/27/25 09:00 10/27/25 09:00 DC Magnesium Sulfate 50 ml @ 0 mls/hr PROTOCOL IV 10/28/25 09:30 10/28/25 09:14 DC Magnesium Sulfate 50 ml @ 0 mls/hr PROTOCOL IV 10/29/25 10:00 10/29/25 09:47 DC Metoclopramide HCl (regLAN 10MG IV) 10 mg AD PRN IVP NAUSEA/VOMITING 10/25/25 11:30 10/25/25 12:33 DC Metoclopramide HCl (regLAN 10MG IV) 10 mg AD PRN IVP NAUSEA/VOMITING 10/27/25 10:30 10/27/25 11:12 DC Metronidazole/ Sodium Chloride 100 ml @ 100 mls/hr Q8H IVPB 10/22/25 12:00 10/23/25 04:20 DC 10/23/25 01:09 100 MLS/HR Metronidazole/ Sodium Chloride 100 ml @ 100 mls/hr Q8H IVPB 10/23/25 09:00 10/25/25 09:56 DC 10/25/25 01:43 100 MLS/HR Morphine Sulfate (morPHINE 2MG SYG) 2 mg AD PRN IVP PAIN LEVEL 4 TO 6 10/25/25 11:30 10/25/25 12:33 DC Morphine Sulfate (morPHINE 2MG SYG) 2 mg AD PRN IVP PAIN LEVEL 4 TO 6 10/27/25 10:30 10/27/25 11:12 DC Naloxone HCl (NARcan 0.4mg/1 mL) 0.1 mg AD PRN IVP RESPIRATORY SYMPTOMS 10/25/25 11:30 10/25/25 12:33 DC Naloxone HCl (NARcan 0.4mg/1 mL) 0.1 mg AD PRN IVP RESPIRATORY SYMPTOMS 10/27/25 10:30 10/27/25 11:12 DC Ondansetron HCl (zoFRAN 4MG INJ) 4 mg AD PRN IVP NAUSEA/VOMITING 10/25/25 11:30 10/25/25 12:33 DC Ondansetron HCl (zoFRAN 4MG INJ) 4 mg AD PRN IVP NAUSEA/VOMITING 10/27/25 10:30 10/27/25 11:12 DC Ondansetron HCl (zoFRAN 4MG INJ) 4 mg Q6H PRN IVP NAUSEA/VOMITING 10/24/25 01:30 11/23/25 01:29 10/24/25 02:36 4 MG Polyethylene Glycol (MIRalax 3350 17 GM POWD.PACK) 17 gm DAILY PO 10/26/25 09:00 10/28/25 14:47 DC 10/26/25 09:03 17 GM Polyethylene Glycol (MIRalax 3350 17 GM POWD.PACK) 17 gm DAILY PO 10/23/25 09:00 11/22/25 08:59 10/26/25 08:49 17 GM Potassium Chloride (K-Dur/Klor-Con 20meq) 20 meq AD PRN PO POTASSIUM PROTOCOL 10/29/25 09:30 11/28/25 09:29 10/29/25 09:20 20 MEQ Promethazine HCl (Phenergan) 25 mg AD PRN IM NAUSEA/VOMITING 10/25/25 11:30 10/25/25 12:33 DC Promethazine HCl (Phenergan) 25 mg AD PRN IM NAUSEA/VOMITING 10/27/25 10:30 10/27/25 11:12 DC Promethazine HCl (Phenergan) 25 mg Q4H PRN IM NAUSEA/VOMITING 10/25/25 11:30 11/24/25 11:29 Psyllium Hydrophilic Mucilloid (Metamucil) 1 tbs DAILYLUNCH PO 10/25/25 12:00 11/24/25 11:59 Psyllium Hydrophilic Mucilloid (Metamucil) 1 tbs DAILYLUNCH PO 10/23/25 12:00 10/25/25 11:28 DC Sodium Chloride 1,000 ml @ 100 mls/hr Q10H IV 10/25/25 11:30 10/26/25 11:29 DC Sodium Chloride 1,000 ml @ 100 mls/hr Q10H IV 10/22/25 11:00 10/25/25 11:28 DC 10/24/25 20:42 100 MLS/HR Sodium Chloride 1,000 ml @ 100 mls/hr Q10H IV 10/22/25 22:30 10/23/25 22:29 DC 10/23/25 18:38 100 MLS/HR Temazepam (restORIL 15 MG CAP) 15 mg HS PRN PO INSOMNIA/SLEEP 10/25/25 11:30 11/24/25 11:29 Vancomycin HCl 250 ml @ 125 mls/hr Q24H IV 10/23/25 12:00 10/25/25 09:56 DC 10/24/25 12:34 125 MLS/HR Vancomycin HCl (Vancomycin Protocol) 1 each AD IV 10/22/25 11:00 10/25/25 10:19 DC DIAGNOSTICS / RADIOLOGY: [ ] ASSESSMENT: Right hip/thigh soft tissue abscess, status post I&D x3 History of alcohol use Mild hyponatremia Acute kidney injury Mild thrombocytopenia Dehydration Elevated LFTs Severe hypoalbuminemia secondary to protein calorie malnutrition Hyperglycemia secondary to suspected uncontrolled diabetes mellitus type 2 History of marijuana use PLAN: patient remains admitted to medical floor, patient is status post 3rd look incision and excisional debridement/irrigation right thigh 10/27/2025, tolerated well. Patient to continue with current pain medication with the adjustment as needed, continue on broad-spectrum IV antibiotics. Possible discharge home today pending further recommendation from Orthopedic and ID recommendations. Discussed with the patient. NEURO: Minimize central acting medications as possible. Fall Precautions. Well lighted room through the day and minimize interruptions through the night to prevent acute delirium. PULMONARY: Supplemental 02 as needed BiPAP as necessary, for respiratory distress Titrate Fio2 to keep Spo2 > or = 90% DuoNebs and CPT as needed IS hourly while awake for pulmonary hygiene prn Out of bed to chair as tolerated Maintain aspiration precautions at all times CARDIOVASCULAR: Follow hemodynamics. Vital signs per facility protocol GI & NUTRITION: Continue nutritional support Aspirations precautions Prokinetic agents and laxatives as needed KIDNEYS & ELECTROLYTES: Strict monitoring of intake and output Daily weights Avoid nephrotoxic agents Monitor electrolytes and replace as needed Goal urine output of 30mL/hr or 0.5mL/kg/hr Medications to be dosed according to renal function. Avoid contrast if possible ENDOCRINE: Maintain blood glucose between 100-180 at all times. Insulin sliding scale for blood glucose management Hypoglycemia and hyperglycemia protocol in place INFECTIOUS DISEASE: Trend temperature, WBC and procalcitonin level Follow cultures, deescalate antibiotics as soon as possible. Panculture if new onset fever HEMATOLOGY & COAGULATION: Monitor H&H. Keep Hgb > 7 Transfuse 1 unit of PRBC for Hgb < 7 Transfuse 1 pack of platelets of platelets < 20, 000 Watch for any signs and symptoms of bleeding SKIN: Pressure ulcer prevention per facility protocol Specialty mattress as needed ORTHO/REHAB Continue PT/OT PRN: MEDICATIONS Tylenol 650 mg po every 4 hrs for fever zofran 4 mg IV every 6 hrs for n/v Hydralazine 5 mg IV every 4 hrs systolic pressure > 160 bowel regiment: lactulose 20 gm PO BID PRN constipation Supportive measures: Continue GI and DVT prophylaxis Disposition: Pending improvement in clinical condition All questions answered time spent: > 35 min RODRIGO BROCK MD Oct 29, 2025 12:11
--- NOTE | 2025-10-29 16:25 | PN ---
INFECTIOUS DISEASE PROGRESS NOTE Date of Service: Oct 29, 2025 SUBJECTIVE: Patient was seen and examined at bedside in room 320. Patient is status post second-look incision and drainage and debridement of the right hip abscess day # 1 and per report patient will be undergoing a 3rd look incision and drainage and closure for tomorrow. Two JOSEFINA drains intact. Blood cultures remain negative. Patient remains afebrile postop and no reports of nausea or vomiting. We will continue on cefazolin and metronidazole and follow up on the cultures results. PHYSICAL EXAM EYES: Anicteric. Pupils equal and reactive. HENT: No oral thrush seen, moist Oral mucosa. NECK: Supple, no JVD or thyromegaly. LUNGS: Good air entry. No rales, no rhonchi. CARDIOVASCULAR: S1, S2 regular. No murmur heard. ABDOMEN: Soft, non tender, bowel sounds present. CENTRAL NERVOUS SYSTEM: Awake, alert, oriented x 3. SKIN: No rashes, no swelling. LYMPHATICS: No peripheral lymphadenopathy MUSCULOSKELETAL: No joint swelling, erythema or tenderness. EXTREMITIES: No cyanosis or clubbing. Right hip intramuscular abscess, s/p I&D. 2 JOSEFINA drains. BACK: No deformity, no pressure ulcer. GENITOURINARY: No dysuria or hematuria. Vital Sign (Last 12 Hours) 10/29/25 10/29/25 10/29/25 08:00 08:02 12:01 Temp 98.1 97.9 Pulse 81 88 Resp 18 18 B/P (MAP) 123/70 123/67 Pulse Ox 96 96 O2 Delivery Room Air* Room Air Room Air O2 Flow Rate 0 FiO2 21 Intake & Output (last 24hrs) 10/28/25 10/28/25 10/29/25 15:00 23:00 07:00 Intake Total 600 ml 300 ml Output Total 30 ml 550 ml Balance 570 ml 300 ml -550 ml LABS: Laboratory: Test 10/29/25 11:30 10/29/25 05:27 10/28/25 15:37 Range/Units Whole Blood Glucose 190 #H 70-110 MG/DL White Blood Count 5.3 4.8-10.8 K/uL Red Blood Count 2.33 L 4.50-6.20 MIL/uL Hemoglobin 8.1 L 14.0-18.0 g/dL Hematocrit 24.1 L 42-54 % Mean Corpuscular Volume 103.4 H 79-99 fL Mean Corpuscular Hemoglobin 34.8 H 27.0-33.0 pg Mean Corpuscular Hemoglobin Concent 33.6 32.0-36.0 g/dL Red Cell Distribution Width 14.7 11.0-15.5 % Platelet Count 88 L 130-400 K/uL Mean Platelet Volume 10.0 7.5-10.5 fL Nucleated Red Blood Cells 0.0 0.0-0.19 % Sodium Level 140 136-145 mmol/L Potassium Level 3.3 L 3.5-5.1 mmol/L Chloride Level 108 101-111 mmol/L Carbon Dioxide Level 25 21-32 mmol/L Blood Urea Nitrogen 18 7-18 mg/dL Creatinine 0.9 0.5-1.3 mg/dL Glomerular Filtration Rate Calc 100 >90 mL/min Random Glucose 84 70-105 mg/dL Total Calcium 7.2 L 8.5-10.1 mg/dL Magnesium Level 1.60 L 1.80-2.40 mg/dL Total Bilirubin 1.0 0.2-1.0 mg/dL Aspartate Amino Transf (AST/SGOT) 67 H 10-37 U/L Alanine Aminotransferase (ALT/SGPT) 38 12-78 U/L Alkaline Phosphatase 112 50-136 U/L Total Protein 5.8 L 6.0-8.3 g/dL Albumin 1.4 L 3.5-5.0 g/dL Bedside Glucose Comment Notified Nurse DIAGNOSTICS / RADIOLOGY: PATIENT: DEMETRICE SANCHEZ ACCT: [id number] LOC: [facility] U: [id number] AGE/SX: 55/M ROOM: 320 RE10/22/[address]: GIA ENAMORADO MD : 1970 BED: 1 DIS: STATUS: ADM IN TLOC: SPEC: [id number] MERRITT: 10/22/25-1313 STATUS: RES REQ: [id number] RECD: 10/23/[address]: GIA ENAMORADO MD [place] [facility] 10/23/[address]: MCKENNA CASTRO MD SPDESC: CLEAN CAT SELF,REFERRAL KRISTIN SQUIRES MD ORDERED: AERO ID & SENS Procedure Result Alessio Date-Time AEROBIC ID & SENSITIVITIES Preliminary 10/23/25-114 [facility] COLONY DESCRIPTION: DAY 1: COLONY COUNT: >100,000 CFU/ML GRAM POSITIVE COCCI IN CLUSTERS IDENTIFICATION AND SENSITIVITY TO FOLLOW PATIENT: DEMETRICE SANCHEZ ACCT: [id number] LOC: [facility] U: [id number] AGE/SX: 55/M ROOM: 320 RE10/22/[address]: GIA ENAMORADO MD : 1970 BED: 1 DIS: STATUS: ADM IN TLOC: SPEC: [id number] MERRITT: 10/22/25 STATUS: RES REQ: [id number] RECD: 10/22/25 [facility] DR: VANESSA OJEDA MD SOURCE: [facility] ENTR: 10/22/25 [facility] DR: [facility]CK[facility]O [facility] GIA ENAMORADO MD SELF,REFERRAL ORDERED: GS, MATT CULTURE, AEROBIC CULTURE COMMENTS: Has specimen been collected/obtained? Y Specimen Comment: GRAM STAIN RIGHT HIP/THIGH DRAINAGE Specimen Comment: RIGHT HIP/THIGH DRAINAGE R HIP DRAINAGE Procedure Result Alessio Date-Time GRAM STAIN ONLY Final 10/22/25 GRAM STAIN: 2+ GRAM POSITIVE COCCI IN CLUSTERS 1+ GRAM POSITIVE COCCI 1+ GRAM POSITIVE COCCI IN PAIRS 4+ WBC ANAEROBIC CULTURE PENDING AEROBIC CULTURE PENDING PATIENT: DEMETRICE SANCHEZ MR#: [id number] : 1970 SEX: M AGE: 55 LOCATION: [facility] ORDER [id number] [facility] REPORT#: [id number] SERVICE [id number] REASON: right thigh abscess ORDERING PHYSICIAN: GIA ENAMORADO MD PROCEDURE: LOW EXT WO - CT LOW EXT W/O CONTRAST EXAM: CT right hip and femur, without IV contrast CLINICAL HISTORY: Right thigh abscess. TECHNIQUE: Axial images were acquired through the right femur without intravenous contrast. Reformatted images were reviewed. COMPARISON: Ultrasound soft tissue lower extremity dated 10/22/2025 10:54 EST. FINDINGS: BONES: No acute fracture is noted. No lytic or blastic osseous lesion is identified. Femoral head contour is preserved. JOINTS: No hip joint dislocation or subluxation is seen. No CT evidence of septic arthritis or significant hip joint effusion on this non-contrast study. SOFT TISSUES: A large complex fluid collection is present along the course of the right tensor fascia bruce, measuring approximately 9.7 x 4.5 x 4.8 cm, extending into the trochanteric bursa region and superficially into the deep subcutaneous planes of the proximal anterior, anterolateral, and posterolateral thigh, with surrounding soft tissue stranding compatible with extensive cellulitis. Posteriorly, the collection extends along the fascial planes of the gluteus medius, with an additional collection measuring approximately 8.4 x 8.0 cm located between the gluteus jaci and gluteus medius muscles and extending within the gluteus medius muscle belly, consistent with a deep intramuscular and peribursal abscess. No radiopaque foreign body or soft tissue gas is identified. IMPRESSION: * Large multiloculated fluid collections centered along the right tensor fascia bruce and trochanteric bursa region with extension into the deep subcutaneous tissues of the proximal thigh, and additional 8.4 x 8.0 cm collection between and within the right gluteus medius and jaci muscles, consistent with extensive peritrochanteric and gluteal intramuscular abscesses with overlying cellulitis. * No acute fracture, aggressive osseous lesion, or CT evidence of septic arthritis of the right hip on this non-contrast examination. /[place] DICTATED BY: RANI GRANT Jr., MD DATE: 10/22/25 1403 ASSESSMENT: Urinary tract infection with Staphylococcus aureus. Right hip intramuscular abscess, status post I&D and debridement. Infection with methicillin-sensitive Staphylococcus aureus. Leukocytosis, resolved. Diabetes mellitus, Newly diagnosed. Thrombocytopenia, improving. Acute renal failure, resolved. PLAN: Cephahlexin x 14 days. This case was reviewed and discussed with my supervising physician Dr. Castro and the above assessment and plan was formulated and agreed upon. ATTESTATION BY PHYSICIAN I have seen and examined the patient. I reviewed the documentation, medical decision making, and treatment plan as noted by the mid-level provider above. I agree with the findings and plan of care. MCKENNA CASTRO MD, MIRTA L [facility] Oct 29, 2025 16:25
--- NOTE | 2025-10-29 16:32 | NUR ---
DISCHARGE PICC LINE TO UPPER RIGHT EXTREMITY REMOVED DISCHARGE EDUCATION AND INSTRUCTIONS PROVIDED TO PATIENT PATIENT AWARE TO FOLLOW UP WITH PCP PATIENT AWARE TO CONTINUE HOME MEDICATIONS DIRECTED BY MD ALL QUESTIONS ANSWERED
--- NOTE | 2025-10-29 19:08 | PN ---
Patient is a 55-year-old male with no significant past medical history admitted on 10/22 for progressive right inner thigh/hip pain and swelling over 2 weeks. Imaging showed an 8.5 x 7.2 x 7.3 cm fluid collection consistent with abscess. Patient underwent an I and D. postoperatively, patient has remained afebrile, hemodynamically stable, saturating well on room air. G stain positive for Gram- positive cocci. Patient on IV antibiotics. Platelets have trended down from 115K to 88K today. No bleeding, bruising, melena, hematochezia, epistaxis, or petechia. No history of thrombocytopenia. No known liver disease but admits to drinking a six pack of beer on weekends. No prior exposure to heparin before admission. We have been consulted for thrombocytopenia Patient seen and examined at bedside. JOSEFINA drain with minimal serosanguineous output. Patient is newly diagnosed DM type 2 being evaluated by endocrinology. 2D echo showed no valvular abnormalities. Patient scheduled for 3rd I&D with closure tomorrow AM. Remarkable labs: H&H stable. platelets up from 87K to 90K. Electrolytes WNL. PE GENERAL: No acute respiratory distress. VITAL SIGNS: Reviewed and stable. HEENT: The sclerae are clear. The pupils are equal and reactive to light. The oropharyngeal cavity is within normal limits. NECK: Supple without lymphadenopathy. CHEST: Lung is clear bilaterally there is no wheezing or crackles. HEART: Sounds are regular and rhythmic. ABDOMEN: No guarding or rigidity. Bowel sounds positive. EXTREMITIES: No pitting edema. No petechial lesions or bruises. SKIN: No bruises, rash, or petechial lesions. NEUROLOGICAL: The patient is alert and oriented. No focal deficits. Muscle strength is 5/5. LYMPH NODES: There is no lymphadenopathy could be felt in the neck, supraclavicular, or axillary. IMPRESSION Right inner thighs swelling concerning for possible abscess differential abscess -s/p I&D day 2 History of alcohol use Mild hyponatremia Acute kidney injury Mild thrombocytopenia Dehydration Elevated LFTs Severe hypoalbuminemia secondary to protein calorie malnutrition Hyperglycemia secondary to suspected uncontrolled diabetes mellitus type 2 History of marijuana use PLAN 1. Peripheral smear ordered: microcytosis present, platelets small to normal in number (100-120K) with rouleaux phenomena and vacuolization indicating infection. will order SPEP/UPEP and free light chain. 2. Plan for thrombocytopenia - trend CBC daily. Infection is likely primary lokie driver of thrombocytopenia 3. Hold Lovenox if [place] less [place] [id number] or if any signs of bleeding. No indication for platelet transfusion at this time 4. Continue antibiotics per Infectious Disease, but if platelets continue to fall, consider: recommend switching vancomycin if suspicion for VIT increases 5. Monitor for clinical bleeding: Petechia, hematuria, GI bleeding. Vitals/Labs Vital Signs Date Time Temp Pulse Resp B/P (MAP) Pulse Ox O2 Delivery O2 Flow Rate FiO2 10/29/25 12:01 97.9 88 18 123/67 96 Room Air 10/29/25 08:00 0 21 Laboratory Tests 10/29/25 05:27 Medications Current Medications Orphenadrine Citrate 60 mg ONCE ONCE IM Last administered on 10/22/25at 09:45; Start 10/22/25 at 09:30; Stop 10/22/25 at 09:35; Status DC Ketorolac Tromethamine 15 mg ONCE ONCE IM Last administered on 10/22/25at 09:45; Start 10/22/25 at 09:30; Stop 10/22/25 at 09:35; Status DC Ceftriaxone Sodium 1 gm ONCE ONCE IVPB Last administered on 10/22/25at 10:53; Start 10/22/25 at 10:30; Stop 10/22/25 at 10:36; Status DC Enoxaparin Sodium 40 mg DAILY SQ Last administered on 10/23/25at 09:53; Start 10/23/25 at 09:00; Stop 10/24/25 at 13:28; Status DC Famotidine 20 mg BID IV Last administered on 10/29/25at 09:20; Start 10/22/25 at 21:00; Stop 10/29/25 at 17:11; Status DC Sodium Chloride 1,000 ml @ 100 mls/hr Q10H IV Last administered on 10/24/25at 20:42; Start 10/22/25 at 11:00; Stop 10/25/25 at 11:28; Status DC Vancomycin HCl 1 each AD IV; Start 10/22/25 at 11:00; Stop 10/25/25 at 10:19; Status DC Hydromorphone HCl 0.25 mg Q6H PRN IVP Last administered on 10/22/25at 15:16; Start 10/22/25 at 11:00; Stop 10/27/25 at 10:59; Status DC Acetaminophen 500 mg Q6H PRN PO; Start 10/22/25 at 11:00; Stop 10/29/25 at 17:11; Status DC Insulin Human Regular INSULIN SLIDING SCAL... Q6H6 SQ Last administered on 10/24/25at 06:05; Start 10/22/25 at 12:00; Stop 10/25/25 at 20:04; Status DC Vancomycin HCl 500 ml @ 250 mls/hr ONCE ONCE IV Last administered on 10/22/25at 12:51; Start 10/22/25 at 12:00; Stop 10/22/25 at 13:59; Status DC Cefepime HCl 1 gm Q12H IVPB Last administered on 10/25/25at 03:33; Start 10/22/25 at 15:00; Stop 10/25/25 at 09:56; Status DC Vancomycin HCl 250 ml @ 125 mls/hr Q24H IV Last administered on 10/24/25at 12:34; Start 10/23/25 at 12:00; Stop 10/25/25 at 09:56; Status DC Metronidazole/ Sodium Chloride 100 ml @ 100 mls/hr Q8H IVPB Last administered on 10/23/25at 01:09; Start 10/22/25 at 12:00; Stop 10/23/25 at 04:20; Status DC Lidocaine HCl 100 mg STK-MED ONCE .ROUTE; Start 10/22/25 at 20:24; Stop 10/22/25 at 20:25; Status DC Ketamine HCl 50 mg STK-MED ONCE .ROUTE; Start 10/22/25 at 20:25; Stop 10/22/25 at 20:25; Status DC Succinylcholine Chloride 200 mg STK-MED ONCE .ROUTE; Start 10/22/25 at 20:26; Stop 10/22/25 at 20:26; Status DC Propofol 200 mg STK-MED ONCE IV; Start 10/22/25 at 20:26; Stop 10/22/25 at 20:27; Status DC Midazolam HCl 2 mg STK-MED ONCE .ROUTE; Start 10/22/25 at 20:27; Stop 10/22/25 at 20:27; Status DC Rocuronium [place] 50 mg STK-MED ONCE .ROUTE; Start 10/22/25 at 20:27; Stop 10/22/25 at 20:27; Status DC Fentanyl Citrate 100 mcg STK-MED ONCE .ROUTE; Start 10/22/25 at 20:27; Stop 10/22/25 at 20:27; Status DC Cefazolin Sodium 1 gm STK-MED ONCE .ROUTE; Start 10/22/25 at 20:40; Stop 10/22/25 at 20:40; Status DC Ondansetron HCl 4 mg STK-MED ONCE .ROUTE; Start 10/22/25 at 21:54; Stop 10/22/25 at 21:54; Status DC Glycopyrrolate 1 mg STK-MED ONCE .ROUTE; Start 10/22/25 at 21:54; Stop 10/22/25 at 21:54; Status DC Neostigmine Methylsulfate 10 mg STK-MED ONCE IV; Start 10/22/25 at 21:54; Stop 10/22/25 at 21:54; Status DC Acetaminophen 100 ml @ As Directed STK-MED ONCE .ROUTE Last administered on 10/22/25at 22:12; Start 10/22/25 at 22:08; Stop 10/22/25 at 22:08; Status DC Ondansetron HCl 4 mg STK-MED ONCE .ROUTE Last administered on 10/22/25at 22:19; Start 10/22/25 at 22:13; Stop 10/22/25 at 22:13; Status DC Fentanyl Citrate 100 mcg STK-MED ONCE .ROUTE Last administered on 10/22/25at 22:19; Start 10/22/25 at 22:15; Stop 10/22/25 at 22:15; Status DC Fentanyl Citrate 100 mcg STK-MED ONCE .ROUTE Last administered on 10/22/25at 22:23; Start 10/22/25 at 22:21; Stop 10/22/25 at 22:21; Status DC Sodium Chloride 1,000 ml @ 100 mls/hr Q10H IV Last administered on 10/23/25at 18:38; Start 10/22/25 at 22:30; Stop 10/23/25 at 22:29; Status DC Polyethylene Glycol 17 gm DAILY PO Last administered on 10/26/25at 08:49; Start 10/23/25 at 09:00; Stop 10/29/25 at 17:11; Status DC Psyllium Hydrophilic Mucilloid 1 tbs DAILYLUNCH PO; Start 10/23/25 at 12:00; Stop 10/25/25 at 11:28; Status DC Bisacodyl 10 mg DAILY PRN PO; Start 10/24/25 at 22:30; Stop 10/25/25 at 11:28; Status DC Bisacodyl 10 mg DAILY PRN RC; Start 10/25/25 at 22:30; Stop 10/25/25 at 11:28; Status DC Ferrous Fumarate 324 mg DAILY PRN PO; Start 10/22/25 at 22:30; Stop 10/25/25 at 11:28; Status DC Calcium Carbonate 500 mg Q12H PRN PO; Start 10/22/25 at 22:30; Stop 10/25/25 at 11:28; Status DC Diphenhydramine HCl 25 mg Q6H PRN PO; Start 10/22/25 at 22:30; Stop 10/22/25 at 22:52; Status DC Diphenhydramine HCl 25 mg Q6H PRN IVP; Start 10/22/25 at 22:30; Stop 10/25/25 at 11:28; Status DC Acetaminophen/ Hydrocodone Bitart Q4H PRN PO; Start 10/22/25 at 22:30; Stop 10/22/25 at 22:54; Status DC Hydromorphone HCl 2 mg Q2H PRN IVP Last administered on 10/27/25at 16:18; Start 10/22/25 at 22:30; Stop 10/27/25 at 22:29; Status DC Acetaminophen/ Hydrocodone Bitart 1 tab Q6H PRN PO Last administered on 10/27/25at 11:54; Start 10/22/25 at 23:00; Stop 10/27/25 at 22:59; Status DC Acetaminophen/ Hydrocodone Bitart 1 tab Q6H PRN PO Last administered on 10/25/25at 16:37; Start 10/22/25 at 23:00; Stop 10/28/25 at 01:59; Status DC Metronidazole/ Sodium Chloride 100 ml @ 100 mls/hr Q8H IVPB Last administered on 10/25/25at 01:43; Start 10/23/25 at 09:00; Stop 10/25/25 at 09:56; Status DC Insulin Glargine 10 units DAILY SQ Last administered on 10/23/25at 10:06; Start 10/23/25 at 09:30; Stop 10/24/25 at 06:54; Status DC Ondansetron HCl 4 mg Q6H PRN IVP Last administered on 10/24/25at 02:36; Start 10/24/25 at 01:30; Stop 10/29/25 at 17:11; Status DC Insulin Glargine 15 units DAILY SQ Last administered on 10/28/25at 08:46; Start 10/24/25 at 09:00; Stop 10/29/25 at 17:11; Status DC Insulin Human Regular 3 unit TIDAC SQ Last administered on 10/24/25at 12:40; Start 10/24/25 at 07:30; Stop 10/25/25 at 20:02; Status DC Potassium Chloride 100 ml @ 50 mls/hr ONCE ONCE IV Last administered on 10/24/25at 11:42; Start 10/24/25 at 10:00; Stop 10/24/25 at 11:59; Status DC Magnesium Sulfate 50 ml @ 0 mls/hr PROTOCOL IV; Start 10/24/25 at 10:00; Stop 10/25/25 at 07:24; Status DC Potassium Chloride 40 meq ONCE ONCE PO; Start 10/25/25 at 07:30; Stop 10/25/25 at 07:31; Status DC Magnesium Sulfate 50 ml @ 0 mls/hr PROTOCOL IV; Start 10/25/25 at 07:30; Stop 10/29/25 at 17:11; Status DC Lidocaine HCl 100 mg STK-MED ONCE .ROUTE; Start 10/25/25 at 09:50; Stop 10/25/25 at 09:50; Status DC Ketamine HCl 50 mg STK-MED ONCE .ROUTE; Start 10/25/25 at 09:50; Stop 10/25/25 at 09:51; Status DC Propofol 200 mg STK-MED ONCE IV; Start 10/25/25 at 09:51; Stop 10/25/25 at 09:51; Status DC Midazolam HCl 2 mg STK-MED ONCE .ROUTE; Start 10/25/25 at 09:51; Stop 10/25/25 at 09:51; Status DC Rocuronium [place] 50 mg STK-MED ONCE .ROUTE; Start 10/25/25 at 09:51; Stop 10/25/25 at 09:51; Status DC Fentanyl Citrate 100 mcg STK-MED ONCE .ROUTE; Start 10/25/25 at 09:51; Stop 10/25/25 at 09:52; Status DC Succinylcholine Chloride 200 mg STK-MED ONCE .ROUTE; Start 10/25/25 at 09:54; Stop 10/25/25 at 09:54; Status DC Cefazolin Sodium 2 gm Q8H IVPB Last administered on 10/29/25at 09:20; Start 10/25/25 at 10:00; Stop 10/29/25 at 17:11; Status DC Ondansetron HCl 4 mg STK-MED ONCE .ROUTE; Start 10/25/25 at 10:04; Stop 10/25/25 at 10:04; Status DC Dexamethasone Sodium Phosphate 10 mg STK-MED ONCE .ROUTE; Start 10/25/25 at 10:04; Stop 10/25/25 at 10:04; Status DC Cefazolin Sodium 1 gm STK-MED ONCE .ROUTE; Start 10/25/25 at 10:11; Stop 10/25/25 at 10:11; Status DC Dexamethasone Sodium Phosphate 4 mg STK-MED ONCE .ROUTE; Start 10/25/25 at 10:13; Stop 10/25/25 at 10:13; Status DC Ondansetron HCl 4 mg STK-MED ONCE .ROUTE; Start 10/25/25 at 10:13; Stop 10/25/25 at 10:13; Status DC Rocuronium [place] 50 mg STK-MED ONCE .ROUTE; Start 10/25/25 at 10:29; Stop 10/25/25 at 10:29; Status DC Cefazolin Sodium 1 gm STK-MED ONCE .ROUTE; Start 10/25/25 at 10:43; Stop 10/25/25 at 10:43; Status DC Glycopyrrolate 1 mg STK-MED ONCE .ROUTE; Start 10/25/25 at 11:11; Stop 10/25/25 at 11:11; Status DC Neostigmine Methylsulfate 10 mg STK-MED ONCE IV; Start 10/25/25 at 11:11; Stop 10/25/25 at 11:11; Status DC Sodium Chloride 1,000 ml @ 100 mls/hr Q10H IV; Start 10/25/25 at 11:30; Stop 10/26/25 at 11:29; Status DC Enoxaparin Sodium 40 mg DAILY SQ; Start 10/26/25 at 09:00; Stop 10/25/25 at 12:40; Status DC Polyethylene Glycol 17 gm DAILY PO Last administered on 10/26/25at 09:03; Start 10/26/25 at 09:00; Stop 10/28/25 at 14:47; Status DC Psyllium Hydrophilic Mucilloid 1 tbs DAILYLUNCH PO; Start 10/25/25 at 12:00; Stop 10/29/25 at 17:11; Status DC Bisacodyl 10 mg DAILY PRN PO; Start 10/27/25 at 11:30; Stop 10/29/25 at 17:11; Status DC Bisacodyl 10 mg DAILY PRN RC; Start 10/28/25 at 11:30; Stop 10/29/25 at 17:11; Status DC Ketorolac Tromethamine 15 mg Q6H PRN IV Last administered on 10/29/25at 09:19; Start 10/25/25 at 11:30; Stop 10/29/25 at 17:11; Status DC Ferrous Fumarate 324 mg DAILY PRN PO; Start 10/25/25 at 11:30; Stop 10/29/25 at 17:11; Status DC Temazepam 15 mg HS PRN PO; Start 10/25/25 at 11:30; Stop 10/29/25 at 17:11; Status DC Promethazine HCl 25 mg Q4H PRN IM; Start 10/25/25 at 11:30; Stop 10/29/25 at 17:11; Status DC Calcium Carbonate 500 mg Q12H PRN PO; Start 10/25/25 at 11:30; Stop 10/29/25 at 17:11; Status DC Diphenhydramine HCl 25 mg Q6H PRN PO; Start 10/25/25 at 11:30; Stop 10/29/25 at 17:11; Status DC Diphenhydramine HCl 25 mg Q6H PRN IVP; Start 10/25/25 at 11:30; Stop 10/29/25 at 17:11; Status DC Ondansetron HCl 4 mg AD PRN IVP; Start 10/25/25 at 11:30; Stop 10/25/25 at 12:33; Status DC Metoclopramide HCl 10 mg AD PRN IVP; Start 10/25/25 at 11:30; Stop 10/25/25 at 12:33; Status DC Promethazine HCl 25 mg AD PRN IM; Start 10/25/25 at 11:30; Stop 10/25/25 at 12:33; Status DC Ketorolac Tromethamine 30 mg AD PRN IV; Start 10/25/25 at 11:30; Stop 10/25/25 at 12:33; Status DC Morphine Sulfate 2 mg AD PRN IVP; Start 10/25/25 at 11:30; Stop 10/25/25 at 12:33; Status DC Fentanyl Citrate 25 mcg Q5MIN PRN IVP Last administered on 10/25/25at 11:47; Start 10/25/25 at 11:30; Stop 10/25/25 at 12:33; Status DC Naloxone HCl 0.1 mg AD PRN IVP; Start 10/25/25 at 11:30; Stop 10/25/25 at 12:33; Status DC Fentanyl Citrate 100 mcg STK-MED ONCE .ROUTE; Start 10/25/25 at 11:43; Stop 10/25/25 at 11:43; Status DC Insulin Human Regular 5 unit TIDAC SQ Last administered on 10/28/25at 16:54; Start 10/26/25 at 07:30; Stop 10/29/25 at 17:11; Status DC Insulin Human Regular INSULIN SLIDING SCAL... ACHS SQ Last administered on 10/28/25at 12:23; Start 10/26/25 at 07:30; Stop 10/29/25 at 17:11; Status DC Magnesium Sulfate 50 ml @ 0 mls/hr PROTOCOL IV; Start 10/26/25 at 08:30; Stop 10/26/25 at 08:12; Status DC Cefazolin Sodium 2 gm STK-MED ONCE .ROUTE; Start 10/27/25 at 08:17; Stop 10/27/25 at 08:17; Status DC Lidocaine HCl 100 mg STK-MED ONCE .ROUTE; Start 10/27/25 at 08:46; Stop 10/27/25 at 08:46; Status DC Ketamine HCl 50 mg STK-MED ONCE .ROUTE; Start 10/27/25 at 08:46; Stop 10/27/25 at 08:46; Status DC Succinylcholine Chloride 200 mg STK-MED ONCE .ROUTE; Start 10/27/25 at 08:46; Stop 10/27/25 at 08:46; Status DC Propofol 200 mg STK-MED ONCE IV; Start 10/27/25 at 08:46; Stop 10/27/25 at 08:47; Status DC Midazolam HCl 2 mg STK-MED ONCE .ROUTE; Start 10/27/25 at 08:46; Stop 10/27/25 at 08:47; Status DC Rocuronium [place] 50 mg STK-MED ONCE .ROUTE; Start 10/27/25 at 08:46; Stop 10/27/25 at 08:47; Status DC Fentanyl Citrate 100 mcg STK-MED ONCE .ROUTE; Start 10/27/25 at 08:47; Stop 10/27/25 at 08:47; Status DC Potassium Chloride 40 meq ONCE ONCE PO Last administered on 10/27/25at 11:57; Start 10/27/25 at 09:00; Stop 10/27/25 at 09:01; Status DC Magnesium Sulfate 50 ml @ 0 mls/hr PROTOCOL IV; Start 10/27/25 at 09:00; Stop 10/27/25 at 09:00; Status DC Dexamethasone Sodium Phosphate 10 mg STK-MED ONCE .ROUTE; Start 10/27/25 at 09:03; Stop 10/27/25 at 09:03; Status DC Ondansetron HCl 4 mg STK-MED ONCE .ROUTE; Start 10/27/25 at 09:49; Stop 10/27/25 at 09:50; Status DC Ondansetron HCl 4 mg AD PRN IVP; Start 10/27/25 at 10:30; Stop 10/27/25 at 11:12; Status DC Metoclopramide HCl 10 mg AD PRN IVP; Start 10/27/25 at 10:30; Stop 10/27/25 at 11:12; Status DC Promethazine HCl 25 mg AD PRN IM; Start 10/27/25 at 10:30; Stop 10/27/25 at 11:12; Status DC Ketorolac Tromethamine 30 mg AD PRN IV; Start 10/27/25 at 10:30; Stop 10/27/25 at 11:12; Status DC Morphine Sulfate 2 mg AD PRN IVP; Start 10/27/25 at 10:30; Stop 10/27/25 at 11:12; Status DC Fentanyl Citrate 25 mcg Q5MIN PRN IVP Last administered on 10/27/25at 10:26; Start 10/27/25 at 10:30; Stop 10/27/25 at 11:12; Status DC Naloxone HCl 0.1 mg AD PRN IVP; Start 10/27/25 at 10:30; Stop 10/27/25 at 11:12; Status DC Fentanyl Citrate 100 mcg STK-MED ONCE .ROUTE; Start 10/27/25 at 10:20; Stop 10/27/25 at 10:20; Status DC Hydromorphone HCl 0.5 mg AD PRN IVP Last administered on 10/27/25at 10:34; Start 10/27/25 at 10:30; Stop 10/27/25 at 11:27; Status DC Hydromorphone HCl 1 mg STK-MED ONCE .ROUTE; Start 10/27/25 at 10:30; Stop 10/27/25 at 10:30; Status DC Magnesium Sulfate 50 ml @ 0 mls/hr PROTOCOL IV; Start 10/28/25 at 09:30; Stop 10/28/25 at 09:14; Status DC Aspirin 81 mg BID PO Last administered on 10/29/25at 09:20; Start 10/28/25 at 21:00; Stop 10/29/25 at 17:11; Status DC Cefazolin Sodium 3 gm STK-MED ONCE IVPB Last administered on 10/27/20at 09:21; Start 10/27/20 at 09:21; Stop 10/28/25 at 14:58; Status DC Potassium Chloride 20 meq AD PRN PO Last administered on 10/29/25at 09:20; Start 10/29/25 at 09:30; Stop 10/29/25 at 17:11; Status DC Potassium Chloride 40 meq ONCE ONCE PO; Start 10/29/25 at 10:00; Stop 10/29/25 at 10:01; Status DC Magnesium Sulfate 50 ml @ 0 mls/hr PROTOCOL IV; Start 10/29/25 at 10:00; Stop 10/29/25 at 09:47; Status DC MAU ANDERSEN MD Oct 29, 2025 19:08
--- NOTE | 2025-10-29 20:26 | PN ---
Endocrinology progress note DOS:10/29/25 subjective: glucose are stable now. Labs were notable for white count of 9.9, hemoglobin was 12.2, MCV was 100.9, platelet count was 115 K, sodium was 129, potassium was 3.8, chloride was 95, bicarb was , creatinine was 1.5, blood glucose was 275, calcium was 8.0 Patient underwent a ultrasound of the right inner thigh which showed fluid collection measuring 8.5 x 7.2 x 7.3 cm in the right lateral hip region. Home diabetic regimen: no diabetic meds Hba1c 7.9% new diagnosed dm-2 right hip abscess s/p I&D REVIEW OF SYSTEMS CONSTITUTIONAL: Denies fevers, chills, or night sweats. No unintentional weight loss reported. NEUROLOGICAL: Denies headache, amaurosis fugax, motor weakness, sensory deficit, vertigo/spinning sensation, gait abnormalities, or tremors. ENT: No hearing loss, otalgia, otorrhea, rhinitis, rhinorrhea, hoarseness, or sore throat. CARDIOVASCULAR: Denies any exertional angina, dyspnea on exertion, orthopnea, paroxysmal nocturnal dyspnea, palpitations, life-threatening arrhythmias, claudication. PULMONARY: Denies any shortness of breath, cough, phlegm/sputum, hemoptysis, pleuritic chest pain. SLEEP: Denies morning headaches, daytime somnolence or napping. Denies difficulty falling asleep, staying asleep, waking from sleep. Denies knowledge of snoring. GASTROINTESTINAL: Denies any type of dysphagia to either liquids or solids. Denies nausea, vomiting, pyrosis, early satiety, abdominal pain, diarrhea, constipation, or changes in stool consistency or caliber. Denies coffee-ground emesis, hematemesis, hematochezia, or melanotic stools. GENITOURINARY: Denies frequency, urgency, nocturia, hematuria or incontinence (Storage/Irritative symptoms.) Low urinary stream, straining to void, urinary intermittency or hesitancy, splitting of the voiding stream, terminal dribbling. ENDOCRINOLOGIC: Denies polyuria, polydipsia, polyphagia or heat/cold intolerances. HEMATOLOGIC: Denies thrombophilia/previous clots, or coagulopathy/bleeding disorders. ONCOLOGIC: Denies personal history of malignancy. DERMATOLOGIC: POSITIVE FOR REDNESS AND SWELLING IN THE RIGHT INNER THIGH PSYCHIATRIC: Denies any suicidal or homicidal ideation. Denies hallucinations. Musculoskeletal: Positive for pain in the right inner thigh PAST MEDICAL HISTORY: No Significant past medical history PAST SURGICAL HISTORY: Denied any previous surgical history PAST SOCIAL HISTORY: He smokes marijuana occasionally. Also drinks six pack every weekend for at least five years. Denied any tobacco use, IV drug use FAMILY HISTORY: Denied any pertinent family history Coded Allergies: No Known Allergies (Verified Allergy, 11/13/13) ASSESSMENT: newly diagnosed uncontrolled dm-2 Home diabetic regimen: no diabetic meds Hba1c 7.9% new diagnosed dm-2 and glucose runs less than 200 mg/dl Right hip abscess s/p I&D History of alcohol use Mild hyponatremia Acute kidney injury Mild thrombocytopenia Dehydration Elevated LFTs Severe hypoalbuminemia secondary to protein calorie malnutrition History of marijuana use PLAN: continue Lantus 15 units daily and adjust for fasting glucose. continue Regular insulin 5 units three times before meals and adjust for post- prandial glucose. Continue medium dose sliding scale insulin. Monitor glucose q x 6 hourly. Continue carb consistent diet. Keep glucose less than 180 mg/dl. Patient will need metformin 500 mg bid and Lantus 15 units daily. Vitals/Labs Vital Signs Date Time Temp Pulse Resp B/P (MAP) Pulse Ox O2 Delivery O2 Flow Rate FiO2 10/29/25 12:01 97.9 88 18 123/67 96 Room Air 10/29/25 08:00 0 21 Laboratory Tests 10/29/25 05:27 Medications Current Medications Orphenadrine Citrate 60 mg ONCE ONCE IM Last administered on 10/22/25at 09:45; Start 10/22/25 at 09:30; Stop 10/22/25 at 09:35; Status DC Ketorolac Tromethamine 15 mg ONCE ONCE IM Last administered on 10/22/25at 09:45; Start 10/22/25 at 09:30; Stop 10/22/25 at 09:35; Status DC Ceftriaxone Sodium 1 gm ONCE ONCE IVPB Last administered on 10/22/25at 10:53; Start 10/22/25 at 10:30; Stop 10/22/25 at 10:36; Status DC Enoxaparin Sodium 40 mg DAILY SQ Last administered on 10/23/25at 09:53; Start 10/23/25 at 09:00; Stop 10/24/25 at 13:28; Status DC Famotidine 20 mg BID IV Last administered on 10/29/25at 09:20; Start 10/22/25 at 21:00; Stop 10/29/25 at 17:11; Status DC Sodium Chloride 1,000 ml @ 100 mls/hr Q10H IV Last administered on 10/24/25at 20:42; Start 10/22/25 at 11:00; Stop 10/25/25 at 11:28; Status DC Vancomycin HCl 1 each AD IV; Start 10/22/25 at 11:00; Stop 10/25/25 at 10:19; Status DC Hydromorphone HCl 0.25 mg Q6H PRN IVP Last administered on 10/22/25at 15:16; Start 10/22/25 at 11:00; Stop 10/27/25 at 10:59; Status DC Acetaminophen 500 mg Q6H PRN PO; Start 10/22/25 at 11:00; Stop 10/29/25 at 17:11; Status DC Insulin Human Regular INSULIN SLIDING SCAL... Q6H6 SQ Last administered on 10/24/25at 06:05; Start 10/22/25 at 12:00; Stop 10/25/25 at 20:04; Status DC Vancomycin HCl 500 ml @ 250 mls/hr ONCE ONCE IV Last administered on 10/22/25at 12:51; Start 10/22/25 at 12:00; Stop 10/22/25 at 13:59; Status DC Cefepime HCl 1 gm Q12H IVPB Last administered on 10/25/25at 03:33; Start 10/22/25 at 15:00; Stop 10/25/25 at 09:56; Status DC Vancomycin HCl 250 ml @ 125 mls/hr Q24H IV Last administered on 10/24/25at 12:34; Start 10/23/25 at 12:00; Stop 10/25/25 at 09:56; Status DC Metronidazole/ Sodium Chloride 100 ml @ 100 mls/hr Q8H IVPB Last administered on 10/23/25at 01:09; Start 10/22/25 at 12:00; Stop 10/23/25 at 04:20; Status DC Lidocaine HCl 100 mg STK-MED ONCE .ROUTE; Start 10/22/25 at 20:24; Stop 10/22/25 at 20:25; Status DC Ketamine HCl 50 mg STK-MED ONCE .ROUTE; Start 10/22/25 at 20:25; Stop 10/22/25 at 20:25; Status DC Succinylcholine Chloride 200 mg STK-MED ONCE .ROUTE; Start 10/22/25 at 20:26; Stop 10/22/25 at 20:26; Status DC Propofol 200 mg STK-MED ONCE IV; Start 10/22/25 at 20:26; Stop 10/22/25 at 20:27; Status DC Midazolam HCl 2 mg STK-MED ONCE .ROUTE; Start 10/22/25 at 20:27; Stop 10/22/25 at 20:27; Status DC Rocuronium [place] 50 mg STK-MED ONCE .ROUTE; Start 10/22/25 at 20:27; Stop 10/22/25 at 20:27; Status DC Fentanyl Citrate 100 mcg STK-MED ONCE .ROUTE; Start 10/22/25 at 20:27; Stop 10/22/25 at 20:27; Status DC Cefazolin Sodium 1 gm STK-MED ONCE .ROUTE; Start 10/22/25 at 20:40; Stop 10/22/25 at 20:40; Status DC Ondansetron HCl 4 mg STK-MED ONCE .ROUTE; Start 10/22/25 at 21:54; Stop 10/22/25 at 21:54; Status DC Glycopyrrolate 1 mg STK-MED ONCE .ROUTE; Start 10/22/25 at 21:54; Stop 10/22/25 at 21:54; Status DC Neostigmine Methylsulfate 10 mg STK-MED ONCE IV; Start 10/22/25 at 21:54; Stop 10/22/25 at 21:54; Status DC Acetaminophen 100 ml @ As Directed STK-MED ONCE .ROUTE Last administered on 10/22/25at 22:12; Start 10/22/25 at 22:08; Stop 10/22/25 at 22:08; Status DC Ondansetron HCl 4 mg STK-MED ONCE .ROUTE Last administered on 10/22/25at 22:19; Start 10/22/25 at 22:13; Stop 10/22/25 at 22:13; Status DC Fentanyl Citrate 100 mcg STK-MED ONCE .ROUTE Last administered on 10/22/25at 22:19; Start 10/22/25 at 22:15; Stop 10/22/25 at 22:15; Status DC Fentanyl Citrate 100 mcg STK-MED ONCE .ROUTE Last administered on 10/22/25at 22:23; Start 10/22/25 at 22:21; Stop 10/22/25 at 22:21; Status DC Sodium Chloride 1,000 ml @ 100 mls/hr Q10H IV Last administered on 10/23/25at 18:38; Start 10/22/25 at 22:30; Stop 10/23/25 at 22:29; Status DC Polyethylene Glycol 17 gm DAILY PO Last administered on 10/26/25at 08:49; Start 10/23/25 at 09:00; Stop 10/29/25 at 17:11; Status DC Psyllium Hydrophilic Mucilloid 1 tbs DAILYLUNCH PO; Start 10/23/25 at 12:00; Stop 10/25/25 at 11:28; Status DC Bisacodyl 10 mg DAILY PRN PO; Start 10/24/25 at 22:30; Stop 10/25/25 at 11:28; Status DC Bisacodyl 10 mg DAILY PRN RC; Start 10/25/25 at 22:30; Stop 10/25/25 at 11:28; Status DC Ferrous Fumarate 324 mg DAILY PRN PO; Start 10/22/25 at 22:30; Stop 10/25/25 at 11:28; Status DC Calcium Carbonate 500 mg Q12H PRN PO; Start 10/22/25 at 22:30; Stop 10/25/25 at 11:28; Status DC Diphenhydramine HCl 25 mg Q6H PRN PO; Start 10/22/25 at 22:30; Stop 10/22/25 at 22:52; Status DC Diphenhydramine HCl 25 mg Q6H PRN IVP; Start 10/22/25 at 22:30; Stop 10/25/25 at 11:28; Status DC Acetaminophen/ Hydrocodone Bitart Q4H PRN PO; Start 10/22/25 at 22:30; Stop 10/22/25 at 22:54; Status DC Hydromorphone HCl 2 mg Q2H PRN IVP Last administered on 10/27/25at 16:18; Start 10/22/25 at 22:30; Stop 10/27/25 at 22:29; Status DC Acetaminophen/ Hydrocodone Bitart 1 tab Q6H PRN PO Last administered on 10/27/25at 11:54; Start 10/22/25 at 23:00; Stop 10/27/25 at 22:59; Status DC Acetaminophen/ Hydrocodone Bitart 1 tab Q6H PRN PO Last administered on 10/25/25at 16:37; Start 10/22/25 at 23:00; Stop 10/28/25 at 01:59; Status DC Metronidazole/ Sodium Chloride 100 ml @ 100 mls/hr Q8H IVPB Last administered on 10/25/25at 01:43; Start 10/23/25 at 09:00; Stop 10/25/25 at 09:56; Status DC Insulin Glargine 10 units DAILY SQ Last administered on 10/23/25at 10:06; Start 10/23/25 at 09:30; Stop 10/24/25 at 06:54; Status DC Ondansetron HCl 4 mg Q6H PRN IVP Last administered on 10/24/25at 02:36; Start 10/24/25 at 01:30; Stop 10/29/25 at 17:11; Status DC Insulin Glargine 15 units DAILY SQ Last administered on 10/28/25at 08:46; Start 10/24/25 at 09:00; Stop 10/29/25 at 17:11; Status DC Insulin Human Regular 3 unit TIDAC SQ Last administered on 10/24/25at 12:40; Start 10/24/25 at 07:30; Stop 10/25/25 at 20:02; Status DC Potassium Chloride 100 ml @ 50 mls/hr ONCE ONCE IV Last administered on 10/24/25at 11:42; Start 10/24/25 at 10:00; Stop 10/24/25 at 11:59; Status DC Magnesium Sulfate 50 ml @ 0 mls/hr PROTOCOL IV; Start 10/24/25 at 10:00; Stop 10/25/25 at 07:24; Status DC Potassium Chloride 40 meq ONCE ONCE PO; Start 10/25/25 at 07:30; Stop 10/25/25 at 07:31; Status DC Magnesium Sulfate 50 ml @ 0 mls/hr PROTOCOL IV; Start 10/25/25 at 07:30; Stop 10/29/25 at 17:11; Status DC Lidocaine HCl 100 mg STK-MED ONCE .ROUTE; Start 10/25/25 at 09:50; Stop 10/25/25 at 09:50; Status DC Ketamine HCl 50 mg STK-MED ONCE .ROUTE; Start 10/25/25 at 09:50; Stop 10/25/25 at 09:51; Status DC Propofol 200 mg STK-MED ONCE IV; Start 10/25/25 at 09:51; Stop 10/25/25 at 09:51; Status DC Midazolam HCl 2 mg STK-MED ONCE .ROUTE; Start 10/25/25 at 09:51; Stop 10/25/25 at 09:51; Status DC Rocuronium [place] 50 mg STK-MED ONCE .ROUTE; Start 10/25/25 at 09:51; Stop 10/25/25 at 09:51; Status DC Fentanyl Citrate 100 mcg STK-MED ONCE .ROUTE; Start 10/25/25 at 09:51; Stop 10/25/25 at 09:52; Status DC Succinylcholine Chloride 200 mg STK-MED ONCE .ROUTE; Start 10/25/25 at 09:54; Stop 10/25/25 at 09:54; Status DC Cefazolin Sodium 2 gm Q8H IVPB Last administered on 10/29/25at 09:20; Start 10/25/25 at 10:00; Stop 10/29/25 at 17:11; Status DC Ondansetron HCl 4 mg STK-MED ONCE .ROUTE; Start 10/25/25 at 10:04; Stop 10/25/25 at 10:04; Status DC Dexamethasone Sodium Phosphate 10 mg STK-MED ONCE .ROUTE; Start 10/25/25 at 10:04; Stop 10/25/25 at 10:04; Status DC Cefazolin Sodium 1 gm STK-MED ONCE .ROUTE; Start 10/25/25 at 10:11; Stop 10/25/25 at 10:11; Status DC Dexamethasone Sodium Phosphate 4 mg STK-MED ONCE .ROUTE; Start 10/25/25 at 10:13; Stop 10/25/25 at 10:13; Status DC Ondansetron HCl 4 mg STK-MED ONCE .ROUTE; Start 10/25/25 at 10:13; Stop 10/25/25 at 10:13; Status DC Rocuronium [place] 50 mg STK-MED ONCE .ROUTE; Start 10/25/25 at 10:29; Stop 10/25/25 at 10:29; Status DC Cefazolin Sodium 1 gm STK-MED ONCE .ROUTE; Start 10/25/25 at 10:43; Stop 10/25/25 at 10:43; Status DC Glycopyrrolate 1 mg STK-MED ONCE .ROUTE; Start 10/25/25 at 11:11; Stop 10/25/25 at 11:11; Status DC Neostigmine Methylsulfate 10 mg STK-MED ONCE IV; Start 10/25/25 at 11:11; Stop 10/25/25 at 11:11; Status DC Sodium Chloride 1,000 ml @ 100 mls/hr Q10H IV; Start 10/25/25 at 11:30; Stop 10/26/25 at 11:29; Status DC Enoxaparin Sodium 40 mg DAILY SQ; Start 10/26/25 at 09:00; Stop 10/25/25 at 12:40; Status DC Polyethylene Glycol 17 gm DAILY PO Last administered on 10/26/25at 09:03; Start 10/26/25 at 09:00; Stop 10/28/25 at 14:47; Status DC Psyllium Hydrophilic Mucilloid 1 tbs DAILYLUNCH PO; Start 10/25/25 at 12:00; Stop 10/29/25 at 17:11; Status DC Bisacodyl 10 mg DAILY PRN PO; Start 10/27/25 at 11:30; Stop 10/29/25 at 17:11; Status DC Bisacodyl 10 mg DAILY PRN RC; Start 10/28/25 at 11:30; Stop 10/29/25 at 17:11; Status DC Ketorolac Tromethamine 15 mg Q6H PRN IV Last administered on 10/29/25at 09:19; Start 10/25/25 at 11:30; Stop 10/29/25 at 17:11; Status DC Ferrous Fumarate 324 mg DAILY PRN PO; Start 10/25/25 at 11:30; Stop 10/29/25 at 17:11; Status DC Temazepam 15 mg HS PRN PO; Start 10/25/25 at 11:30; Stop 10/29/25 at 17:11; Status DC Promethazine HCl 25 mg Q4H PRN IM; Start 10/25/25 at 11:30; Stop 10/29/25 at 17:11; Status DC Calcium Carbonate 500 mg Q12H PRN PO; Start 10/25/25 at 11:30; Stop 10/29/25 at 17:11; Status DC Diphenhydramine HCl 25 mg Q6H PRN PO; Start 10/25/25 at 11:30; Stop 10/29/25 at 17:11; Status DC Diphenhydramine HCl 25 mg Q6H PRN IVP; Start 10/25/25 at 11:30; Stop 10/29/25 at 17:11; Status DC Ondansetron HCl 4 mg AD PRN IVP; Start 10/25/25 at 11:30; Stop 10/25/25 at 12:33; Status DC Metoclopramide HCl 10 mg AD PRN IVP; Start 10/25/25 at 11:30; Stop 10/25/25 at 12:33; Status DC Promethazine HCl 25 mg AD PRN IM; Start 10/25/25 at 11:30; Stop 10/25/25 at 12:33; Status DC Ketorolac Tromethamine 30 mg AD PRN IV; Start 10/25/25 at 11:30; Stop 10/25/25 at 12:33; Status DC Morphine Sulfate 2 mg AD PRN IVP; Start 10/25/25 at 11:30; Stop 10/25/25 at 12:33; Status DC Fentanyl Citrate 25 mcg Q5MIN PRN IVP Last administered on 10/25/25at 11:47; Start 10/25/25 at 11:30; Stop 10/25/25 at 12:33; Status DC Naloxone HCl 0.1 mg AD PRN IVP; Start 10/25/25 at 11:30; Stop 10/25/25 at 12:33; Status DC Fentanyl Citrate 100 mcg STK-MED ONCE .ROUTE; Start 10/25/25 at 11:43; Stop 10/25/25 at 11:43; Status DC Insulin Human Regular 5 unit TIDAC SQ Last administered on 10/28/25at 16:54; Start 10/26/25 at 07:30; Stop 10/29/25 at 17:11; Status DC Insulin Human Regular INSULIN SLIDING SCAL... ACHS SQ Last administered on 10/28/25at 12:23; Start 10/26/25 at 07:30; Stop 10/29/25 at 17:11; Status DC Magnesium Sulfate 50 ml @ 0 mls/hr PROTOCOL IV; Start 10/26/25 at 08:30; Stop 10/26/25 at 08:12; Status DC Cefazolin Sodium 2 gm STK-MED ONCE .ROUTE; Start 10/27/25 at 08:17; Stop 10/27/25 at 08:17; Status DC Lidocaine HCl 100 mg STK-MED ONCE .ROUTE; Start 10/27/25 at 08:46; Stop 10/27/25 at 08:46; Status DC Ketamine HCl 50 mg STK-MED ONCE .ROUTE; Start 10/27/25 at 08:46; Stop 10/27/25 at 08:46; Status DC Succinylcholine Chloride 200 mg STK-MED ONCE .ROUTE; Start 10/27/25 at 08:46; Stop 10/27/25 at 08:46; Status DC Propofol 200 mg STK-MED ONCE IV; Start 10/27/25 at 08:46; Stop 10/27/25 at 08:47; Status DC Midazolam HCl 2 mg STK-MED ONCE .ROUTE; Start 10/27/25 at 08:46; Stop 10/27/25 at 08:47; Status DC Rocuronium [place] 50 mg STK-MED ONCE .ROUTE; Start 10/27/25 at 08:46; Stop 10/27/25 at 08:47; Status DC Fentanyl Citrate 100 mcg STK-MED ONCE .ROUTE; Start 10/27/25 at 08:47; Stop 10/27/25 at 08:47; Status DC Potassium Chloride 40 meq ONCE ONCE PO Last administered on 10/27/25at 11:57; Start 10/27/25 at 09:00; Stop 10/27/25 at 09:01; Status DC Magnesium Sulfate 50 ml @ 0 mls/hr PROTOCOL IV; Start 10/27/25 at 09:00; Stop 10/27/25 at 09:00; Status DC Dexamethasone Sodium Phosphate 10 mg STK-MED ONCE .ROUTE; Start 10/27/25 at 09:03; Stop 10/27/25 at 09:03; Status DC Ondansetron HCl 4 mg STK-MED ONCE .ROUTE; Start 10/27/25 at 09:49; Stop 10/27/25 at 09:50; Status DC Ondansetron HCl 4 mg AD PRN IVP; Start 10/27/25 at 10:30; Stop 10/27/25 at 11:12; Status DC Metoclopramide HCl 10 mg AD PRN IVP; Start 10/27/25 at 10:30; Stop 10/27/25 at 11:12; Status DC Promethazine HCl 25 mg AD PRN IM; Start 10/27/25 at 10:30; Stop 10/27/25 at 11:12; Status DC Ketorolac Tromethamine 30 mg AD PRN IV; Start 10/27/25 at 10:30; Stop 10/27/25 at 11:12; Status DC Morphine Sulfate 2 mg AD PRN IVP; Start 10/27/25 at 10:30; Stop 10/27/25 at 11:12; Status DC Fentanyl Citrate 25 mcg Q5MIN PRN IVP Last administered on 10/27/25at 10:26; Start 10/27/25 at 10:30; Stop 10/27/25 at 11:12; Status DC Naloxone HCl 0.1 mg AD PRN IVP; Start 10/27/25 at 10:30; Stop 10/27/25 at 11:12; Status DC Fentanyl Citrate 100 mcg STK-MED ONCE .ROUTE; Start 10/27/25 at 10:20; Stop 10/27/25 at 10:20; Status DC Hydromorphone HCl 0.5 mg AD PRN IVP Last administered on 10/27/25at 10:34; Start 10/27/25 at 10:30; Stop 10/27/25 at 11:27; Status DC Hydromorphone HCl 1 mg STK-MED ONCE .ROUTE; Start 10/27/25 at 10:30; Stop 10/27/25 at 10:30; Status DC Magnesium Sulfate 50 ml @ 0 mls/hr PROTOCOL IV; Start 10/28/25 at 09:30; Stop 10/28/25 at 09:14; Status DC Aspirin 81 mg BID PO Last administered on 10/29/25at 09:20; Start 10/28/25 at 21:00; Stop 10/29/25 at 17:11; Status DC Cefazolin Sodium 3 gm STK-MED ONCE IVPB Last administered on 10/27/20at 09:21; Start 10/27/20 at 09:21; Stop 10/28/25 at 14:58; Status DC Potassium Chloride 20 meq AD PRN PO Last administered on 10/29/25at 09:20; Start 10/29/25 at 09:30; Stop 10/29/25 at 17:11; Status DC Potassium Chloride 40 meq ONCE ONCE PO; Start 10/29/25 at 10:00; Stop 10/29/25 at 10:01; Status DC Magnesium Sulfate 50 ml @ 0 mls/hr PROTOCOL IV; Start 10/29/25 at 10:00; Stop 10/29/25 at 09:47; Status DC JUSTIN IBARRA MD Oct 29, 2025 20:26
--- NOTE | 2025-10-30 08:54 | DS ---
Discharge Summary Hospital Course Summary: Date of service 10/29/2025 The patient initially admitted to hospital 10/22/2025 with the following history of the present illness: This is a 55-year-old male with no significant past medical history who presented to the hospital secondary to right hip pain. States his symptoms have been ongoing for the past two weeks. He noted some swelling in the right inner thigh on the anterior thigh. The small nodule started getting bigger and he was having pain with ambulation. He has been using crutches at home to walk. 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 Denied any cuts or scrapes to the inner thigh. Denied any fever, chills, chest pain, shortness of breath, abdominal pain, nausea, vomiting. Denied any changes to his bowel movement. He has been taking Advil at home. He did not take any antibiotics at home. Denied any history of diabetes. Labs were notable for white count of 9.9, hemoglobin was 12.2, MCV was 100.9, platelet count was 115 K, sodium was 129, potassium was 3.8, chloride was 95, bicarb was , creatinine was 1.5, blood glucose was 275, calcium was 8.0 Patient underwent a ultrasound of the right inner thigh which showed fluid collection measuring 8.5 x 7.2 x 7.3 cm in the right lateral hip region. This was concerning For abscess General surgery was consulted by ER provider. HOSPITAL COURSE 10/23 patient remains admitted to the medical floor, comfortably in bed, the t tianna of my visit alert oriented x3, getting IV fluids, IV antibiotics. Patient admitted secondary to right hip intramuscular abscess involving the tensor fascia bruce with the extension to the posterior deep high space, status post incision and drainage 10/22/2025. POD #1. Patient tolerated the procedure well. Currently hemodynamically stable, afebrile, saturating normal on room air. WBC of 11.2, hemoglobin 9.6, hematocrit 37.7, platelet count of 100. BUN of 24, creatinine 1.5. Continue the patient on broad-spectrum IV antibiotics, continue supportive care with IV fluids, continue to follow orthopedic input recommendation, follow results of cultures, adjust antibiotics accordingly. Infectious Disease consultation requested, we will follow input and pritesh mmendation. 10/24 patient remains admitted to medical floor, comfortably in bed, no acute events overnight, during my visit he is alert oriented x3, getting good pain control with current medical management, getting IV fluids, IV antibiotics. Remains hemodynamically stable, afebrile, saturating normal on room air. Hemoglobin 8.7, hematocrit 5.4, platelet count of 88. Results of urine culture positive for Staphylococcus aureus, aerobic and anaerobic culture positive for Gram-positive cocci in pairs. Patient will remain on broad-spectrum IV antibiotics. Continue to follow ID input recommendation. Follow orthopedic input recommendation. Lovenox on hold, SCDs in place, monitor platelet count in a.m., if continue to get worse we will request Hematology consultation. 10/25 patient remains admitted to medical floor, comfortable, no acute events overnight, he is currently NPO, scheduled to be taken to the operating room today for revision and I and D of right hip peritrochanteric subcutaneous abscess by orthopedic physician. Blood pressure 123/67, afebrile, saturating normal on room air. Tissue culture positive for Staphylococcus aureus. Urine culture positive for Staphylococcus aureus. Continue the patient on broad- spectrum IV antibiotics, continue to follow ID input and recommendation. Follow a.m. labs. 10/26 patient remains admitted to medical floor, comfortable, no acute events overnight, he is currently NPO, scheduled to be taken to the operating room today for revision and I and D of right hip peritrochanteric subcutaneous abscess by orthopedic physician. Stable, saturating normal on room air. Tissue culture positive for Staphylococcus aureus. Urine culture positive for Staphylococcus aureus. Continue the patient on broad-spectrum IV antibiotics, continue to follow ID input and recommendation. Follow a.m. labs. 10/27 patient remains admitted to the medical floor, comfortable, no acute events overnight, discussed with the RN, NPO, scheduled for revision and closure by orthopedic physician. Continue broad-spectrum antibiotics, pain medication, follow orthopedic and ID input recommendation. Follow a.m. labs. 10/28 patient remains admitted to medical floor, patient is status post 3rd look incision and excisional debridement/irrigation right thigh 10/27/2025, tolerated well. Patient to continue with current pain medication with the adjustment as needed, continue on broad-spectrum IV antibiotics. Continue to follow orthopedic and ID input recommendation. Follow a.m. labs. Discussed with the patient, all questions answered. 10/29 patient remains admitted to medical floor, patient is status post 3rd look incision and excisional debridement/irrigation right thigh 10/27/2025, tolerated well. Patient to continue with current pain medication with the adjustment as needed, continue on broad-spectrum IV antibiotics. Possible discharge home today pending further recommendation from Orthopedic and ID recommendations. Discussed with the patient. Flow Trader(s): INFECTIOUS DISEASE, ORTHOPEDIC SERVICES, ENDOCRINOLOGY SERVICES, HEMATOLOGY SERVICES. Procedure(s): patient is status post incision and excisional debridement/irrigation right thigh X 3 BY ORTHOPEDIC SERVICES. Assessment/Plan: FINAL DIAGNOSIS Right hip/thigh soft tissue abscess, status post I&D x3 History of alcohol use Mild hyponatremia Acute kidney injury Mild thrombocytopenia Dehydration Elevated LFTs Severe hypoalbuminemia secondary to protein calorie malnutrition Hyperglycemia secondary to suspected uncontrolled diabetes mellitus type 2 History of marijuana use Discharge Instructions: PATIENT TO BE DISCHARGED HOME, TO FOLLOW UP AT [facility]OUND [facility] AND ORTHOPEDIC PHYSICIAN AN OUTPATIENT. RETURN TO THE HOSPITAL IF CONDITION CHANGES. PATIENT AGREED WITH THE PLAN AND UNDERSTOOD THE INFORMATION PROVIDED. Home Medications: Active Scripts Docusate Sodium (Colace) 100 Mg Capsule, 1 CAP PO BID for 5 Days, #10 CAP 0 Refills Prov:RODRIGO BROCK MD 10/29/25 Hydrocodone/Acetaminophen (Hydrocodon-Acetaminophen 5-325) 5 Mg-325 Mg Tablet, 1-2 TAB PO Q4HPRN PRN for pain for 3 Days, #20 TAB 0 Refills Prov:RODRIGO BROCK MD 10/29/25 Blood-Glucose Meter (Blood Glucose Meter) 1 Each Each, EACH MC, #1 1 Refill Prov:RODRIGO BROCK MD 10/29/25 Blood Sugar Diagnostic (Glucose Test Strip) 1 Each Strip, 1 STRIP [facility] [place] AD, #100 STRIP 1 Refill Prov:RODRIGO BROCK MD 10/29/25 Metformin HCl (Metformin HCl) 500 Mg Tablet, 1 TAB PO BID for 30 Days, #60 TAB 1 Refill Prov:RODRIGO BROCK MD 10/29/25 Time spent arranging discharge: 31-60 minutes RODRIGO BROCK MD Oct 30, 2025 08:54
== END 2025-10-29 16:50 | disposition home or self-care (01) | DRG 854 ==
LOC: EDH 09:12 → EDHIP 09:13 → 3CH 14:54
PROVIDERS: ADMIT Internal Medicine; ATTEND Internal Medicine
PROC: 0KBN0ZZ Excision of Right Hip Muscle, Open Approach (ICD-10-PCS; principal; 2025-10-22 20:32)
PROC: 02HV33Z Insertion of Infusion Device into Superior Vena Cava, Percutaneous Approach (ICD-10-PCS; 2025-10-23)
PROC: B548ZZA Ultrasonography of Superior Vena Cava, Guidance (ICD-10-PCS; 2025-10-23)
PROC: 0JBL0ZZ Excision of Right Upper Leg Subcutaneous Tissue and Fascia, Open Approach (ICD-10-PCS; 2025-10-25)
PROC: 0JBL0ZZ Excision of Right Upper Leg Subcutaneous Tissue and Fascia, Open Approach (ICD-10-PCS; 2025-10-27)
DX: A41.9 Sepsis, unspecified organism (principal); D62 Acute posthemorrhagic anemia; E46 Unspecified protein-calorie malnutrition; D69.6 Thrombocytopenia, unspecified; N17.9 Acute kidney failure, unspecified; E88.09 Other disorders of plasma-protein metabolism, not elsewhere classified; E86.0 Dehydration; M60.051 Infective myositis, right thigh; L02.415 Cutaneous abscess of right lower limb; N39.0 Urinary tract infection, site not specified; L03.317 Cellulitis of buttock; B95.61 Methicillin susceptible Staphylococcus aureus infection as the cause of diseases classified elsewhere; E66.9 Obesity, unspecified; K76.0 Fatty (change of) liver, not elsewhere classified; E11.65 Type 2 diabetes mellitus with hyperglycemia; E87.1 Hypo-osmolality and hyponatremia; K82.8 Other specified diseases of gallbladder; Z68.29 Body mass index [BMI] 29.0-29.9, adult
CPT/HCPCS: 36415; 36569; 71045; 72192; 73700; 76705; 76770; 76882; 80048; 80053; 80076; 80305; 81001; 82010; 82570; 82948; 83036; 83605; 83735; 84145; 84300; 84443; 85025; 85027; 85610; 85730; 86140; 86850; 86900; 86901; 87040; 87070; 87076; 87086; 87186; 87205; 93005; 93306; 93356; 99285; C1894; G0378; J0330; J0690; J0692; J0696; J1100; J1171; J1650; J1815; J1885; J2003; J2250; J2405; J2704; J2710; J3010; J3475; J3480; J3490; J7030; A4216; A4222; A4223; A4649; A4930; A6223; C1751; J1308; J2360; J3375

== ENCOUNTER → 2025-11-07 | Outpatient (CLI) | payer SELFPAY ==
[~2025-11-07] MED LIST: BLOO-140 MC; BLOO-4 MISC; DOCU-116 PO; HYDR-4060 PO; METF-444 PO
== END | disposition home or self-care (01) ==
LOC: LAB 12:17
PROVIDERS: ATTEND Orthopaedic Surgery
DX: L02.91 Cutaneous abscess, unspecified (principal); Z79.899 Other long term (current) drug therapy
CPT/HCPCS: 87071; 87076; 87086; 87186; 87205